=== PATIENT | female | born 1935 | race Caucasian/White ===

== ENCOUNTER → 2016-05-21 | Outpatient (REF) | payer MEDICARE, BC ==
[2016-05-21 12:12] LABS: ANION GAP 9 MEQ/L (8-16); BLOOD UREA NITROGEN 13 MG/DL (7-18); CALCIUM LEVEL 9.1 MG/DL (8.8-10.2); CARBON DIOXIDE LEVEL 30 MEQ/L (21-32); CHLORIDE LEVEL 106 MEQ/L (98-107); CREATININE FOR GFR 0.61 MG/DL (0.55-1.02); GLOMERULAR FILTRATION RATE > 60.0 (>39); GLUCOSE, FASTING 99 MG/DL (83-110); POTASSIUM SERUM 3.9 MEQ/L (3.5-5.1); SODIUM LEVEL 145 MEQ/L (136-145)
== END ==
LOC: M SFHCPLAZ 08:46
PROVIDERS: ATTEND Family Medicine
DX: E03.9 Hypothyroidism, unspecified (principal); I10 Essential (primary) hypertension
CPT/HCPCS: 36415; 80048; 84439; 84443; G0463

== ENCOUNTER → 2016-07-04 | Outpatient (REF) | payer MEDICARE, BC | LOC: M SFHCPLAZ 08:52 | PROVIDERS: ATTEND Family Medicine | DX: E03.9 Hypothyroidism, unspecified (principal) ==

== ENCOUNTER → 2016-12-26 | Outpatient (REF) | payer MEDICARE, BC ==
[2016-12-26 13:53] LABS: ANION GAP 11 MEQ/L (8-16); BLOOD UREA NITROGEN 12 MG/DL (7-18); CALCIUM LEVEL 8.9 MG/DL (8.8-10.2); CARBON DIOXIDE LEVEL 26 MEQ/L (21-32); CHLORIDE LEVEL 107 MEQ/L (98-107); CREATININE FOR GFR 0.67 MG/DL (0.55-1.02); GLOMERULAR FILTRATION RATE > 60.0 (>32); GLUCOSE, FASTING 91 MG/DL (83-110); POTASSIUM SERUM 4.5 MEQ/L (3.5-5.1); SODIUM LEVEL 144 MEQ/L (136-145)
== END ==
LOC: M SFHCPLAZ 10:49
PROVIDERS: ATTEND Family Medicine
DX: I10 Essential (primary) hypertension (principal); E03.9 Hypothyroidism, unspecified
CPT/HCPCS: 36415; 80048; 84443; G0463

== ENCOUNTER → 2017-12-07 | Outpatient (REF) | payer MEDICARE, BC ==
[2017-12-07 17:26] LABS: ANION GAP 12 MEQ/L (8-16); BLOOD UREA NITROGEN 18 MG/DL (7-18); CALCIUM LEVEL 9.4 MG/DL (8.8-10.2); CARBON DIOXIDE LEVEL 25 MEQ/L (21-32); CHLORIDE LEVEL 108 MEQ/L (98-107); CREATININE FOR GFR 0.79 MG/DL (0.55-1.30); FREE T4 1.08 NG/DL (0.76-1.46); GLOMERULAR FILTRATION RATE > 60.0 (>32); GLUCOSE, FASTING 89 MG/DL (70-100); POTASSIUM SERUM 4.2 MEQ/L (3.5-5.1); SODIUM LEVEL 145 MEQ/L (136-145)
== END ==
LOC: M SFHCPLAZ 14:10
DX: E03.9 Hypothyroidism, unspecified (principal); I10 Essential (primary) hypertension
CPT/HCPCS: 84443

== ENCOUNTER → 2018-11-03 | Outpatient (REF) | payer MEDICARE, BC ==
[2018-11-03 12:41] LABS: BLOOD UREA NITROGEN 14 MG/DL (7-18); CARBON DIOXIDE LEVEL 28 MEQ/L (21-32); CHLORIDE LEVEL 108 MEQ/L (98-107); CREATININE FOR GFR 0.59 MG/DL (0.55-1.30); FREE T4 1.36 NG/DL (0.76-1.46); GLOMERULAR FILTRATION RATE > 60.0 (>32); GLUCOSE, FASTING 97 MG/DL (70-100); POTASSIUM SERUM 3.9 MEQ/L (3.5-5.1); SODIUM LEVEL 141 MEQ/L (136-145)
[2018-11-03 13:00] LABS: CREATININE, URINE 85.1 MG/DL; MALB URINE SIEMENS 14.3 MG/L; MAU/CREAT RATIO 16.8 MCG/MG (0.0-30.0)
== END ==
LOC: M SFHCPLAZ 09:55
PROVIDERS: ATTEND Family Medicine
DX: E03.9 Hypothyroidism, unspecified (principal); I10 Essential (primary) hypertension

== ENCOUNTER → 2018-12-30 | Outpatient (REF) | payer MEDICARE, BC ==
[2018-12-30 12:30] LABS: FREE T4 0.98 NG/DL (0.76-1.46); THYROID STIMULATING HORMONE 1.65 uIU/ML (0.358-3.740)
== END ==
LOC: M SFHCPLAZ 09:51
PROVIDERS: ATTEND Family Medicine
DX: E03.9 Hypothyroidism, unspecified (principal)

== ENCOUNTER → 2019-11-22 | Outpatient (REF) | payer MEDICARE, BC ==
[2019-11-22 17:26] LABS: BLOOD UREA NITROGEN 13 MG/DL (7-18); CALCIUM LEVEL 9.3 MG/DL (8.8-10.2); CARBON DIOXIDE LEVEL 27 MEQ/L (21-32); CHLORIDE LEVEL 105 MEQ/L (98-107); CREATININE FOR GFR 0.66 MG/DL (0.55-1.30); GLOMERULAR FILTRATION RATE > 60.0 (>32); GLUCOSE, FASTING 81 MG/DL (70-100); POTASSIUM SERUM 4.2 MEQ/L (3.5-5.1); SODIUM LEVEL 140 MEQ/L (136-145)
== END ==
LOC: M SFHCPLAZ 14:20
PROVIDERS: ATTEND Family Medicine
DX: I10 Essential (primary) hypertension (principal); E03.9 Hypothyroidism, unspecified

== ENCOUNTER → 2020-01-25 | Outpatient (CLI) | payer MEDICARE, BC | LOC: M PLALAB 10:11 | PROVIDERS: ATTEND Family Medicine | DX: E03.9 Hypothyroidism, unspecified (principal) ==

== ENCOUNTER → 2020-04-23 | Outpatient (REF) | payer MEDICARE, BC ==
[2020-04-23 14:08] LABS: BLOOD UREA NITROGEN 9 MG/DL (7-18); CALCIUM LEVEL 9.9 MG/DL (8.8-10.2); CARBON DIOXIDE LEVEL 31 MEQ/L (21-32); CHLORIDE LEVEL 106 MEQ/L (98-107); CREATININE FOR GFR 0.67 MG/DL (0.55-1.30); GLOMERULAR FILTRATION RATE > 60.0 (>32); GLUCOSE, FASTING 100 MG/DL (70-100); POTASSIUM SERUM 4.5 MEQ/L (3.5-5.1); SODIUM LEVEL 140 MEQ/L (136-145)
== END ==
LOC: M SFHCPLAZ 08:26
PROVIDERS: ATTEND Family Medicine
DX: E03.9 Hypothyroidism, unspecified (principal); I10 Essential (primary) hypertension
CPT/HCPCS: 36415; 80048; 84443; G0463

== ENCOUNTER → 2020-11-19 | Outpatient (CLI) | payer MEDICARE, BC ==
[2020-11-19 15:55] LABS: HEMATOCRIT 26.8 % (36.0-47.0); HEMOGLOBIN 8.7 g/dl (12.0-15.5); MEAN CORPUSCULAR HEMOGLOBIN 32.1 pg (27.0-33.0); MEAN CORPUSCULAR HGB CONC 32.5 g/dl (32.0-36.5); MEAN CORPUSCULAR VOLUME 98.9 fl (80.0-96.0); PLATELET COUNT, AUTOMATED 277 10^3/uL (150-450); RED BLOOD COUNT 2.71 10^6/uL (4.00-5.40); WHITE BLOOD COUNT 4.9 10^3/uL (4.0-10.0)
[2020-11-19 16:30] LABS: BLOOD UREA NITROGEN 16 MG/DL (7-18); CALCIUM LEVEL 8.8 MG/DL (8.8-10.2); CARBON DIOXIDE LEVEL 28 MEQ/L (21-32); CHLORIDE LEVEL 110 MEQ/L (98-107); CREATININE FOR GFR 0.67 MG/DL (0.55-1.30); GLOMERULAR FILTRATION RATE > 60.0 (>32); GLUCOSE, FASTING 95 MG/DL (70-100); POTASSIUM SERUM 3.8 MEQ/L (3.5-5.1); SODIUM LEVEL 146 MEQ/L (136-145)
== END ==
LOC: M PLALAB 12:29
PROVIDERS: ATTEND Family Medicine
DX: E03.9 Hypothyroidism, unspecified (principal); I48.0 Paroxysmal atrial fibrillation; I25.10 Atherosclerotic heart disease of native coronary artery without angina pectoris; I10 Essential (primary) hypertension

== ENCOUNTER → 2020-11-21 | Outpatient (CLI) | payer MEDICARE, BC ==
[2020-11-21 13:48] LABS: HEMATOCRIT 27.8 % (36.0-47.0); HEMATOCRIT 28.2 % (36.0-47.0); HEMOGLOBIN 8.8 g/dl (12.0-15.5); MEAN CORPUSCULAR HEMOGLOBIN 31.7 pg (27.0-33.0); MEAN CORPUSCULAR HGB CONC 31.7 g/dl (32.0-36.5); PLATELET COUNT, AUTOMATED 279 10^3/uL (150-450); RED BLOOD COUNT 2.78 10^6/uL (4.00-5.40); WHITE BLOOD COUNT 5.8 10^3/uL (4.0-10.0)
[2020-11-21 14:21] LABS: PERCENT SATURATION 13.2 % (13.2-45.0)
[2020-11-24 11:20] LABS: Methylmalonic Acid 122 nmol/L (0-378); TRANSFERRIN 220 mg/dL (149-313)
== END ==
LOC: M PLALAB 09:13
PROVIDERS: ATTEND Family Medicine
DX: D53.9 Nutritional anemia, unspecified (principal)

== ENCOUNTER → 2020-11-22 | Outpatient (REF) | payer MEDICARE, BC | LOC: M LAB REF 09:10 | PROVIDERS: ATTEND Family Medicine | DX: D53.9 Nutritional anemia, unspecified (principal) ==

== ENCOUNTER → 2020-11-26 | Outpatient (CLI) | payer MEDICARE, BC ==
[2020-11-26 13:36] LABS: HEMATOCRIT 27.1 % (36.0-47.0); HEMOGLOBIN 8.6 g/dl (12.0-15.5); MEAN CORPUSCULAR HEMOGLOBIN 31.5 pg (27.0-33.0); MEAN CORPUSCULAR HGB CONC 31.7 g/dl (32.0-36.5); MEAN CORPUSCULAR VOLUME 99.3 fl (80.0-96.0); PLATELET COUNT, AUTOMATED 283 10^3/uL (150-450); RED BLOOD COUNT 2.73 10^6/uL (4.00-5.40); WHITE BLOOD COUNT 4.8 10^3/uL (4.0-10.0)
[2020-11-26 14:12] LABS: H PYLORI QUALITATIVE IgG NEGATIVE (NEGATIVE)
== END ==
LOC: M PLALAB 11:24
PROVIDERS: ATTEND Family Medicine
DX: K92.2 Gastrointestinal hemorrhage, unspecified (principal)

== ENCOUNTER → 2020-12-03 | Outpatient (CLI) | payer MEDICARE, BC ==
[2020-12-03 12:58] LABS: HEMOGLOBIN 9.7 g/dl (12.0-15.5); MEAN CORPUSCULAR HEMOGLOBIN 31.6 pg (27.0-33.0); MEAN CORPUSCULAR HGB CONC 31.3 g/dl (32.0-36.5); PLATELET COUNT, AUTOMATED 302 10^3/uL (150-450); RED BLOOD COUNT 3.07 10^6/uL (4.00-5.40); WHITE BLOOD COUNT 5.4 10^3/uL (4.0-10.0)
== END ==
LOC: M PLALAB 12:01
PROVIDERS: ATTEND Family Medicine
DX: D53.9 Nutritional anemia, unspecified (principal)
CPT/HCPCS: 36415; 85027; 96372; G0463; J3420

== ENCOUNTER → 2020-12-10 | Outpatient (CLI) | payer MEDICARE, BC ==
[2020-12-10 14:36] LABS: HEMATOCRIT 33.9 % (36.0-47.0); HEMOGLOBIN 10.7 g/dl (12.0-15.5); MEAN CORPUSCULAR HGB CONC 31.6 g/dl (32.0-36.5); MEAN CORPUSCULAR VOLUME 101.5 fl (80.0-96.0); PLATELET COUNT, AUTOMATED 281 10^3/uL (150-450); RED BLOOD COUNT 3.34 10^6/uL (4.00-5.40); WHITE BLOOD COUNT 5.3 10^3/uL (4.0-10.0)
== END ==
LOC: M PLALAB 11:43
PROVIDERS: ATTEND Family Medicine
DX: E53.8 Deficiency of other specified B group vitamins (principal)
CPT/HCPCS: 36415; 85027; 96372; J3420

== ENCOUNTER → 2021-01-30 | Outpatient (CLI) | payer MEDICARE, BC ==
[2021-01-30 17:08] LABS: HEMOGLOBIN 11.3 g/dl (12.0-15.5); MEAN CORPUSCULAR HEMOGLOBIN 30.4 pg (27.0-33.0); MEAN CORPUSCULAR HGB CONC 32.3 g/dl (32.0-36.5); MEAN CORPUSCULAR VOLUME 94.1 fl (80.0-96.0); PLATELET COUNT, AUTOMATED 297 10^3/uL (150-450); RED BLOOD COUNT 3.72 10^6/uL (4.00-5.40); WHITE BLOOD COUNT 5.6 10^3/uL (4.0-10.0)
[2021-01-30 17:32] LABS: PERCENT SATURATION 46.2 % (13.2-45.0)
== END ==
LOC: M PLALAB 14:37
PROVIDERS: ATTEND Family Medicine
DX: E53.8 Deficiency of other specified B group vitamins (principal); D50.0 Iron deficiency anemia secondary to blood loss (chronic)

== ENCOUNTER → 2021-02-18 | Outpatient (CLI) | payer MEDICARE, BC ==
[~2021-02-18] MED LIST: LIQUID POLIBAR PLUS 105% w/v 750ML BTL As Ordered ONE
--- NOTE | 2021-02-18 17:06 | REP ---
INDICATION: HEMORRHAGE. COMPARISON: None TECHNIQUE: The procedure was performed by MARK Fuchs, under the direct supervision of Dr. Mohamud. The images were reviewed with Dr. Dr. Mohamud. Liquid barium and air were instilled into the colon and retrograde flow of the barium air mixture. FINDINGS: The environmental epidemiologist film shows no organomegaly, or pathological masses. The intestinal gas pattern is unremarkable. The colon is normal in position and contour. There are redundant loops of the left transverse and sigmoid colon. Haustral pattern is unremarkable throughout. There is free flow of contrast to the cecum. The colon is normal in course and caliber. There is no annular constricting lesion identified. There are no polypoid masses identified. There is diverticulosis. IMPRESSION: Diverticulosis. 0.5 minutes of fluoroscopy time was utilized for this procedure. Some fluoroscopic images are performed with last image hold technology. These images require no additional radiation <Electronically signed by Kourtney Lei > 02/18/21 [id number] <Electronically signed by Wilton Mohamud > 02/18/21 1700
== END ==
LOC: M RAD 08:52
PROVIDERS: ATTEND Family Medicine
DX: K92.2 Gastrointestinal hemorrhage, unspecified (principal); K57.30 Diverticulosis of large intestine without perforation or abscess without bleeding

== ENCOUNTER → 2021-02-22 | Outpatient (CLI) | payer MEDICARE, BC ==
[2021-02-22 15:37] LABS: HEMATOCRIT 34.4 % (36.0-47.0); HEMOGLOBIN 10.9 g/dl (12.0-15.5); MEAN CORPUSCULAR HEMOGLOBIN 29.5 pg (27.0-33.0); MEAN CORPUSCULAR HGB CONC 31.7 g/dl (32.0-36.5); PLATELET COUNT, AUTOMATED 267 10^3/uL (150-450); WHITE BLOOD COUNT 6.1 10^3/uL (4.0-10.0)
[2021-02-22 15:57] LABS: FERRITIN 10 NG/ML (8-252); IRON (FE) 33 UG/DL (50-170); PERCENT SATURATION 9.2 % (13.2-45.0); TOTAL IRON BINDING CAPACITY 357 UG/DL (250-450)
[2021-02-22 16:03] LABS: VITAMIN B12 LEVEL > 2000 PG/ML (247-911)
== END ==
LOC: M PLALAB 11:12
PROVIDERS: ATTEND Family Medicine
DX: E53.8 Deficiency of other specified B group vitamins (principal); D50.0 Iron deficiency anemia secondary to blood loss (chronic)
CPT/HCPCS: 36415; 82607; 82728; 83550; 85027; 96372; J3420

== ENCOUNTER → 2021-02-26 | Outpatient (CLI) | payer MEDICARE, BC ==
[~2021-02-26] MED LIST changes: +E-Z-GAS II EFFERVESCENT PACKET (SODIUM BICARB./CITRIC ACID/SIMETHICONE) As Ordered ONE; +E-Z-HD 98% w/w 340GM SUSP BTL As Ordered ONE; +E-Z-PAQUE 96% w/w SUSP 176GM BTL As Ordered ONE; -LIQUID POLIBAR PLUS 105% w/v 750ML BTL As Ordered ONE
--- NOTE | 2021-02-26 17:19 | REP ---
INDICATION: GASTRO INTESTINAL HEMORRHAGE UNSPEC. COMPARISON: None TECHNIQUE: This procedure was performed by MARK Alves, under the direct supervision of Dr. Mohamud. Images were reviewed with Dr. Mohamud prior to dictation. Liquid barium and gas producing crystals were given in the erect position, as well as liquid barium in the prone oblique position in order to perform a double contrast upper GI examination. Additional liquid barium was given at the end of the examination in order to perform a small-bowel follow-through. FINDINGS: The body art technician film shows no organomegaly or pathological masses. The intestinal gas pattern is unremarkable. The oral and pharyngeal stages of deglutition were unremarkable. Esophageal transport is prompt and efficient and there is no evidence of esophagitis, stricture, or mucosal ring. There is no evidence of a hiatal hernia. . The stomach wynn are normally outlined. The rugal folds are smooth and regular. There is no gastritis, neoplasm, or ulcerative disease. Gastroesophageal reflux was observed to below the level of the spencer. The duodenal wynn are normally outlined. The mucosal folds are smooth and regular. There is no duodenitis, peptic ulcer disease or neoplasm. There is a small diverticulum in the transverse portion of the duodenum. There is another larger diverticulum in the 3rd portion of the duodenum. The visualized portion of the proximal small bowel appears normal in course and caliber. The barium column was followed through the small bowel to the level of the terminal ileum. Small bowel transit time is approximately 100 minutes. During fluoroscopy gentle palpation shows all loops are freely movable and pliable. There is no fixed angulated loops. The small bowel mucosal pattern is normal in course and caliber. There is no transition to suggest a partial small bowel obstruction. Spot filming of the terminal ileum shows scattered small diverticula but it is otherwise unremarkable. IMPRESSION: Gastroesophageal reflux was observed below the level of the spencer. There are 2 diverticula in the duodenum. One smaller diverticulum in the transverse portion of the duodenum. One larger-sized diverticulum in the 3rd portion of the duodenum. Small bowel transit time was approximately 100 minutes spot filming of the terminal ileum shows scattered small diverticula but is otherwise unremarkable. 2.6 minutes of fluoroscopy time was utilized for this procedure. Some fluoroscopic images are performed with last image hold technology. These images require no additional radiation. <Electronically signed by Mechelle Mosqueda > 02/26/21 1632 <Electronically signed by Wilton Mohamud > 02/26/21 [id number]
== END ==
LOC: M RAD 08:02
PROVIDERS: ATTEND Family Medicine
DX: K92.2 Gastrointestinal hemorrhage, unspecified (principal); K21.9 Gastro-esophageal reflux disease without esophagitis; K57.10 Diverticulosis of small intestine without perforation or abscess without bleeding

== ENCOUNTER → 2021-03-25 | Outpatient (CLI) | payer MEDICARE, BC ==
[2021-03-25 10:09] LABS: HEMATOCRIT 36.8 % (36.0-47.0); HEMOGLOBIN 11.7 g/dl (12.0-15.5); MEAN CORPUSCULAR HEMOGLOBIN 29.9 pg (27.0-33.0); MEAN CORPUSCULAR HGB CONC 31.8 g/dl (32.0-36.5); MEAN CORPUSCULAR VOLUME 94.1 fl (80.0-96.0); PLATELET COUNT, AUTOMATED 267 10^3/uL (150-450); RED BLOOD COUNT 3.91 10^6/uL (4.00-5.40)
[2021-03-25 10:53] LABS: THYROID STIMULATING HORMONE 2.77 uIU/ML (0.358-3.740)
== END ==
LOC: M PLALAB 08:53
PROVIDERS: ATTEND Family Medicine
DX: E03.9 Hypothyroidism, unspecified (principal); E53.8 Deficiency of other specified B group vitamins

== ENCOUNTER → 2021-04-19 | Outpatient (CLI) | payer MEDICARE, BC ==
[2021-04-19 17:04] LABS: BASO # 0.1 10^3/uL (0.0-0.2); BASO % 0.7 % (0.0-1.0); EOS # 0.1 10^3/uL (0.0-0.5); EOS % 1.8 % (0.0-3.0); HEMATOCRIT 35.1 % (36.0-47.0); HEMOGLOBIN 11.5 g/dl (12.0-15.5); LYMPH # 2.2 10^3/uL (1.5-5.0); LYMPH % 30.6 % (24.0-44.0); MEAN CORPUSCULAR HEMOGLOBIN 30.6 pg (27.0-33.0); MEAN CORPUSCULAR HGB CONC 32.8 g/dl (32.0-36.5); MEAN CORPUSCULAR VOLUME 93.4 fl (80.0-96.0); MONO # 0.8 10^3/uL (0.0-0.8); NEUTROPHILS # 3.9 10^3/uL (1.5-8.5); NEUTROPHILS % 55.5 % (36.0-66.0); PLATELET COUNT, AUTOMATED 253 10^3/uL (150-450); RED BLOOD COUNT 3.76 10^6/uL (4.00-5.40); WHITE BLOOD COUNT 7.1 10^3/uL (4.0-10.0)
== END ==
LOC: M PLALAB 15:43
PROVIDERS: ATTEND Physician Assistant
DX: S40.021A Contusion of right upper arm, initial encounter (principal); X58.XXXA Exposure to other specified factors, initial encounter; Y92.89 Other specified places as the place of occurrence of the external cause; Y93.89 Activity, other specified; Y99.8 Other external cause status

== ENCOUNTER 2021-04-22 10:31 | Emergency (ER) | payer MEDICARE, BC ==
[~2021-04-22] VITALS: Ht 154.9 cm; Wt 59.1 kg
--- OUTSIDE RECORDS SUMMARY | 2021-04-22 10:39 | CCD ---
Author Author [facility] Organization [facility] Address Unknown Phone Unavailable Care Team Providers Care Machine Repairman Name Role Phone Andry Moose Unavailable PROBLEMS Type Condition ICD9-CM Code [id number] Code Onset Dates Condition S tatus W/U Status Risk SNOMED Code Notes Problem Essential hypertension I10 Active confirmed 11022626 Problem Vitamin B12 deficiency E53.8 Active confirmed 249082761 Problem Iron deficiency anemia due to chronic blood loss D 50.0 Active confirmed 498459117 Problem Hypothyroidism, unspecified type E03.9 Active conf irmed 11093139 Problem Coronary artery disease invo [place]ving [place] coronary artery of [place] heart without angina pectoris I25.10 Active confirmed 543163 000 Problem Paroxysmal atrial fibrillation I48.0 Active confir med 093122204 Problem Mixed hyperlipidemia E78.2 Active confirmed 446043954 ALLERGIES Allergen (clinical drug ingredient) Drug/Non Drug Allergy do cumented on EMR Reaction Allergy Type Onset Date Status Sulfasalazine Sulfa Antibiotics Rash Drug Allergy Ac tive ENCOUNTERS from 1936 to 2021-04-16 Encounter Location Date Provider Diagnosis [address] [phone] [place] [address] 07 Apr, 2021 oMose Wilde Vitamin B12 deficiency E53.8 IMMUNIZATIONS Vaccine Route Administration Date Status COVID-19 dose #2 given elsewhere Unspecified Unknown Oct Administered COVID-19 dose #1 given elsewhere Unspecified Unknown Oct Administered Influenza (High Dose 65 & up) Unknown Apr 29, 2017 Ot hers Influenza 6mo & up Fluzone Unknown May 21, 2016 Other s SOCIAL HISTORY Tobacco Use: Social History Observation Description Date Details (start date - stop date) Former Smoker Sex Assigned At : Social History Observation Description Sex Assigned At Unknown Education: Question Answer Notes Level of Education: Finished College Audit Question Answer Notes Total Score: 0 Interpretation: Alcohol Education Language: Question Answer Notes Languages spoken: Icelandic Scientologist: Question Answer Notes Scientologist 21 Religious Domestic Violence: Question Answer Notes Status: Sexual Hx: Question Answer Notes Had sex in the last 12 months (vaginal, oral, or anal)? No Have you ever had an STD? No Drug and Alcohol Question Answer Notes Total Score: 0 Interpretation: No problems reported Alcohol Screening: Question Answer Notes Did you have a drink containing alcohol in the past year? No Points 0 Interpretation Negative Tobacco Use: Question Answer Notes Are you a: former smoker How long has it been since you last smoked? > 10 years REASON FOR REFERRAL No Information VITAL SIGNS No information MEDICATIONS Medication SIG (Take, Route, Frequency, Duration) Notes Start Da te End Date Status Rosuvastatin Calcium 20 MG 1 tablet Orally Once a day for 90 day (s) Mar, Active Clopidogrel Bisulfate 75 MG 1 tablet Orally Once a day for 90 days Active Amlodipine Besylate 10 MG TAKE ONE TABLET BY MOUTH EVERY DAY Orally Active Ferrous Sulfate 325 (65 Fe) MG 1 tablet Orally Once a day Nov, Active Eliquis 5 MG 1 tab Orally twice daily for 90 days Active Lisinopril 30 MG TAKE ONE TABLET BY MOUTH EVERY DAY for 90 Active Fluticasone Propionate 50 MCG/ACT 1 spray in each nostril Nasall y Once a day Nov, Active Atenolol 100 mg 1 tablet Orally Daily for 90 days Active Synthroid 88 MCG 1 tablet in the morning on a n empty stomach Orally Once a day; BETHANY Apr, Active PROCEDURES No Information RESULTS No Results REASON FOR VISIT No Information MEDICAL (GENERAL) HISTORY Type Description Date Medical History Hypothyroidism Medical History Hypertension Medical History Urinary incontinence with bl adder prolapse - has Dr. Mandi jara Medical History Derm - annual skin check at [facility] Medical History NSTEMI 10/2020 and 4 stents placed - [facility] Medical History P A-fib with RVR 10/29 Medical History [facility] - has hearing aids Surgical History Hysterectomy for heavy bleeding 1992 Surgical History Surgery to "remove cysts around intestin es" 1966 Surgical History cardiac cath with drug eluting stents x 4 10/29 Goals Section No Information Health Concerns No Information MEDICAL EQUIPMENT No Information MENTAL STATUS No Information FUNCTIONAL STATUS No Information ASSESSMENTS Encounter Date Diagnosis Assessment Notes Treatment Notes Treatm ent Clinical Notes Apr, Vitamin B12 deficiency (ICD-10 - E53.8) PLAN OF TREATMENT Medication Medication Name Sig Start Date Stop Date Ferrous Sulfate 325 (65 Fe) MG 1 tablet Orally Once a day Nov Rosuvastatin Calcium 20 MG 1 tablet Orally Once a day for 90 day(s) Mar, Synthroid 88 MCG 1 tablet in the morning on a n empty stomach Orally Once a day; BETHANY Apr, Pending Tests Test Name Order Date Med: Vitamin B-12 1000mcg/1mL SC Cyanocobalamin 2020-05 2-07 Next Appt Details Provider Name:Nora Perkins, 2021-05-07 08:00:00 AM, [address] [place], [place] [id number], [place], [address], Provider Name:Nora Perkins, 2021-05-28 08:00:00 AM, [address] [place] [id number], [place], [address], Provider Name:Nora Perkins, 2021-06-11 08:00:00 AM, [address] [place] [id number], [place], [address], Insurance Providers Payer Name Payer Address Payer Phone Insured Name Patient Relati onship to Insured Coverage Start Date Coverage End Date Subscriber Number Group Nu mber MEDICARE Part A and B [address] [facility] [phone] NEVAEH COVINGTON self [id number] [facility] [phone] [place] [id number] NEVAEH COVINGTON self [id number]
--- OUTSIDE RECORDS SUMMARY | 2021-04-22 10:39 | CCD ---
Author Author [facility] Organization [facility] Address Unknown Phone Unavailable Care Team Providers Care Simplex Printer Installer Name Role Phone Nora Perkins Unavailable PROBLEMS Type Condition ICD9-CM Code [id number] Code Onset Dates Condition S tatus W/U Status Risk SNOMED Code Notes Problem Essential hypertension I10 Active confirmed 69356307 Problem Vitamin B12 deficiency E53.8 Active confirmed 214525896 Problem Iron deficiency anemia due to chronic blood loss D 50.0 Active confirmed 195446173 Problem Hypothyroidism, unspecified type E03.9 Active conf irmed 13260555 Problem Coronary artery disease invo lving [place] coronary artery of [place] heart without angina pectoris I25.10 Active confirmed 021180 000 Problem Paroxysmal atrial fibrillation I48.0 Active confir med 248453900 Problem Mixed hyperlipidemia E78.2 Active confirmed 518766586 ALLERGIES Allergen (clinical drug ingredient) Drug/Non Drug Allergy do cumented on EMR Reaction Allergy Type Onset Date Status Sulfasalazine Sulfa Antibiotics Rash Drug Allergy Ac tive ENCOUNTERS from 1936 to 2021-04-16 Encounter Location Date Provider Diagnosis [address] [phone] [place] [address] 07 Apr, 2021 Nora Perkins Vitamin B12 deficiency E53.8 IMMUNIZATIONS Vaccine Route [...] Education Language: Question Answer Notes Languages spoken: Australian Yazidism: Question Answer Notes Yazidism 21 Zoroastrian Domestic Violence: Question Answer Notes Status: Sexual [...] Once a day; BETHANY Apr, Active PROCEDURES from 1936 to 2021-04-16 Procedure Date Ordered Date Performed Result Body Site Med: Vitamin B-12 1000mcg/1mL IM Cyanocobalamin 2021-04-16 N/A RESULTS No Results REASON FOR VISIT NV in 3 weeks B12 MEDICAL (GENERAL) HISTORY Type Description Date Medical History Hypothyroidism Medical History Hypertension Medical History Urinary incontinence with bl adder prolapse - has pessary, Dr. Raymond Medical History Derm - annual skin check at [facility] Medical History NSTEMI 10/2020 and [facility] stents [address] - [facility] Medical History P A-fib with RVR 10/29 Medical History [place] - has hearing aids Surgical History Hysterectomy [...] stomach Orally Once a day; BETHANY Apr, Next Appt Details Provider Name:Nora Perkins, 2021-05-07 08:00:00 AM, [address] [place], [place] [id number], [place], [address], Provider Name:Nora Perkins, 2021-05-28 08:00:00 AM, [address] [place], [place] [id number], [place], [address], Provider Name:Nora Perkins, 2021-06-11 08:00:00 AM, [address] [place], [place] [id number], [place], [address], Insurance Providers Payer Name Payer Address Payer Phone Insured Name Patient Relati onship to Insured Coverage Start Date Coverage End Date Subscriber Number Group Nu mber MEDICARE Part A and B [address] [facility] [phone] NEVAEH COVINGTON self [id number] [facility] [phone] [place] [address] NEVAEH COVINGTON self [id number]
--- OUTSIDE RECORDS SUMMARY | 2021-04-22 10:39 | CCD ---
Author Author [facility] Organization [facility] Address Unknown Phone Unavailable Care Team Providers Care Supervisor Drapery Hanging Name Role Phone Nora Perkins Unavailable PROBLEMS Type Condition ICD9-CM Code [id number] Code Onset Dates Condition S tatus W/U Status Risk SNOMED Code Notes Problem Essential hypertension I10 Active confirmed 66450242 Problem Vitamin B12 deficiency E53.8 Active confirmed 328976578 Problem Iron deficiency anemia due to chronic blood loss D 50.0 Active confirmed 378909729 Problem Hypothyroidism, unspecified type E03.9 Active conf irmed 38584484 Problem Coronary artery disease invo lving [place] coronary artery of [place] heart without angina pectoris I25.10 Active confirmed 477708 000 Problem Paroxysmal atrial fibrillation I48.0 Active confir med 363062619 Problem Mixed hyperlipidemia E78.2 Active confirmed 464804706 ALLERGIES Allergen (clinical drug ingredient) Drug/Non Drug Allergy do cumented on EMR Reaction Allergy Type Onset Date Status Sulfasalazine Sulfa Antibiotics Rash Drug Allergy Ac tive ENCOUNTERS from 1936 to 2021-03-27 Encounter Location Date Provider Diagnosis [place] [id number] [facility] [phone] [place] [address] 16 Mar, 2021 Nora Perkins Iron deficiency anemia due t o chronic blood loss D50.0 ; Vitamin B12 deficiency E53.8 ; Hypothyroidism, unspecified type E03.9 ; Hair loss L65.9 ; Coronary artery disease involving [place] coronary artery of [place] heart without angina pectoris I25.10 ; Mixed hyperlipidemia E78.2 and Paroxysmal atrial fibrillation I48.0 IMMUNIZATIONS Vaccine Route Administration Date Status COVID-19 [...] Education Language: Question Answer Notes Languages spoken: Turkmen Synagogue: Question Answer Notes Synagogue 21 Yazdanism Domestic Violence: Question Answer Notes Status: Sexual [...] REASON FOR REFERRAL No Information VITAL SIGNS Weight 133.8 lbs Mar, Height 62 in Mar, BMI 24.47 kg/m2 Mar, Heart Rate 82 /min Mar, Respiratory Rate 18 /min Mar, Temperature 98.0 degrees Fahrenheit Mar, Oximetry 98% Mar, Blood pressure systolic 130 mm Hg Mar, Blood pressure diastolic 76 mm Hg Mar, MEDICATIONS Medication SIG (Take, Route, Frequency, Duration) [...] empty stomach Orally Once a day; BETHANY 14 Apr, 2020 Active PROCEDURES from 1936 to 2021-03-27 Procedure Date Ordered Result Body Site Med: Vitamin B-12 1000mcg/1mL IM Cyanocobalamin 2021-03-26 N/A RESULTS No Results REASON FOR VISIT F/u anemia, B12 deficiency MEDICAL (GENERAL) HISTORY Type Description Date Medical History Hypothyroidism Medical History Hypertension Medical History Urinary incontinence with bl adder prolapse - has Dr. Mandi jara Medical History Derm - annual skin check at [facility] Medical History NSTEMI 10/2020 and [facility] [address] [facility] Medical History P A-fib with RVR 10/[address] [facility] - has hearing aids Surgical History Hysterectomy for heavy bleeding 1992 Surgical History Surgery to "remove cysts around intestin es" 1965 Surgical History cardiac cath with drug eluting stents x 4 10/29 Goals Section No Information Health Concerns No Information MEDICAL EQUIPMENT No Information MENTAL STATUS No Information FUNCTIONAL STATUS No Information ASSESSMENTS Encounter Date Diagnosis Assessment Notes Treatment Notes Treatm ent Clinical Notes Mar, Iron deficiency anemia due to chronic bl ood loss (ICD-10 - D50.0) Anemia has been improving since receiving iron and SQ B12, and since aspirin was stopped over the summer. Mar, Vitamin B12 deficiency (ICD-10 - E53.8) B12 remains in low-normal range with B12 [id number], so will increase to [id number]. Mar, Hypothyroidism, unspecified type (ICD-10 - E03.9 ) TSH was normal; results d/w patient Mar, Hair loss (ICD-10 - L65.9) Recent TSH was normal. Likely telogen effluvium from acute illness in September-October, and may also be related to to iron deficiency. I advised this should likely improve. Mar, Coronary artery disease invo lving [place] coronary artery of [place] heart without angina pectoris (ICD-10 - I25.10) She gets left arm pain when she has afib; I encouraged her to take nitroglycerin for chest or left arm pain PRN. 16 Mar, 2021 Mixed hyperlipidemia (ICD-10 - E78.2) Change to rosuvastatin as she hopes to be able to swallow this better. Mar, Paroxysmal atrial fibrillation (ICD-10 - I48.0) I strongly encouraged her to call Dr. Burrell's office regarding scheduling of her ablation due to frequent afib episodes with arm pain; regular rhythm on exam today. PLAN OF TREATMENT Medication Medication Name Sig Start Date Stop Date Ferrous Sulfate 325 (65 Fe) MG 1 tablet Orally Once a day Nov Rosuvastatin Calcium 20 MG 1 tablet Orally Once a day for 90 day(s) Mar, Synthroid 88 MCG 1 tablet in the morning on a n empty stomach Orally Once a day; BETHANY 14 Apr, 2020 Treatment Notes Assessment Notes Clinical Notes Iron deficiency anemia due to chronic blood loss Anemia has been improving since receiving iron and SQ B12, and since aspirin was stopped over the summer. Vitamin B12 deficiency B12 remains in lo w-normal range with B12 [id number], so will increase to O8xjfxv. Hypothyroidism, unspecified type TSH was normal; results d/w patient Hair loss Recent TSH was chris l. Likely telogen effluvium from acute illness in September-October, and may also be related to to iron deficiency. I advised this should likely improve. Coronary artery disease involving [place] coronary artery of [place] heart without angina pectoris She gets left arm pain when she has afib; I encouraged her to take nitroglycerin for chest or left arm pain PRN. Mixed hyperlipidemia Change to rosuvasta tin as she hopes to be able to swallow this better. Paroxysmal atrial fibrillation I strongl y encouraged her to call Dr. Burrell's office regarding scheduling of her ablation due to frequent afib episodes with arm pain; regular rhythm on exam today. Next Appt Details NV in 3 weeks, 6 weeks, 9 weeks for B12 injection; Appt with Dr. Perkins in 12 weeks for anemia/B12 Reason: Provider Name:Nora Perkins, 2021-04-16 08:00:00 AM, [address] [place] [address], , [place], [address], Provider Name:Nora Perkins, 2021-05-07 08:00:00 AM, [address] [facility], , [place], [address], Provider Name:Nora Perkins, 2021-05-28 08:00:00 AM, [address] [facility], , [place], [address], Provider Name:Nora Perkins, 2021-06-11 08:00:00 AM, [address] [facility], , [place], [address], Insurance Providers Payer Name Payer Address Payer Phone Insured Name Patient Relati onship to Insured Coverage Start Date Coverage End Date [facility] [phone] [place] [phone] NEVAEH COVINGTON MEDICARE Part A and B [address] [facility] [id number] [phone] NEVAEH COVINGTON
--- OUTSIDE RECORDS SUMMARY | 2021-04-22 10:39 | CCD | Continuity of Care Document ---
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 Luis Oliveira MD Onset: 11/28/2020 Pure hypercholesterolemia Luis Oliveira MD Onset: 2020 Social History Type Date Description Comments Sex Unknown ETOH Use Does not consume alcohol Tobacco Use Start: Unknown End: Unknown Patient is a former smoker During college years for about 6 years total Smoking Status Reviewed: 11/28/20 Patient is a former smoker Du ring college years for about 6 years total Exercise Type/Frequency Does housework daily Exercise Limitations None Allergies and adverse reactions Active Allergies Criticality Reaction | Severity Comments Date Sulfa Unable to assess criticality 11/28/2020 Medications Active Medications SIG Qnty Indications Ordering Provide r Date Amlodipine Besylate 5mg Tablets 1 by mouth every day 90tabs I10 Luis Oliveira MD 01/28/2021 Atenolol 100mg Tablets 1 b y mouth daily Unknown 11/27/2020 Synthroid 88mcg Tablets 1 by mouth in the morning Unknown 11/27/2020 Lisinopril 30mg Tablets 1 tab by mouth every day at bedtime Unknown 11/27/2020 Atorvastatin Calcium 40mg Tablets 1 by mouth every night at bedtime Unknown Clopidogrel Bisulfate 75mg Tablets 1 by mouth every day Unknown 11/27/2020 Eliquis 5mg Tablets 1 by mouth twice a day 180tabs Luis Oliveira MD 11/27/2020 History Medications Amlodipine Besylate 10mg Tablets 1 by mouth every day 90tabs I10 Luis Oliveira MD 11/28/2020 - 01/28/2021 Amlodipine Besylate 5mg Tablets 1 by mouth every day I10 Unknown 11/27/2020 - Immunizations Description No Information Available Vital Signs Date Vital Result Comment 11/28/2020 8:20am Weight 134.00 lb Height 61 inches 5'1" BMI (Body Mass Index) 25.3 kg/m2 Heart Rate 63 /min BP Systolic Sitting 168 mmHg CBP, adult cuff/Ra BP Diastolic Sitting 75 mmHg CBP, adult cuff/Ra Results Test Acquired Date Facility Test Result H/L Range Note CBC without Differential 01/30/2021 [facility] ([facility])- - White Blood Count 5.6 4.3-10.9 Red Blood Count 3.72 Low 4.70-6.20 Platelets 297 130-400 Hemoglobin 11.3 Low 13.0-17.0 Hematocrit 35.0 Low 39.0-50.0 CMP 10/15/2020 [facility] Albumin Serum/Plasma 4.0 Alt - SGPT 21 Calcium Ser/Plasma Mass/Vol 8.7 Carbon Dioxide Ser/Plasm 24 Chloride Serum/Plasma 112 Alkaline Phosphatase 64 Potassium 144 Protein Total 7.5 Sodium 144 Ast - Sgot 19 BUN - Urea Nitrogen 11 Glucose 88 Creatinine For GFR 0.47 CBC without Differential 10/15/2020 [facility] White Blood Count 6.0 Red Blood Count 4.10 Platelets 234 Hemoglobin 12.8 Hematocrit 36.5 Procedures Date Code Description Status 02/20/2021 98446 Chronic Care MGMT 20 Mins Clinical Staff Time Per Calendar Month Completed 02/20/2021 92003 Chronic Care Management Services Ea Addl 20 Min Completed 02/04/2021 62179 Complex Chronic Care MGMT Servic e Ea Addl 30 Min Completed 02/04/2021 95768 Complex Chronic Care Management SVC 1St 60 Min Completed 01/11/2021 26529 External ECG Rec>48HR<7D Review & Interpretation Completed 01/11/2021 69993 External ECG Rec>48HR<7D Recordi ng Completed 11/28/2020 26125 Office/Outpatient New Moderate M DM 45-59 Minutes Completed 11/28/2020 17514 Arterial Pressure Wa veform Analysis For Assessment Of Central Art Completed 11/28/2020 00404 ECG 12-Lead Completed Medical Devices Description No Information Available Encounters Type Date Location Provider Dx Diagnosis Office Visit 02/04/2021 1:27p Main Office Luis Oliveira MD I48.0 Paroxysmal atrial fibrillation I10 Essential (primary) hyperten ashlie E78.00 Pure hypercholesterolemia, u nspecified Office Visit 11/28/2020 8:00a Main Office Luis Oliveira MD I25.1 0 Athscl heart disease of [place] coronary artery w/o ang pctrs I25.2 Old myocardial infarction Z95.5 Presence of coronary angiopl asty implant and graft I48.0 Paroxysmal atrial fibrillati on I10 Essential (primary) hyperten ashlie R94.31 Abnormal electrocardiogram [ ECG] [EKG] E78.00 Pure hypercholesterolemia, u nspecified Assessments Date Code Description Provider 02/20/2021 I48.0 Paroxysmal atrial fibrillation D alexander Oliveira MD 02/20/2021 I10 Essential (primary) hypertension Luis Oliveira MD 02/04/2021 I48.0 Paroxysmal atrial fibrillation D alexander Oliveira MD 02/04/2021 I10 Essential (primary) hypertension Luis Oliveira MD 02/04/2021 E78.00 Pure hypercholesterolemia, unspe cified Luis Oliveira MD 01/11/2021 I48.0 Paroxysmal atrial fibrillation H olter/Event/Telemetry 11/28/2020 I25.10 Atherosclerotic hear t disease of [place] coronary artery without angina pectoris Luis Oliveira MD 11/28/2020 I25.2 Old myocardial infarction Luis Oliveira MD 11/28/2020 Z95.5 Presence of coronary angioplasty implant and graft Luis Oliveira MD 11/28/2020 I48.0 Paroxysmal atrial fibrillation D alexander Oliveira MD 11/28/2020 I10 Essential (primary) hypertension Luis Oliveira MD 11/28/2020 R94.31 Abnormal electrocardiogram [ECG] [EKG] Luis Oliveira MD 11/28/2020 E78.00 Pure hypercholesterolemia, unspe cified Luis Oliveira MD Plan of Treatment Future Appointment(s):* 05/28/2021 9:15 am - [facility] at Main Office 11/28/2020 - Luis Oliveira MD* I25.10 Atherosclerotic heart disease of [place] coronary artery without angina pectoris* Recommendations:* Amlodipine was increased to 10 mg daily to improve blood pressure control. Continue atenolol, lisinopril, atorvastatin 40 mg at bedtime, clopidogrel at the curr ent dosages. She should remain on clopidogrel for 1 year following placement of coronary stents. FYI: [facility] cardiac rehabilitation program is not presently available due to COVID 19 pandemic. * I25.2 Old myocardial infarction * Z95.5 Presence of coronary angioplasty implant and graft * I48.0 Paroxysmal atrial fibrillation* Referral:* Amado Garcia MD, Cardiology/Spec/Tech * Recommendations:* 5 day patch Holter monitor was ordered for further evaluation. Continue Eliquis and atenolol the current dosages. Superiority of cryoablation for symptomatic paroxysmal atrial fibrillation (75% atrial fibrillation free at 1 year) versus antiarrhythmic drug therapy (45% atrial fibrillation free at one year) [facility] May 2020 was explained to the patient. Patient was agreeable to be referred to an nursery manager for consideration of cryoablation of paroxysmal atrial fibrillation. She was referred to nursery manager Dr. Amado Garcia at [facility]. * I10 Essential (primary) hypertension* New Medication:* Amlodipine Besylate 10 mg - 1 by mouth every day * Recommendations:* Amlodipine was increased to 10 mg daily. Continue lisinopril and atenolol at the current dosages. Consume vegetables (starchy vegetables, non-starchy vegetables, leafy greens), raw fruit, intact whole grains, and legumes. Avoid animal products. Avoid processed foods. Avoid added fats (vegetable oils, margarine, butter, mayonnaise, lard). Avoid partially hydrogenated oils. Avoid refined grains (white rice, white flour and other grain flour products). Avoid refined sweeteners and artificial sweeteners. Low sodium was encouraged. * R94.31 Abnormal electrocardiogram [ECG] [EKG] * E78.00 Pure hypercholesterolemia, unspecified* New Labs:* Lipid Panel, Ordered: 11/28/20 * Recommendations:* Fasting lipid panel was ordered. Continue atorvastatin 40 mg at bedtime. Nutrition advice as above. * All * Follow up:* Follow-up in [address] Oliveira. Functional Status Functional Condition Comment Date Status Independent with all ADL's Activ e Mental Status Description No Information Available Referrals Refer to Reason for Referral Status Appt Date Amado Garcia MD Please evaluate & manage Par oxysmal Atrial Fibrillation with Cryoablation. Thanks! Closed [facility] [address] [address] [phone]
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
--- OUTSIDE RECORDS SUMMARY | 2021-04-22 10:40 | CCD | Continuity of Care Document ---
Author Author Eva OLIVEIRA MD Organization Unknown Address [address] [place] [address] [place] [address] Phone [phone] Care Team Providers Care Marble Machine Tender Name Role Phone Elidia Murphy STEVAN AUTM [phone] Nora Perkins MD AUTM [phone] Amado Garcia MD AUTM [phone] Problems Active Problems Provider Date Old myocardial [...] Date Facility Test Result H/L Range Note CMP 10/15/2020 [facility] Serum/Plasma 4.0 [...] 36.5 Procedures Date Code Description Status 02/20/2021 61551 Chronic Care MGMT 20 Mins Clinical Staff Time Per Calendar Month Completed 02/20/2021 02823 Chronic Care Management Services Ea Addl 20 Min Completed 02/04/2021 75178 Complex Chronic Care MGMT Servic e Ea Addl 30 Min Completed 02/04/2021 38582 Complex Chronic Care Management SVC 1St 60 Min Completed 01/11/2021 05600 External ECG Rec>48HR<7D Review & Interpretation Completed 01/11/2021 49027 External ECG Rec>48HR<7D Recordi ng Completed 11/28/2020 81470 Office/Outpatient New Moderate M DM 45-59 Minutes Completed 11/28/2020 42243 Arterial Pressure Wa veform Analysis For Assessment Of Central Art Completed 11/28/2020 90612 ECG 12-Lead Completed Medical Devices Description No Information Available Encounters Type Date Location Provider Dx Diagnosis Office Visit 02/04/2021 1:27p Main Office Luis Oliveira MD I48.0 Paroxysmal atrial fibrillation I10 Essential (primary) hyperten ashlie E78.00 Pure hypercholesterolemia, u nspecified Office Visit 11/28/2020 8:00a Main Office Luis Oliveira MD I25.1 0 Athscl heart disease of [place] coronary artery w/o ang pctrs I25.2 Old [...] 11/28/2020 I25.10 Atherosclerotic hear t disease of [place] coronary artery without angina pectoris Luis Oliveira [...] Oliveira MD* I25.10 Atherosclerotic heart disease of [place] coronary artery without angina pectoris* Recommendations:* Amlodipine was increased to 10 mg daily to improve blood pressure control. Continue atenolol, lisinopril, atorvastatin 40 mg at bedtime, clopidogrel at the curr ent dosages. She should remain on clopidogrel for 1 year following placement of coronary stents. FYI: [facility] cardiac rehabilitation program is not presently available [...] (45% atrial fibrillation free at one year) [facility] May 2020 was explained to the patient. Patient was agreeable to be referred to an sulfur burner for consideration of cryoablation of paroxysmal atrial fibrillation. She was referred to sulfur burner Dr. Amado Garcia at [facility]. * I10 Essential (primary) hypertension* New [...] oxysmal Atrial Fibrillation with Cryoablation. Thanks! Closed [facility] [address] [address] [phone]
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
--- OUTSIDE RECORDS SUMMARY | 2021-04-22 10:40 | CCD | Continuity of Care Document ---
Author Author Eva GAITAN MD Organization Unknown Address [address] [place] [address], [address] [place] [address] Phone [phone] Care Team Providers Care Airport Representative Name Role Phone Luis Oliveira MD AUTM Problems Active Problems Provider Date Essential hypertension Amado Garcia MD Onset: 01/16/2021 Pure hypercholesterolemia Amado Garcia MD Onset: 021 Social History Type Date Description Comments Sex Unknown Allergies, Adverse Reactions, Alerts Active Allergies Criticality Reaction | Severity Comments Date Sulfa Drugs Unable to assess criticality 01/17/2021 Medications Active Medications SIG Qnty Indications Ordering Provide r Date Amlodipine Besylate 10mg Tablets 1 by mouth every day Unknown Atenolol 100mg Tablets 1 by mouth every day Unknown Synthroid 88mcg Tablets Unknown Lisinopril 30mg Tablets 1 by mouth every day Unknown Atorvastatin Calcium 40mg Tablets 1 by mouth every day Unknown Clopidogrel Bisulfate 75mg Tablets 1 by mouth every day Unknown Eliquis 5mg Tablets sig- 1 by mouth twice a day Unknown Aspirin Adult Low Dose 81mg Tablet s DR 1 by mouth every day Unknown Immunizations Description No Information Available Vital Signs Date Vital Result Comment 01/17/2021 10:38am BP Systolic Right Arm 170 mmHg BP Diastolic Right Arm 79 mmHg Heart Rate 68 /min Weight 130.00 lb Results Description No Information Available Procedures Date Code Description Status 01/17/2021 32125 Office/Outpatient New High MDM 6 0-74 Minutes Completed 01/17/2021 90967 Electrocardiogram Complete Compl eted 10/18/2020 47104 Hospital Subsequent Care Level 2 Completed Medical Devices Description No Information Available Encounters Type Date Location Provider Dx Diagnosis Office Visit 01/17/2021 10:30a [facility] Amado Garcia MD I48.0 Paroxysmal atrial fibrillation R94.31 Abnormal electrocardiogram [ ECG] [EKG] Assessments Date Code Description Provider 01/17/2021 I48.0 Paroxysmal atrial fibrillation M john Garcia MD 01/17/2021 R94.31 Abnormal electrocardiogram [ECG] [EKG] Amado Garcia MD 10/18/2020 I21.4 Non-St elevation (Nstemi) myocar dial infarction Bradford Wilson MD Plan of Treatment No Information Available Functional Status Description No Information Available Mental Status Description No Information Available Referrals Description No Information Available"
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
--- OUTSIDE RECORDS SUMMARY | 2021-04-22 10:40 | CCD | Continuity of Care Document ---
Author Author Eva OLIVEIRA MD Organization Unknown Address [address] [place] [address] [place] [address] Phone [phone] Care Team Providers Care Parish Visitor Name Role Phone Elidia Murphy STEVAN AUTM [phone] Nora Perkins MD AUTM [phone] Amado Garcia MD AUTM [phone] Problems Active Problems Provider Date Old myocardial [...] 36.5 Procedures Date Code Description Status 02/20/2021 86626 Chronic Care MGMT 20 Mins Clinical Staff Time Per Calendar Month Completed 02/20/2021 13667 Chronic Care Management Services Ea Addl 20 Min Completed 02/04/2021 06306 Complex Chronic Care MGMT Servic e Ea Addl 30 Min Completed 02/04/2021 43809 Complex Chronic Care Management SVC 1St 60 Min Completed 01/11/2021 02840 External ECG Rec>48HR<7D Review & Interpretation Completed 01/11/2021 61720 External ECG Rec>48HR<7D Recordi ng Completed 11/28/2020 15261 Office/Outpatient New Moderate M DM 45-59 Minutes Completed 11/28/2020 57852 Arterial Pressure Wa veform Analysis For Assessment Of Central Art Completed 11/28/2020 11228 ECG 12-Lead Completed Medical Devices Description No Information Available Encounters Type Date Location Provider Dx Diagnosis Office Visit 02/04/2021 1:27p Main Office Luis Oliveira MD I48.0 Paroxysmal atrial fibrillation I10 Essential (primary) hyperten ashlie E78.00 Pure hypercholesterolemia, u nspecified Office Visit 11/28/2020 8:00a Main Office Luis Oliveira MD I25.1 0 Athscl heart disease of [place] coronary artery w/o ang pctrs I25.2 Old [...] 11/28/2020 I25.10 Atherosclerotic hear t disease of [place] coronary artery without angina pectoris Luis Oliveira [...] Oliveira MD* I25.10 Atherosclerotic heart disease of [place] coronary artery without angina pectoris* Recommendations:* Amlodipine was increased to 10 mg daily to improve blood pressure control. Continue atenolol, lisinopril, atorvastatin 40 mg at bedtime, clopidogrel at the curr ent dosages. She should remain on clopidogrel for 1 year following placement of coronary stents. FYI: [facility] cardiac rehabilitation program is not presently available [...] atrial fibrillation free at one year) [facility] May 2020 was explained to the patient. Patient was agreeable to be referred to an field tech for consideration of cryoablation of paroxysmal atrial fibrillation. She was referred to field tech Dr. Amado Garcia at [facility]. * I10 Essential (primary) hypertension* New [...] oxysmal Atrial Fibrillation with Cryoablation. Thanks! Closed [facility] [address] [address] [phone]
--- OUTSIDE RECORDS SUMMARY | 2021-04-22 10:41 | CCD ---
Author Author [facility] Organization [facility] Address Unknown Phone Unavailable Care Team Providers Care Project Consultant Name Role Phone Amado Garcia MD Unavailable Unavaila toni MigAmado bentley MD Unavailable Unavaila Amado Garcia MD Unavailable Unavaila Amado Garcia MD Unavailable Unavaila Amado Garcia MD Unavailable Unavaila Amado Garcia MD Unavailable Unavaila Amado Garcia MD Unavailable Unavaila Amado Garcia MD Unavailable Unavaila Amado Garcia MD Unavailable Unavaila Amado Garcia MD Unavailable Unavaila Amado Garcia MD Unavailable Unavaila Amado Garcia MD Unavailable Unavaila Amado Garcia MD Unavailable Unavaila Amado Garcia MD Unavailable Unavaila Amado Garcia MD Unavailable Unavaila Amado Garcia MD Unavailable Unavaila Amado Garcia MD Unavailable Unavaila Amado Garcia MD Unavailable Unavaila ble MigeedAmado MD Unavailable Unavaila ble Migeed, Amado Correa MD Unavailable Unavaila ble MigeedAmado MD Unavailable Unavaila ble MigeedAmado MD Unavailable Unavaila ble Migeed, Amado Correa MD Unavailable Unavaila ble MigeedAmado MD Unavailable Unavaila ble Migeed, Amado Correa MD Unavailable Unavaila ble MigeedAmado MD Unavailable Unavaila ble Migeed, Amado Correa MD Unavailable Unavaila ble Migeed, Amado Correa MD Unavailable Unavaila ble Migeed, Amado Correa MD Unavailable Unavaila ble Migeed, Amado Correa MD Unavailable Unavaila ble Migeed, Amado Correa MD Unavailable Unavaila ble Migeed, Amado Correa MD Unavailable Unavaila ble Migeed, Amado Correa MD Unavailable Unavaila ble Migeed, Amado Correa MD Unavailable Unavaila ble Migeed, Amado Correa MD Unavailable Unavaila ble Migeed, Amado Correa MD Unavailable Unavaila ble Migeed, Amado Correa MD Unavailable Unavaila ble Migeed, Amado Correa MD Unavailable Unavaila ble Migeed, Amado Correa MD Unavailable Unavaila ble MigeedAmado MD Unavailable Unavaila ble MigeedAmado MD Unavailable Unavaila ble MigeedAmado MD Unavailable Unavaila ble MigeedAmado MD Unavailable Unavaila ble MigeedAmado MD Unavailable Unavaila ble MigeedAmado MD Unavailable Unavaila ble MigeedAmado MD Unavailable Unavaila ble MigeedAmado MD Unavailable Unavaila ble MigeedAmado MD Unavailable Unavaila ble MigeedAmado MD Unavailable Unavaila ble MigeedMagdy Layton Correa MD Unavailable Unavaila ble Ahmed, Talbot Unavailable Unavailable Ahmed, Talbot Unavailable Unavailable Ahmed, Talbot Unavailable Unavailable Ahmed, Talbot Unavailable Unavailable Ahmed, Talbot Unavailable Unavailable Ahmed, Talbot Unavailable Unavailable TAO, L ALEXA TREVIZO Unavailable Unavailable TAO, Daylin LIU MD Unavailable Unavailable TAO, L ALEXA TREVIZO Unavailable Unavailable TAO, L ALEXA TREVIZO Unavailable Unavailable TAO, L ALEXA TREVIZO Unavailable Unavailable TAO, L ALEXA TREVIZO Unavailable Unavailable TAO, L ALEXA TREVIZO Unavailable Unavailable TAO, L ALEXA TREVIZO Unavailable Unavailable TAO, L ALEXA TREVIZO Unavailable Unavailable TAO, L ALEXA TREVIZO Unavailable Unavailable TAO, L ALEXA TREVIZO Unavailable Unavailable TAO, L ALEXA TREVIZO Unavailable Unavailable TAO, L ALEXA TREVIZO Unavailable Unavailable TAO, L ALEXA TREVIZO Unavailable Unavailable TAO, L ALEXA TREVIZO Unavailable Unavailable TAO, L ALEXA TREVIZO Unavailable Unavailable TAO, L ALEXA TREVIZO Unavailable Unavailable TAO, L ALEXA TREVIZO Unavailable Unavailable TAO, L ALEXA TREVIZO Unavailable Unavailable TAO, L ALEXA TREVIZO Unavailable Unavailable TAO, L ALEXA TREVIZO Unavailable Unavailable TAO, L ALEXA TREVIZO Unavailable Unavailable TAO, L ALEXA TREVIZO Unavailable Unavailable TAO, L ALEXA TREVIZO Unavailable Unavailable TAO, L ALEXA TREVIZO Unavailable Unavailable TAO, L ALEXA TREVIZO Unavailable Unavailable TAO, L ALEXA TREVIZO Unavailable Unavailable TAO, L ALEXA TREVIZO Unavailable Unavailable TAO, L ALEXA TREVIZO Unavailable Unavailable TAO, L ALEXA TREVIZO Unavailable Unavailable TAO, L ALEXA TREVIZO Unavailable Unavailable TAO, L ALEXA TREVIZO Unavailable Unavailable TAO, L ALEXA TREVIZO Unavailable Unavailable TAO, L ALEXA TREVIZO Unavailable Unavailable TAO, L ALEXA TREVIZO Unavailable Unavailable TAO, L ALEXA TREVIZO Unavailable Unavailable TAO, L ALEXA TREVIZO Unavailable Unavailable TAO, L ALEXA TREVIZO Unavailable Unavailable TAO, L ALEXA TREVIZO Unavailable Unavailable TAO, L ALEXA TREVIZO Unavailable Unavailable TAO, L ALEXA TREVIZO Unavailable Unavailable TAO, L ALEXA TREVIZO Unavailable Unavailable TAO, L ALEXA TREVIZO Unavailable Unavailable TAO, L ALEXA TREVIZO Unavailable Unavailable TAO, L ALEXA TREVIZO Unavailable Unavailable SILVESTRE SIERRA MD Unavailable Unavailable SILVESTRE SIERRA MD Unavailable Unavailable SILVESTRE SIERRA MD Unavailable Unavailable SILVESTRE SIERRA MD Unavailable Unavailable SILVESTRE SIERRA MD Unavailable Unavailable SILVESTRE SIERRA MD Unavailable Unavailable SILVESTRE SIERRA MD Unavailable Unavailable SILVESTRE SIERRA MD Unavailable Unavailable SILVESTRE SIERRA MD Unavailable Unavailable SILVESTRE SIERRA MD Unavailable Unavailable SILVESTRE SIERRA MD Unavailable Unavailable SILVESTRE SIERRA MD Unavailable Unavailable SILVESTRE SIERRA MD Unavailable Unavailable SILVESTRE SIERRA MD Unavailable Unavailable SILVESTRE SIERRA MD Unavailable Unavailable SILVESTRE SIERRA MD Unavailable Unavailable SILVESTRE SIERRA MD Unavailable Unavailable SILVESTRE SIERRA MD Unavailable Unavailable SYMENOW, G CHRISTOPHER PA Unavailable Unavailable SYMENOW, G CHRISTOPHER PA Unavailable Unavailable SYMENOW, G CHRISTOPHER PA Unavailable Unavailable SYMENOW, G CHRISTOPHER PA Unavailable Unavailable SYMENOW, G CHRISTOPHER PA Unavailable Unavailable SYMENOW, G CHRISTOPHER PA Unavailable Unavailable SYMENOW, G CHRISTOPHER PA Unavailable Unavailable SYMENOW, G CHRISTOPHER PA Unavailable Unavailable SYMENOW, G CHRISTOPHER PA Unavailable Unavailable SYMENOW, G CHRISTOPHER PA Unavailable Unavailable SYMENOW, G CHRISTOPHER PA Unavailable Unavailable SYMENOW, G CHRISTOPHER PA Unavailable Unavailable SYMENOW, G CHRISTOPHER PA Unavailable Unavailable SYMENOW, G CHRISTOPHER PA Unavailable Unavailable SYMENOW, G CHRISTOPHER PA Unavailable Unavailable SYMENOW, G CHRISTOPHER PA Unavailable Unavailable HumphriesMoose PA-C Unavailable Humphries Moose PA-C Unavailable Humphries Moose PA-C Unavailable Yandel Moose PA-C Unavailable Yandel Moose PA-C Unavailable ANTECAURE, Rossi CARRANZA MD Unavailable Unavailable ANTECOL, Rossi CARRANZA MD Unavailable Unavailable ANTECOL, Rossi CARRANZA MD Unavailable Unavailable ANTECOL, Rossi CARRANZA MD Unavailable Unavailable ANTECOL, Rossi CARRANZA MD Unavailable Unavailable ANTECOL, Rossi CARRANZA MD Unavailable Unavailable ANTECOL, Rossi CARRANZA MD Unavailable Unavailable ANTECOL, Rossi CARRANZA MD Unavailable Unavailable ANTECOL, Rossi CARRANZA MD Unavailable Unavailable ANTECOL, Rossi CARRANZA MD Unavailable Unavailable ANTECOL, Rossi CARRANZA MD Unavailable Unavailable ANTECOL, Rossi CARRANZA MD Unavailable Unavailable ANTECOL, Rossi CARRANZA MD Unavailable Unavailable ANTECOL, Rossi CARRANZA MD Unavailable Unavailable ANTECOL, Rossi CARRANZA MD Unavailable Unavailable ANTECOL, Rossi CARRANZA MD Unavailable Unavailable ANTECOL, Rossi CARRANZA MD Unavailable Unavailable ANTECOL, Rsosi CARRANZA MD Unavailable Unavailable ANTECOL, Rossi CARRANZA MD Unavailable Unavailable ANTECOL, Rossi CARRANZA MD Unavailable Unavailable ANTECOL, Rossi CARRANZA MD Unavailable Unavailable ANTECOL, Rosis CARRANZA MD Unavailable Unavailable ANTECOL, Rossi CARRANZA MD Unavailable Unavailable ANTECOL, Rossi CARRANZA MD Unavailable Unavailable ANTECOL, Rossi CARRANZA MD Unavailable Unavailable ANTECOL, Rossi CARRANZA MD Unavailable Unavailable ANTECOL, Rossi CARRANZA MD Unavailable Unavailable ANTECOL, Rossi CARRANZA MD Unavailable Unavailable ANTECOL, Rossi CARRANZA MD Unavailable Unavailable ANTECOL, Rossi CARRANZA MD Unavailable Unavailable ANTECOL, Rossi CARRANZA MD Unavailable Unavailable ANTECOL, Rossi CARRANZA MD Unavailable Unavailable ANTECOL, Rossi CARRANZA MD Unavailable Unavailable ANTECOL, Rossi CARRANZA MD Unavailable Unavailable ANTECOL, Rossi CARRANZA MD Unavailable Unavailable ANTECOL, Rossi CARRANZA MD Unavailable Unavailable ANTECOL, Rossi CARRANZA MD Unavailable Unavailable ANTECOL, Rossi CARRANZA MD Unavailable Unavailable ANTECOL, Rossi CARRANZA MD Unavailable Unavailable ANTECOL, Rossi CARRANZA MD Unavailable Unavailable ANTECOL, Rossi CARRANZA MD Unavailable Unavailable ANTECOL, Rossi CARRANZA MD Unavailable Unavailable ANTECOL, Rossi CARRANZA MD Unavailable Unavailable ANTECOL, Rossi CARRANZA MD Unavailable Unavailable ANTECOL, Rossi CARRANZA MD Unavailable Unavailable ANTECOL, Rossi CARRANZA MD Unavailable Unavailable ANTECOL, Rossi CARRANZA MD Unavailable Unavailable ANTECOL, Rossi CARRANZA MD Unavailable Unavailable ANTECOL, Rossi CARRANZA MD Unavailable Unavailable ANTECOL, Rossi CARRANZA MD Unavailable Unavailable ANTECOL, Rossi CARRANZA MD Unavailable Unavailable ANTECOL, Rossi CARRANZA MD Unavailable Unavailable ANTECOL, Rossi CARRANZA MD Unavailable Unavailable ANTECOL, Rossi CARRANZA MD Unavailable Unavailable ANTECOL, Rossi CARRANZA MD Unavailable Unavailable Edla, Ruthy Sharp MD Unavailable Unavailable Edla, Ruthy Sahrp MD Unavailable Unavailable Edla, Ruthy Sharp MD Unavailable Unavailable Edla, Ruthy Sharp MD Unavailable Unavailable Edla, Ruthy Sharp MD Unavailable Unavailable Edla, Ruthy Sharp MD Unavailable Unavailable Edla, Ruthy Sharp MD Unavailable Unavailable Edla, Ruthy Sharp MD Unavailable Unavailable Edla, Ruthy Sharp MD Unavailable Unavailable Edla, Ruthy Sharp MD Unavailable Unavailable Re-disclosure Warning The records that you are about to access may contain information from federally-assisted alcohol or drug abuse programs. If such information is present, then the following federally mandated warning applies: This information has been disclosed to you from records protected by federal confidentiality rules (42 CFR part 2). The federal rules prohibit you from making any further disclosure of this information unless further disclosure is expressly permitted by the written consent of the person to whom it pertains or as otherwise permitted by 42 CFR part 2. A general authorization for the release of medical or other information is NOT sufficient for this purpose. The Federal rules restrict any use of the information to criminally investigate or prosecute any alcohol or drug abuse patient.The records that you are about to access may contain highly sensitive health information, the redisclosure of which is protected by Article 27-F of the [facility] Public Health law. If you continue you may have access to information: Regarding HIV / AIDS; Provided by facilities licensed or operated by the [facility] Office of Mental Health; or Provided by the [facility] Office for People With Developmental Disabilities. If such information is present, then the following [facility] mandated warning applies: This information has been disclosed to you from confidential records which are protected by state law. State law prohibits you from making any further disclosure of this information without the specific written consent of the person to whom it pertains, or as otherwise permitted by law. Any unauthorized further disclosure in violation of state law may result in a fine or mcc sentence or both. A general authorization for the release of medical or other information is NOT sufficient authorization for further disc losure. Family History Family Member Name Family Member Gender Family Member Status Date o f Status Description Data Source(s) Unknown Unknown Encounters Encounter Providers Location Date Indications Data Source(s ) Unknown [address] [facility] [place] [id number] 04/18/2021 12:00:00 AM EST eCW1 ([facility]) Outpatient [address] [facility] [place] [address] 04/16/2021 12:00:00 AM EST eCW1 ([facility]) Unknown [address] [facility] [place] [address] 04/16/2021 12:00:00 AM EST eCW1 ([facility]) Outpatient [address] [facility] [place] [id number] 03/26/2021 12:00:00 AM EST eCW1 ([facility]) Unknown [address] [facility] [place] [address] 02/27/2021 12:00:00 AM EDT eCW1 ([facility]) Unknown [address] [facility] [address] 02/27/2021 12:00:00 AM EDT eCW1 ([facility]) Unknown [address] [facility] [address] 02/25/2021 12:00:00 AM EDT eCW1 ([facility]) [place]patient [address] [facility] [address] 02/22/2021 12:00:00 AM EDT [facility]CW1 [facility] [place] [address] [facility] [address] 02/20/2021 12:00:00 AM EDT eCW1 [facility]) Office Visit Attender: DILLON JOHNSON MD Main Office 02/04/2021 01: 27:00 PM EDT MEDENT ([facility]) [place] [address] [facility] [address] 02/01/2021 12:00:00 AM EDT eCW1 ([facility]) Unknown [address] [facility] [address] 02/01/2021 12:00:00 AM EDT eCW1 [facility] Unknown [address] [facility] [address] 01/31/2021 12:00:00 AM EDT [facility] [place] [address] [facility] [address] 01/30/2021 12:00:00 AM EDT eCW1 [facility]) Outpatient Attender: Madeline Garcia MD [facility] 01/17/2021 10:30:00 AM EDT MEDENT ([facility]) Outpatient [address] [facility] [place] [address] 12/10/2020 12:00:00 AM EDT eCW1 ([facility]) Unknown [address] [facility] [place] [address] 12/10/2020 12:00:00 AM EDT eCW1 ([facility]) Outpatient [address] [facility] [address] 12/03/2020 12:00:00 AM EDT eCW1 ([facility]) Unknown [address] [facility] [address] 11/29/2020 12:00:00 AM EDT eCW1 ([facility]) Unknown [address] [facility] [address] 11/29/2020 12:00:00 AM EDT eCW1 ([facility]) Outpatient Attender: DILLON JOHNSON MD Main Office 11/28/2020 08:00:00 AM EDT MEDENT ([facility]) Unknown [address] [facility] [address] 11/26/2020 12:00:00 AM EDT eCW1 ([facility]) Unknown [address] [facility] [address] 11/22/2020 12:00:00 AM EDT eCW1 ([facility]) Unknown [address] [facility] [address] 11/22/2020 12:00:00 AM EDT eCW1 ([facility]) Unknown [address] [facility] [address] 11/20/2020 12:00:00 AM EDT eCW1 ([facility]) Outpatient [address] [facility] [address] 11/19/2020 12:00:00 AM EDT eCW1 ([facility]) Unknown [address] [facility] [address] 11/15/2020 12:00:00 AM EDT eCW1 ([facility]) Outpatient Attender: ALEXA [facility] Woman cushion padder 11:30:00 AM EDT MEDENT ([facility]) Outpatient [address] [facility] [address] 10/23/2020 12:00:00 AM EDT eCW1 ([facility]) Inpatient Attender: SILVESTRE SIERRA MDReferrer: SILVESTRE RYDER MD [id number] 10/17/2020 10:50:00 AM EDT - 10/17/2020 11:59:00 PM EDT [facility] Patient discharged. Unknown [address] [facility] [address] 10/16/2020 12:00:00 AM EDT eCW1 ([facility]) Inpatient Attender: SILVESTRE SIERRA MDA ttender: Aron Ho MDAttender: Antione ChowdhuryAdmitter: Aron Ho MD [id number] 10/15/2020 10:48:00 AM EDT - 10/18/2020 03:42:00 PM EDT [facility] Patient discharged. Outpatient 10/15/2020 06:38:00 AM EDT C P, New onset A fib with RVR now controlled on Cardizem gtt, elevated troponin 0.3 [facility] CP, New onset A fib with RVR now control led on Cardizem gtt, elevated troponin 0.3 Emergency Attender: Moose Humphries PA-C EMERGENCY ROOM-ER 11/2020 05:52:00 AM EDT - 10/15/2020 09:00:00 AM EDT [facility] Patient discharged. Outpatient Attender: ALEXA TAO MD [facility] cushion padder 10:00:00 AM EDT MEDENT ([facility]) Unknown [address] [facility] [address] 07/31/2020 12:00:00 AM EDT eCW1 ([facility]) Outpatient Attender: ALEXA [facility] cushion padder 11:30:00 AM EDT MEDENT ([facility]) Outpatient Attender: ALEXA [facility] Woman cushion padder 10:30:00 AM EST MEDENT ([facility]) Out[place] [address] [facility] [address] 04/23/2020 12:00:00 AM EST eCW1 ([facility]) Unknown [address] [facility] [address] 03/30/2020 12:00:00 AM EST eCW1 ([facility]) Emergency Attender: MAR DAWKINS 11/11/2013 09:47:00 PM EDT - 11/11/2013 10:04:00 PM EDT [facility] Immunizations Vaccine Date Status Description Data Source(s) COVID-19 VACCINE Moderna 03/06/2021 12:00:00 AM EDT completed [facility] Vaccine Series Complete: YESThis Data wa s Submitted to [facility] Via [employer]. 02/22/2021 11:27:00 AM EDT completed e CW1 ([facility]) 02/22/2021 11:27:00 AM EDT completed e CW1 ([facility]) 02/22/2021 11:27:00 AM EDT completed e CW1 ([facility]) 02/22/2021 11:27:00 AM EDT completed e CW1 ([facility]) 12/10/2020 08:27:00 AM EDT completed e CW1 ([facility]) 12/10/2020 08:27:00 AM EDT completed e CW1 ([facility]) 12/10/2020 08:27:00 AM EDT completed e CW1 ([facility]) 12/10/2020 08:27:00 AM EDT completed e CW1 ([facility]) 12/10/2020 08:27:00 AM EDT completed e CW1 ([facility]) 12/10/2020 08:27:00 AM EDT completed e CW1 ([facility]) 12/10/2020 08:27:00 AM EDT completed e CW1 ([facility]) 12/10/2020 08:27:00 AM EDT completed e CW1 ([facility]) 12/10/2020 08:27:00 AM EDT completed e CW1 ([facility]) 12/10/2020 08:27:00 AM EDT completed e CW1 ([facility]) 12/03/2020 11:39:00 AM EDT completed e CW1 ([facility]) 12/03/2020 11:39:00 AM EDT completed e CW1 ([facility]) 12/03/2020 11:39:00 AM EDT completed e CW1 ([facility]) 12/03/2020 11:39:00 AM EDT completed e CW1 ([facility]) 12/03/2020 11:39:00 AM EDT completed e CW1 ([facility]) 12/03/2020 11:39:00 AM EDT completed e CW1 ([facility]) 12/03/2020 11:39:00 AM EDT completed e CW1 ([facility]) 12/03/2020 11:39:00 AM EDT completed e CW1 ([facility]) 12/03/2020 11:39:00 AM EDT completed e CW1 ([facility]) 12/03/2020 11:39:00 AM EDT completed e CW1 ([facility]) 12/03/2020 11:39:00 AM EDT completed e CW1 ([facility]) 12/03/2020 11:39:00 AM EDT completed e CW1 ([facility]) COVID-19 dose #2 given elsewhere Unspecified 10/23/2020 10:3 8:00 AM EDT completed eCW1 ([facility]) COVID-19 dose #2 given elsewhere Unspecified 10/23/2020 10:3 8:00 AM EDT completed eCW1 ([facility]) COVID-19 dose #2 given elsewhere Unspecified 10/23/2020 10:3 8:00 AM EDT completed eCW1 ([facility]) COVID-19 dose #2 given elsewhere Unspecified 10/23/2020 10:3 8:00 AM EDT completed eCW1 ([facility]) COVID-19 dose #2 given elsewhere Unspecified 10/23/2020 10:3 8:00 AM EDT completed eCW1 ([facility]) COVID-19 dose #2 given elsewhere Unspecified 10/23/2020 10:3 8:00 AM EDT completed eCW1 ([facility]) COVID-19 dose #2 given elsewhere Unspecified 10/23/2020 10:3 8:00 AM EDT completed eCW1 ([facility]) COVID-19 dose #2 given elsewhere Unspecified 10/23/2020 10:3 8:00 AM EDT completed eCW1 ([facility]) COVID-19 dose #2 given elsewhere Unspecified 10/23/2020 10:3 8:00 AM EDT completed eCW1 ([facility]) COVID-19 dose #2 given elsewhere Unspecified 10/23/2020 10:3 8:00 AM EDT completed eCW1 ([facility]) COVID-19 dose #2 given elsewhere Unspecified 10/23/2020 10:3 8:00 AM EDT completed eCW1 ([facility]) COVID-19 dose #2 given elsewhere Unspecified 10/23/2020 10:3 8:00 AM EDT completed eCW1 ([facility]) COVID-19 dose #2 given elsewhere Unspecified 10/23/2020 10:3 8:00 AM EDT completed eCW1 ([facility]) COVID-19 dose #2 given elsewhere Unspecified 10/23/2020 10:3 8:00 AM EDT completed eCW1 ([facility]) COVID-19 dose #2 given elsewhere Unspecified 10/23/2020 10:3 8:00 AM EDT completed eCW1 ([facility]) COVID-19 dose #2 given elsewhere Unspecified 10/23/2020 10:3 8:00 AM EDT completed eCW1 ([facility]) COVID-19 dose #2 given elsewhere Unspecified 10/23/2020 10:3 8:00 AM EDT completed eCW1 ([facility]) COVID-19 dose #2 given elsewhere Unspecified 10/23/2020 10:3 8:00 AM EDT completed eCW1 ([facility]) COVID-19 dose #2 given elsewhere Unspecified 10/23/2020 10:3 8:00 AM EDT completed eCW1 ([facility]) COVID-19 dose #2 given elsewhere Unspecified 10/23/2020 10:3 8:00 AM EDT completed eCW1 ([facility]) COVID-19 dose #2 given elsewhere Unspecified 10/23/2020 10:3 8:00 AM EDT completed eCW1 ([facility]) COVID-19 dose #2 given elsewhere Unspecified 10/23/2020 10:3 8:00 AM EDT completed eCW1 ([facility]) COVID-19 dose #2 given elsewhere Unspecified 10/23/2020 10:3 8:00 AM EDT completed eCW1 ([facility]) COVID-19 dose #2 given elsewhere Unspecified 10/23/2020 10:3 8:00 AM EDT completed eCW1 ([facility]) COVID-19 dose #2 given elsewhere Unspecified 10/23/2020 10:3 8:00 AM EDT completed eCW1 ([facility]) COVID-19 dose #1 given elsewhere Unspecified 10/23/2020 10:3 7:00 AM EDT completed eCW1 ([facility]) COVID-19 dose #1 given elsewhere Unspecified 10/23/2020 10:3 7:00 AM EDT completed eCW1 ([facility]) COVID-19 dose #1 given elsewhere Unspecified 10/23/2020 10:3 7:00 AM EDT completed eCW1 ([facility]) COVID-19 dose #1 given elsewhere Unspecified 10/23/2020 10:3 7:00 AM EDT completed eCW1 ([facility]) COVID-19 dose #1 given elsewhere Unspecified 10/23/2020 10:3 7:00 AM EDT completed eCW1 ([facility]) COVID-19 dose #1 given elsewhere Unspecified 10/23/2020 10:3 7:00 AM EDT completed eCW1 ([facility]) COVID-19 dose #1 given elsewhere Unspecified 10/23/2020 10:3 7:00 AM EDT completed eCW1 ([facility]) COVID-19 dose #1 given elsewhere Unspecified 10/23/2020 10:3 7:00 AM EDT completed eCW1 ([facility]) COVID-19 dose #1 given elsewhere Unspecified 10/23/2020 10:3 7:00 AM EDT completed eCW1 ([facility]) COVID-19 dose #1 given elsewhere Unspecified 10/23/2020 10:3 7:00 AM EDT completed eCW1 ([facility]) COVID-19 dose #1 given elsewhere Unspecified 10/23/2020 10:3 7:00 AM EDT completed eCW1 ([facility]) COVID-19 dose #1 given elsewhere Unspecified 10/23/2020 10:3 7:00 AM EDT completed eCW1 ([facility]) COVID-19 dose #1 given elsewhere Unspecified 10/23/2020 10:3 7:00 AM EDT completed eCW1 ([facility]) COVID-19 dose #1 given elsewhere Unspecified 10/23/2020 10:3 7:00 AM EDT completed eCW1 ([facility]) COVID-19 dose #1 given elsewhere Unspecified 10/23/2020 10:3 7:00 AM EDT completed eCW1 ([facility]) COVID-19 dose #1 given elsewhere Unspecified 10/23/2020 10:3 7:00 AM EDT completed eCW1 ([facility]) COVID-19 dose #1 given elsewhere Unspecified 10/23/2020 10:3 7:00 AM EDT completed eCW1 ([facility]) COVID-19 dose #1 given elsewhere Unspecified 10/23/2020 10:3 7:00 AM EDT completed eCW1 ([facility]) COVID-19 dose #1 given elsewhere Unspecified 10/23/2020 10:3 7:00 AM EDT completed eCW1 ([facility]) COVID-19 dose #1 given elsewhere Unspecified 10/23/2020 10:3 7:00 AM EDT completed eCW1 ([facility]) COVID-19 dose #1 given elsewhere Unspecified 10/23/2020 10:3 7:00 AM EDT completed eCW1 ([facility]) COVID-19 dose #1 given elsewhere Unspecified 10/23/2020 10:3 7:00 AM EDT completed eCW1 ([facility]) COVID-19 dose #1 given elsewhere Unspecified 10/23/2020 10:3 7:00 AM EDT completed eCW1 ([facility]) COVID-19 dose #1 given elsewhere Unspecified 10/23/2020 10:3 7:00 AM EDT completed eCW1 ([facility]) COVID-19 dose #1 given elsewhere Unspecified 10/23/2020 10:3 7:00 AM EDT completed eCW1 ([facility]) COVID-19 VACCINE Moderna 06/23/2020 12:00:00 AM EST completed [facility]IS Vaccine Series Complete: YESThis Data wa s Submitted to [facility] Via [employer]. 207 06/08/2020 12:00:00 AM EST completed <td I D="[id number]">Covid-19 (Moderna)</td><td>06/08/2020, 05/11/2020</td><td></td> [facility] COVID-19 VACCINE Moderna 06/08/2020 12:00:00 AM EST completed [facility]SIIS Vaccine Series Complete: YESThis Data wa s Submitted to [facility] Via [employer]. COVID-19 VACCINE Moderna 05/26/2020 12:00:00 AM EST completed [facility]IS Vaccine Series Complete: NOThis Data was Submitted to [facility] Via [employer]. 207 05/11/2020 12:00:00 AM EST completed <td I D="[id number]">Covid-19 (Moderna)</td><td>06/08/2020, 05/11/2020</td><td></td> [facility] COVID-19 VACCINE Moderna 05/11/2020 12:00:00 AM EST completed [facility] Vaccine Series Complete: YESThis Data wa s Submitted to [facility] Via [employer]. Medications Medication Brand Name Start Date Product Form Dose Route Admi nistrative Instructions Pharmacy Instructions Status Indications Reaction Description Data Source(s) Rosuvastatin calcium 20 MG Oral Tablet ROSUVASTATIN CALCIUM 03/26/2021 12:00:00 AM EST tablet 90 TAKE ONE TABLET BY MOUTH NIKO TAKE ONE TABLET BY MOUTH EVERY DAY SOLD: 03/27/2021 [facility] Rosuvastatin calcium 20 MG Oral Tablet Rosuvastatin Ca lcium 20 MG Rosuvastatin Calcium 20 MG 03/26/2021 12:00:00 AM EST 1.0 {tablet} active Rosuvastatin Calcium 20 MG eCW1 ([facility]) Rosuvastatin calcium 20 MG Oral Tablet Rosuvastatin Ca lcium 20 MG Rosuvastatin Calcium 20 MG 03/26/2021 12:00:00 AM EST 1.0 {tablet} active Rosuvastatin Calcium 20 MG eCW1 ([facility]) Rosuvastatin calcium 20 MG Oral Tablet Rosuvastatin Ca lcium 20 MG Rosuvastatin Calcium 20 MG 03/26/2021 12:00:00 AM EST 1.0 {tablet} active Rosuvastatin Calcium 20 MG eCW1 ([facility]) Rosuvastatin calcium 20 MG Oral Tablet Rosuvastatin Ca lcium 20 MG Rosuvastatin Calcium 20 MG 03/26/2021 12:00:00 AM EST 1.0 {tablet} active Rosuvastatin Calcium 20 MG eCW1 ([facility]) 30 mg 02/15/2021 12:00:00 AM EDT tablet 90 TAKE ONE TABLET BY MOUTH EVERY DAY TAKE ONE TABLET BY MOUTH EVERY DAY SOLD: 02/15/2021 [facility] 75 mg 02/05/2021 12:00:00 AM EDT tablet 90 TAKE ONE TABLET BY MOUTH ONCE A DAY TAKE ONE TABLET BY MOUTH ONCE A DAY SOLD: 02/07/2021 [facility] atorvastatin 40 MG Oral Tablet ATORVASTATIN CALCIUM 02/05/2021 1 2:00:00 AM EDT tablet 90 TAKE ONE TABLET BY MOUTH EVERY D AY TAKE ONE TABLET BY MOUTH EVERY DAY SOLD: 02/07/2021 [facility] 5 mg 01/29/2021 12:00:00 AM EDT tablet 90 TAKE ONE TABLET BY MOUTH EVERY DAY TAKE ONE TABLET BY MOUTH EVERY DAY SOLD: 01/30/2021 [facility] 5 mg 01/29/2021 12:00:00 AM EDT tablet 180 TAKE ONE TABLET BY MOUTH TWICE A DAY TAKE ONE TABLET BY MOUTH TWICE A DAY SOLD: 01/30/2021 [facility] Amlodipine 5 MG Oral Tablet Amlodipine Besylate 01/28/2021 12:00:00 A M EDT ORAL active [facility]ENT ([facility] 88 mcg 01/24/2021 12:00:00 AM EDT tablet 90 TAKE ONE TABLET BY MOUTH EVERY MORNING ON AN EMPTY STOMACH TAKE ONE TABLET BY MOUTH EVERY MORNING O N AN EMPTY STOMACH SOLD: 01/27/2021 [facility] 100 mg 01/10/2021 12:00:00 AM EDT tablet 45 TAKE ONE TABLET BY MOUTH EVERY DAY TAKE ONE TABLET BY MOUTH EVERY DAY SOLD: 03/14/2021 [facility] 30 mg 01/10/2021 12:00:00 AM EDT tablet 30 TAKE ONE TABLET BY MOUTH ONCE DAILY TAKE ONE TABLET BY MOUTH ONCE DAILY SOLD: 01/12/2021 [facility] 100 mg 01/10/2021 12:00:00 AM EDT tablet 30 TAKE ONE TABLET BY MOUTH EVERY DAY TAKE ONE TABLET BY MOUTH EVERY DAY SOLD: 02/15/2021 [facility] 100 mg 01/10/2021 12:00:00 AM EDT tablet 30 TAKE ONE TABLET BY MOUTH EVERY DAY TAKE ONE TABLET BY MOUTH EVERY DAY SOLD: 01/12/2021 [facility] 5 mg 11/29/2020 12:00:00 AM EDT tablet 90 TAKE ONE TABLET BY MOUTH TWO TIMES A DAY TAKE ONE TABLET BY MOUTH TWO TIMES A DAY SOLD: 11/29/2020 [facility] 5 mg 11/29/2020 12:00:00 AM EDT tablet 30 TAKE ONE TABLET BY MOUTH TWO TIMES A DAY TAKE ONE TABLET BY MOUTH TWO TIMES A DAY SOLD: 01/12/2021 [facility] 10 mg 11/28/2020 12:00:00 AM EDT tablet 90 TAKE ONE TABLET BY MOUTH EVERY DAY TAKE ONE TABLET BY MOUTH EVERY DAY SOLD: 11/29/2020 [facility] Amlodipine 10 MG Oral Tablet Amlodipine Besylate 11/28/2020 12:00:00 AM EDT ORAL completed MEDENT ([facility]) Levothyroxine Sodium 0.088 MG Oral Tablet [Synthroid] Synthr oid 11/27/2020 12:00:00 AM EDT ORAL active M EDENT ([facility]) Atenolol 100 MG Oral Tablet Atenolol 11/27/2020 12:00:00 AM EDT ORAL active MEDENT ([facility]) atorvastatin 40 MG Oral Tablet Atorvastatin Calcium 11/27/2020 1 2:00:00 AM EDT ORAL active MEDENT ( [facility]) Lisinopril 30 MG Oral Tablet Lisinopril 11/27/2020 12:00:00 AM EDT ORAL active MEDENT ([facility]) apixaban 5 MG Oral Tablet [Eliquis] Eliquis 11/27/2020 12:00:00 AM E DT ORAL active MEDENT ([facility]) clopidogrel 75 MG Oral Tablet Clopidogrel Bisulfate 11/27/2020 1 2:00:00 AM EDT ORAL active MEDENT ( [facility]) Amlodipine 5 MG Oral Tablet Amlodipine Besylate 11/27/2020 12:00:00 A M EDT ORAL completed [facility]ENT ([facility]) ferrous sulfate 325 MG Delayed Release O ral Tablet Ferrous Sulfate 325 (65 Fe) MG Ferrous Sulfate 325 (65 Fe) MG 11/26/2020 12:00:00 AM EDT 1. 0 {tablet} active Ferrous Sulfate 325 (65 Fe) MG eCW1 ([facility]) ferrous sulfate 325 MG Delayed Release O ral Tablet Ferrous Sulfate 325 (65 Fe) MG Ferrous Sulfate 325 (65 Fe) MG 11/26/2020 12:00:00 AM EDT 1. 0 {tablet} active Ferrous Sulfate 325 (65 Fe) MG eCW1 ([facility]) ferrous sulfate 325 MG Delayed Release O ral Tablet Ferrous Sulfate 325 (65 Fe) MG Ferrous Sulfate 325 (65 Fe) MG 11/26/2020 12:00:00 AM EDT 1. 0 {tablet} active Ferrous Sulfate 325 (65 Fe) MG eCW1 ([facility]) ferrous sulfate 325 MG Delayed Release O ral Tablet Ferrous Sulfate 325 (65 Fe) MG Ferrous Sulfate 325 (65 Fe) MG 11/26/2020 12:00:00 AM EDT 1. 0 {tablet} active Ferrous Sulfate 325 (65 Fe) MG eCW1 ([facility]) ferrous sulfate 325 MG Delayed Release O ral Tablet Ferrous Sulfate 325 (65 Fe) MG Ferrous Sulfate 325 (65 Fe) MG 11/26/2020 12:00:00 AM EDT 1. 0 {tablet} active Ferrous Sulfate 325 (65 Fe) MG eCW1 ([facility]) ferrous sulfate 325 MG Delayed Release O ral Tablet Ferrous Sulfate 325 (65 Fe) MG Ferrous Sulfate 325 (65 Fe) MG 11/26/2020 12:00:00 AM EDT 1. 0 {tablet} active Ferrous Sulfate 325 (65 Fe) MG eCW1 ([facility]) ferrous sulfate 325 MG Delayed Release O ral Tablet Ferrous Sulfate 325 (65 Fe) MG Ferrous Sulfate 325 (65 Fe) MG 11/26/2020 12:00:00 AM EDT 1. 0 {tablet} active Ferrous Sulfate 325 (65 Fe) MG eCW1 ([facility]) ferrous sulfate 325 MG Delayed Release O ral Tablet Ferrous Sulfate 325 (65 Fe) MG Ferrous Sulfate 325 (65 Fe) MG 11/26/2020 12:00:00 AM EDT 1. 0 {tablet} active Ferrous Sulfate 325 (65 Fe) MG eCW1 ([facility]) ferrous sulfate 325 MG Delayed Release O ral Tablet Ferrous Sulfate 325 (65 Fe) MG Ferrous Sulfate 325 (65 Fe) MG 11/26/2020 12:00:00 AM EDT 1. 0 {tablet} active Ferrous Sulfate 325 (65 Fe) MG eCW1 ([facility]) ferrous sulfate 325 MG Delayed Release O ral Tablet Ferrous Sulfate 325 (65 Fe) MG Ferrous Sulfate 325 (65 Fe) MG 11/26/2020 12:00:00 AM EDT 1. 0 {tablet} active Ferrous Sulfate 325 (65 Fe) MG eCW1 ([facility]) ferrous sulfate 325 MG Delayed Release O ral Tablet Ferrous Sulfate 325 (65 Fe) MG Ferrous Sulfate 325 (65 Fe) MG 11/26/2020 12:00:00 AM EDT 1. 0 {tablet} active Ferrous Sulfate 325 (65 Fe) MG eCW1 ([facility]) ferrous sulfate 325 MG Delayed Release O ral Tablet Ferrous Sulfate 325 (65 Fe) MG Ferrous Sulfate 325 (65 Fe) MG 11/26/2020 12:00:00 AM EDT 1. 0 {tablet} active Ferrous Sulfate 325 (65 Fe) MG eCW1 ([facility]) ferrous sulfate 325 MG Delayed Release O ral Tablet Ferrous Sulfate 325 (65 Fe) MG Ferrous Sulfate 325 (65 Fe) MG 11/26/2020 12:00:00 AM EDT 1. 0 {tablet} active Ferrous Sulfate 325 (65 Fe) MG eCW1 ([facility]) ferrous sulfate 325 MG Delayed Release O ral Tablet Ferrous Sulfate 325 (65 Fe) MG Ferrous Sulfate 325 (65 Fe) MG 11/26/2020 12:00:00 AM EDT 1. 0 {tablet} active Ferrous Sulfate 325 (65 Fe) MG eCW1 ([facility]) ferrous sulfate 325 MG Delayed Release O ral Tablet Ferrous Sulfate 325 (65 Fe) MG Ferrous Sulfate 325 (65 Fe) MG 11/26/2020 12:00:00 AM EDT 1. 0 {tablet} active Ferrous Sulfate 325 (65 Fe) MG eCW1 ([facility]) ferrous sulfate 325 MG Delayed Release O ral Tablet Ferrous Sulfate 325 (65 Fe) MG Ferrous Sulfate 325 (65 Fe) MG 11/26/2020 12:00:00 AM EDT 1. 0 {tablet} active Ferrous Sulfate 325 (65 Fe) MG eCW1 ([facility]) ferrous sulfate 325 MG Delayed Release O ral Tablet Ferrous Sulfate 325 (65 Fe) MG Ferrous Sulfate 325 (65 Fe) MG 11/26/2020 12:00:00 AM EDT 1. 0 {tablet} active Ferrous Sulfate 325 (65 Fe) MG eCW1 ([facility]) ferrous sulfate 325 MG Delayed Release O ral Tablet Ferrous Sulfate 325 (65 Fe) MG Ferrous Sulfate 325 (65 Fe) MG 11/26/2020 12:00:00 AM EDT 1. 0 {tablet} active Ferrous Sulfate 325 (65 Fe) MG eCW1 ([facility]) ferrous sulfate 325 MG Delayed Release O ral Tablet Ferrous Sulfate 325 (65 Fe) MG Ferrous Sulfate 325 (65 Fe) MG 11/26/2020 12:00:00 AM EDT 1. 0 {tablet} active Ferrous Sulfate 325 (65 Fe) MG eCW1 ([facility]) 5 mg 11/15/2020 12:00:00 AM EDT tablet 30 TAKE ONE TABLET BY MOUTH TWICE A DAY TAKE ONE TABLET BY MOUTH TWICE A DAY SOLD: 11/16/2020 [facility] Lisinopril 10 MG Oral Tablet lisinopril (PRINIVIL,ZEST RIL) tablet 30 mg lisinopril (PRINIVIL,ZESTRIL) tablet 30 mg 10/19/2020 09:00:00 AM EDT 30 mg Oral active 30 mg, Oral, D aily, First dose (after last modification) on Thu10/19/20 at 0900
Hold for SBP < 110
[facility] Medication administered onsite potassium chloride SA (K-DUR,KLOR-CON) CR tablet 40 mEq [id number] 10/18/2020 12:00:00 PM EDT 40 meq Oral completed 40 mEq, Oral, Once, On Thu10/18/20 at 1200, For 1 dose [facility] Medication administered onsite clopidogrel 75 MG Oral Tablet clopidogrel (PLAVIX) tab let 75 mg clopidogrel (PLAVIX) tablet 75 mg 10/18/2020 09:00:00 AM EDT 75 mg Oral active 75 mg, Oral, Daily, First dose on Thu10/18/20 at 0900, Post-op
May begin the same day
[facility] Medication administered onsite apixaban 5 MG Oral Tablet Apixaban (ELIQUIS) tablet 5 mg Apixaban (ELIQUIS) tablet 5 mg 10/18/2020 09:00:00 AM EDT 5 mg Oral active 5 mg, Oral, 2 times daily, First dose on [facility] 10/18/20 at 0900
Current dose selected for any 2 criteria of: Serum Cr < 1.5 mg/dL, age < 80 years, & weight > 60 kg Do not combine with strong 3A4 or p-Gp inhibitors (ketoconazole, itraconazole, ritonavir, clarithromycin)
[facility] Medication administered onsite 24 HR metoprolol succinate 25 MG Extende d Release Oral Tablet metoprolol succinate (TOPROL-XL) 24 hr tablet 25 mg metoprolol succinate (TOPROL-XL) 24 hr tablet 25 mg 10/18/2020 09:00:00 AM EDT 25 mg Oral abort ed 25 mg, Oral, Daily, First dose (after last modification) on [facility] 10/18/20 at 0900
Hold for HR < 65
[facility] Medication administered onsite 75 mg 10/18/2020 12:00:00 AM EDT tablet 30 TAKE 1 TABLET BY MOUTH DAILY TAKE 1 TABLET BY MOUTH DAILY SOLD: 11/16/2020 [facility] atorvastatin 40 MG Oral Tablet ATORVASTATIN CALCIUM 10/18/2020 1 2:00:00 AM EDT tablet 30 TAKE 1 TABLET BY MOUTH NIGHTLY TAKE 1 TAB LET BY MOUTH NIGHTLY SOLD: 10/18/2020 [facility] 75 mg 10/18/2020 12:00:00 AM EDT tablet 30 TAKE 1 TABLET BY MOUTH DAILY TAKE 1 TABLET BY MOUTH DAILY SOLD: 2020 [facility] atorvastatin 40 MG Oral Tablet ATORVASTATIN CALCIUM 10/18/2020 1 2:00:00 AM EDT tablet 30 TAKE 1 TABLET BY MOUTH NIGHTLY TAKE 1 TAB LET BY MOUTH NIGHTLY SOLD: 11/16/2020 [facility] 0.4 mg 10/18/2020 12:00:00 AM EDT tablet, sublingual [address]ACE ONE TABLET UNDER THE TONGUE EVERY 5 MINUTES FOR UP TO 3 DOSES NEEDED FOR CHEST PAIN PLACE ONE TABLET UNDER THE TONGUE EVERY 5 MINUTES FOR UP TO 3 DOSES NEEDED FOR CHEST PAIN SOLD: 10/18/2020 [facility] 5 mg 10/18/2020 12:00:00 AM EDT tablet 60 TAKE ONE TABLET BY MOUTH TWICE A DAY TAKE ONE TABLET BY MOUTH TWICE A DAY SOLD: 10/18/2020 [facility] 75 mg 10/18/2020 12:00:00 AM EDT tablet 30 TAKE 1 TABLET BY MOUTH DAILY TAKE 1 TABLET BY MOUTH DAILY SOLD: 01/12/2021 [facility] atorvastatin 40 MG Oral Tablet ATORVASTATIN CALCIUM 10/18/2020 1 2:00:00 AM EDT tablet 30 TAKE 1 TABLET BY MOUTH NIGHTLY TAKE 1 TAB LET BY MOUTH NIGHTLY SOLD: 2020 [facility] 75 mg 10/18/2020 12:00:00 AM EDT tablet 30 TAKE 1 TABLET BY MOUTH DAILY TAKE 1 TABLET BY MOUTH DAILY SOLD: 10/18/2020 [facility] atorvastatin 40 MG Oral Tablet ATORVASTATIN CALCIUM 10/18/2020 1 2:00:00 AM EDT tablet 30 TAKE 1 TABLET BY MOUTH NIGHTLY TAKE 1 TAB LET BY MOUTH NIGHTLY SOLD: 01/12/2021 [facility] apixaban 5 MG Oral Tablet Apixaban (ELIQUIS) 5 MG TABS tablet Apixaban (ELIQUIS) 5 MG TABS tablet 10/18/2020 12:00:00 AM EDT 5 mg Oral active Take 1 tablet (5 mg total) by mouth 2 (two) times a day [facility] Nitroglycerin 0.4 MG Sublingual Tablet n itroglycerin (NITROSTAT) 0.4 MG SL tablet nitroglycerin (NITROSTAT) 0.4 MG SL tablet 10/18/2020 12:00:00 A M EDT 0.[address] 1 t ablet (0.4 mg total) under the tongue every 5 (five) minutes as needed for chest pain [facility] normal saline flush 0.9 % injection 3 mL [id number] 10/17/2020 10:00:00 PM EDT 3 mL Intravenous active 3 mL , Intravenous, Every 8 hours (scheduled), First dose on Thu10/17/20 at 2200, Pre-op
Rapid push positive pressure flushing shall be performed with a 10 cc normal saline syringe to check the PATENCY of a PIV site prior to any infusion therapy initiation unless resistance is met.
[facility] Medication administered onsite atorvastatin 40 MG Oral Tablet atorvastatin (LIPITOR) tablet 40 mg atorvastatin (LIPITOR) tablet 40 mg 10/17/2020 09:00:00 PM EDT 40 mg Oral active 40 mg, Oral, Nightly, First dose on Thu10/17/20 at 2100 [facility] Medication administered onsite normal saline flush 0.9 % injection 3 mL [id number] 10/17/2020 09:00:00 PM EDT 3 mL Intravenous aborted 3 mL , Intravenous, PROTOCOL, First dose on Thu10/17/20 at 2100, Pre-op
flush per protocol, D/C Main IV fluid if appropriate
[facility] Medication administered onsite clopidogrel 300 MG Oral Tablet clopidogrel (PLAVIX) ta blet 600 mg clopidogrel (PLAVIX) tablet 600 mg 10/17/2020 08:00:00 PM EDT 600 mg Oral completed 600 mg, Oral, Once, On Thu10/17/20 at 2000, For 1 dose, Pre-op [facility] Medication administered onsite sodium chloride 0.9% (NS) infusion [id number] 10/17/2020 08:00:00 PM EDT 100 mL/h Intravenous active at 100 m L/hr, 100 mL/hr, Intravenous, Continuous, Starting on Thu10/17/20 at 2000, Pre-op
Start two hours prior to scheduled start time
[facility] Medication administered onsite Acetaminophen 325 MG Oral Tablet acetaminophen (TYLENO L) 325 MG tablet 650 mg acetaminophen (TYLENOL) 325 MG tablet 650 mg 10/17/2020 07:11:22 PM EDT 650 mg Oral active 650 mg, Or al, Every 4 hours PRN, headaches, and non cardiac pain, Starting on Thu10/17/20 at 1911, Pre-op
"Maximum dose of acetaminophen is 4,000 mg from all sources in 24 hours."
[facility] Medication administered onsite Nitroglycerin 0.4 MG Sublingual Tablet n itroglycerin (NITROSTAT) SL tablet 0.4 mg nitroglycerin (NITROSTAT) SL tablet 0.4 mg 10/17/2020 05:46:31 P M EDT 0.4 mg Sublingual active 0.4 mg, S ublingual, Every 5 min PRN, chest pain, Starting on Thu10/17/20 at 1746, Post-op
May administer every 5 minutes for 3 doses and call cardio lab MD.
[facility] Medication administered onsite 10 ML Atropine Sulfate 0.1 MG/ML Prefill ed Syringe atropine sulfate injection 0.5 mg atropine sulfate injection 0.5 mg 10/17/2020 05:46:30 PM EDT 0.5 mg active 0.5 mg, Intrave nous Push, Every 5 min PRN, other, As needed, for heart rate less than 60 BPM and the patient is hemodynamically unstable and/or SBP is less than 90mmHg, Starting on Thu10/17/20 at 1746, For 1 day, Post-op
Not to exceed a total of 3 mg or 0.04 mg/kg. Max of 6 doses
[facility] Medication administered onsite clopidogrel 75 MG Oral Tablet clopidogrel (PLAVIX) tab let clopidogrel (PLAVIX) tablet 10/17/2020 05:26:02 PM EDT active As needed, Starting on Thu10/17/20 at 1726, Intra-Procedure [facility] Medication administered onsite iopamidol (ISOVUE-370) 76 % [id number] 10/17/2020 05:11:53 PM EDT active As needed, Starting on Thu10/17/20 at 1711, Intra-Proce dure [facility] Medication administered onsite NITROGLYCERIN 0.4 MG/ML IV SOLN [id number] 10/17/2020 04:28:41 PM EDT active As needed, Starting on Thu at 1628, Intra-Procedure [facility] Medication administered onsite ondansetron (ZOFRAN) injection [id number] 10/17/2020 04:25:19 PM EDT active As needed, Starting on Thu at 1625, Intra-Procedure [facility] Medication administered onsite Ticagrelor 90 MG Oral Tablet ticagrelor (BRILINTA) tab let ticagrelor (BRILINTA) tablet 10/17/2020 04:24:10 PM EDT active As needed, Starting on Thu10/17/20 at 1624, Intra-Procedure [facility] Medication administered onsite 1 ML heparin sodium, porcine 1000 UNT/ML Injection hep pedro (porcine) injection heparin (porcine) injection 10/17/2020 04:13:00 PM EDT active As needed, Starting on Thu10/17/20 at 1613, Intra-Procedure [facility] Medication administered onsite 4 ML Verapamil hydrochloride 2.5 MG/ML Injection verap dorothy (ISOPTIN) injection verapamil (ISOPTIN) injection 10/17/2020 04:12:51 PM EDT active As needed, Starting on Thu10/17/20 at 1612, Intra-Procedure [facility] Medication administered onsite lidocaine 1 % injection [id number] 10/17/2020 04:11:33 PM EDT active As needed, Starting on Thu 1 at 1611, Intra-Procedure [facility] Medication administered onsite fentaNYL Citrate (PF) (SUBLIMAZE) injection [id number] 10/17/2020 04:11:20 PM EDT active As neede d, Starting on Thu10/17/20 at 1611, Intra-Procedure [facility] Medication administered onsite dextrose 5 % infusion [id number] 10/17/2020 03:00:00 PM EDT Intravenous completed at 100 mL/hr, In travenous, Continuous, Starting on Thu10/17/20 at 1500, For 4 hours [facility] Medication administered onsite technetium sestamibi (CARDIOLITE) injection 33 millevelyn champagne or medication 10/17/2020 03:00:00 PM EDT 33 mCi Intravenous completed 33 millicurie, Intravenous, Once, On Thu10/17/20 at 1500, For 1 dose [facility] Medication administered onsite technetium sestamibi (CARDIOLITE) injection 10 neal champagne or medication 10/17/2020 03:00:00 PM EDT 10 mCi Intravenous completed 10 millicurie, Intravenous, Once, On Thu10/17/20 at 1500, For 1 dose [facility] Medication administered onsite clopidogrel 75 MG Oral Tablet clopidogrel (Plavix) 75 MG tablet clopidogrel (Plavix) 75 MG tablet 10/17/2020 12:00:00 AM EDT 75 mg Oral active Take 1 tablet (75 mg total) by mouth daily [facility] atorvastatin 40 MG Oral Tablet atorvastatin (LIPITOR) 40 MG tablet atorvastatin (LIPITOR) 40 MG tablet 10/17/2020 12:00:00 AM EDT 40 mg Oral active Take 1 tablet (40 mg total) by mouth nightly [facility] Aspirin 81 MG Chewable Tablet aspirin 81 MG chewable t ablet aspirin 81 MG chewable tablet 10/17/2020 12:00:00 AM EDT 81 mg Oral ac tive Chew 1 tablet (81 mg total) daily for 6 days [facility] regadenoson (LEXISCAN) solution 0.4 mg [id number] 10/16/2020 06:0 0:00 PM EDT 0.4 mg Intravenous completed 0.4 mg, Intravenous, Once, On Thu10/16/20 at 1800, For 1 dose, [employer] Affairs [facility]
No Caffeine, Theophylline, or Dipyridamole (Aggrenox) for 12 hours prior to dose. If patient has had any of these, contact MD immediately
[facility] Medication administered onsite 24 HR metoprolol succinate 50 MG Extende d Release Oral Tablet metoprolol succinate (TOPROL-XL) 24 hr tablet 50 mg metoprolol succinate (TOPROL-XL) 24 hr tablet 50 mg 10/16/2020 01:00:00 PM EDT 50 mg Oral abort ed 50 mg, Oral, Daily, First dose on Thu10/16/20 at 1300 [facility] Medication administered onsite Amlodipine 5 MG Oral Tablet amLODIPine (NORVASC) table t 5 mg amLODIPine (NORVASC) tablet 5 mg 10/16/2020 09:00:00 AM EDT 5 mg Oral active 5 mg, Oral, Daily, First dose on Thu10/16/20 at 0900
Hold for SBP < 120
[facility] Medication administered onsite Lisinopril 10 MG Oral Tablet lisinopril (PRINIVIL,ZEST RIL) tablet 30 mg lisinopril (PRINIVIL,ZESTRIL) tablet 30 mg 10/16/2020 09:00:00 AM EDT 30 mg Oral aborted 30 mg, Oral, D aily, First dose on Thu10/16/20 at 0900
Hold for SBP < 110
[facility] Medication administered onsite Aspirin 81 MG Delayed Release Oral Tablet aspirin EC t ablet 81 mg aspirin EC tablet 81 mg 10/16/2020 09:00:00 AM EDT 81 mg Oral activ e 81 mg, Oral, Daily, First dose on Thu10/16/20 at 0900 [facility] Medication administered onsite Levothyroxine Sodium 0.088 MG Oral Table t levothyroxine (SYNTHROID, LEVOTHROID) tablet 88 mcg levothyroxine (SYNTHROID, LEVOTHROID) tablet 88 mcg 06:00:00 AM EDT 88 ug Oral active 88 mcg, Oral, Daily, First dose on Thu10/16/20 at 0600 [facility] Medication administered onsite Metoprolol Tartrate 25 MG Oral Tablet me toprolol tartrate (LOPRESSOR) tablet 12.5 mg metoprolol tartrate (LOPRESSOR) tablet 12.5 mg 05:00:00 PM EDT 12.5 mg Oral aborted 12.5 mg, Oral, 2 times daily, First dose on Thu10/15/20 at 1700
Hold for SBP < 100 or HR < 60 and notify attending
[facility] Medication administered onsite potassium chloride SA (K-DUR,KLOR-CON) CR tablet 20 mEq [phone] 10/15/2020 04:10:00 PM EDT 20 meq Oral completed 20 mEq, Oral, Once, On Thu10/15/20 at 1610, For 1 dose [facility] Medication administered onsite Amlodipine 10 MG Oral Tablet amLODIPine (NORVASC) tabl et 10 mg amLODIPine (NORVASC) tablet 10 mg 10/15/2020 12:35:00 PM EDT 10 mg Oral completed 10 mg, Oral, Once, On Thu10/15/20 at 1235, For 1 dose [facility] Medication administered onsite Lisinopril 10 MG Oral Tablet lisinopril (PRINIVIL,ZEST RIL) tablet 30 mg lisinopril (PRINIVIL,ZESTRIL) tablet 30 mg 10/15/2020 12:35:00 PM EDT 30 mg Oral completed 30 mg, Oral, Once, O n Thu10/15/20 at 1235, For 1 dose [facility] Medication administered onsite Acetaminophen 325 MG Oral Tablet acetaminophen (TYLENO L) 325 MG tablet 650 mg acetaminophen (TYLENOL) 325 MG tablet 650 mg 10/15/2020 12:35:00 PM EDT 650 mg Oral completed 650 mg, Or al, Once, On Thu10/15/20 at 1235, For 1 dose
"Maximum dose of acetaminophen is 4,000 mg from all sources in 24 hours."
[facility] Medication administered onsite 1 ML heparin sodium, porcine 1000 UNT/ML Injection heparin (porcine) injection 100-5,000 Units heparin (porcine) injection 100-5,000 Units 10/15/2020 12:00:00 PM EDT U Intravenous aborted 100- 5,000 Units, Intravenous, As needed, other, Starting on Thu10/15/20 at 1200
Round dose to nearest 100 units aPTT: < 34 &n bsp; Bolus: 60 units/kg IV (Maximum bolus: 5,000 units) 34 - 50 Bolus: 30 units/kg IV (Maximum bolus: 5,000 units)
[facility] Medication administered onsite 1 ML heparin sodium, porcine 1000 UNT/ML Injection heparin (porcine) injection 3,800 Units heparin (porcine) injection 3,800 Units 10/15/2020 11:30:00 AM EDT 60 U/kg Intravenous completed 3,800 Unit s (rounded from 3,810 Units = 60 Units/kg 63.5 kg), Intravenous, Once, On Thu10/15/20 at 1130, For 1 dose
Do not exceed 5,000 units or 60 units/kg (whichever is less)
[facility] Medication administered onsite 500 ML heparin sodium, porcine 50 UNT/ML Injection heparin infusion 25,000 units in 500 mL 0.45% NaCl heparin infusion 25,000 units in 500 mL 0.45% NaCl 10/15/2020 11:30:00 AM EDT 13 U/kg/h Intravenous aborted 13 Units/kg/hr 63.5 kg (16.51 mL/hr, rounded to 16.5 mL/hr), Intravenous, at 16.5 mL/hr, Continuous, Starting on Thu10/15/20 at 1130
For Cardiac/BridgeaPTT (seconds) Heparin Dose (weight based)< 34 Bolus: 60 units/kg IV (Maximum bolus: 5,000 units) and increase infusion 3 units/kg/hr IV34 - 50 Bolus: 30 units/kg IV (Maximum bolus: 5,000 units) and increase infusion 2 units/kg/hr IV50.1 - 58 No bolus. Increase infusion 1 unit/kg/hr IV58.1 - 87 Therapeutic, No Drlmvr16.1 - 97 Decrease infusion 1 unit/kg/hr IV 97.1 - 110Hold infusion for 30 minutes & decrease infusion 2 units/kg/hr IV> 110 Call MD if patient is bleeding. Hold infusion for 60 minutes & decrease infusion 3 units/kg/hr IVInitial heparin IV infusion rate:Do not exceed 1000 units/hr or 12 units/kg/hr initially (whichever is less)Infuse this medication only through single port tubing ([facility]Site Infusion Set ref [id number]). Medication and tubing is to be discarded if infusion off for 4 hours.
[facility] Medication administered onsite 5 mg 10/12/2020 12:00:00 AM EDT tablet 90 TAKE ONE TABLET BY MOUTH EVERY DAY TAKE ONE TABLET BY MOUTH EVERY DAY SOLD: 10/18/2020 [facility] 30 mg 10/12/2020 12:00:00 AM EDT tablet 90 TAKE ONE TABLET BY MOUTH EVERY DAY TAKE ONE TABLET BY MOUTH EVERY DAY SOLD: 10/18/2020 [facility] 88 mcg 08/01/2020 12:00:00 AM EDT tablet 90 TAKE ONE TABLET BY MOUTH EVERY MORNING ON AN EMPTY STOMACH TAKE ONE TABLET BY MOUTH EVERY MORNING O N AN EMPTY STOMACH SOLD: 11/08/2020 [facility] 88 mcg 08/01/2020 12:00:00 AM EDT tablet 90 TAKE ONE TABLET BY MOUTH EVERY MORNING ON AN EMPTY STOMACH TAKE ONE TABLET BY MOUTH EVERY MORNING O N AN EMPTY STOMACH SOLD: 08/01/2020 [facility] 5 mg 07/17/2020 12:00:00 AM EST tablet 90 TAKE ONE TABLET BY MOUTH EVERY DAY TAKE ONE TABLET BY MOUTH EVERY DAY SOLD: 07/19/2020 [facility] 30 mg 07/04/2020 12:00:00 AM EST tablet 90 TAKE ONE TABLET BY MOUTH EVERY DAY TAKE ONE TABLET BY MOUTH EVERY DAY SOLD: 07/05/2020 [facility] Levothyroxine Sodium 0.088 MG Oral Tablet [Synthroid] Synthroid 88 MCG Synthroid 88 MCG 04/23/2020 12:00:00 AM EST active Synthroid 88 MCG eCW1 ([facility]) Levothyroxine Sodium 0.088 MG Oral Tablet [Synthroid] Synthroid 88 MCG Synthroid 88 MCG 04/23/2020 12:00:00 AM EST active Synthroid 88 MCG eCW1 ([facility]) Levothyroxine Sodium 0.088 MG Oral Tablet [Synthroid] Synthroid 88 MCG Synthroid 88 MCG 04/23/2020 12:00:00 AM EST active Synthroid 88 MCG eCW1 ([facility]) Levothyroxine Sodium 0.088 MG Oral Tablet [Synthroid] Synthroid 88 MCG Synthroid 88 MCG 04/23/2020 12:00:00 AM EST active Synthroid 88 MCG eCW1 ([facility]) Levothyroxine Sodium 0.088 MG Oral Tablet [Synthroid] Synthroid 88 MCG Synthroid 88 MCG 04/23/2020 12:00:00 AM EST active Synthroid 88 MCG eCW1 ([facility]) Levothyroxine Sodium 0.088 MG Oral Tablet [Synthroid] Synthroid 88 MCG Synthroid 88 MCG 04/23/2020 12:00:00 AM EST active Synthroid 88 MCG eCW1 ([facility]) Levothyroxine Sodium 0.088 MG Oral Tablet [Synthroid] Synthroid 88 MCG Synthroid 88 MCG 04/23/2020 12:00:00 AM EST active Synthroid 88 MCG eCW1 ([facility]) Levothyroxine Sodium 0.088 MG Oral Tablet [Synthroid] Synthroid 88 MCG Synthroid 88 MCG 04/23/2020 12:00:00 AM EST active Synthroid 88 MCG eCW1 ([facility]) Levothyroxine Sodium 0.088 MG Oral Tablet [Synthroid] Synthroid 88 MCG Synthroid 88 MCG 04/23/2020 12:00:00 AM EST active Synthroid 88 MCG eCW1 ([facility]) Levothyroxine Sodium 0.088 MG Oral Tablet [Synthroid] Synthroid 88 MCG Synthroid 88 MCG 04/23/2020 12:00:00 AM EST active Synthroid 88 MCG eCW1 ([facility]) Levothyroxine Sodium 0.088 MG Oral Tablet [Synthroid] Synthroid 88 MCG Synthroid 88 MCG 04/23/2020 12:00:00 AM EST active Synthroid 88 MCG eCW1 ([facility]) Levothyroxine Sodium 0.088 MG Oral Tablet [Synthroid] Synthroid 88 MCG Synthroid 88 MCG 04/23/2020 12:00:00 AM EST active Synthroid 88 MCG eCW1 ([facility]) Levothyroxine Sodium 0.088 MG Oral Tablet [Synthroid] Synthroid 88 MCG Synthroid 88 MCG 04/23/2020 12:00:00 AM EST active Synthroid 88 MCG eCW1 ([facility]) Levothyroxine Sodium 0.088 MG Oral Tablet [Synthroid] Synthroid 88 MCG Synthroid 88 MCG 04/23/2020 12:00:00 AM EST active Synthroid 88 MCG eCW1 ([facility]) Levothyroxine Sodium 0.088 MG Oral Tablet [Synthroid] Synthroid 88 MCG Synthroid 88 MCG 04/23/2020 12:00:00 AM EST active Synthroid 88 MCG eCW1 ([facility]) Levothyroxine Sodium 0.088 MG Oral Tablet [Synthroid] Synthroid 88 MCG Synthroid 88 MCG 04/23/2020 12:00:00 AM EST active Synthroid 88 MCG eCW1 ([facility]) Levothyroxine Sodium 0.088 MG Oral Tablet [Synthroid] Synthroid 88 MCG Synthroid 88 MCG 04/23/2020 12:00:00 AM EST active Synthroid 88 MCG eCW1 ([facility]) Levothyroxine Sodium 0.088 MG Oral Tablet [Synthroid] Synthroid 88 MCG Synthroid 88 MCG 04/23/2020 12:00:00 AM EST active Synthroid 88 MCG eCW1 ([facility]) Levothyroxine Sodium 0.088 MG Oral Tablet [Synthroid] Synthroid 88 MCG Synthroid 88 MCG 04/23/2020 12:00:00 AM EST active Synthroid 88 MCG eCW1 ([facility]) Levothyroxine Sodium 0.088 MG Oral Tablet [Synthroid] Synthroid 88 MCG Synthroid 88 MCG 04/23/2020 12:00:00 AM EST active Synthroid 88 MCG eCW1 ([facility]) Levothyroxine Sodium 0.088 MG Oral Tablet [Synthroid] Synthroid 88 MCG Synthroid 88 MCG 04/23/2020 12:00:00 AM EST active Synthroid 88 MCG eCW1 ([facility]) Levothyroxine Sodium 0.088 MG Oral Tablet [Synthroid] Synthroid 88 MCG Synthroid 88 MCG 04/23/2020 12:00:00 AM EST active Synthroid 88 MCG eCW1 ([facility]) Levothyroxine Sodium 0.088 MG Oral Tablet [Synthroid] Synthroid 88 MCG Synthroid 88 MCG 04/23/2020 12:00:00 AM EST active Synthroid 88 MCG eCW1 ([facility]) Levothyroxine Sodium 0.088 MG Oral Tablet [Synthroid] Synthroid 88 MCG Synthroid 88 MCG 04/23/2020 12:00:00 AM EST active Synthroid 88 MCG eCW1 ([facility]) Levothyroxine Sodium 0.088 MG Oral Tablet [Synthroid] Synthroid 88 MCG Synthroid 88 MCG 04/23/2020 12:00:00 AM EST active Synthroid 88 MCG eCW1 ([facility]) Levothyroxine Sodium 0.088 MG Oral Tablet [Synthroid] Synthroid 88 MCG Synthroid 88 MCG 04/23/2020 12:00:00 AM EST active Synthroid 88 MCG eCW1 ([facility]) Levothyroxine Sodium 0.088 MG Oral Tablet [Synthroid] Synthroid 88 MCG Synthroid 88 MCG 04/23/2020 12:00:00 AM EST active Synthroid 88 MCG eCW1 ([facility]) Levothyroxine Sodium 0.088 MG Oral Tablet [Synthroid] Synthroid 88 MCG Synthroid 88 MCG 04/23/2020 12:00:00 AM EST active Synthroid 88 MCG eCW1 ([facility]) 5 mg 01/21/2020 12:00:00 AM EDT tablet 90 TAKE ONE TABLET BY MOUTH EVERY DAY TAKE ONE TABLET BY MOUTH EVERY DAY SOLD: 04/23/2020 [facility] 30 mg 01/21/2020 12:00:00 AM EDT tablet 90 TAKE ONE TABLET BY MOUTH EVERY DAY TAKE ONE TABLET BY MOUTH EVERY DAY SOLD: 04/23/2020 [facility] 100 mg 01/21/2020 12:00:00 AM EDT tablet 90 TAKE ONE TABLET BY MOUTH EVERY DAY TAKE ONE TABLET BY MOUTH EVERY DAY SOLD: 04/23/2020 [facility] 100 mg 01/21/2020 12:00:00 AM EDT tablet 90 TAKE ONE TABLET BY MOUTH EVERY DAY TAKE ONE TABLET BY MOUTH EVERY DAY SOLD: 07/19/2020 [facility] 100 mg 01/21/2020 12:00:00 AM EDT tablet 90 TAKE ONE TABLET BY MOUTH EVERY DAY TAKE ONE TABLET BY MOUTH EVERY DAY SOLD: 10/18/2020 [facility] Lisinopril 20 MG Oral Tablet lisinopril (PRINIVIL,ZEST RIL) 20 MG tablet lisinopril (PRINIVIL,ZESTRIL) 20 MG tablet 08/21/2015 12:00:00 AM EDT 20 mg Oral aborted Essential hypertension Ta ke 1 tablet (20 mg total) by mouth daily [facility] Essential hypertension Hydrochlorothiazide 12.5 MG Oral Tablet hydrochlorothiazide (HYDRODIURIL) 12.5 MG tablet hydrochlorothiazide (HYDRODIURIL) 12.5 MG tablet 08/20 12:00:00 AM EDT 12.5 mg Oral aborted Essential hypertension Take 1 tablet (12.5 mg total) by mouth daily [facility] Essential hypertension Levothyroxine Sodium 0.1 MG Oral Tablet levothyroxine (SYNTHROID, LEVOTHROID) 100 MCG tablet levothyroxine (SYNTHROID, LEVOTHROID) 100 MCG tablet 0 08/21/2015 12:00:00 AM EDT 100 ug Oral aborted Juanpablo enital hypothyroidism without goiter Take 1 tablet (100 mcg total) by mouth d aily [facility] Congenital hypothyroidism without goiter Insurance Providers Payer name Policy type / Coverage type Policy ID Covered democrat ID Covered democrat's relationship to berrios Policy Berrios Plan Information MEDICARE [id number] Jessy [id number] B MEDICARE [id number] MEDICARE [id number] Jessy [id number] [employer] [id number] Jessy XXP [id number] [employer] BCBS [id number] BCBS [facility] 200/700 [id number] SP [id number] [employer]BS [id number] Jessy XXP [id number] MEDICARE [id number] SP [id number] [place] [id number] S [id number] BCBS EMPIRE [id number] SPO [id number] ANSI-Commercial [id number] ANSI-Medicare Part B [id number] ANSI-Commercial [id number] [facility]-Medicare Part B [id number] [facility] [id number] ANSI-Commercial [id number] MEDICARE [id number] SP [id number] B Medicare/[place] Gov SVC Medicare Primary [id number] Self MEDICARE [id number] SP [id number] Excell[employer] Medigap Part [id number] Self BCBS [facility] 200/700 [id number] SP [id number] BCBS [facility] 200/700 [id number] SP [id number] BCBS EMPIRE [id number] SPO XXP [id number] [facility] MEDICARE DIVISION [id number] S [id number] MEDICARE - [place] [id number] S [id number] BCBS [place] [id number] SPO XXP [id number] [facility] [id number] S [id number] Problems, Conditions, and Diagnoses Code Display Name Description Problem Type Effective Dates Data Source(s) I21.4 Non-ST elevation (NSTEMI) myocardial inf arction Non-ST elevation (NSTEMI) myocardial inf Diagnosis 10/15/2020 10:48:00 AM EDT [facility] R77.8 Other specified abnormalities of plasma proteins Other specified abnormalities of plasma Diagnosis 10/15/2020 10:48:00 AM EDT [facility] I25.9 Chronic ischemic heart disease, unspecif ied Chronic ischemic heart disease, unspecif Diagnosis 10/15/2020 10:48:00 AM EDT [facility] I48.0 Paroxysmal atrial fibrillation Paroxysmal atrial fibri llation Diagnosis 10/15/2020 10:48:00 AM EDT [facility] I48.91 Unspecified atrial fibrillation Unspecified atri al fibrillation Diagnosis 10/15/2020 10:48:00 AM EDT [facility] CP, New onset A fib with RVR now controlled on Cardizem gtt, elevated troponin 0.3 CP, New onset A fib with RVR now control led on Cardizem gtt, elevated troponin 0.3 Diagnosis 10/15/2020 06:38:00 AM EDT [facility] Z79.899 Other snf (current) drug therapy 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 Diagnosis 10/15/2020 05:52:00 AM [facility] Z20.822 CONTACT WITH AND (SUSPECTED) EXPOSURE TO COVID-19 CONTACT WITH AND (SUSPECTED) EXPOSURE TO COVID-19 Diagnosis 10/15/2020 05:52:00 AM [facility] E03.9 Hypothyroidism, unspecified HYPOTHYROIDISM, UNSPECIFIE D Diagnosis 10/15/2020 05:52:00 AM [facility] I10 Essential (primary) hypertension ESSENTIAL (PRIMARY) H YPERTENSION Diagnosis 10/15/2020 05:52:00 AM [facility] R74.8 Abnormal levels of other serum enzymes A BNORMAL LEVELS OF OTHER SERUM ENZYMES Diagnosis 10/15/2020 05:52:00 AM [facility] I24.8 Other forms of acute ischemic heart dise ase OTHER FORMS OF ACUTE ISCHEMIC HEART DISEASE Diagnosis 10/15/2020 05:52:00 AM [facility] I48.91 Unspecified atrial fibrillation UNSPECIFIED ATRI AL FIBRILLATION Diagnosis 10/15/2020 05:52:00 AM [facility] R07.2 Precordial pain PRECORDIAL PAIN Diagnosis 10/15/2020 05:5 2:00 AM [facility] Z79.01 [id number] Anticoagulant long-term use Problem 04/19/20 21 12:00:00 AM EST eCW1 ([facility]) E78.2 [id number] Mixed hyperlipidemia Problem 03/26/2021 12:0 0:00 AM EST eCW1 ([facility]) D50.0 [id number] Iron deficiency anemia due to chronic blo od loss Problem 01/30/2021 12:00:00 AM EDT eCW1 ([facility]) [id number] Pure hypercholesterolemia Pure hypercholesterolemia Pr oblem 01/16/2021 12:00:00 AM EDT [facility] ([facility]) [id number] Essential hypertension Essential hypertension Problem 01/16/2021 12:00:00 AM EDT [facility] ([facility]) E53.8 Vitamin B12 deficiency Vitamin B12 deficiency Problem 12/18/2020 12:00:00 AM EDT eCW1 ([facility]) E78.00 Pure hypercholesterolemia Pure hypercholesterolemia Pr oblem 11/28/2020 12:00:00 AM EDT [facility] ([facility]) I25.10 Coronary arteriosclerosis after percutan eous coronary angioplasty Coronary arteriosclerosis after percutaneous coronary angioplasty Problem 11/28/2020 12:00:00 AM EDT [facility] ([facility]) R94.31 Electrocardiogram abnormal Electrocardiogram abnormal Problem 11/28/2020 12:00:00 AM EDT [facility] ([facility]) I10 Essential hypertension Essential hypertension Problem 11/28/2020 12:00:00 AM EDT [facility] ([facility]) I48.0 Paroxysmal atrial fibrillation Paroxysmal atrial fibri llation Problem 11/28/2020 12:00:00 AM EDT [facility] ([facility]) Z95.5 Patient post percutaneous transluminal c oronary angioplasty Patient post percutaneous transluminal coronary angioplasty Problem 021 12:00:00 AM EDT [facility] ([facility]) I25.2 Old myocardial infarction Old myocardial infarction Pr oblem 11/28/2020 12:00:00 AM EDT [facility] ([facility]) I48.0 [id number] Paroxysmal atrial fibrillation Problem 10/23/2020 12:00:00 AM EDT eCW1 ([facility]) I25.10 [id number] Coronary artery dise ase involving [place] coronary artery of [place] heart without angina pectoris Problem 10/23/2020 12:00:00 AM EDT eCW1 ([facility]) I48.91 New onset atrial fibrillation New onset atrial fibrill ation [id number] 10/18/2020 12:00:00 AM EDT [facility] R77.8 Elevated troponin Elevated troponin [id number] 10/17/2020 12:00:00 AM EDT [facility] R07.9 Chest pain Chest pain [id number] 10/17/2020 12:00:00 AM ED T [facility] I21.4 NSTEMI (non-ST elevated myocardial infar ction) NSTEMI (non-ST elevated myocardial infarction) [id number] 10/16/2020 12:00:00 AM EDT [facility] I25.9 Myocardial ischemia Myocardial ischemia [id number] 10/15/2020 12:00:00 AM EDT [facility] Z98.49 [id number] History of cataract extraction, unspecifi ed laterality Problem 03/30/2020 12:00:00 AM EST eCW1 ([facility]) H43.813 [id number] Posterior vitreous detachment of both eye s Problem 03/30/2020 12:00:00 AM EST eCW1 ([facility]) Surgeries/Procedures Procedure Description Date Indications Data Source(s) Injection, vitamin b-12 cyanocobalamin, up to 1000 mcg 03/26/2021 12:00:00 AM EST eCW1 ([facility]) Injection, vitamin b-12 cyanocobalamin, up to 1000 mcg 02/22/2021 12:00:00 AM EDT eCW1 ([facility]) Chronic Care Management Services Ea Addl 20 Min 2020 12:00:00 AM EDT MIHAELA ([facility]) Chronic Care MGMT 20 Mins Clinical Staff Time Per Calendar M ont 02/20/2021 12:00:00 AM EDT [facility] ([facility]) Complex Chronic Care Management SVC 1St 60 Min 021 12:00:00 AM EDT [facility] ([facility]) Complex Chronic Care MGMT Service Ea Addl 30 Min 02/04 12:00[facility] Injection, vitamin b-12 cyanocobalamin, up to 1000 mcg 02/01/2021 12:00:00 AM EDT eCW1 ([facility]) Electrocardiogram Complete 01/17/2021 12:00:[facility]) OFFICE OUTPATIENT NEW 60 MINUTES 01/17/2021 12:00:00 A M EDT [facility] ([facility]) External ECG Rec>48HR<7D Recording 01/11/2021 12:00:00 AM [facility] External ECG Rec>48HR<7D Review & Interpretation 01/11 12:00:00 AM EDT [facility] Injection, vitamin b-12 cyanocobalamin, up to 1000 mcg 12/10/2020 12:00:00 AM EDT eCW1 ([facility]) Injection, vitamin b-12 cyanocobalamin, up to 1000 mcg 12/03/2020 12:00:00 AM EDT eCW1 ([facility]) ECG ROUTINE ECG W/LEAST 12 LDS W/I&R 11/28/2020 12:00: 00 AM [facility] Arterial Pressure Waveform Analysis For Assessment Of Centra l Art 11/28/2020 12:00:00 AM EDT [facility]) OFFICE OUTPATIENT NEW 45 MINUTES 11/28/2020 12:00:00 A M EDT [facility] Irrigation Of Vagina And/Or Application Of Medicament 10/29/2020 12:00:00 AM 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 ([place] [facility] REPA[facility] OPERATOR) BLOOD COUNT COMPLETE AUTO&AUTO DIFRNTL WBC COUNT <td>C BC AND DIFFERENTIAL</td><td>STAT</td><td>10/18/2020 10:53 AM EDT</td><td></td><td> </td> 10/18/2020 10:53:00 AM EDT [facility] CMB <td>CMB</td><td>STAT</td><td >10/18/2020 7:41 AM EDT</td><td></td><td> </td> 10/18/2020 07:41:00 AM EDT [facility] THROMBOPLASTIN TIME PARTIAL PLASMA/WHOLE BLOOD <td>APTT</td><td>STAT</td><td>10/18/2020 7:41 AM EDT</td><td></td><td> </td> 10/18/2020 07:41:00 AM EDT [facility] CREATINE KINASE MB FRACTION ONLY <td>CKMB</td><td>Time d</td><td>10/18/2020 7:41 AM EDT</td><td></td><td> </td> 10/18/2020 07:41:00 AM EDT [facility] BASIC METABOLIC PANEL CALCIUM TOTAL <td>BASIC METABOLI C PANEL</td><td>Routine</td><td>10/18/2020 7:41 AM EDT</td><td></td><td> </td> 10/18/2020 07:41:00 AM EDT [facility] ECG ROUTINE ECG W/LEAST 12 LDS TRCG ONLY W/O I&R <td>E CG 12- LEAD</td><td>STAT</td><td>10/18/2020 1:41 AM EDT</td><td></td><td></td> 10/18/2020 01:41:16 AM EDT [facility] CMB <td>CMB</td><td>Timed</td><t d>10/18/2020 12:11 AM EDT</td><td></td><td> </td> 10/18/2020 12:11:00 AM EDT [facility] THROMBOPLASTIN TIME PARTIAL PLASMA/WHOLE BLOOD <td>APTT</td><td>Routine</td><td>10/18/2020 12:11 AM EDT</td><td></td><td> </td> 10/18/2020 12:11:00 AM EDT [facility] CREATINE KINASE MB FRACTION ONLY <td>CKMB</td><td>Time d</td><td>10/18/2020 12:11 AM EDT</td><td></td><td> </td> 10/18/2020 [facility] 10/18/2020 12:00:00 AM EDT [facility] ([facility]) PROTHROMBIN TIME <td>PROTIME-INR</td><td>Rout ine</td><td>10/17/2020 7:24 PM EDT</td><td></td><td> </td> 10/17/2020 07:24:00 PM EDT [facility] BLOOD COUNT COMPLETE AUTOMATED <td>CBC</td><td>Routine </td><td>10/17/2020 7:24 PM EDT</td><td></td><td> </td> 10/17/2020 07:24:00 PM EDT [facility] CARDIAC CATHETERIZATION <td>CARDIAC CATHETERIZATION</td><td>Routine</td><td>10/17/2020 5:10 PM EDT</td><td> Paroxysmal atrial fibrillation with RVR Myocardial ischemia Elevated troponin</td><td> </td> 10/17/2020 05:10:42 PM EDT Elevated troponinMyocardial ischemiaParo xysmal atrial fibrillation with RVR [facility] Elevated troponin Myocardial ischemia Paroxysmal atrial fibrillation with RVR MYOCARDIAL SPECT MULTIPLE STUDIES <td>NM CARDIAC GATED SPEC IMG EFWM</td><td>Routine</td><td>10/17/2020 1:45 PM EDT</td><td></td><td> </td> 10/17/2020 01:45:00 PM EDT [facility] CV STRS TST XERS&/OR RX CONT ECG TRCG ONLY <td>STRESS TEST, CARDIOVASCULAR</td><td>Routine</td><td>10/17/2020 11:03 AM EDT</td><td></td><td></td> 10/17/2020 11:03:19 AM EDT [facility] THROMBOPLASTIN TIME PARTIAL PLASMA/WHOLE BLOOD <td>APTT</td><td>Routine</td><td>10/17/2020 6:13 AM EDT</td><td></td><td> </td> 10/17/2020 06:13:00 AM EDT [facility] BLOOD COUNT COMPLETE AUTOMATED <td>CBC</td><td>Timed</ td><td>10/17/2020 6:13 AM EDT</td><td></td><td> </td> 10/17/2020 06:13:00 AM EDT [facility] BASIC METABOLIC PANEL CALCIUM TOTAL <td>BASIC METABOLI C PANEL</td><td>Routine</td><td>10/17/2020 6:13 AM EDT</td><td></td><td> </td> 10/17/2020 06:13:00 AM EDT [facility] CV STRS TST XERS&/OR RX CONT ECG TRCG ONLY <td>STRESS TEST, CARDIOVASCULAR</td><td>Routine</td><td>10/16/2020 5:14 PM EDT</td><td></td><td></td> 10/16/2020 05:14:12 PM EDT [facility] ECHO TTHRC R-T 2D W/WOM-MODE COMPL SPEC&COLR DOP <td>E CHOCARDIOGRAM TRANSTHORACIC</td><td>Routine</td><td>10/16/2020 1:55 PM EDT</td><td></td><td> </td> 10/16/2020 01:55:00 PM EDT [facility] THROMBOPLASTIN TIME PARTIAL PLASMA/WHOLE BLOOD <td>APTT</td><td>Routine</td><td>10/16/2020 7:41 AM EDT</td><td></td><td> </td> 10/16/2020 07:41:00 AM EDT [facility] BLOOD COUNT COMPLETE AUTOMATED <td>CBC</td><td>Timed</ td><td>10/16/2020 7:41 AM EDT</td><td></td><td> </td> 10/16/2020 07:41:00 AM EDT [facility] LIPID PANEL <td>LIPID PANEL</td><td>Rout ine</td><td>10/16/2020 7:41 AM EDT</td><td></td><td> </td> 10/16/2020 07:41:00 AM EDT [facility] BASIC METABOLIC PANEL CALCIUM TOTAL <td>BASIC METABOLI C PANEL</td><td>Routine</td><td>10/16/2020 7:41 AM EDT</td><td></td><td> </td> 10/16/2020 07:41:00 AM EDT [facility] THROMBOPLASTIN TIME PARTIAL PLASMA/WHOLE BLOOD <td>APTT</td><td>Routine</td><td>10/16/2020 12:46 AM EDT</td><td></td><td> </td> 10/16/2020 12:46:00 AM EDT [facility] TROPONIN QUANTITATIVE <td>TROPONIN I</td><td>Timed </td><td>10/15/2020 7:55 PM EDT</td><td></td><td> </td> 10/15/2020 07:55:00 PM EDT [facility] THROMBOPLASTIN TIME PARTIAL PLASMA/WHOLE BLOOD <td>APTT</td><td>STAT</td><td>10/15/2020 6:43 PM EDT</td><td></td><td> </td> 10/15/2020 06:43:00 PM EDT [facility] ECG ROUTINE ECG W/LEAST 12 LDS TRCG ONLY W/O I&R <td>E CG 12- LEAD</td><td>STAT</td><td>10/15/2020 5:51 PM EDT</td><td></td><td></td> 10/15/2020 05:51:00 PM EDT [facility] TROPONIN QUANTITATIVE <td>TROPONIN I</td><td>STAT< /td><td>10/15/2020 4:33 PM EDT</td><td></td><td> </td> 10/15/2020 04:33:00 PM EDT [facility] TROPONIN QUANTITATIVE <td>POCT TROPONIN</td><td>Ro utine</td><td>10/15/2020 11:50 AM EDT</td><td></td><td> </td> 10/15/2020 11:50:00 AM EDT [facility] NT PRO BNP <td>NT PRO BNP</td><td>STAT< /td><td>10/15/2020 11:48 AM EDT</td><td></td><td> </td> 10/15/2020 11:48:00 AM EDT [facility] THROMBOPLASTIN TIME PARTIAL PLASMA/WHOLE BLOOD <td>APTT</td><td>STAT</td><td>10/15/2020 11:48 AM EDT</td><td></td><td> </td> 10/15/2020 11:48:00 AM EDT [facility] PROTHROMBIN TIME <td>PROTIME-INR</td><td>STAT </td><td>10/15/2020 11:48 AM EDT</td><td></td><td> </td> 10/15/2020 11:48:00 AM EDT [facility] BLOOD COUNT COMPLETE AUTO&AUTO DIFRNTL WBC COUNT <td>C BC AND DIFFERENTIAL</td><td>STAT</td><td>10/15/2020 11:48 AM EDT</td><td></td><td> </td> 10/15/2020 11:48:00 AM EDT [facility] THYROID STIMULATING HORMONE TSH <td>TSH</td><td>STAT</ td><td>10/15/2020 11:48 AM EDT</td><td></td><td> </td> 10/15/2020 11:48:00 AM EDT [facility] THYROXINE FREE <td>T4, FREE</td><td>STAT</t d><td>10/15/2020 11:48 AM EDT</td><td></td><td> </td> 10/15/2020 11:48:00 AM EDT [facility] MAGNESIUM <td>MAGNESIUM</td><td>STAT</ td><td>10/15/2020 11:48 AM EDT</td><td></td><td> </td> 10/15/2020 11:48:00 AM EDT [facility] HEMOGLOBIN GLYCOSYLATED A1C <td>HEMOGLOBIN A1C</td><td >STAT</td><td>10/15/2020 11:48 AM EDT</td><td></td><td> </td> 10/15/2020 11:48:00 AM EDT [facility] COMPREHENSIVE METABOLIC PANEL <td>COMPREHENSIVE METABO LIC PANEL</td><td>STAT</td><td>10/15/2020 11:48 AM EDT</td><td></td><td> </td> 10/15/2020 11:48:00 AM EDT [facility] ECG ROUTINE ECG W/LEAST 12 LDS TRCG ONLY W/O I&R <td>E CG 12- LEAD</td><td>STAT</td><td>10/15/2020 11:17 AM EDT</td><td></td><td> </td> 10/15/2020 11:17:38 AM EDT [facility] CRITICAL CARE ILL/INJURED PATIENT INIT 30-74 MIN <td>P R CRITICAL CARE, E/M 30-74 MINUTES</td><td>Routine</td><td>10/15/2020 11:10 AM EDT</td><td></td><td> </td> 10/15/2020 11:10:34 AM EDT [facility] Irrigation Of Vagina And/Or Application Of Medicament 09/04/2020 12:00:00 AM EDT [facility] ([facility]) OFFICE OUTPATIENT VISIT 10 MINUTES 09/04/2020 12:00:00 AM EDT [facility] ([facility]) Irrigation Of Vagina And/Or Application Of Medicament 07/25/2020 12:00:00 AM EDT [facility] ([facility]) OFFICE OUTPATIENT VISIT 10 MINUTES 07/25/2020 12:00:00 AM EDT [facility] ([facility]) Irrigation Of Vagina And/Or Application Of Medicament 04/25/2020 12:00:00 AM EST [facility] ([facility]) Results ID Date Data Source [id number] 01/30/2021 03:13:00 PM EDT [facility] ([facility]) Name Value Range Interpretation Code Description Data Rosana rce(s) Supporting Document(s) White Blood Count 5.6 4.3-10.9 [facility] ([facility]) Red Blood Count 3.72 4.70-6.20 [facility] ([facility]) Platelets 297 130-400 [facility] Hemoglobin 11.3 13.0-17.0 [facility] ([facility]) Hematocrit 35.0 39.0-50.0 [facility] ([facility]) ID Date Data Source [id number] 12/20/2020 12:00:00 AM EDT [facility] Name Value Range Interpretation Code Description Data Rosana rce(s) Supporting Document(s) SARS-CoV2 Rapid Antigen Positive [facility] This lab was reported by Eleanor Velasco. ID Date Data Source CBC - Complete Blood Count 12/10/2020 12:00:00 AM EDT eCW1 ( [facility]) Name Value Range Interpretation Code Description Data Rosana rce(s) Supporting Document(s) 5.3 4.0-10.0 WHITE BLOOD COUNT eCW1 ([facility]) 3.34 4.00-5.40 RED BLOOD COUNT eCW1 ([facility]) 10.7 12.0-15.5 HEMOGLOBIN eCW1 ([facility]) 32.0 27.0-33.0 MEAN CORPUSCULAR HEMOGLOB IN eCW1 ([facility]) 101.5 80.0-96.0 MEAN CORPUSCULAR VOLUME e CW1 ([facility]) 33.9 36.0-47.0 HEMATOCRIT eCW1 ([facility]) 31.6 32.0-36.5 MEAN CORPUSCULAR HGB CONC eCW1 ([facility]) 15.4 11.5-14.5 RED CELL DISTRIBUTION WID TH eCW1 ([facility]) 281 150-450 PLATELET COUNT, AUTOMATED eCW1 ([facility]) ID Date Data Source [id number] 10/18/2020 03:09:50 PM EDT [facility] NT INFORMATIONPatient MRN Name Date of Age Gend*PT [id number] Eva Covington 1935 84 years F IPPT Location Admission Date/Time Visit ID Attending [id number] 10/15/20 1048 --- Silvestre Sierra MD([id number]) EPI ID CSN Admitting Provider [id number] Aron Ho MD([id number]) [facility] DISCHARGE SUMMARYPatient Name: Eva Covington of : 1935 Age 84 yearsPrimary Physician: Nora Perkins PCP [id number] Date: 10/15/2020 Discharge Date: 10/18/20Shsebastien will be discharged from [facility] to [facility] Diagnoses:Principal Problem: NSTEMI (non-ST elevated myocardial infarction)Active Problems: Hypert ension Hypothyroidism, acquired Paroxysmal atrial fibrillation with RVR Chest pain Elevated troponin Myocardial ischemiaResolved Problems: Atrial fibrillation with RVRDischarge Medications:Current Discharge Medication ListSTART taking these medications DetailsApixaban (ELIQUIS) 5 MG TABS tablet Take 1 tablet (5 mg total) by mouth 2 (two)times a dayQty: 60 tablet, Refills: 0aspirin 81 MG chewable tablet Chew 1 tablet (81 mg total) daily for 6 daysatorvastatin (LIPITOR) 40 MG tablet Take 1 tablet (40 mg total) by mouth nightlyQty: 30 tablet, Refills: 5clopidogrel (Plavix) 75 MG tablet Take 1 tablet (75 mg total) by mouth dailyQty: 30 tablet, Refills: 11nitroglycerin (NITROSTAT) 0.[address] 1 tablet (0.4 mg total) underthe tongue every 5 (five) minutes as needed for chest painQty: 90 tablet, Refills: 0CONTINUE these medications which have NOT CHANGED DetailsamLODIPine (NORVASC) 5 MG tablet Take 5 mg by mouth dailyatenolol (TENORMIN) 100 MG tablet Take 1 tablet (100 mg total) by mouth dailyQty: 90 tablet, Refills: 2 Associated Diagnoses: Essential hypertensionlevothyroxine (SYNTHROID, LEVOTHROID) 88 MCG tablet Take 88 mcg by mouth dailylisinopril (PRINIVIL,ZESTRIL) 30 MG tablet Take 30 mg by mouth dailyFollow Up Instructions:The patient was given an after visit summary.Patient will follow up with pcp in 7 days.Items needing special attention:[facility]:84-year-old female with past medical history significant forhypertension and hypothyroidism presented to [facility] ER with chestpressure palpitations and pain radiati ng to left arm. She was found to be in A.fib with RVR with rate in the 130s. She was given Cardizem push and started ondrip and sent to [facility] for further evaluation. Her first troponin was elevatedat 0.369. EKG showed no ST segment changes patient was given aspirin. Uponarrival to [facility] she was in sinus rhythm with heart rate in the 50s to 60s range.Cardizem was stopped. Repeat troponin was 0.38 she was started on beta-blockerand admitted to hospitalist service for further work-upChest pain with elevated troponin level. Patient underwent a stress test whichwas normal. She was then taken for a cath which showed critical mid LAD andostial diagonal bifurcation lesion post successful drug-eluting stent to LAD andkissing balloon angioplasty to the diagonal. Critical stenosis in the ramuspost successful drug-eluting stent placement. Severe stenosis in mid leftcircumflex s/p successful drug-eluting stent placement borderline disease inright coronary artery. Normal systolic fu nction. High left ventricularend-diastolic pressure may be a sign of acute diastolic heart failure due tolarge ischemic myocardium. Triple therapy with Eliquis, Plavix and aspirin wasrecommended for 1 month. Patient can then continue DOAC and Plavix for a totalof 1 year. She will follow up with Dr. Cisse in [place]. She was alsostarted on a statin this hospitalization.Paroxysmal A. fib. This was new onset she was started on Eliquis. 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.Discharge Exam:Blood Pressure: BP: 132/76 Pulse: Heart Rate: 74Temperature: Temp: 97.6 F Respirations: Resp: 16Admission Weight: Weight: 63.5 kg (140 lb) O2 Saturation: SpO2: 96 %Discharge Weight: Weight: 64.1 kg (141 lb 6.4 oz) BMI: Body mass index is 26.73kg/m .Physical Exam General well developed, well nourished, in no apparent distress HEENT Normal Lungs normal and clear to auscultation Heart regular rate and rhythm and without murmur Abdomen soft, non-tender, non-distended, no organomegaly or masses Musculoskeletal negative Neuro normal without focal findings, mental status, speech normal, alert andoriented x3, RICHARD and reflexes normal and symmetricOther Pertinent Findings:Diagnostics:Imaging:ECHO Left ventricular ejection fraction is normal The mitral valve is abnormal in structure. The following structuralabnormali ties were observed: leaflets appear myxomatous. Mild regurgitation. ValveThe aortic valve is mildly sclerotic with normal opening. Trace aorticinsufficiency is present.Procedures:Cath. Critical mid LAD and ostial diagonal bifurcation lesion post successfuldrug-eluting stent to the LAD and kissing balloon angioplasty to the diagonal.2. Critical stenosis in the ramus post successful drug-eluting stent placement.3. Severe stenosis in the mid left circumflex post successful drug-elutingstent placement.4. Borderline disease in the right coronary artery.5. Normal systolic function by noninvasive testing.6. High left ventricular end-diastolic pressure may be a sign of acutediastolic heart failure due to the large ischemic myocardium.7. Right radial access.NMIMPRESSION: Suspected mild ischemia in the inferolateral wall near the cardiacapex. Normal left ventricular wall motion. Left ventricular ejection fractionis 80 %. If there is clinical concern for a hyperdynamic left ventricle,consider evaluation by echocardiogramConsultants:Cards- and Labs:BMP:Lab ResultsComponent Value Date NA 139 10/18/2020 K 3.3 (L) 10/18/2020 CL 104 10/18/2020 CO2 27 10/18/2020 ANIONGAP 8 10/18/2020 CALCIUM 9.2 10/18/2020 GLU 93 10/18/2020 BUN 6 (L) 10/18/2020 CREATININE 0.52 (L) 10/18/2020 GFRAA >60 10/18/2020 GFRNONAA >60 10/18/2020ardiac:Lab ResultsComponent Value Date TROPONINI 0.33 (H) 10/15/2020 POCTROP 0.03 10/15 PROBNP 712 (H) 10/15/2020BC Brief:Lab ResultsComponent Value Date WBC 7.4 10/17/2020 HGB 13.5 10/17/2020 HCT 38.9 10/17/2020 PLT 221 10/17/2020BC with Diff:Lab ResultsComponent Value Date WBC 7.4 10/18/2020 RBC 4.13 10/18/2020 HGB 13.2 10/18/2020 HCT 37.6 10/18/2020 MCV 91.0 10/18/2020 MCH 32.0 10/18/2020 MCHC 35.2 10/18/2020 RDW 14.0 10/18/2020 PLT 247 10/18/2020 MPV 7.1 10/18/2020 LYMPHOPCT 18.0 10/18/2020 MONOPCT 8.6 (H) 10/18/2020 EOSPCT 0.7 10/18/2020 BASOPCT 0.4 10/18/2020 NEUTROABS 5.3 10/18/2020 MONOABS 0.6 10/18/2020 BASOSABS 0.0 10/18/2020BC without Diff:Lab ResultsComponent Value Date WBC 7.4 10/17/2020 RBC 4.27 10/17/2020 HGB 13.5 10/17/2020 HCT 38.9 10/17/2020 MCV 91.1 10/17/2020 MCH 31.6 10/17/2020 MCHC 34.6 10/17/2020 RDW 14.2 10/17/2020 PLT 221 10/17/2020 MPV 6.9 (L) 10/17/2020MP:Lab ResultsComponent Value Date NA 139 10/18/2020 K 3.3 (L) 10/18/2020 CL 104 10/18/2020 CO2 27 10/18/2020 ANIONGAP 8 10/18/2020 BUN 6 (L) 10/18/2020 CREATININE 0.52 (L) 10/18/2020 BCR 11.5 02/2021 GLU 93 10/18/2020 CALCIUM 9.2 10/18/2020 PROT 7.5 08/21/2015 ALBUMIN 4.0 10/15/2020 GLOB 3.3 10/15/2020 AGRC 1.2 10/15/2020 ALKPHOS 64 10/15/2020 LABBILI 0.7 10/15/2020 AST 19 10/15/2020 ALT 21 10/15/2020 GFRAA >60 10/18/2020 GFRNONAA >60 10/18/2020oags:Lab ResultsComponent Value Date PROTIME 11.4 10/17/2020 INR 1.09 10/17/2020 APTT 68.9 (H) 10/18/2020ultures:Blood: No results found for this or any previous visit.Urine:Results for orders placed or performed in visit on 01/07/12Urine CultureResult Value Ref Range Results See NotesD-Dimer: No results found for: DDAT, PROCALCITON, LACTATEElectrolytes:Lab ResultsComponent Value Date NA 139 10/18/2020 K 3.3 (L) 10/18/2020 CL 104 10/18/2020 CO2 27 10/18/2020 ANIONGAP 8 10/18/2020Hepatitis: No results found for: HAV, HEPBSAG, HEPBSAB, GHLQWQVxgQ1m:Lab ResultsComponent Value Date HGBA1C 5.0 10/15/2020Hyperlipidemia:Lab ResultsComponent Value Date CHOL 199 10/16/2020 TRIG 80 10/16/2020 HDL 63 10/16/2020 CHOLHDL 3.2 10/16/2020 LDLCALC 120 10/16/2020actate: No results found for: LACTATELiver Functions:Lab ResultsComponent Value Date LABBILI 0.7 10/15/2020 ALKPHOS 64 10/15/2020 ALT 21 10/15/2020 AST 19 10/15/2020 ALBUMIN 4.0 10/15/2020 PROT 7.5 08/21/2015Magnesium:Lab ResultsComponent Value Date MG 2.1 10/15/2020ancreatic: No results found for: AMYLASE, LIPASEPhosphorus: No results found for: PHOSPrenatal Screening: No results found for: ABR, ABSCREEN, HEPBSAG, RUBELLA, GBS,RPR, HSVDNAThyroid:Lab ResultsComponent Value Date TSH 1.064 10/15/2020 TSH 0.74 08/21/2015Urinalysis:Lab ResultsComponent Value Date COLORU STRAW 01/07/2012 GLUCOSEU NEGATIVE 01/07/2012 KETONESU NEGATIVE 01/07/2012 BLOODU NEGATIVE 01/07/2012 NITRITE NEGATIVE 01/07/2012 LEUKOCYTESUR NEGATIVE 01/07/2012 PHUR 6.5 01/07/2012 PROTEINUA NEGATIVE 01/07/2012 BILIRUBINUR NEGATIVE 01/07/2012 RBCU 0 - 2 01/07/2012 WBCU 0 - 2 01/07/2012Urine Tox Screen: No results found for: AMPHETAMINE, BARBU, LABBENZ, LABCANN,COCUR, OPIATUR, PCPURSuprialicia Sierra MD11:02 AMTotal time spent for discharge on date of discharge: 40 minutes Name Value Range Interpretation Code Description Data Rosana rce(s) Supporting Document(s) ID Date Data Source [id number] 10/18/2020 02:34:03 PM EDT [facility] Name Value Range Interpretation Code Description Data Rosana rce(s) Supporting Document(s) WBC 7.4 10*3/uL (4.1-11.0) [facility] RBC 4.13 10*6/uL (4.00-5.40) [facility] HGB 13.2 g/dL (12.0-16.0) [facility] HCT 37.6 % (36.0-47.0) [facility] MCV 91.0 fL (80.0-95.0) [facility] MCH 32.0 pg (27.0-32.0) [facility] MCHC 35.2 g/dL (32.0-36.0) [facility] RDW 14.0 % (10.5-14.5) [facility] PLT 247 10*3/uL (150-450) [facility] MPV 7.1 fL (7.1-10.7) [facility] NEUT % 72.3 % (35.0-75.0) [facility] LYMPH % 18.0 % (16.0-52.0) [facility] MONO % 8.6 % (0.0-8.0) H [facility] EOS % 0.7 % (0.0-5.0) [facility] BASO % 0.4 % (0.0-4.0) [facility] NEUT # 5.3 10*3/uL (1.8-7.7) [facility] LYMPH # 1.3 10*3/uL (1.2-4.8) [facility] MONO # 0.6 10*3/uL (0.0-0.8) [facility] Eosinophils [#/volume] in Blood by Automated count 0.1 10*3/uL (0.0-0 .5) [facility] BASO # 0.0 10*3/uL (0.0-0.2) [facility] ID Date Data Source [id number] 10/18/2020 12:44:49 PM EDT [facility] Name Value Range Interpretation Code Description Data Rosana rce(s) Supporting Document(s) CKMB 10.5 ng/mL (0.0-5.0) HH [facility] ALERTED CRITICAL RESULT [place] ([id number] ) [place] [address] 1.5 ON 10.18.20 [place]4 [place] [address] CKMB RELATIVE INDEX 6.7 {index_val} (0.0-4.0) H [facility] ID Date Data Source [id number] 10/18/2020 10:18:12 AM EDT [facility] Name Value Range Interpretation Code Description Data Rosana rce(s) Supporting Document(s) CK 156 U/L (26-192) [facility] ID Date Data Source [id number] 10/18/2020 10:14:05 AM EDT [facility] Name Value Range Interpretation Code Description Data Rosana rce(s) Supporting Document(s) SODIUM 139 mmol/L (136-145) [facility] POTASSIUM 3.3 mmol/L (3.6-5.2) L [facility] CHLORIDE 104 mmol/L (100-108) [facility] CO2 27 mmol/L (22-31) [facility] ANION GAP 8 mmol/L (7-16) [facility] UREA NITROGEN 6 mg/dL (7-24) L [facility] CREATININE 0.52 mg/dL (0.60-1.00) L [facility] BUN/CREAT RATIO 11.5 RATIO (10.0-20.0) [facility] GLUCOSE 93 mg/dL (70-99) [facility] CALCIUM 9.2 mg/dL (8.4-10.2) [facility] GFR >60 ml/min/1.73m2 (>59) [facility] GFR ( AMER) >60 ml/min/1.73m2 (>59) [facility] GFR INTERPRETATION [facility] --NORMAL KIDNEY FUNCTION OR MILD DISEASE - GFR >OR= 60CHRONIC KIDNEY DISEASE - GFR 15 - 59RENAL FAILURE - GFR <15 Est. GFR calculation based on the MDRDstudy equation, which assumes a steadystate for creatinine. Est. GFR should notbe used for medication dosing. ID Date Data Source [id number] 10/18/2020 09:54:47 AM EDT [facility] Name Value Range Interpretation Code Description Data Rosana rce(s) Supporting Document(s) APTT 68.9 s (22.0-34.3) H [facility]uitron ID Date Data Source [id number] 10/18/2020 06:25:52 AM EDT [facility] Name Value Range Interpretation Code Description Data Rosana rce(s) Supporting Document(s) EKG [facility] [id number]nS6FoY8XiFETuIKYABG9CoEWs jb2 [file] rPJwiTgHlhnm/nF+whGMEJjdAJgxAE+AeTeyyTeyyT 069LruITVtlouax5Rb+b+PN+Jrw+Ke3rhTLOjykTxvYtmR3igLch502Ye0+9PlKu/Pz7X//1b3+05+4/ OvO3/+coding assistant//S//Zc/f/t///bZK9J0qqM9noy/wtmL/7ArMBZssgr0205UyVCpZWJF7SdvNFz9EsqKFvDe [file] [id number]+UgmgqBHitXdcGFGGGGJ4CRABJSZFN9R= ID Date Data Source [id number] 10/18/2020 02:10:57 AM EDT [facility] Name Value Range Interpretation Code Description Data Rosana rce(s) Supporting Document(s) CKMB 4.2 ng/mL (0.0-5.0) [facility] CKMB RELATIVE INDEX 4.1 {index_val} (0.0-4.0) H [facility] ID Date Data Source [id number] 10/18/2020 01:51:25 AM EDT [facility] Name Value Range Interpretation Code Description Data Rosana rce(s) Supporting Document(s) CK 102 U/L (26-192) [facility] ID Date Data Source [id number] 10/18/2020 01:05:48 AM EDT [facility] Name Value Range Interpretation Code Description Data Rosana rce(s) Supporting Document(s) APTT 89.5 s (22.0-34.3) H [facility] ID Date Data Source [id number] 10/17/2020 08:41:31 PM EDT [facility] Name Value Range Interpretation Code Description Data Rosana rce(s) Supporting Document(s) PT 11.4 s (9.2-11.9) [facility] INR 1.09 [facility] SUGGESTED THERAPEUTIC RANGES USING INR F ORSTABILIZED ANTICOAGULATED PATIENTS:STANDARD DOSE THERAPY INR 2.0-3.0 DVT, PE, PREVENT DVT OR EMBOLISMHIGH DOSE THERAPY INR 2.5-3.5 PREVENT EMBOLISM FROM MECHANICAL HEART VALVE ID Date Data Source [id number] 10/17/2020 08:41:00 PM EDT [facility] Name Value Range Interpretation Code Description Data Rosana rce(s) Supporting Document(s) WBC 7.4 10*3/uL (4.1-11.0) [facility] RBC 4.27 10*6/uL (4.00-5.40) [facility] HGB 13.5 g/dL (12.0-16.0) [facility] HCT 38.9 % (36.0-47.0) [facility] MCV 91.1 fL (80.0-95.0) [facility] MCH 31.6 pg (27.0-32.0) [facility] MCHC 34.6 g/dL (32.0-36.0) [facility] RDW 14.2 % (10.5-14.5) [facility] PLT 221 10*3/uL (150-450) [facility] MPV 6.9 fL (7.1-10.7) L [facility] ID Date Data Source [id number] 10/17/2020 05:39:05 PM EDT [facility] Name Value Range Interpretation Code Description Data Rosana rce(s) Supporting Document(s) &PDF [facility] OKCCPj2eBlFJWvSz13/LJSlrUGMnw2GiEMcqXRm3YMyyGRWuO5KgcTvhRN9MHGWyH6NVV0pMGAFiYPJ2 wyW [file] E+DQogICAgICAgICAgICAgICAgICAgICAgICAgICAgICAgICAgICAgICAgICAgICAgICAgICAgICAgIC AgICAgICAgICAgICAgICAgICAgICAgICAgICAgICAgICAgICAgICAgICAgDQogICAgICAgICAgICAgIC AgICAgICAgICAgICAgICAgICAgICAgICAgICAgICAg ICAgICAgICAgICAgICAgICAgICAgICAgICAgICAgICAgICAgICAgICAgICAgICAgICAgICAgDQogICAg ICAgICAgICAgICAgICAgICAgICAgICAgICAgICAgICAgICAgICAgICAgICAgICAgICAgICAgICAgICAg ICAgICAgICAgICAgICAgICAgICAgICAgICAgICAgIC AgICAgDQogICAgICAgICAgICAgICAgICAgICAgICAgICAgICAgICAgICAgICAgICAgICAgICAgICAgIC AgICAgICAgICAgICAgICAgICAgICAgICAgICAgICAgICAgICAgICAgICAgICAgDQogICAgICAgICAgIC AgICAgICAgICAgICAgICAgICAgICAgICAgICAgICAg ICAgICAgICAgICAgICAgICAgICAgICAgICAgICAgICAgICAgICAgICAgICAgICAgICAgICAgICAgDQog ICAgICAgICAgICAgICAgICAgICAgICAgICAgICAgICAgICAgICAgICAgICAgICAgICAgICAgICAgICAg ICAgICAgICAgICAgICAgICAgICAgICAgICAgICAgIC AgICAgICAgDQogICAgICAgICAgICAgICAgICAgICAgICAgICAgICAgICAgICAgICAgICAgICAgICAgIC AgICAgICAgICAgICAgICAgICAgICAgICAgICAgICAgICAgICAgICAgICAgICAgICAgDQogICAgICAgIC AgICAgICAgICAgICAgICAgICAgICAgICAgICAgICAg ICAgICAgICAgICAgICAgICAgICAgICAgICAgICAgICAgICAgICAgICAgICAgICAgICAgICAgICAgICAg DQogICAgICAgICAgICAgICAgICAgICAgICAgICAgICAgICAgICAgICAgICAgICAgICAgICAgICAgICAg ICAgICAgICAgICAgICAgICAgICAgICAgICAgICAgIC AgICAgICAgICAgDQogICAgICAgICAgICAgICAgICAgICAgICAgICAgICAgICAgICAgICAgICAgICAgIC DhBSSgRAApQDUuVTTdUDAeNFLfUWXkNYEvNWJhUZSdHOFyNKGmWLEeBHDyJJNgTFFkVSWsGBv4V8yrCT HcQZOdHI7fXPb9Ch8+FNjURgMiDJS5pnChzP8QKC1i a3VoKAxqIHCvw2DcQNy8WI8GRMPgAGmqGE2INUcsuc6SCHKwQNVocODXb2rhPuXyTWI5MUNzNpkoTW0W SWViF7wzpfXlLFKqYIONZJlhGTQECGtzKLMTFIPmGJSjYoZtRfTdPMWoFVPjYGGAVCD7BDBeQqKnNGBn VXTkUS2PDRUqD463zwDcRA6QJw6AAyCkZQ6xhf5YCe lmJDJfIhwDCao2XAdrRX6UbVWloZH6JNZiQORDFtXdX8gft6BjIPYzQNALBRxsPC5Ia1IqcSKdSVx+Pg 7XXC9em1LdXWa9YJPoJU5fbi3BXUyNBbSkE8GniYehQIzvqHdbpbRvYZ6PZZTgPQIqrXEdDBweUUHDSB 1YWMjkJIM0GPFbuzLrzIVpFOshOV4PTVSllgDvZnzo MCBSDQo+Zj4WXY6ef9JrNRq4JTWzLX6xko4HDHzILzRvY4M4zJTqD3K4LPewAs2LPDBcIOAkUwxlEVXX XKprNZ5SRK7hnuE3KX4MvPNqZDScLSMiiENgNTz2F24yiGCmJMfvPX2XKEL+Wendy+Rq8LJQQoDYTtCURd VeQkCSNKSrWkR5UpN9RNn6HiG1NjUK46pQhnuwQuAH ihGE8RQZ9eATAtINWLKJ4WbKYhfS6jttBmKQErIKXUOdMaM36pvXSxLGTgCZT1PWZuVy5UVBMzM2Neyl JjwHmiliGcRMOnNUMSBP7PDOfybnCsoVEewBkyVD45uJefTS7HCv2CFlMkRN6tzf7UvODeGr7UGKH0Rw 0NKXKcBTSsVZCmRFN0XLLaZxYqVVxkSYMcZRIaJHC4 OKSbHRWzUY3NWbMyIPTmYDl4QoBpRTCrREEviy4XOLCnUGJ4ZNP2EyBcPGEuOVHwWQhfLJEpJJKaBNw8 XIFtTAUbKC0SGfSrJEWaTVFmVoDpBWJdCHVzna6YLCBiEXWtBuGdBFBpJZGwMLRnQGryJCCpERW3BMG8 CNMkHINaIC2DOeHaHGLeFSPiYMsyVCYtDXSblm4ZUT SaIPVwPuT3KHOwIUAzTSBeVGweFBPrSTD0Exe0UBXwVNSqMY2YLpMxCHCwZHt7UoajIDRxOFVyai1ZFL DtUNNlZPWoZBEjZSQjFEUuHMevXPAqHRJpNxWeFDYjRXMcZA1LSmWqMSSlBOX4NTeaXJGzXGWzdn2QRC JlBRLuPlfqRIEoWOXjOQKcXYqpQSXaRIGfZQL9WONc FUOpVA1OYrQgFKXkHTCfJSIpOGWaWIVmum9PGGQnTVPdKML3NmKoFASfVYNgHSviBLVwHZO1LWX7LUJy BUShNM9QTgAtFJTfVQRiFKVtHJEvBSIqnf9ILRBnCDDfDsQaAkTaZLYxVZYiJEvmBINqZAX3BFCqFDGi QMIoAH4RSiFoWJZvHHb1YNHgICXkGNZcrd4VTSPoIF IuXQO1DzCwWSCiVGXvQRtyOUEvOWH8GvM3HJCpCHVaAV5BMhVpGPPrLFp5LbZkGKWkPCGkvn6PPSDuIG LfZur9UOKzNKDfZKWrKMikGDUiDDB5PSO1NACmEKReBH9LNtMqRNYmIjDbVYoiXMMoOOProx9ZXCJtGE BaRMT7LdAdKXVfJENdDYdtZISsQBQ6BpQ7ESOaHFOw JV7KMeVdTXDyOke8GPUxMMJuJCUyxg8OYNBpLETqIKZvLrXfOWGaKIIpQPmrAFNtPOJ2BVQ6TIBxXJEc YB9JPrAfKNTqFaE1BFQgWGSpEVFuoy7XNNJgSUW9EGGeMxXcGETkPBEmXVrsPTJcOYm8BGM0COXhGIZd QM8NIzBeOZQxIGhsNYJwGWAsMQEdmj6GARSlZCZ6CZ upAeQxVGBpHFFhYFawGEUmMQw8ERJ0BFBvZOKyQQ7LBqLsGPLsKSZkKGorMMBzHOOupf5NuWXzbUksho 0NMEaBNr3OvMrsCCQoILfnMr9zaDL8WOZeHXJOUa4XtfOiITFdQHILYNinLJKdEZXqIaXnMKWnYSazKi ObURVjUDctOMFwBZX3YlEiCHLeHuE8QKLxOsPbXFQb TJN5L5OgQoBkDKMqWHH2OmCjZPM9BQY+VF2pJPh+Ju0Cr6GrcvB4ljMsAHxxZPFsZRITXuRwCV8XHOe= ID Date Data Source [id number] 10/17/2020 02:19:30 PM EDT [address] [id number] Name: EVA BUCKLEYOB: 1935Sex: FOrdering Provider: SILVESTRE MONTESIAuthorizing Prov: SILVESTRE OBEROIReferring Provider: SILVESTRE MONTESIProcedure Performed: NM CARDIAC GATED SPEC IMG EFWMExam Date: 10/17/2020 13:45MRN: [id number] Number: [id number] Class: InpatientAccount #: [id number] for Exam: Chest pain, nonspecificTechnique: Pharmacologic stress test was performed. LEXISCAN was administered under the direction of the Cardiology Department. For the resting study the patient received 10 mCi of CARDIOLITE intravenously. For the pharmacologic stress portion the patient received 33 mCi of CARDIOLITE intravenously. Gated SPECT imaging was performed at rest and stress.Gated wall motion study and ejection fraction were also performed.Comparison: NoneFindings:Myocardial Perfusion Imaging: There is a mild reversible perfusion defect in the inferolateral wall near the cardiac apex compatible with ischemia. No fixed perfusion defect is seen. Left ventricular chamber size is normal in stress and rest. There is no evidence of transient ischemic dilation.Gated Wall Motion Study and Ejection Fraction: The left ventricular ejection fraction measures 80 %. There are no focal or diffuse wall motion abnormalities identified.IMPRESSION: Suspected mild ischemia in the inferolateral wall near the cardiac apex. Normal left ventricular wall motion. Left ventricular ejection fraction is 80 %. If there is clinical concern for a hyperdynamic left ventricle, consider evaluation by echocardiogram.Report electronically signed by: STEVIE AVILES On 10/17/2020 2:19 PMWorkstation ID: [id number] Name Value Range Interpretation Code Description Data Rosana rce(s) Supporting Document(s) ID Date Data Source [id number] 10/17/2020 08:21:38 AM EDT [facility] Name Value Range Interpretation Code Description Data Rosana rce(s) Supporting Document(s) SODIUM 142 mmol/L (136-145) [facility] POTASSIUM 3.7 mmol/L (3.6-5.2) [facility] CHLORIDE 109 mmol/L (100-108) [facility] CO2 26 mmol/L (22-31) [facility] ANION GAP 7 mmol/L (7-16) [facility] UREA NITROGEN 12 mg/dL (7-24) [facility] CREATININE 0.49 mg/dL (0.60-1.00) L [facility] BUN/CREAT RATIO 24.5 RATIO (10.0-20.0) [facility] GLUCOSE 90 mg/dL (70-99) [facility] CALCIUM 8.5 mg/dL (8.4-10.2) [facility] GFR >60 ml/min/1.73m2 (>59) [facility] GFR ( AMER) >60 ml/min/1.73m2 (>59) [facility] GFR INTERPRETATION [facility] --NORMAL KIDNEY FUNCTION OR MILD DISEASE - GFR >OR= 60CHRONIC KIDNEY DISEASE - GFR 15 - 59RENAL FAILURE - GFR <15 Est. GFR calculation based on the MDRDstudy equation, which assumes a steadystate for creatinine. Est. GFR should notbe used for medication dosing. ID Date Data Source [id number] 10/17/2020 07:58:54 AM EDT [facility] Name Value Range Interpretation Code Description Data Rosana rce(s) Supporting Document(s) APTT 70.9 s (22.0-34.3) [facility] ID Date Data Source [id number] 10/17/2020 07:22:36 AM EDT [facility] Name Value Range Interpretation Code Description Data Rosana rce(s) Supporting Document(s) WBC 6.4 10*3/uL (4.1-11.0) [facility] RBC 4.18 10*6/uL (4.00-5.40) [facility] HGB 13.3 g/dL (12.0-16.0) [facility] HCT 38.1 % (36.0-47.0) [facility] MCV 91.1 fL (80.0-95.0) [facility] MCH 31.7 pg (27.0-32.0) [facility] MCHC 34.8 g/dL (32.0-36.0) [facility] RDW 14.5 % (10.5-14.5) [facility] PLT 231 10*3/uL (150-450) [facility] MPV 7.0 fL (7.1-10.7) L [facility] ID Date Data Source [id number] 10/16/2020 01:59:47 PM EDT [facility] Name Value Range Interpretation Code Description Data Rosana rce(s) Supporting Document(s) &PDF [facility] NUKFUm8pSuZQEvYc77/JJUxkTELck2DrGKklIQr0IDwoZQFhR3DiuUvxIW4EFQSdB4QCD5jPXNHpTYB3 waW [file] lUbyOZP81MINtwViQFAbu4bGOebXR9b/LO0aniCcUjITmlq+fmOSaRKTnUSmMbUWqT4Rv4+Ann Marie+cZzb6 [file] ICAgICAgICAgICAgICAgICAgICAgICAgICAgICAgIC AgICAgICAgICAgICAgICAgICAgICAgICAgICAgICAgDQogICAgICAgICAgICAgICAgICAgICAgICAgIC AgICAgICAgICAgICAgICAgICAgICAgICAgICAgICAgICAgICAgICAgICAgICAgICAgICAgICAgICAgIC AgICAgICAgICAgICAgDQogICAgICAgICAgICAgICAg ICAgICAgICAgICAgICAgICAgICAgICAgICAgICAgICAgICAgICAgICAgICAgICAgICAgICAgICAgICAg ICAgICAgICAgICAgICAgICAgICAgICAgDQogICAgICAgICAgICAgICAgICAgICAgICAgICAgICAgICAg ICAgICAgICAgICAgICAgICAgICAgICAgICAgICAgIC AgICAgICAgICAgICAgICAgICAgICAgICAgICAgICAgICAgDQogICAgICAgICAgICAgICAgICAgICAgIC AgICAgICAgICAgICAgICAgICAgICAgICAgICAgICAgICAgICAgICAgICAgICAgICAgICAgICAgICAgIC AgICAgICAgICAgICAgICAgDQogICAgICAgICAgICAg ICAgICAgICAgICAgICAgICAgICAgICAgICAgICAgICAgICAgICAgICAgICAgICAgICAgICAgICAgICAg ICAgICAgICAgICAgICAgICAgICAgICAgICAgDQogICAgICAgICAgICAgICAgICAgICAgICAgICAgICAg ICAgICAgICAgICAgICAgICAgICAgICAgICAgICAgIC AgICAgICAgICAgICAgICAgICAgICAgICAgICAgICAgICAgICAgDQogICAgICAgICAgICAgICAgICAgIC AgICAgICAgICAgICAgICAgICAgICAgICAgICAgICAgICAgICAgICAgICAgICAgICAgICAgICAgICAgIC AgICAgICAgICAgICAgICAgICAgDQogICAgICAgICAg ICAgICAgICAgICAgICAgICAgICAgICAgICAgICAgICAgICAgICAgICAgICAgICAgICAgICAgICAgICAg ICAgICAgICAgICAgICAgICAgICAgICAgICAgICAgDQogICAgICAgICAgICAgICAgICAgICAgICAgICAg ICAgICAgICAgICAgICAgICAgICAgICAgICAgICAgIC VrPZLnCAGuXABuBEUgQMMnOAIpCPIbKXYaLZJeCZXgNVMzYCPuTNUyEEl4F5uvZXCuVLJzZG3gQVj0Ge 8+JChZOnSeMQJ6mgZkrZ4FAZ6pb0MdBVmuJZGss0UeADj5KH0VHPRiEUwiTA5UAMkcot8ERPZsNFMrqB CBh8rdIiRpPDQ4APUcPqkvHC1SIKRfT6ujneEwRADx SINTMRbkNCTXNN2BHvSpP7GmuJ59IZAITr9+MHdqjnXkPxbICsC5UOBun7HrXYr3QG2ODJZmMFtsFJ9A VYSqeF5kSNnwTZ0TWaOyRBLwVRTEPrXhS34daYIcAYl6A3BhYaOsCWToJobaDZGpJIaoRiNkKURoBuDl DQogID4+ID4+YGwvNQ4ROMfhghGhXCBwXn7QEPQpBD O3MVJhzFOsPmKsMMGTDAajVD6SyODdWDT5lW2lYHeuILScPEMhR8aZHdKscAxzXE73zNnzvhYngRRpZS o+Lx8EDG7rw5XkYUq9efWzEEgnADV9SUktGQRsZKUcZESnJXQ4SQH3FOLKJaOpDLKuGYFeZQmcSIYqSP Lejv4YSUTlXIPoAPJwLDTjXPMbPMQkWLzpLNLtQVA8 PVGfICApNBLsIL3IGwVcBGWgUMSzAImlFGMkVRObsj1QZWPqLWHiOqJ7RuOzBADkNUZpLVpmQMBxSHCo TBqjXHGaWBVsPP6GHuLrWKXaXNG1UzUxUVSdAONjek9OVQKwXGKqLObyOUFuODYkYSGaKZabNXTvWKP1 GTbdLQTwQADzPN3PKjMgVQHpRBbnYzjvJHOsNNYihd 7RBBKqKCAnSyR7LCJbMFOuRHEnKHkdDFPoOHZ0MqW9TCSbVQRkNU4IUwSeYNZfHEu0JbGpKFEtPXTaor 4KQKEjQVFuDADiFKBwUFMcYEZcDRxbALNyMPZqOZB9UCVpIWLzMM2YCyEwCCWuXCO8GEOjCRRwDZXnzo 8YFEZxCHHyUjr7VTCqIRSjYBUaLQonQBRsGFV3ArY2 TSLpHWInOA0GLgGeNKPyWLEmJDCqTYYqAKTlrh7DCZMjQVFcQBAfXsKcPKShRMYqEEefUKKxJBD2PSN9 NRJmJTNvMF0QFbDxWIMfHPX3UWCvBHOnVAWzfg1KFUWmQKCjPXd5ZjUaAHQhWZIyOAvbHERxWIM3JIXx NGBcBCJdWG4DZgBkAFNrKhZ7KtWnFJLtKHLlpk9CSB ZkZOBlGsWtCFPbPRAjHERsRBq6opKzoOMvUPs6IK2RA1AfsnXrDsrSQp1Na207CLO8AVNzXh3VQ9tzHg 2eWOQbWVARMp4CSHy1JMKmBvY2P3P4UMBySNHcESWsXyE2QhO5EeLpNSS6LKP+SIewYIU0LvMrQJy0XB UiACW7T6A5LXyeASLeGbN7ZhfcJc5rAVCIZf4+TUnsvDAitXudQRFXNaV8SMfxQBtjTDXLWj2U ID Date Data Source [id number] 10/16/2020 12:15:04 PM EDT [facility] NT INFORMATIONPatient MRN Name Date of Age Gend*PT [id number] Nadya, Eva King 1935 84 years F IPPT Location Admission Date/Time Visit ID Attending [id number] 10/15/20 1048 --- Silvestre Sierra MD([id number]) EPI ID CSN Admitting Provider [id number] Aron Ho MD([id number])CARDIOLOGY CONSULTATIONName: Eva Covington Gender: femaleDate of : 1935 Age: 84 yearsDate/Time of Admit: 10/15/2020 10:48 AM Code Status: Full CodePrimary Care Provider / Referring Physician: Nora PerkinsInformant:HISTORYCHIEF COMPLAINT:Chief ComplaintPatient presents with Palpitations Per EMS, patient sent from [facility]. Was feeling SOB & palpitations thismorning. Pt found to be in A. Fib w/ RVR, pt on diltizem on arrival.HPI:This patient is a 84 years female who was admitted to the hospital yesterdaythrough the emergency department. She was transferred from [facility]. Shepresented there with palpitations and shortness of breath as well as chest painand she was found to have atrial fibrillation with a rapid ventricular rate.The symptoms began at 1 in the morning and awakened her from sleep. She wasfound to have elevated blood troponin I and she was transferred to us forfurther evaluation and treatment.She has a prior history of hypertension but not of cardiovascular symptoms orcardiovascular disease. The patient has a long history of episodes of atrialfibrillation that are shorter and typically associated with left inner arm pain.Her prehospital medications includeNorvasc, Zestril, and hydrochlorothiazide.Her lab studies reveal a creatinine of 0.47 and GFR greater than 60. Herpotassium is 3.5. Troponin I has gone from 0.38-0.33 which is evidence of acutemyocardial injury. The N- terminal proBNP is 712. The hemoglobin is 12.8.A transthoracic echo has been requested.PAST HISTORYPMH:Past Medical History:Diagnosis Date Arthritis Disease of thyroid gland Hypertension New onset atrial fibrillation 10/15/2020SH:Past Surgical History:Procedure Laterality Date CYST REMOVAL HYSTERECTOMYFH:Family HistoryProblem Relation Age of Onset Heart disease Mother Diabetes Mother Heart disease Father Lung cancer Sister Testicular cancer Brother Diabetes Son Lung cancer Sister COPD Sister Stroke Neg HxPSH:Social HistorySocial History Narrative Not on fileSocial HistorySocioeconomic History Marital status: Spouse name: Not on file Number of children: Not on file Years of education: Not on file Highest education level: Not on fileOccupational History Not on fileTobacco Use Smoking status: Former Smoker Smokeless tobacco: Never UsedSubstance and Sexual Activity Alcohol use: No Drug use: No Sexual activity: Not on fileOther Topics Concern Bike Helmet Not Asked History of Falls Not Asked Self-Exams Not Asked Caffeine Concern Not Asked Hobby Hazards Not Asked Sleep Concern Not Asked Daily Calcium Supplement Not Asked Lead Exposure Not Asked Special Diet Not Asked Daily Vitamin D Supplement Not Asked Service Not Asked Stress Concern Not Asked Domestic Violence in home Not Asked Radon exposure Not Asked Weight Concern Not Asked Exercise Not Asked Seat Belt Yes Well water Not Asked Firearms in home Not AskedSocial History Narrative Not on fileSocial Determinants of HealthFinancial Resource Strain: Difficulty of Paying Living Expenses:Food Insecurity: Worried About Running Out of Food in the Last Year: Ran Out of Food in the Last Year:Transportation Needs: Lack of Transportation (Medical): Lack of Transportation (Non-Medical):Physical Activity: Days of Exercise per Week: Minutes of Exercise per Session:Stress: Feeling of Stress :Social Connections: Frequency of Communication with Friends and Family: Frequency of Social Gatherings with Friends and Family: Attends Tenriism Services: Active Member of Clubs or Organizations: Attends Club or Organization Meetings: Marital Status:Intimate Partner Violence: Fear of Current or Ex-Partner: Emotionally Abused: Physically Abused: Sexually Abused:Review of SystemsConstitutional: No fevers, chills, weight loss or night sweats..Eyes: No blindness, double vision, or glaucomaRespiratory: negative for asthma, chronic bronchitis, hemoptysis, pleurisy,sputum production, or wheezingCardiovascular: negative for claudication and as stated in the HPIGastrointestinal: negative for constipation, diarrhea, melena, nausea, orvomitingNeurological: negative for dizziness, gait problems, headaches and seizuresHematologic/lymphatic: negative for easy bruising, petechiae, or anemiaBehavioral/Psych: negative for anxiety and depressionEndocrine: negative for polydipsia, polyphagia and polyuria and temperatureintoleranceAllergic/Immunologic: No seasonal allergiesMEDICATIONS AND ALLERGIESALLERGIES/SENSITIVITIES:AllergiesAllergen Reactions Sulfa Antibiotics RashMEDS:Medications Prior to AdmissionMedication Sig Dispense Refill Last Dose amLODIPine (NORVASC) 5 MG tablet Take 5 mg by mouth daily 10/14/2020 atUnknown time atenolol (TENORMIN) 100 MG tablet Take 1 tablet (100 mg total) by mouth daily90 tablet 2 10/15/2020 at Unknown time levothyroxine (SYNTHROID, LEVOTHROID) 88 MCG tablet Take 88 mcg by mouth daily10/14/2020 at Unknown time lisinopril (PRINIVIL,ZESTRIL) 30 MG tablet Take 30 mg by mouth daily10/14/2020 at Unknown timePhysicalVITAL SIGNS:Blood Pressure: BP: 160/80 Pulse: Heart Rate: 65Temperature: Temp: 97.9 F Respirations: Resp: 16Admission Weight: Weight: 63.5 kg (140 lb) O2 Saturation: SpO2: 95 %Today's Weight: Weight: 64.4 kg (142 lb)PHYSICAL EXAMINATION:GENERAL: Well developed, well nourished woman in no acute distress and orientedto person place and time. There is normal affect and thought process.HEENT: No arcus, xanthelasma, or scleral icterus. Nasal and oral mucosa pink.Tongue well-papillated.NECK: JVP normal. Carotids brisk. No lymphadenopathy.LUNGS: Resonant and clearCARDIAC: PMI normal S1 normal S2 p hysiologically split. No gallops. No murmurs.No rubs.ABDOMEN: Soft and nontender without hepatosplenomegaly. Bowel sounds are normal.PULSES: Pedal pulses are intact and symmetricEXTREMITIES: No edema. No clubbing. No cyanosis. Skin warm and well perfused. Novenous stasis.MUSCULOSKELETAL: No deformities, good muscle tone, normal range of motionNEUROLOGICAL: No major sensory or motor deficits.DiagnosticsLABS:BMP:Lab ResultsComponent Value Date NA 144 10/15/2020 K 3.5 (L) 10/15/2020 CL 112 (H) 10/15/2020 CO2 24 10/15/2020 ANIONGAP 8 10/15/2020 CALCIUM 8.7 10/15/2020 GLU 88 10/15/2020 BUN 11 10/15/2020 CREATININE 0.47 (L) 10/15/2020 GFRAA >60 10/15/2020 GFRNONAA >60 10/15/2020BC with Diff:Lab ResultsComponent Value Date WBC 6.0 10/16/2020 RBC 4.10 10/16/2020 HGB 12.8 10/16/2020 HCT 36.5 10/16/2020 MCV 89.1 10/16/2020 MCH 31.3 10/16/2020 MCHC 35.2 10/16/2020 RDW 14.5 10/16/2020 PLT 234 10/16/2020 MPV 7.2 10/16/2020 LYMPHOPCT 34.2 10/15/2020 MONOPCT 6.9 10/15/2020 EOSPCT 1.2 10/15/2020 BASOPCT 0.8 10/15/2020 NEUTROABS 3.9 10/15/2020 MONOABS 0.5 10/15/2020 BASOSABS 0.1 10/15/2020BC without Diff:Lab ResultsComponent Value Date WBC 6.0 10/16/2020 RBC 4.10 10/16/2020 HGB 12.8 10/16/2020 HCT 36.5 10/16/2020 MCV 89.1 10/16/2020 MCH 31.3 10/16/2020 MCHC 35.2 10/16/2020 RDW 14.5 10/16/2020 PLT 234 10/16/2020 MPV 7.2 10/16/2020MP:Lab ResultsComponent Value Date NA 144 10/15/2020 K 3.5 (L) 10/15/2020 CL 112 (H) 10/15/2020 CO2 24 10/15/2020 ANIONGAP 8 10/15/2020 BUN 11 10/15/2020 CREATININE 0.47 (L) 10/15/2020 BCR 23.4 (H) 10/15/2020 GLU 88 10/15/2020 CALCIUM 8.7 10/15/2020 PROT 7.5 08/21/2015 ALBUMIN 4.0 10/15/2020 GLOB 3.3 10/15/2020 AGRC 1.2 10/15/2020 ALKPHOS 64 10/15/2020 LABBILI 0.7 10/15/2020 AST 19 10/15/2020 ALT 21 10/15/2020 GFRAA >60 10/15/2020 GFRNONAA >60 10/15/2020oags:Lab ResultsComponent Value Date PROTIME 10.5 10/15/2020 INR 1.00 10/15/2020 APTT 80.0 (H) 10/16/2020-Dimer: No results found for: DDAT, PROCALCITON, LACTATENT Pro- BNP : No results found for this or any previous visit.DIAGNOSTICS:IMAGING: Chest film not performed.ECG: Electrocardiogram performed on 15 October at 1117 hrs. demonstrated normalsinus rhythm and low voltage QRS.Electrocardiogram performed 15 October at 1751 hrs. demonstrates a shift in frontalplane axis from 29 degrees to 7 degrees. This is associated with inversion ofthe T wave in lead V3 and this is not an ischemic phenomenon.ConclusionsImpressions:1. Paroxysmal atrial fibrillation, currently NSR2. Ischemic sounding chest pain syndrome associated with the arrhythmia3. Evidence for acute myocardial injury provided by troponin-IRecommendations:1. Concur with TTE2. If there are segmental abnormalities on her echo she should be cathed today3. If she does not have segmental abnormalities I would suggest we do aLexiscan stress, probably tomorrow morning.3. Place her on Toprol XL 50 mg a day as the potential preventive agent forrecurrent atrial fibrillation.Thank you for this consultation.[place], PATRICIAate: October 16, 2020Time: 11:48 AM Name Value Range Interpretation Code Description Data Rosana rce(s) Supporting Document(s) ID Date Data Source [id number] 10/16/2020 10:26:20 AM EDT [facility]PAT[facility] NT INFORMATIONPatient MRN Name Date of Age Gend*PT [id number] Eva Covington 1935 84 years F IPPT Location Admission Date/Time Visit ID Attending [id number] 10/15/20 1048 --- Silvestre Sierra MD([id number]) EPI ID CSN Admitting Provider [id number] Aron Ho MD([id number])Provider in Triage NotesNo notes on fileHistory of Present IllnessChief ComplaintPatient presents with Palpitations Per EMS, patient sent from [facility]. Was feeling SOB &a mp; palpitations thismorning. Pt found to be in A. Fib w/ RVR, pt on diltizem on arrival.84-year-old female with history of hypertension, hypothyroidism who presents toemergency department after being transferred from [facility] for cardiacevaluation. Patient states that she woke up at 1 in the morning withpalpitations that she describes as her heart jumping in her chest as well aspain under her left arm for which her decided that she should beevaluated. [place] the hospital where she was found to have rapid A. fib and was s tarted germaine medication to decrease her heart rate. Per chart review, it appears thatpatient was noted to be in A. fib with RVR, new onset as well as had mildlyelevated troponin, was started on Cardizem gtt. and transferred to [facility]. Patient denies previous cardiac history. She also denies chest painbut had pain under her left arm. She denies shortness of breath. She statesthat she is pretty active at baseline and [place].Patient denies chest pain, shortness of breath, fever, chills, cough, abdominalpain, nausea, vomiting, diarrhea, constipation, urinary symptoms, headache,dizziness, light headedness or visual changes.PCP - NoneHistory provided by: Patient and medical recordsLanguage transformer builder used: NoPalpitationsAssociated symptoms: chest pain (under left arm)Associated symptoms: no back pain, no cough, no dizziness, no nausea, nonumbness, no shortness of breath, no vomiting and no weaknessHistoryPast Medical History:Diagnosis Date Arthritis Disease of thyroid gland HypertensionPast Surgical History:Procedure Laterality Date CYST REMOVAL HYSTERECTOMYFamily HistoryProblem Relation Age of Onset Heart disease Mother Diabetes Mother Heart disease Father Lung cancer Sister Testicular cancer Brother Diabetes Son Lung cancer Sister COPD Sister Stroke Neg HxSocial HistoryTobacco Use Smoking status: Former Smoker Smokeless tobacco: Never UsedSubstance Use Topics Alcohol use: No Drug use: NoROSReview of SystemsConstitutional: Negative for appetite change, chills, fatigue and fever.HENT: Negative for congestion, ear discharge, ear pain, postnasal drip,rhinorrhea, sinus pressure, sneezing and sore th roat.Eyes: Negative for photophobia and visual disturbance.Respiratory: Negative for cough, chest tightness, shortness of breath andwheezing.Cardiovascular: Positive for chest pain (under left arm) and palpitations.Negative for leg swelling.Gastrointestinal: Negative for abdominal distention, abdominal pain,constipation, diarrhea, nausea and vomiting.Genitourinary: Negative for dysuria, flank pain, frequency, hematuria andurgency.Musculoskeletal: Negative for back pain, neck pain and neck stiffness.Skin: Negative for rash and wound.Neurological: Negative for dizziness, syncope, weakness, light-heade dness,numbness and headaches.Psychiatric/Behavioral: Negative for behavioral problems and confusion. Thepatient is not nervous/anxious.Physical ExamBP (!) 190/115 (BP Location: Right upper arm, Patient Position: Lying) | Pulse67 | Resp 16 | SpO2 97%Physical ExamVitals and nursing note reviewed.Constitutional: General: She is not in acute distress. Appearance: She is well-developed. She is not diaphoretic.HENT: Head: Normocephalic and atraumatic. Nose: Nose normal. Mouth/Throat: Pharynx: No oropharyngeal exudate.Eyes: General: No scleral icterus. Conjunctiva/sclera: Conjunctivae normal. Pupils: Pupils are equal, round, and reactive to light.Neck: Thyroid: No thyromegaly. Vascular: No JVD. Trachea: No tracheal deviation.Cardiovascular: Rate and Rhythm: Normal rate. Rhythm irregularly irregular. Heart sounds: Normal heart sounds. No murmur heard.Pulmonary: Effort: Pulmonary effort is normal. No respiratory distress. Breath sounds: Normal breath sounds. No wheezing.Chest: Chest wall: No tenderness.Abdominal: General: Bowel sounds are normal. There is no distension. Palpations: Abdomen is soft. Tenderness: There is no abdominal tenderness. There is no guarding orrebound.Musculoskeletal: General: Normal range of motion. Cervical back: Normal range of motion and neck supple. Right lower le+ Pitting Edema present. Left lower le+ Pitting Edema present.Skin: General: Skin is warm. Coloration: Skin is not pale. Findings: No erythema.Neurological: Mental Status: She is alert and oriented to person, place, and time. Cranial Nerves: No cranial nerve deficit. Sensory: No sensory deficit. Motor: No abnormal muscle tone.Psychiatric: Behavior: Behavior normal.ED CourseECG 12 leadDate/Time: 10/15/2020 11:23 AMPerformed by: Antione Chowdhury MDAuthorized by: SHERRIE Bright interpreted by ED Physician in the absence of a pastry sous chef: yesPrevious ECG: Previous ECG: UnavailableInterpretation: Interpretation: normalRate: ECG rate: 62 ECG rate assessment: normalRhythm: Rhythm: sinus rhythmEctopy: Ectopy: noneQRS: QRS axis: Normal QRS intervals: NormalConduction: Conduction: normalST segments: ST segments: NormalT waves: T waves: normalComments: EKG reviewed and interpreted by Antione Chowdhury MD.No STEMICritical CarePerformed by: Antione Chowdhury MDAuthorized by: ARGENTINA Brightritical care provider statement: Critical care time (minutes): 35 Critical care time was exclusive of: Separately billable procedures andtreating other patients Critical care was necessary to treat or prevent imminent or life-threateningdeterioration of the following conditions: Cardiac failure (heparin gtt for Afib with RVR) Critical care was time spent personally by me on the following activities:Blood draw for specimens, development of treatment plan with patient orsurrogate, discussions with primary provider, evaluation of patient's responseto treatment, examination of patient, review of old charts, re-evaluation ofpatient's condition, pulse oximetry, ordering and review of radiographicstudies, ordering and review of laboratory studies, ordering and performingtreatments and interventions and obtaining history from patient or surrogate I assumed direction of critical care for this patient from another provider inmy specialty: noComments: Labs ReviewedCBC AND DIFFERENTIAL - Abnormal; Notable for the following components: MPV 7.0 (*)All other components within normal limitsNT PRO BNP - Abnormal; Notable for the following components: NT-pro BNP 712 (*)All other components within normal limitsCOMPREHENSIVE METABOLIC PANEL - Abnormal; Notable for the following components: Potassium 3.5 (*) Chloride 112 (*) Creatinine 0.47 (*) BUN/Creatinine Ratio 23.4 (*)All other components within normal limitsMAGNESIUMPROTIME-INRAPTTTSHT4, FREEPOCT TROPONINPOCT TROPONINMDMResults for orders placed or performed during the hospital encounter of 10/15/20CBC w/ diffResult Value Ref Range WBC 6.8 4.10 - 11.00 10*3/uL RBC 4.28 4.00 - 5.40 10*6/uL Hemoglobin 13.5 12.0 - 16.0 g/dL Hematocrit 39.4 36.00 - 47.00 % MCV 92.0 80.0 - 95.0 fL MCH 31.5 27.0 - 32.0 pg MCHC 34.2 32 - 36 g/dL RDW 14.3 10.5 - 14.5 % Platelets 231 150 - 450 10*3/uL MPV 7.0 (L) 7.1 - 10.7 fL Neutrophils % 56.9 35.0 - 75.0 % Lymphocytes Relative 34.2 16 - 52 % Monocytes Relative 6.9 0 - 8 % Eosinophils Relative 1.2 0.00 - 5.00 % Basophils Relative 0.8 0 - 4 % Neutrophils Absolute 3.9 1 - 7 10*3/uL Lymphocytes Absolute 2.3 1 - 4 10*3/uL Monocytes Absolute 0.5 0 - 0 10*3/uL Eosinophils Man 0.1 0 - 0 10*3/uL Basophils Absolute 0.1 0 - 0 10*3/uLMagnesiumResult Value Ref Range Magnesium 2.1 1.7 - 2.4 mg/dLProtime- INRResult Value Ref Range Protime 10.5 9.20 - 11.90 s INR 1.00aPTTResult Value Ref Range aPTT 25.8 22.0 - 34.3 sTSHResult Value Ref Range TSH, High Sensitivity 1.064 0.360 - 4.170 mIU/LT4, freeResult Value Ref Range Free T4 1.06 0.76 - 1.4 6 ng/dLNT-proBNPResult Value Ref Range NT-pro BNP 712 (H) 0 - 450 pg/mLCMPResult Value Ref Range Sodium 144 136 - 145 mmol/L Potassium 3.5 (L) 3.6 - 5.2 mmol/L Chloride 112 (H) 100 - 108 mmol/L CO2 24 22 - 31 mmol/L Anion Gap 8 7 - 16 mmol/L Urea nitrogen 11 7 - 24 mg/dL Creatinine 0.47 (L) 0.60 - 1.00 mg/dL BUN/Creatinine Ratio 23.4 (H) 10.0 - 20.0 RATIO GLUCOSE 88 70 - 99 mg/dL Calcium 8.7 8.4 - 10.2 mg/dL Protein, Total 7.3 6.4 - 8.2 g/dL Albumin 4.0 3.2 - 4.5 g/dL Globulin 3.3 2.7 - 4.3 g/dL Alb/Glob ratio 1.2 RATIO Alkaline Phosphatase 64 45 - 117 U/L Bilirubin, Total 0.7 0.0 - 1.0 mg/dL AST 19 11 - 39 U/L ALT 21 12 - 78 U/L GFR MDRD Non Af Amer >60 >59 ml/min/1.73m2 GFR MDRD Af Amer >60 >59 ml/min/1.73m2 Glom Filt Rate, Est SEE NOTESPOCT troponinResult Value Ref Range POC Troponin I 0.03 0.01 - 0.07 ng/mLNo orders to kportxs20:10 AMPt has been seen and vcnwusoal46:22 AMPer chart review from [facility], labs including CBC, BMP, magnesium werewithin normal limits. She her troponin was mildly elevated at 0.369. On herinitial EKG at around 5:00 she was noted to be in rapid A. fib however at around7 AM repeat EKG showed sinus rhythm3:[address] Ho who accepts the pt for admission under Hospitalistservice.DISPOSITION - The patient has been hospitalized to the Medicine service forfurther evaluation and management.DIAGNOSIS1. New onset atrial fibrillation2. Atrial fibrillation with RVRThis was electronically signed by Antione Chowdhury MD, 10/15/20 11:10 AM.[facility] Name Value Range Interpretation Code Description Data Rosana rce(s) Supporting Document(s) ID Date Data Source [id number] 10/16/2020 08:38:16 AM EDT [facility] Name Value Range Interpretation Code Description Data Rosana rce(s) Supporting Document(s) EKG [facility] JQPFPt8pEaVYHfLlw8GsVrApFKBqKF6bpwq9S3H1cJGpS8PyjDFxg1soH2QlO2FrLKUqKLIRZV9JdVYd jb2 [file] MV/CuHf+Woo1wxKdE/arelis+ftZKxi8XV4b73ZW+sh0g0XAjNriyH8tshLoY1hwoQbwPV/TS6lkTxQ/VMx R/1gWEz9j4ST4W52rFrPNT9PfmDti3c2A7Tmtv2PoS yaBjQot418W5GP/aLc7tkxycre2c9tN6i9/lXC5Xu3eFqseP94bo+FeeM//t5A91K2+Vw79y+Ophelia/8rh D5e7L5Cj+JMO/6ugEga2M58UhnH392/7xo5ugqT+1M+sf/Yz65/9zHoVP/geHXyPDsarg/VpMKz3IsvD I/mZ+SM/SdkYgi4w/ZVj/SMjfMnq4rbFZ3+ltWs2z4 J0v5J2s/I52keKuI7hiDc/8cx4Fc+qG60qs2uhmcFI60Te//vxzP9+HVX6hm4599tgnN/lftgWp0s42k z/xpr//Sj/eyHLwX08O28/fiwFXvxGXT/3SkiMicPxdNBG7RK4VelF1Mq42Bdbj+vKFU9JEfpwuF1M3D fR/UZvc70YEf1sODKkqJe/Dhn+NKJ1kfZjWNE/EDLz oSGzfiN6/2Bd/+u/0sMrY991cJu308+2aKV/kVxih5hd2bl7171/bhFwvnzuKo6vl/5ZVP1g1+eU3XT+ 08RaeyC2+Xn49q70c1z520IbpwsBceyk4kVNwN56kob8dwCW82tXoxNoE4HNwKmc9CNxSCiOeAk4K2Ub PXxsbLTnjfbc/IJaKgcI4alM8JbyZX+05+419nBO1H cB/dh82aTIqYT3lCLtIp1HYmIK63yoFUy+MkyAo/8a+j2JX8tDCxkJy67V5tgmCfR/VYOoyImJ9opePu xzfgYL59LDH0g+hlATrHzpju3U+Oaejg6PrO36XwV80RgHZ9hH/fppuRK31z644u4G8/Ucox8ZsReOkD fz4Xrto7Q0JmpptKeU1PyLS/PZwcxHMDcAucC5aW+B 0ctOAXJw5WdoVrMf+aE6WtV24DyGCjQuye+c+dCo+cFOb+D4/kpx00x89U031ozter3Serlyc084zc3L Iud/IXL+F+LM/0KcB/bTigQQ8NNwIh5UgH5W+Zlczp7M0H6H2C3X6TtD/XXS2FcfIx1NvIiGAGl1/8YZ PjbO+M/5zHrCfGb/CL4w2srFf+hnRy9xzm+1Cx8+Varnish Supervisor /hY/HDsFayl7snS3lJxO7AP+Gs2jex6i++qMzucD5HZ+Czny5r/+D1q3PN/rLE+BpD6ifwca5U7rsOgH bgCnz+U8W4RsXtFV8UZ/Rsm63t95paaKJBN4jXL2LrugGe/r9GHo5eOo2lbT6lfYnNzZRBSw8dfmgkbc XtKdOeE/pHjp3A6MyyncyqPCoYI67gPdio/hdSpv+m Nc7WkSYs9QM/mzr/a2gV9fCUY64kaA5DT+CC2XU60EXdsIC27jgDmxe93jLslb+fk3sBn/OKKi9BUu74 0dT4bidCdVReeR8b2ChLxXbSud7uA/nf5Cd1t4g2b4l6v5l3xkn+Yz3Mk3TLxwP4eA/D+zUBjvdrw0+m beB4v+CvsvmrusZx/fA5afP/uqL8Kiwhl8csd+Vfve aLaxDE2s/gC/xUGutb90Cymj2mmo1jhkCY8pz/DzwyMSQagW2q3/063i/4q/REOei/Dn0D+sbwsRnovz Wm8obUSf3DAzW3zoB/leCvMvB+A/038H5j+R2CxP9FSKfllvUjBLbXZZ+OMdnGC3e/bGL/WFCPpt4l/l Wn0X8T/OwLc9Qp4himozS/YLs0KwuEK4gQaO8o/6B8 6UfzxRda9R+D/hboUj2HPpXZrFHzsHCh7z/lHwPCdt4Jz4P5mMDxU4tfe/Ds0K2oTk/OM/qe5/+n6uy1 KmBp0cbGNWzMlBwcngRgfcjzaYOoegkEf79rQ4v23r4MclGEDqwTpMx+kVX8nY74/9aa/b+K5Ow0PtHA +cZ0IU80PYcPy+jn/dYKPP+051rTnmtN/Sokc4Fugt 1Ku4Mp4jAy40+LwG3ZgwAy8/rDto6A57+yq5/2dZK3i5wCP4p4/YCLzzf28/eOwSgXQ03YwZEYw8i3jn +q9q/6eJ4f/lFysLZK26ZrZ78JmG0yogoe9OuBimD9Gi73DUr5t5V5n6lUU/5Sxj7d7eD7kY+zXkoq3d GEkbWzzI43mL657Z/ApuU35ezl3J899uwev2N4/o9q H+gN56O+w6SxBfYs1W16WZ0Pk5uJs5M4VuZaSW1Bb/0b1hp2mY2P2vi6QAmiij/Qb+hnvVl1/OoeG/SG 0o2iPAMo49W4J5SQ+h7U96C+sagq3fc3XIhdruXvK1n7Auybt9rkso750wapPY0S70/qY4d+1k/W9a/e 40ZgFP9fgm2Bv1ucF087inYmEck/4PM/Wz756+rZP6 i3vz/7B/dtb8/+rym4tl23k+eORc/6qxu/wMb42xw/jVfn+a+pZ/2VPv+Z6qUquwy+jcluq6e8t3d7/s 1PfUw85rJJXALiexI9F3ewmL0+6W5lS19/9yoEe5ofl+zjz7vyg2+8OBKd4w5u/Lauf/Qrw7oSh4h3hi C/BsVeYs0FS8nSGL2r3uGlKJN9t0S3inF3u89wt8jN /lsJUmwbB4byP0tiQ0mgL3vbj3ZgY1fIZB2Ym/6bqG+i/ts4x6B1shdTOba67S2P309P12164zjrjC3S LegnPlmF/luK89F/C++08S2g9x+y0V9AgVw6E++1Pm1gOlSx/Sq3cvNjN9OXoo/cjVnQ/xMMghARXjOD 1d6zCZlFBbEBCEE2vjhyxMla5cyIDGRq5R8jQpY/gU mJANQwBjOnEkFUEBO6YynIQKOYlSGfUxHHAcO6sbH8QdUIygSJI/WNSNBQNRQ1FuHVnXyV+Gk6ZqZ92B M+7/ZPmPDATyAyCz5+wueh/DilZx0HfQdZ7beNxCNYVYIIQKA2BaF92q+xXpRzZH8JVV/CbJf+CUSUyK zA/BNmCeZP+GLDfwKS/y0g5uD5ZOOuf2EXyDgXfo+l /wkGIYkw+26nK/ZEtJQpYR5EIIyKzcAu8aP5IgzIe1xmGbPWoT/MHXqsy9qTHDX+eSHil1VZe2/izaG6 HaZeZ9E1T6DXcN0J2ap9r9G/hFlm/DKPUB9fY7xeLgnfaSDrWWw0IXvLsddvkivcyyJvxUFEVAdCXb1J Vhm6A2CwmmWWec75DUMz30/ANT6/Kj/BVMji6YhO6A vA6P1VqnEYCjY2GdZiDFOpTwOKYJKl2E1lSAUlDDpXWZxKicKvVAuz2tklDdzZLpTMgE2D02UeywP5Sp h+4vy3UOqphKiZyM9BMiueQWyeAPsORcB/RSAUXlHW2paRZAuF58cyFAG1SWxpCfBmZ7a6vilnW5xbzQ GKAlSFPXS4BDXFT6G8155bCql9meT1vdogFTSyA8D+ xb6A/F1/pfM9D4aJLTnldDJwQS3z4na+pgbABQNHrfKnYQEqjstry5OFf+NkzIiJiGBVQRsus3KeJDc/ S3przcN7gHGbBAxPsZRDQIsTxLRnDUMu2NSIgQ6VZqZHPQiEuBW+XlIPVEVQdAE2gCzN7xm65NDOOhmZ KlT0uMN/UVSIKBElsolsIofIIWJEjIgTcSJBJIgkkW JKg7UTsjXikL3VfSjuvLzSPFcd5hQxtqA6rhGn+hEuDuWSwn5125toWcbpQ5aK8rV1pL91kCPFRr5wdF lTkcO+uPAYLfitzzF0iItMBvkRVim0wJTwT2f+w6uXJ0hY2QoeMvpaNZQEpnNxrq/iiTORa+vS173MmP a5sHS2+0jkHPQJNPLlWFzDIiKUGGBBA43jHdSIlDQw 7pq41O9ps0hMJwg3rzQL1cy7qmqeZ7P45x6yA3dGja3MJvSTQAYscP1l2V4N+hqpSc1CAnMUlS0J90iT Z/ZRxINPHawP/xjGfGPgWTGuEdN8xCn5xkQ50Y2uU1urGX5pmzix9FCeKOARQMI0WoCdA8YOyBdNEJXS MUYkrVBPOGXKwkdNwCVpSq3kkTtXOJZxTRXMrv5v9y hqXMsOeYVuZbXM6HWLUcHvsDeubzMWgDRNbFECQqNDbQtXFtratSrYKOOG9qW4eZa7tnFPINYZkRi6Xs 4aJfYe6dJciXRv51BSj0Xnyk5198q9m6H2S72nu7Rxiyb0Rd59a1c1Qb2p8N9bFo1NzDZgifTlypd/8t 3dAwwxpAR1hfj7fnk14fg/Uw7ubDWlLkcizW5lQZ8h FnDXarfwJDO+T/1k1+2ejQJo3+2GL0QLM9RejqUZHimUhGPXLSNsQWmrJSBaaSQydrp6BFdO4aeWLRvo L1Oi1zOWC2p/zLkdAEc1sEaLYNwtJEIMXle6TIL2zvzgWirlpMmyYnKFNCtjFWACvWxyZiw9/cRPIGJE wCtWtULGORnbxFQVFC6cYM/S9RM/gYgQESJKRIlsIp [file] giXo0mHlMaTBPLY7Wrl3TuYAHiSIZHUv5+NhJ0CNX0iVTvQdw4QIFsTPvdMRXRJs== ID Date Data Source [id number] 10/16/2020 02:26:51 PM EDT [facility] Name Value Range Interpretation Code Description Data Rosana rce(s) Supporting Document(s) CHOLESTEROL @ 199 mg/dL (0-200) [facility] TRIGLYCERIDE @ 80 mg/dL (30-200) [facility] HDL CHOLESTEROL @ 63 mg/dL (>40) [facility] PER NCEP ATP III GUIDELINES:RESULTS LOWE R THAN 40 MG/DL ARE SUGGESTIVEOF INCREASED RISK FOR CORONARY ARTERYDISEASE. RESULTS > OR = TO 60 MG/DL ARECONSIDERED A NEGATIVE RISK FACTOR. CHOL/HDL RATIO 3.2 RATIO [facility] INTERPRETATION OF CHOL-HDL RATIO CHD RISK FEMALE MALEVERY HIGH >8.3 >14.3HIGH 5.6- 8.3 6.7- 14.3AVERAGE 3.7- 5.6 4.0- 6.7BELOW AVERAGE 2.5- 3.7 2.7- 4.0PROTECTED <2.5 <2.7 LDL CHOL (CALC) 120 mg/dL (<130) [facility] PER NCEP ATP III GUIDELINES: OPTIMAL < 100 NEAR OPTIMAL 100 - 129BORDERLINE HIGH 130 - 159 HIGH 160 - 189 VERY HIGH > 189 ID Date Data Source [id number] 10/16/2020 12:17:13 PM EDT [facility] Name Value Range Interpretation Code Description Data Rosana rce(s) Supporting Document(s) SODIUM 144 mmol/L (136-145) [facility] POTASSIUM 3.7 mmol/L (3.6-5.2) [facility] CHLORIDE 111 mmol/L (100-108) H [facility] CO2 27 mmol/L (22-31) [facility] ANION GAP 6 mmol/L (7-16) L [facility] UREA NITROGEN 10 mg/dL (7-24) [facility] CREATININE 0.46 mg/dL (0.60-1.00) L [facility] BUN/CREAT RATIO 21.7 RATIO (10.0-20.0) H [facility] GLUCOSE 81 mg/dL (70-99) [facility] CALCIUM 8.4 mg/dL (8.4-10.2) [facility] GFR >60 ml/min/1.73m2 (>59) [facility] GFR ( AMER) >60 ml/min/1.73m2 (>59) [facility] GFR INTERPRETATION [facility] --NORMAL KIDNEY FUNCTION OR MILD DISEASE - GFR >OR= 60CHRONIC KIDNEY DISEASE - GFR 15 - 59RENAL FAILURE - GFR <15 Est. GFR calculation based on the MDRDstudy equation, which assumes a steadystate for creatinine. Est. GFR should notbe used for medication dosing. ID Date Data Source [id number] 10/16/2020 11:51:53 AM EDT [facility] Name Value Range Interpretation Code Description Data Rosana rce(s) Supporting Document(s) APTT 75.2 s (22.0-34.3) H [facility] ID Date Data Source [id number] 10/16/2020 11:47:21 AM EDT [facility] Name Value Range Interpretation Code Description Data Rosana rce(s) Supporting Document(s) WBC 6.0 10*3/uL (4.1-11.0) [facility] RBC 4.10 10*6/uL (4.00-5.40) [facility] HGB 12.8 g/dL (12.0-16.0) [facility] HCT 36.5 % (36.0-47.0) [facility] MCV 89.1 fL (80.0-95.0) [facility] MCH 31.3 pg (27.0-32.0) [facility] MCHC 35.2 g/dL (32.0-36.0) [facility] RDW 14.5 % (10.5-14.5) [facility] PLT 234 10*3/uL (150-450) [facility] MPV 7.2 fL (7.1-10.7) [facility] ID Date Data Source [id number] 10/16/2020 01:46:03 AM EDT [facility] Name Value Range Interpretation Code Description Data Rosana rce(s) Supporting Document(s) APTT 80.0 s (22.0-34.3) H [facility] ID Date Data Source [id number] 10/15/2020 08:51:45 PM EDT [facility] Name Value Range Interpretation Code Description Data Rosana rce(s) Supporting Document(s) TROPONIN I 0.33 ng/mL (<0.05) H [facility] Less than 0.05: Myocardial injury unlike lyGreater than or equal to 0.05: Highly suggestive of myocardial injuryCorrelation with rise and/or fall ofserial troponins, clinical symptomsand ECG changes is necessary. ID Date Data Source [id number] 10/15/2020 07:30:35 PM EDT [facility] Name Value Range Interpretation Code Description Data Rosana rce(s) Supporting Document(s) APTT 48.2 s (22.0-34.3) H [facility] ID Date Data Source [id number] 10/15/2020 06:08:31 PM EDT [facility] INFORMATIONPatient MRN Name Date of Age Gend*PT [id number] Eva Covington 1935 84 years F IPPT Location Admission Date/Time Visit ID Attending [id number] 10/15/20 1048 --- Aron Ho MD([id number]) EPI ID CSN Admitting Provider [id number] Aron Ho MD([id number])Inpatient History & PhysicalCarole A Infirmary WestRN:[id number] and Plan:Chest pressure with radiation to left arm:Had elevated troponin at outside hospitalCould possibly be from rapid afib at the time vs NSTEMIHas converted to sinus rhythm since. Rate under control now.Will check TT echo.Received asa 324 mg earlier. Give nitro prnConsult cardiology in AM for cath vs stress test.Will monitor her on tele.Keep her NPO overnightTrop here at [facility]. Will recheck now.Check lipid panel, A1c.Afib, new onset. Converted to sinus on cardizem drip started at outside hospitalStopped cardizem as she was getting bradycardic.Will add lopressor low dose with hold parameters.Monitor on teleHer CHADSVASC score elevated.Started on heparin drip in ER. Will continue the same for now. Switch to oral AClater.HTN: was hypertensive on arrival.Given her amlodipine 10 mg and Lisinopril 30 mg with improvement.Will monitor while adding lopressor for Afib. Was on atenolol at home.Hypothyroidism: resume on levothyroxine 88 mcgTSH wnl.DVT ppx: patent on heparin dripCode status: Full codeHer updated at bedside.Addendum 6 PM: Patient's POC trop was 0.03 but lab Troponin I returned as 0.38.She is denying any chest pain. Her repeat EKG showed Sinus rhythm with subtleTWI in Lead III otherwise no ST elevations/depressions. Patient is on IVheparin drip.Will continue to trend troponin and repeat EKG.Chief Complaint:Palpitations Per EMS, patient sent from [facility]. Was feeling SOB & palpitationsthis morning. Pt found to be in A. Fib w/ RVR, pt on diltizem on arrival.HPI: Patient is a 84 y/o female with h/o HTN, hypothyroidism who presented [facility] as ER to ER transfer from [facility]. Patient woke up around 1 AM todaywith palpitations, chest pressure and pin in left arm. No sweating or nausea.Went to [facility] ER where she was found to be in Afib with HR in 130s. Wasgiven Cardizem 5 mg, then 10 mg and later started on Cardizem drip. Sheconverted to sinus rhythm on that. Her troponin was found to be elevated at0.369. EKG showed no ST elevations or depressions. Patient given asa 324 mg.Transferred to [facility] for further evaluation and management.Here pt Noted to be afebrile. BP 190/115 on arrival. She was in Sinus with ratein 60s and dropping to 50s. Her cardizem drip stopped. Given amlodipine andlisinopril which improved BP.She continues to be in sinus with rate in 60s.Labs showed CBC TSH wnlproBNP 712. POC trop 0.03K 3.5 otherwise CMP unremarkableCXR at outside hospital showed no acute findings.Patient denies any active chest pain, palpitations. Denies congestion, cough,fever, chills. Denies abdominal pain, n/v/d. Denies dysuria, hematuria.She had both Covid shots. Her covid test at [facility] was negPast Medical History:Past Medical History:Diagnosis Date Arthritis Disease of thyroid gland HypertensionPast Surgical History:Past Surgical History:Procedure Laterality Date CYST REMOVAL HYSTERECTOMYMedications:(Not in a hospital admission)Allergies:Sulfa antibioticsFamily History:Family HistoryProblem Relation Age of Onset Heart disease Mother Diabetes Mother Heart disease Father Lung cancer Sister Testicular cancer Brother Diabetes Son Lung cancer Sister COPD Sister Stroke Neg HxSocial History:Social HistoryTobacco Use Smoking status: Former Smoker Smokeless tobacco: Never UsedSubstance Use Topics Alcohol use: No Drug use: NoReview of Systems:All systems were reviewed and found negative except for those mentioned in theHPI.Physical Exam:Vital Signs: Temp: [97.6 F] 97.6 FHeart Rate: [56-67] 56Resp: [16] 16BP: (124-192)/(58-115) 124/58General: Awake, alert, oriented times 3. In no acute distress.HEENT: Conjunctiva clear. PERRL. EOMINose normal.Mouth/Throat: Oropharynx is clear and moist.Neck supple. No JVD.Cardiovascular: regular rhythm, S1S2+Pulmonary/Chest: breath sounds normal.Abdominal: Soft. NTND. Bowel sounds are normal.Extremities: No pedal edema. No calf tenderness.Neurological: CN 2-12 grossly intact. Strength symmetricLabs, Imaging and Other Diagnostics:Diagnostic tests reviewed:Results for EVA COVINGTON ( ) as of 10/15/2020 15:33 Ref. Range 10/15/2020 11:48 10/15/2020 11:50Sodium Latest Ref Range: 136 - 145 mmol/L 144Potassium Latest Ref Range: 3.6 - 5.2 mmol/L 3.5 (L)Chloride Latest Ref Range: 100 - 108 mmol/L 112 (H)CO2 Latest Ref Range: 22 - 31 mmol/L 24Anion Gap Latest Ref Range: 7 - 16 mmol/L 8Urea nitrogen Latest Ref Range: 7 - 24 mg/dL 11Creatinine, Ser Latest Ref Range: 0.60 - 1.00 mg/dL 0.47 (L)BUN/Creatinine Ratio Latest Ref Range: 10.0 - 20.0 RATIO 23.4 (H)GLUCOSE Latest Ref Range: 70 - 99 mg/dL 88Calcium Latest Ref Range: 8.4 - 10.2 mg/dL 8.7Total Protein Latest Ref Range: 6.4 - 8.2 g/dL 7.3Albumin Latest Ref Range: 3.2 - 4.5 g/dL 4.0Globulin Latest Ref Range: 2.7 - 4.3 g/dL 3.3Alb/Glob ratio Latest Units: RATIO 1.2Bilirubin, Total Latest Ref Range: 0.0 - 1.0 mg/dL 0.7AST Latest Ref Range: 11 - 39 U/L 19ALT Latest Ref Range: 12 - 78 U/L 21GFR MDRD Non Af Amer Latest Ref Range: >59 ml/min/1.73m2 >60GFR MDRD Af Amer Latest Ref Range: >59 ml/min/1.73m2 >60Glom Filt Rate, Est Unknown SEE NOTESMagnesium Latest Ref Range: 1.7 - 2.4 mg/dL 2.1Alkaline Phosphatase Latest Ref Range: 45 - 117 U/L 64POC Troponin I Latest Ref Range: 0.01 - 0.07 ng/mL 0.03NT-pro BNP Latest Ref Range: 0 - 450 pg/mL 712 (H)WBC Latest Ref Range: 4.10 - 11.00 10*3/uL 6.8RBC Latest Ref Range: 4.00 - 5.40 10*6/uL 4.28Hematocrit Latest Ref Range: 36.00 - 47.00 % 39.4Hemoglobin Latest Ref Range: 12.0 - 16.0 g/dL 13.5MCV Latest Ref Range: 80.0 - 95.0 fL 92.0MCH Latest Ref Range: 27.0 - 32.0 pg 31.5MCHC Latest Ref Range: 32 - 36 g/dL 34.2RDW Latest Ref Range: 10.5 - 14.5 % 14.3Platelets Latest Ref Range: 150 - 450 10*3/uL 231MPV Latest Ref Range: 7.1 - 10.7 fL 7.0 (L)Neutrophils % Latest Ref Range: 35.0 - 75.0 % 56.9Lymphocytes Relative Latest Ref Range: 16 - 52 % 34.2Monocytes Relative Latest Ref Range: 0 - 8 % 6.9Eosinophils Relative Latest Ref Range: 0.00 - 5.00 % 1.2Basophils Relative Latest Ref Range: 0 - 4 % 0.8Neutrophils Absolute Latest Ref Range: 1 - 7 10*3/uL 3.9Lymphocytes Absolute Latest Ref Range: 1 - 4 10*3/uL 2.3Monocytes Absolute Latest Ref Range: 0 - 0 10*3/uL 0.5Basophils Absolute Latest Ref Range: 0 - 0 10*3/uL 0.1Protime Latest Ref Range: 9.20 - 11.90 s 10.5INR Unknown 1.00aPTT Latest Ref Range: 22.0 - 34.3 s 25.8TSH, High Sensitivity Latest Ref Range: 0.360 - 4.170 mIU/L 1.064Free T4 Latest Ref Range: 0.76 - 1.46 ng/dL 1.06Signature: Aron Ho, MDDate: October 15, 2020Time: 3:30 PM Name Value Range Interpretation Code Description Data Rosana rce(s) Supporting Document(s) ID Date Data Source [id number] 10/15/2020 05:21:03 PM EDT [facility] Name Value Range Interpretation Code Description Data Rosana rce(s) Supporting Document(s) TROPONIN I 0.38 ng/mL (<0.05) H [facility] Less than 0.05: Myocardial injury unlike lyGreater than or equal to 0.05: Highly suggestive of myocardial injuryCorrelation with rise and/or fall ofserial troponins, clinical symptomsand ECG changes is necessary. ID Date Data Source [id number] 10/15/2020 12:03:48 PM EDT [facility] Name Value Range Interpretation Code Description Data Rosana rce(s) Supporting Document(s) POC CTNI 0.03 ng/mL (0.01-0.07) [facility] [place] Less than 0.08: Myocardial injury unlike lyGreater than or equal to 0.08: Highlysuggestive of myocardial injuryCorrelation with rise and/or fall ofserial troponins, clinical symptoms,and ECG changes is necessary.PERFORMED BY [facility] ID Date Data Source [id number] 10/15/2020 07:17:47 PM EDT [facility] Name Value Range Interpretation Code Description Data Rosana rce(s) Supporting Document(s) HEMOGLOBIN A1C @ 5.0 % (4.0-6.0) [facility] Performed using Siemens [place] immunoassa y.Care must be taken when interpreting [id number] in patients with a hemoglobin variantor decreased erythrocyte lifespan. Values 5.7 - 6.4% suggest prediabetes.Values >=6.5% are diagnostic for diabetes.REFERENCE: DIABETES CARE 2018: 41(S13-S27).PERFORMED AT [address] [place] [address] [place] [address] EST AVERAGE GLUCOSE 97 mg/dL [facility] ID Date Data Source [id number] 10/15/2020 02:40:21 PM EDT [facility] Name Value Range Interpretation Code Description Data Rosana rce(s) Supporting Document(s) TSH,ULTRASENSITIVE @ 1.064 mIU/L (0.360-4.170) [facility] PERFORMED AT [address] [place] [address] N [place] [address] ID Date Data Source [id number] 10/15/2020 02:40:21 PM EDT [facility] Name Value Range Interpretation Code Description Data Rosana rce(s) Supporting Document(s) NT PRO BNP 712 pg/mL (0-450) H [facility] ID Date Data Source [id number] 10/15/2020 02:40:21 PM EDT [facility] Name Value Range Interpretation Code Description Data Rosana rce(s) Supporting Document(s) FREE THYROXINE @ 1.06 ng/dL (0.76-1.46) [facility] PER[facility] AT [address] [place], [place] [address] [address] ID Date Data Source [id number] 10/15/2020 02:40:21 PM EDT [facility] Name Value Range Interpretation Code Description Data Rosana rce(s) Supporting Document(s) SODIUM 144 mmol/L (136-145) [facility] POTASSIUM 3.5 mmol/L (3.6-5.2) L [facility] CHLORIDE 112 mmol/L (100-108) H [facility] CO2 24 mmol/L (22-31) [facility] ANION GAP 8 mmol/L (7-16) [facility] UREA NITROGEN 11 mg/dL (7-24) [facility] CREATININE 0.47 mg/dL (0.60-1.00) L [facility] BUN/CREAT RATIO 23.4 RATIO (10.0-20.0) H [facility] GLUCOSE 88 mg/dL (70-99) [facility] CALCIUM 8.7 mg/dL (8.4-10.2) [facility] TOTAL PROTEIN 7.3 g/dL (6.4-8.2) [facility] ALBUMIN 4.0 g/dL (3.2-4.5) [facility] GLOBULIN 3.3 g/dL (2.7-4.3) [facility] ALB/GLOB RATIO 1.2 RATIO [facility] ALKALINE PHOSPHATASE 64 U/L (45-117) [facility] BILIRUBIN,TOTAL 0.7 mg/dL (0.0-1.0) [facility] PLEASE NOTE:Total bilirubin results may be falselyelevated in patients taking Eltrombopag. AST (SGOT) 19 U/L (11-39) [facility] ALT (SGPT) 21 U/L (12-78) [facility] GFR >60 ml/min/1.73m2 (>59) [facility] GFR ( AMER) >60 ml/min/1.73m2 (>59) [facility] GFR INTERPRETATION [facility] --NORMAL KIDNEY FUNCTION OR MILD DISEASE - GFR >OR= 60CHRONIC KIDNEY DISEASE - GFR 15 - 59RENAL FAILURE - GFR <15 Est. GFR calculation based on the MDRDstudy equation, which assumes a steadystate for creatinine. Est. GFR should notbe used for medication dosing. ID Date Data Source [id number] 10/15/2020 02:29:08 PM EDT [facility] Name Value Range Interpretation Code Description Data Rosana rce(s) Supporting Document(s) MAGNESIUM 2.1 mg/dL (1.7-2.4) [facility] nanda COLLIER ID Date Data Source [id number] 10/15/2020 02:19:37 PM EDT [facility] [place] nanda COLLIER Name Value Range Interpretation Code Description Data Rosana rce(s) Supporting Document(s) APTT 25.8 s (22.0-34.3) [facility] [place] Pippa Huitron ID Date Data Source [id number] 10/15/2020 02:19:37 PM EDT [facility] [place] nanda COLLIER Name Value Range Interpretation Code Description Data Rosana rce(s) Supporting Document(s) PT 10.5 s (9.2-11.9) [facility] [place] nanda COLLIER INR 1.00 [facility] [place] nanda COLLIER SUGGESTED THERAPEUTIC RANGES USING INR F ORSTABILIZED ANTICOAGULATED PATIENTS:STANDARD DOSE THERAPY INR 2.0-3.0 DVT, PE, PREVENT DVT OR EMBOLISMHIGH DOSE THERAPY INR 2.5-3.5 PREVENT EMBOLISM FROM MECHANICAL HEART VALVE ID Date Data Source [id number] 10/15/2020 02:09:30 PM EDT [facility] [place] [facility] Name Value Range Interpretation Code Description Data Rosana rce(s) Supporting Document(s) WBC 6.8 10*3/uL (4.1-11.0) [facility] [place] [facility] [place] RBC 4.28 10*6/uL (4.00-5.40) [facility] [place] [facility] HGB 13.5 g/dL (12.0-16.0) [facility] [place] HCT 39.4 % (36.0-47.0) [facility] [place] MCV 92.0 fL (80.0-95.0) [facility] [place] MCH 31.5 pg (27.0-32.0) [facility] [place] MCHC 34.2 g/dL (32.0-36.0) [facility] [place] RDW 14.3 % (10.5-14.5) [facility] [place] PLT 231 10*3/uL (150-450) [facility] [place] MPV 7.0 fL (7.1-10.7) L [facility] [place] NEUT % 56.9 % (35.0-75.0) [facility] [place] LYMPH % 34.2 % (16.0-52.0) [facility] [place] MONO % 6.9 % (0.0-8.0) [facility] EOS % 1.2 % (0.0-5.0) [facility] BASO % 0.8 % (0.0-4.0) [facility] NEUT # 3.9 10*3/uL (1.8-7.7) [facility] [place] LYMPH # 2.3 10*3/uL (1.2-4.8) [facility] [place] MONO # 0.5 10*3/uL (0.0-0.8) [facility] [place] Eosinophils [#/volume] in Blood by Automated count 0.1 10*3/uL (0.0-0 .5) [facility] [place] BASO # 0.1 10*3/uL (0.0-0.2) [facility] [place] ID Date Data Source [id number] 10/15/2020 11:33:33 AM EDT [facility] Name Value Range Interpretation Code Description Data Rosana rce(s) Supporting Document(s) EKG [facility] [id number] [file] [id number] ID Date Data Source [id number] 10/15/2020 09:10:00 AM EDT Dinesh underwood Patient: EVA COVINGTON Observation [facility] [id number] [place] [address] [phone], FRegistration Date/Time: 10/15/2020 04:50 Weight:63.5 kg (S). Height/Length:61 inches (S). BMI:26.5 PAST HISTORYProblems:Tibia Fracture.Knee Injury.Hypertension.Hypothyroidism. Additional Surgeries:Hysterectomy.Intestional cyst removed. Medications:amLODIPine Besylate Oral 10 mg, daily, last dose yest.Lisinopril Oral 30mg, daily, last dose yest.Synthroid Oral 88 mcg, daily, last dose yest.Atenolol Oral 100 mg, daily, last dose today. Allergies:Sulfa Antibiotics.(rash). FAMILY HISTORYNo significant family medical history. (Electronically signed by Moose Humphries PA-C 10/15/2020 07:05) Name Value Range Interpretation Code Description Data Rosana rce(s) Supporting Document(s) ID Date Data Source [id number] 10/15/2020 08:22:00 AM EDT [facility] ([facility] Name Value Range Interpretation Code Description Data Rosana rce(s) Supporting Document(s) White Blood Count 6.0 [facility] ([facility]) Red Blood Count 4.10 [facility] ([facility] Platelets 234 [facility] Hemoglobin 12.8 [facility] ([facility]) Hematocrit 36.5 [facility] ([facility]) ID Date Data Source [id number] 10/15/2020 08:22:00 AM EDT [facility] ([facility] Name Value Range Interpretation Code Description Data Rosana rce(s) Supporting Document(s) Alanine aminotransferase [Enzymatic activity/volume] in Serum or Pl asma 21 [facility] ([facility]) Albumin [Mass/volume] in Serum or Plasma 4.0 [facility] ([facility]) Calcium [Mass/volume] in Serum or Plasma 8.7 [facility] ([facility]) Carbon dioxide, total [Moles/volume] in Serum or Plasma 24 [facility] ([facility]) Chloride [Moles/volume] in Serum or Plasma 112 [facility] ([facility]) Potassium [Moles/volume] in Serum or Plasma 144 [facility] ([facility]) Alkaline phosphatase [Enzymatic activity/volume] in Serum or Plasma 6 4 [facility] ([facility]) Protein [Mass/volume] in Serum or Plasma 7.5 [facility] ([facility]) Sodium 144 [facility] Aspartate aminotransferase [Enzymatic activity/volume] in Serum or Plasma 19 [facility] ([facility]) Glucose 88 [facility] Urea nitrogen [Mass/volume] in Serum or Plasma 11 [facility] ([facility]) Creatinine For GFR 0.47 [facility] ([facility]) ID Date Data Source [id number] 10/15/2020 06:33:00 AM EDT [facility] DATE OF EXAMINATION: 10/15/2020 5:15 EDT CHEST 1 VIEW HISTORY: Chest pain TECHNIQUE: Single frontal radiograph of chest COMPARISON: None. FINDINGS: No evidence of focal consolidation, pneumothorax or large pleural effusion.Lungs are clear. Mediastinal structures are unremarkable. No aggressive osseouslesions. IMPRESSION: No focal consolidation. Electronically signed in [id number] by: Mirza Hilliard M.D. 10/15/2020 6:27 EDT Name Value Range Interpretation Code Description Data Rosana rce(s) Supporting Document(s) ID Date Data Source [id number] 10/15/2020 05:18:00 AM EDT [facility] Name Value Range Interpretation Code Description Data Rosana rce(s) Supporting Document(s) COVID-19 NEGATIVE [facility] This lab was ordered by [facility] and reported by [facility]. ID Date Data Source [id number] 10/15/2020 05:52:00 AM EDT [facility] lizet TSYSORDER [id number] Name Value Range Interpretation Code Description Data Rosana rce(s) Supporting Document(s) COVID-19 NEGATIVE NEGATIVE [facility] Negative results should be treated as pr esumptive and, ifinconsistent with clinical signs and symptoms or necessaryfor patient management, should be tested with differentauthorized or cleared molecular tests.Negative results do not preclude SARS-CoV-2 infection andshould not be used as the sole basis for patient managementdecisions.This is a rapid molecular isothermal nucleic acidamplification technology (NAAT) in vitro diagnostic testutilizing a loop mediated isothermal amplification (LAMP)test with nicking endonuclease amplification reaction(NEAR) intended for the qualitative detection of nucleica matthew from the SARS-CoV-2 viral RNA in direct nasal,nasopharyngeal or throat swabs from individuals who aresuspected of COVID-19.Results are for the indentification of SARS-CoV-2 RNA. ApoOSEK-BeN-5 RNA is generally detectable in respiratorysamples during the actue phase of infection. ID Date Data Source [id number] 10/15/2020 05:57:00 AM EDT [facility] l TSYSORDER [id number] Name Value Range Interpretation Code Description Data Rosana rce(s) Supporting Document(s) TROPONIN I 0.369 ng/mL 0.000-0.056 *H [facility] ID Date Data Source [id number] 10/15/2020 05:57:00 AM EDT [facility] l TSYSORDER [id number] Name Value Range Interpretation Code Description Data Rosana rce(s) Supporting Document(s) GLUCOSE 152 mg/dL 74-106 H [facility] BLOOD UREA NITROGEN 16 mg/dL 7-18 [facility] ital CREATININE 0.75 mg/dL 0.6-1.0 [facility] SODIUM 143 mmol/L 136-145 [facility] POTASSIUM 3.7 mmol/L 3.5-5.1 [facility] CHLORIDE 105 mmol/L 98-107 [facility] CO2 25 mmol/L 21-32 [facility] CALCIUM 8.9 mg/dL 8.5-10.1 [facility] ANION GAP 13.0 mmol/L 5-12 H [facility] GLOMERULAR FILTRATION RATE 74 mL/min [facility] GFR IS CALCULATED IN mL/min/1.73m2 ROBERTO L FUNCTION: >90MILDLY DECREASED: 60-89MILDY TO MODERATELY DECREASED: 45-59 MODERATELY TO SEVERELY DECREASED: 30-44SEVERELY DECREASED: 15-29RENAL FAILURE: <15 ID Date Data Source [id number] 10/15/2020 05:55:00 AM T [facility] TSYSORDER [id number] Name Value Range Interpretation Code Description Data Rosana rce(s) Supporting Document(s) TSH 1.856 uIU/mL 0.360-3.740 [facility] ID Date Data Source [id number] 10/15/2020 05:55:00 AM [facility] TSYSORDER [id number] Name Value Range Interpretation Code Description Data Rosana rce(s) Supporting Document(s) MAGNESIUM 2.0 mg/dL 1.8-2.4 [facility] ID Date Data Source [id number] 10/15/2020 05:52:00 AM [facility] TSYSORDER [id number] Name Value Range Interpretation Code Description Data Rosana rce(s) Supporting Document(s) PARTIAL THROMBOPLASTIN TIME 25.4 SECONDS 21.2-27.3 [facility] ID Date Data Source [id number] 10/15/2020 05:52:00 AM [facility] TSYSORDER [id number] Name Value Range Interpretation Code Description Data Rosana rce(s) Supporting Document(s) PROTHROMBIN TIME (PATIENT) 9.7 SECONDS 9.1-11.6 [facility] INR 0.93 0.87-1.06 [facility] ID Date Data Source [id number] 10/15/2020 05:25:00 AM [facility] TSYSORDER [id number] Name Value Range Interpretation Code Description Data Rosana rce(s) Supporting Document(s) WHITE BLOOD COUNT 8.0 K/mm3 4.0-10.0 [facility] al RED BLOOD COUNT 4.62 M/mm3 4.00-5.50 [facility] HEMOGLOBIN 14.2 gm/dL 12.0-16.0 [facility] HEMATOCRIT 42.4 % 36.0-48.8 [facility] MEAN CELL VOLUME 91.8 fl 80-96 [facility] MEAN CORPUSCULAR HEMOGLOBIN 30.7 pg 27.0-31.0 [facility] MEAN CORPUSCULAR HGB CONC 33.5 g/dl 32.0-36.0 [facility] RED CELL DISTRIBUTION WIDTH 13.9 % 10.0-14.5 [facility] PLATELET COUNT 290 K/mm3 172-450 [facility] MEAN PLATELET VOLUME 8.8 fl 9.0-13.0 L [facility] pital GRAN % 50.2 % 50-80.0 [facility] IG% 0.1 % 0.0-0.2 [facility] LYMPH % 39.8 % 25.0-50.0 [facility] MONO % 7.3 % 2.0-10.0 [facility] EOS % 1.8 % 0-5.0 [facility] BASO % 0.8 % 0.0-2.0 [facility] GRAN # 4.0 K/mm3 2.0-8.00 [facility] IG# 0.0 K/mm3 0.0-0.2 [facility] LYMPH # 3.2 K/mm3 1.0-5.0 [facility] MONO # 0.6 K/mm3 0.10-1.20 [facility] EOS # 0.1 K/mm3 0.0-0.5 [facility] BASO # 0.1 K/mm3 0.0-0.2 [facility] ID Date Data Source [id number] 04/23/2020 12:00:00 AM EST eCW1 ([facility]) Name Value Range Interpretation Code Description Data Rosana rce(s) Supporting Document(s) 1.400 0.358-3.740 THYROID STIMULATING HORM ONE eCW1 ([facility]) ID Date Data Source Basic Metabolic Profile (BMP) 04/23/2020 12:00:00 AM EST eCW 1 ([facility]) Name Value Range Interpretation Code Description Data Rosana rce(s) Supporting Document(s) 100 70-100 GLUCOSE, FASTING eCW1 ([facility]) > 60.0 >32 GLOMERULAR FILTRATION RATE eCW 1 ([facility]) 0.67 0.55-1.30 CREATININE FOR GFR eCW1 ([facility]) 9 7-18 BLOOD UREA NITROGEN eCW1 ([facility]) 140 136-145 SODIUM LEVEL eCW1 ([facility]) 31 21-32 CARBON DIOXIDE LEVEL eCW1 ([facility]) 9.9 8.8-10.2 CALCIUM LEVEL eCW1 ([facility]) 4.5 3.5-5.1 POTASSIUM SERUM eCW1 ([facility]) 106 98-107 CHLORIDE LEVEL eCW1 ([facility]) Procedure Social History Code Duration Value Status Description Data Source(s ) Smoking 04/19/2021 12:00:00 AM EST Former Smoker completed Former Smoker eCW1 ([facility]) Smoking 03/26/2021 12:00:00 AM EST Former Smoker completed Former Smoker eCW1 ([facility]) Smoking 03/26/2021 12:00:00 AM EST Former Smoker completed Former Smoker eCW1 ([facility]) Smoking 03/26/2021 12:00:00 AM EST Former Smoker completed Former Smoker eCW1 ([facility]) Smoking 02/24/2021 12:00:00 AM EDT Former Smoker completed Former Smoker eCW1 ([facility]) Smoking 02/24/2021 12:00:00 AM EDT Former Smoker completed Former Smoker eCW1 ([facility]) Smoking 02/24/2021 12:00:00 AM EDT Former Smoker completed Former Smoker eCW1 ([facility]) Smoking 12/03/2020 12:00:00 AM EDT Former Smoker completed Former Smoker eCW1 ([facility]) Smoking 12/03/2020 12:00:00 AM EDT Former Smoker completed Former Smoker eCW1 ([facility]) Smoking 12/03/2020 12:00:00 AM EDT Former Smoker completed Former Smoker eCW1 ([facility]) Smoking 12/03/2020 12:00:00 AM EDT Former Smoker completed Former Smoker eCW1 ([facility]) Smoking 12/03/2020 12:00:00 AM EDT Former Smoker completed Former Smoker eCW1 ([facility]) Smoking 12/03/2020 12:00:00 AM EDT Former Smoker completed Former Smoker eCW1 ([facility]) Smoking 12/03/2020 12:00:00 AM EDT Former Smoker completed Former Smoker eCW1 ([facility]) Smoking 12/03/2020 12:00:00 AM EDT Former Smoker completed Former Smoker eCW1 ([facility]) Smoking 12/03/2020 12:00:00 AM EDT Former Smoker completed Former Smoker eCW1 ([facility]) Smoking 11/28/2020 12:00:00 AM EDT Patient is a former smoker completed Patient is a former smoker MED[facility] ([facility]) Smoking 11/19/2020 12:00:00 AM EDT Former Smoker completed Former Smoker eCW1 ([facility]) Smoking 11/19/2020 12:00:00 AM EDT Former Smoker completed Former Smoker eCW1 ([facility]) Smoking 11/19/2020 12:00:00 AM EDT Former Smoker completed Former Smoker eCW1 ([facility]) Smoking 11/19/2020 12:00:00 AM EDT Former Smoker completed Former Smoker eCW1 ([facility]) Smoking 11/19/2020 12:00:00 AM EDT Former Smoker completed Former Smoker eCW1 ([facility]) Smoking 11/19/2020 12:00:00 AM EDT Former Smoker completed Former Smoker eCW1 ([facility]) Smoking 11/19/2020 12:00:00 AM EDT Former Smoker completed Former Smoker eCW1 ([facility]) Smoking 10/23/2020 12:00:00 AM EDT Former Smoker completed Former Smoker eCW1 ([facility]) Smoking 10/23/2020 12:00:00 AM EDT Former Smoker completed Former Smoker eCW1 ([facility]) Alcohol intake 10/18/2020 12:00:00 AM EDT Current non-d scott of alcohol (finding) completed Current non-drinker of alcohol (finding) [facility] Alcohol intake 10/15/2020 12:00:00 AM EDT Current non-d scott of alcohol (finding) completed Current non-drinker of alcohol (finding) [facility] Smoking 04/23/2020 12:00:00 AM EST Former Smoker completed Former Smoker eCW1 ([facility]) Smoking 04/23/2020 12:00:00 AM EST Former Smoker completed Former Smoker eCW1 ([facility]) Smoking 04/23/2020 12:00:00 AM EST Former Smoker completed Former Smoker eCW1 ([facility]) Vital Signs ID Date Data Source [id number] Name Value Range Interpretation Code Description Data Source(s) Body weight 133.8 [lb_av] 133.8 [lb_av] eCW1 ([facility]) Body height 62 [in_i] 62 [in_i] eCW1 ([facility]) Body mass index (BMI) [Ratio] 24.47 kg/m2 24.47 kg/m2 eCW1 ([facility]) Heart rate 82 /min 82 /min eCW1 ([facility]) Respiratory rate 18 /min 18 /min eCW1 ([facility]) Body temperature 98.0 [degF] 98.0 [degF] eCW1 ( [facility]) Systolic blood pressure 130 mm[Hg] 130 mm[Hg] e CW1 ([facility]) Diastolic blood pressure 76 mm[Hg] 76 mm[Hg] eCW1 ([facility]) Systolic blood pressure 170 mm[Hg] 170 mm[Hg] M EDENT ([facility]) Diastolic blood pressure 79 mm[Hg] 79 mm[Hg] MEDENT ([facility]) Heart rate 68 /min 68 /min MED[facility] ([facility] Body weight 130.00 [lb_av] 130.00 [lb_av] MEDEN T ([facility]) Body weight 134 [lb_av] 134 [lb_av] eCW1 ([facility]) Body height 62 [in_i] 62 [in_i] eCW1 ([facility]) Body mass index (BMI) [Ratio] 24.51 kg/m2 24.51 kg/m2 eCW1 ([facility]) Heart rate 78 /min 78 /min eCW1 ([facility]) Respiratory rate 18 /min 18 /min eCW1 ([facility]) Body temperature 98.3 [degF] 98.3 [degF] eCW1 ( [facility]) Systolic blood pressure 130 mm[Hg] 130 mm[Hg] e CW1 ([facility]) Diastolic blood pressure 80 mm[Hg] 80 mm[Hg] eCW1 ([facility]) Body weight 134.00 [lb_av] 134.00 [lb_av] MEDEN T ([facility]) Body mass index (BMI) [Ratio] 25.3 kg/m2 25.3 k g/m2 MEDENT ([facility]) Heart rate 63 /min 63 /min [facility] ([facility]) Body height 61 [in_i] 61 [in_i] [facility] ([facility]) 5'1" Systolic blood pressure--sitting 168 mm[Hg] 168 mm[Hg] MEDENT ([facility]) CBP, adult cuff/Ra Diastolic blood pressure--sitting 75 mm[Hg] 75 mm[Hg] MEDENT ([facility]) CBP, adult cuff/Ra Body weight 136 [lb_av] 136 [lb_av] eCW1 ([facility]) Body height 62 [in_i] 62 [in_i] eCW1 ([facility]) Body mass index (BMI) [Ratio] 24.87 kg/m2 24.87 kg/m2 eCW1 ([facility]) Heart rate 75 /min 75 /min eCW1 ([facility]) Respiratory rate 20 /min 20 /min eCW1 ([facility]) Body temperature 97 [degF] 97 [degF] eCW1 ([facility]) Systolic blood pressure 130 mm[Hg] 130 mm[Hg] e CW1 ([facility]) Diastolic blood pressure 74 mm[Hg] 74 mm[Hg] eCW1 ([facility]) Body weight 140 [lb_av] 140 [lb_av] eCW1 ([facility]) Body height 62 [in_i] 62 [in_i] eCW1 ([facility]) Body mass index (BMI) [Ratio] 25.60 kg/m2 25.60 kg/m2 W1 ([facility]) Heart rate 77 /min 77 /min eCW1 ([facility]) Respiratory rate 20 /min 20 /min eCW1 ([facility]) Body temperature 97.4 [degF] 97.4 [degF] eCW1 ( [facility]) Systolic blood pressure 120 mm[Hg] 120 mm[Hg] e CW1 ([facility]) Diastolic blood pressure 80 mm[Hg] 80 mm[Hg] eCW1 ([facility]) Systolic blood pressure 145 mm[Hg] 145 mm[Hg] [facility] Diastolic blood pressure 84 mm[Hg] 84 mm[Hg] [facility] Heart rate 67 /min 67 /min [facility] Body temperature 36.39 Светлана 36.39 Светлана [facility] Oxygen saturation in Arterial blood by Pulse oximetry 95 % 95 % [facility] Respiratory rate 16 /min 16 /min [facility] Body height 154.9 cm 154.9 cm [facility] Body weight 64.139 kg 64.139 kg [facility] Body mass index (BMI) [Ratio] 26.73 kg/m2 26.73 kg/m2 [facility] Diastolic blood pressure 74 mm[Hg] 74 mm[Hg] eCW1 ([facility]) Body weight 147 [lb_av] 147 [lb_av] eCW1 ([facility]) Body height 62 [in_i] 62 [in_i] eCW1 ([facility]) Body mass index (BMI) [Ratio] 26.88 kg/m2 26.88 kg/m2 eCW1 ([facility]) Heart rate 82 /min 82 /min eCW1 ([facility]) Respiratory rate 20 /min 20 /min eCW1 ([facility]) Body temperature 96 [degF] 96 [degF] eCW1 ([facility]) Systolic blood pressure 150 mm[Hg] 150 mm[Hg] e CW1 ([facility]) ID Date Data Source [id number] 10/15/2020 06:38:22 AM EDT [facility] Name Value Range Interpretation Code Description Data Source(s) TRANSFER FROM [facility] Patient Treatment Plan of Care Planned Activity Planned Date Details Description Data Source (s) Rosuvastatin calcium 20 MG Oral Tablet 03/26/2021 12:00:00 AM EST eCW1 ([facility]) Rosuvastatin calcium 20 MG Oral Tablet 03/26/2021 12:00:00 AM EST eCW1 ([facility]) Rosuvastatin calcium 20 MG Oral Tablet 03/26/2021 12:00:00 AM EST eCW1 ([facility]) ferrous sulfate 325 MG Delayed Release Oral Tablet 11/26/2020 12 :00:00 AM EDT eCW1 ([facility]) ferrous sulfate 325 MG Delayed Release Oral Tablet 11/26/2020 12 :00:00 AM EDT eCW1 ([facility]) ferrous sulfate 325 MG Delayed Release Oral Tablet 11/26/2020 12 :00:00 AM EDT eCW1 ([facility]) ferrous sulfate 325 MG Delayed Release Oral Tablet 11/26/2020 12 :00:00 AM EDT eCW1 ([facility]) ferrous sulfate 325 MG Delayed Release Oral Tablet 11/26/2020 12 :00:00 AM EDT eCW1 ([facility]) ferrous sulfate 325 MG Delayed Release Oral Tablet 11/26/2020 12 :00:00 AM EDT eCW1 ([facility]) Lisinopril 10 MG Oral Tablet 10/19/2020 09:00:00 AM EDT [facility] Nitroglycerin 0.4 MG Sublingual Tablet 10/18/2020 12:00:00 AM EDT [facility] apixaban 5 MG Oral Tablet 10/18/2020 12:00:00 AM EDT [facility] sodium chloride 0.9% (NS) infusion 10/17/2020 08:00:00 PM EDT [facility] Nitroglycerin 0.4 MG Sublingual Tablet 10/17/2020 05:46:31 PM EDT [facility] 10 ML Atropine Sulfate 0.1 MG/ML Prefilled Syringe 10/17/2020 05 :46:30 PM EDT [facility] Aspirin 81 MG Chewable Tablet 10/17/2020 12:00:00 AM EDT [facility] clopidogrel 75 MG Oral Tablet 10/17/2020 12:00:00 AM EDT [facility] atorvastatin 40 MG Oral Tablet 10/17/2020 12:00:00 AM EDT [facility] Levothyroxine Sodium 0.088 MG Oral Tablet [Synthroid] 04/23/2020 12:00:00 AM EST eCW1 ([facility]) Levothyroxine Sodium 0.088 MG Oral Tablet [Synthroid] 04/23/2020 12:00:00 AM EST eCW1 ([facility]) Levothyroxine Sodium 0.088 MG Oral Tablet [Synthroid] 04/23/2020 12:00:00 AM EST eCW1 ([facility]) Levothyroxine Sodium 0.088 MG Oral Tablet [Synthroid] 04/23/2020 12:00:00 AM EST eCW1 ([facility]) Levothyroxine Sodium 0.088 MG Oral Tablet [Synthroid] 04/23/2020 12:00:00 AM EST eCW1 ([facility]) Levothyroxine Sodium 0.088 MG Oral Tablet [Synthroid] 04/23/2020 12:00:00 AM EST eCW1 ([facility]) Levothyroxine Sodium 0.088 MG Oral Tablet [Synthroid] 04/23/2020 12:00:00 AM EST eCW1 ([facility]) Levothyroxine Sodium 0.088 MG Oral Tablet [Synthroid] 04/23/2020 12:00:00 AM EST eCW1 ([facility]) Levothyroxine Sodium 0.088 MG Oral Tablet [Synthroid] 04/23/2020 12:00:00 AM EST eCW1 ([facility]) Levothyroxine Sodium 0.088 MG Oral Tablet [Synthroid] 04/23/2020 12:00:00 AM EST eCW1 ([facility]) Levothyroxine Sodium 0.088 MG Oral Tablet [Synthroid] 04/23/2020 12:00:00 AM EST eCW1 ([facility]) Levothyroxine Sodium 0.088 MG Oral Tablet [Synthroid] 04/23/2020 12:00:00 AM EST eCW1 ([facility]) Levothyroxine Sodium 0.088 MG Oral Tablet [Synthroid] 04/23/2020 12:00:00 AM EST eCW1 ([facility]) Hydrochlorothiazide 12.5 MG Oral Tablet 08/21/2015 12:00:00 AM EDT [facility] Levothyroxine Sodium 0.1 MG Oral Tablet 08/21/2015 12:00:00 AM EDT [facility] Lisinopril 20 MG Oral Tablet 08/21/2015 12:00:00 AM EDT [facility]
[2021-04-22] MEDS ORDERED: ATEN100T (10:43)
[2021-04-22] MEDS ORDERED: LISI30TA4 (10:43)
[2021-04-22] MEDS ORDERED: ROSU20TA5 (10:43)
[2021-04-22] MEDS ORDERED: ELIQ5TAB (10:43)
[2021-04-22] MEDS ORDERED: SYNT88TA2 (10:43)
[2021-04-22] MEDS ORDERED: CLOP75TA2 (10:43)
[2021-04-22] MEDS ORDERED: ASPI81CH33 PO (10:43)
[2021-04-22] MEDS ORDERED: AMLO1TAB24 (10:43)
[2021-04-22] MEDS ORDERED: ONDANSETRON 4MG/2ML VIAL IV ONE (10:55)
[2021-04-22 11:05] LABS: BASO # 0.1 10^3/uL (0.0-0.2); BASO % 0.7 % (0.0-1.0); EOS # 0.1 10^3/uL (0.0-0.5); EOS % 1.4 % (0.0-3.0); HEMATOCRIT 39.5 % (36.0-47.0); HEMOGLOBIN 12.8 g/dl (12.0-15.5); LYMPH # 1.9 10^3/uL (1.5-5.0); LYMPH % 26.4 % (24.0-44.0); MEAN CORPUSCULAR HEMOGLOBIN 30.3 pg (27.0-33.0); MEAN CORPUSCULAR HGB CONC 32.4 g/dl (32.0-36.5); MEAN CORPUSCULAR VOLUME 93.4 fl (80.0-96.0); MONO # 0.5 10^3/uL (0.0-0.8); MONO % 7.5 % (2.0-8.0); NEUTROPHILS # 4.5 10^3/uL (1.5-8.5); NEUTROPHILS % 63.6 % (36.0-66.0); PLATELET COUNT, AUTOMATED 284 10^3/uL (150-450); RED BLOOD COUNT 4.23 10^6/uL (4.00-5.40); WHITE BLOOD COUNT 7.1 10^3/uL (4.0-10.0)
[2021-04-22] MEDS: MORPHINE 2 MG/ML 1ML VIAL (J2270) IV PRN ×3 (11:11→13:07)
--- NOTE | 2021-04-22 11:20 | REP ---
INDICATION: CHEST PAIN COMPARISON: None. TECHNIQUE: Portable AP view of the chest FINDINGS: Evidence for prior coronary artery stenting. Cardiac silhouette is within normal limits for portable technique. The lung munguia demonstrate chronic appearing changes. No obvious focal consolidation. No effusion. No pneumothorax. Skeletal structures demonstrate age-related osteopenia and degenerative changes. IMPRESSION: No obvious focal consolidation or effusion. <Electronically signed by Mirza Hilliard > 04/22/21 [id number]
--- OUTSIDE RECORDS SUMMARY | 2021-04-22 11:28 | CCD ---
Author Author [facility] Organization [facility] Address Unknown Phone Unavailable Care Team Providers Care Cross Tie Maker Name Role Phone Amado Garcia MD Unavailable [...] Amado Correa MD Unavailable Unavaila ble Migeed, Amaod Correa MD Unavailable Unavaila ble MigeedAmado MD Unavailable Unavaila ble MigeedAmado MD Unavailable Unavaila ble MigeedAmado MD Unavailable Unavaila ble Migeed, Amado Correa MD Unavailable Unavaila ble MigeedAmado MD Unavailable Unavaila ble Migeed, Amado Correa MD Unavailable Unavaila ble Migeed, Amado Correa MD Unavailable Unavaila ble Migeed, Amado Correa MD Unavailable Unavaila Amado Garcia MD Unavailable Unavaila ble Ahmed, Talbot Unavailable [...] Unavailable Unavailable SILVESTRE SIERRA MD Unavailable Unavailable SIVLESTRE SIERRA MD Unavailable Unavailable SILVESTRE SIERRA MD [...] is protected by Article 27-F of the [facility] Public Health law. If you continue you may have access to information: Regarding HIV / AIDS; Provided by facilities licensed or operated by the [facility] Office of Mental Health; or Provided by the [facility] Office for People With Developmental Disabilities. If such information is present, then the following [facility] mandated warning applies: This information has been [...] law may result in a fine or prison sentence or both. A general authorization for the release of medical or other information is NOT sufficient authorization for further disc losure. Family History Family Member Name Family Member Gender Family Member Status Date o f Status Description Data Source(s) Unknown Unknown Encounters Encounter Providers Location Date Indications Data Source(s ) Unknown [address] [facility] [place] [address] 04/18/2021 12:00:00 AM EST eCW1 ([facility]) Outpatient [address] [facility] [place] [address] 04/16/2021 12:00:00 AM EST eCW1 ([facility]) Unknown [address] [facility] [place] [address] 04/16/2021 12:00:00 AM EST eCW1 ([facility]) Outpatient [address] [facility] [place] [address] 03/26/2021 12:00:00 AM EST eCW1 ([facility]) Unknown [address] [facility] [place] [address] 02/27/2021 12:00:00 AM EDT eCW1 ([facility]) [place] [address] [facility] [address] 02/27/2021 12:00:00 AM EDT eCW1 ([facility]) Unknown [address] [facility] [address] 02/25/2021 12:00:00 AM EDT eCW1 ([facility]) [place]patient [address] [facility] [address] 02/22/2021 12:00:00 AM EDT eCW1 [facility] [place] [address] [facility] [address] 02/20/2021 12:00:00 AM EDT eCW1 ([facility]) Office Visit Attender: DILLON JOHNSON MD Main Office 02/04/2021 01: 27:00 PM EDT MEDENT ([facility]) Outpatient [address] [facility] [address] 02/01/2021 12:00:00 AM EDT eCW1 ([facility]) Unknown [address] [facility] [address] 02/01/2021 12:00:00 AM EDT eCW1 ([facility]) Unknown [address] [facility] [place] [address] 01/31/2021 12:00:00 AM EDT [facility] [address] [facility] [place] [address] 01/30/2021 12:00:00 AM EDT eCW1 ([facility]) Outpatient Attender: Madeline Garcia MD [facility] 01/17/2021 10:30:00 AM EDT MEDENT ([facility]) Outpatient [address] [facility] [address] 12/10/2020 12:00:00 AM EDT eCW1 ([facility]) Unknown [address] [facility] [place] [address] 12/10/2020 12:00:00 AM EDT eCW1 ([facility]) Outpatient [address] [facility] [place] [address] 12/03/2020 12:00:00 AM EDT eCW1 ([facility]) Unknown [address] [facility] [place] [address] 11/29/2020 12:00:00 AM EDT eCW1 ([facility]) Unknown [address] [facility] [place] [address] 11/29/2020 12:00:00 AM EDT eCW1 ([facility]) Outpatient Attender: DILLON JOHNSON MD Main Office 11/28/2020 08:00:00 AM EDT MEDENT ([facility]) Unknown [address] [facility] [place] [address] 11/26/2020 12:00:00 AM EDT eCW1 ([facility]) Unknown [address] [facility] [place] [address] 11/22/2020 12:00:00 AM EDT eCW1 ([facility]) [place] [address] [facility] [place] [address] 11/22/2020 12:00:00 AM EDT eCW1 ([facility]) Unknown [address] [facility] [place] [address] 11/20/2020 12:00:00 AM EDT eCW1 ([facility]) Outpatient [address] [facility] [place] [address] 11/19/2020 12:00:00 AM EDT eCW1 ([facility]) Unknown [address] [facility] [place] [address] 11/15/2020 12:00:00 AM EDT eCW1 ([facility]) Outpatient Attender: ALEXA Trejo Woman research and development director 11:30:00 AM EDT MEDENT ([facility]) Outpatient [address] [facility] [address] 10/23/2020 12:00:00 AM EDT eCW1 ([facility]) Inpatient Attender: SILVESTRE SIERRA MDReferrer: SILVESTRE RYDER MD [id number] 10/17/2020 10:50:00 AM EDT - 10/17/2020 11:59:00 PM EDT [facility] Patient discharged. Unknown [address] [facility] [address] 10/16/2020 12:00:00 AM EDT eCW1 ([facility]) Inpatient Attender: SILVESTRE SIERRA MDA ttender: Aron Ho MDAttender: Antione ChowdhuryAdmitter: Aron Ho MD [id number] 10/15/2020 10:48:00 AM EDT - 10/18/2020 03:42:00 PM EDT [facility] Patient discharged. Outpatient 10/15/2020 06:38:00 AM EDT C P, New onset A fib with RVR now controlled on Cardizem gtt, elevated troponin 0.3 [facility] CP, New onset A fib with RVR now control led on Cardizem gtt, elevated troponin 0.3 Emergency Attender: Moose Humphries PA-C EMERGENCY ROOM-ER 11/2020 05:52:00 AM EDT - 10/15/2020 09:00:00 AM EDT [facility] Patient discharged. Outpatient Attender: ALEXA Trejo Woman research and development director 10:00:00 AM EDT MEDENT ([facility]) Unknown [address] [facility] [place] [address] 07/31/2020 12:00:00 AM EDT eCW1 ([facility]) Outpatient Attender: ALEXA Trejo Woman research and development director 11:30:00 AM EDT MEDENT ([facility]) Outpatient Attender: ALEXA Trejo Woman research and development director 10:30:00 AM EST MEDENT ([facility]) Outpatient [address] [facility] [place] [address] 04/23/2020 12:00:00 AM EST eCW1 ([facility]) Unknown [address] [facility] [place] [address] 03/30/2020 12:00:00 AM EST eCW1 ([facility]) Emergency Attender: MAR DAWKINS 11/11/2013 09:47:00 PM EDT - 11/11/2013 10:04:00 PM EDT [facility] Immunizations Vaccine Date Status Description Data Source(s) COVID-19 VACCINE Moderna 03/06/2021 12:00:00 AM EDT completed [employer] Vaccine Series Complete: YESThis Data wa s Submitted to [facility] Via [employer]. 02/22/2021 11:27:00 AM EDT completed e CW1 ([facility]) 02/22/2021 11:27:00 AM EDT completed e CW1 ([facility]) 02/22/2021 11:27:00 AM EDT completed e CW1 ([facility]) 02/22/2021 11:27:00 AM EDT completed e CW1 ([facility]) 12/10/2020 08:27:00 AM EDT completed e CW1 ([facility]) 12/10/2020 08:27:00 AM EDT completed e CW1 ([facility]) 12/10/2020 08:27:00 AM EDT completed e CW1 ([facility]) 12/10/2020 08:27:00 AM EDT completed e CW1 ([facility]) 12/10/2020 08:27:00 AM EDT completed e CW1 ([facility]) 12/10/2020 08:27:00 AM EDT completed e CW1 ([facility]) 12/10/2020 08:27:00 AM EDT completed e CW1 ([facility]) 12/10/2020 08:27:00 AM EDT completed e CW1 ([facility]) 12/10/2020 08:27:00 AM EDT completed e CW1 ([facility]) 12/10/2020 08:27:00 AM EDT completed e CW1 ([facility]) 12/03/2020 11:39:00 AM EDT completed e CW1 ([facility]) 12/03/2020 11:39:00 AM EDT completed e CW1 ([facility]) 12/03/2020 11:39:00 AM EDT completed e CW1 ([facility]) 12/03/2020 11:39:00 AM EDT completed e CW1 ([facility]) 12/03/2020 11:39:00 AM EDT completed e CW1 ([facility]) 12/03/2020 11:39:00 AM EDT completed e CW1 ([facility]) 12/03/2020 11:39:00 AM EDT completed e CW1 ([facility]) 12/03/2020 11:39:00 AM EDT completed e CW1 ([facility]) 12/03/2020 11:39:00 AM EDT completed e CW1 ([facility]) 12/03/2020 11:39:00 AM EDT completed e CW1 ([facility]) 12/03/2020 11:39:00 AM EDT completed e CW1 ([facility]) 12/03/2020 11:39:00 AM EDT completed e CW1 ([facility]) COVID-19 dose #2 given elsewhere Unspecified 10/23/2020 10:3 8:00 AM EDT completed eCW1 ([facility]) COVID-19 dose #2 given elsewhere Unspecified 10/23/2020 10:3 8:00 AM EDT completed eCW1 ([facility]) COVID-19 dose #2 given elsewhere Unspecified 10/23/2020 10:3 8:00 AM EDT completed eCW1 ([facility]) COVID-19 dose #2 given elsewhere Unspecified 10/23/2020 10:3 8:00 AM EDT completed eCW1 ([facility]) COVID-19 dose #2 given elsewhere Unspecified 10/23/2020 10:3 8:00 AM EDT completed eCW1 ([facility]) COVID-19 dose #2 given elsewhere Unspecified 10/23/2020 10:3 8:00 AM EDT completed eCW1 ([facility]) COVID-19 dose #2 given elsewhere Unspecified 10/23/2020 10:3 8:00 AM EDT completed eCW1 ([facility]) COVID-19 dose #2 given elsewhere Unspecified 10/23/2020 10:3 8:00 AM EDT completed eCW1 ([facility]) COVID-19 dose #2 given elsewhere Unspecified 10/23/2020 10:3 8:00 AM EDT completed eCW1 ([facility]) COVID-19 dose #2 given elsewhere Unspecified 10/23/2020 10:3 8:00 AM EDT completed eCW1 ([facility]) COVID-19 dose #2 given elsewhere Unspecified 10/23/2020 10:3 8:00 AM EDT completed eCW1 ([facility]) COVID-19 dose #2 given elsewhere Unspecified 10/23/2020 10:3 8:00 AM EDT completed eCW1 ([facility]) COVID-19 dose #2 given elsewhere Unspecified 10/23/2020 10:3 8:00 AM EDT completed eCW1 ([facility]) COVID-19 dose #2 given elsewhere Unspecified 10/23/2020 10:3 8:00 AM EDT completed eCW1 ([facility]) COVID-19 dose #2 given elsewhere Unspecified 10/23/2020 10:3 8:00 AM EDT completed eCW1 ([facility]) COVID-19 dose #2 given elsewhere Unspecified 10/23/2020 10:3 8:00 AM EDT completed eCW1 ([facility]) COVID-19 dose #2 given elsewhere Unspecified 10/23/2020 10:3 8:00 AM EDT completed eCW1 ([facility]) COVID-19 dose #2 given elsewhere Unspecified 10/23/2020 10:3 8:00 AM EDT completed eCW1 ([facility]) COVID-19 dose #2 given elsewhere Unspecified 10/23/2020 10:3 8:00 AM EDT completed eCW1 ([facility]) COVID-19 dose #2 given elsewhere Unspecified 10/23/2020 10:3 8:00 AM EDT completed eCW1 ([facility]) COVID-19 dose #2 given elsewhere Unspecified 10/23/2020 10:3 8:00 AM EDT completed eCW1 ([facility]) COVID-19 dose #2 given elsewhere Unspecified 10/23/2020 10:3 8:00 AM EDT completed eCW1 ([facility]) COVID-19 dose #2 given elsewhere Unspecified 10/23/2020 10:3 8:00 AM EDT completed eCW1 ([facility]) COVID-19 dose #2 given elsewhere Unspecified 10/23/2020 10:3 8:00 AM EDT completed eCW1 ([facility]) COVID-19 dose #2 given elsewhere Unspecified 10/23/2020 10:3 8:00 AM EDT completed eCW1 ([facility]) COVID-19 dose #1 given elsewhere Unspecified 10/23/2020 10:3 7:00 AM EDT completed eCW1 ([facility]) COVID-19 dose #1 given elsewhere Unspecified 10/23/2020 10:3 7:00 AM EDT completed eCW1 ([facility]) COVID-19 dose #1 given elsewhere Unspecified 10/23/2020 10:3 7:00 AM EDT completed eCW1 ([facility]) COVID-19 dose #1 given elsewhere Unspecified 10/23/2020 10:3 7:00 AM EDT completed eCW1 ([facility]) COVID-19 dose #1 given elsewhere Unspecified 10/23/2020 10:3 7:00 AM EDT completed eCW1 ([facility]) COVID-19 dose #1 given elsewhere Unspecified 10/23/2020 10:3 7:00 AM EDT completed eCW1 ([facility]) COVID-19 dose #1 given elsewhere Unspecified 10/23/2020 10:3 7:00 AM EDT completed eCW1 ([facility]) COVID-19 dose #1 given elsewhere Unspecified 10/23/2020 10:3 7:00 AM EDT completed eCW1 ([facility]) COVID-19 dose #1 given elsewhere Unspecified 10/23/2020 10:3 7:00 AM EDT completed eCW1 ([facility]) COVID-19 dose #1 given elsewhere Unspecified 10/23/2020 10:3 7:00 AM EDT completed eCW1 ([facility]) COVID-19 dose #1 given elsewhere Unspecified 10/23/2020 10:3 7:00 AM EDT completed eCW1 ([facility]) COVID-19 dose #1 given elsewhere Unspecified 10/23/2020 10:3 7:00 AM EDT completed eCW1 ([facility]) COVID-19 dose #1 given elsewhere Unspecified 10/23/2020 10:3 7:00 AM EDT completed eCW1 ([facility]) COVID-19 dose #1 given elsewhere Unspecified 10/23/2020 10:3 7:00 AM EDT completed eCW1 ([facility]) COVID-19 dose #1 given elsewhere Unspecified 10/23/2020 10:3 7:00 AM EDT completed eCW1 ([facility]) COVID-19 dose #1 given elsewhere Unspecified 10/23/2020 10:3 7:00 AM EDT completed eCW1 ([facility]) COVID-19 dose #1 given elsewhere Unspecified 10/23/2020 10:3 7:00 AM EDT completed eCW1 ([facility]) COVID-19 dose #1 given elsewhere Unspecified 10/23/2020 10:3 7:00 AM EDT completed eCW1 ([facility]) COVID-19 dose #1 given elsewhere Unspecified 10/23/2020 10:3 7:00 AM EDT completed eCW1 ([facility]) COVID-19 dose #1 given elsewhere Unspecified 10/23/2020 10:3 7:00 AM EDT completed eCW1 ([facility]) COVID-19 dose #1 given elsewhere Unspecified 10/23/2020 10:3 7:00 AM EDT completed eCW1 ([facility]) COVID-19 dose #1 given elsewhere Unspecified 10/23/2020 10:3 7:00 AM EDT completed eCW1 ([facility]) COVID-19 dose #1 given elsewhere Unspecified 10/23/2020 10:3 7:00 AM EDT completed eCW1 ([facility]) COVID-19 dose #1 given elsewhere Unspecified 10/23/2020 10:3 7:00 AM EDT completed eCW1 ([facility]) COVID-19 dose #1 given elsewhere Unspecified 10/23/2020 10:3 7:00 AM EDT completed eCW1 ([facility]) COVID-19 VACCINE Moderna 06/23/2020 12:00:00 AM EST completed [employer] Vaccine Series Complete: YESThis Data wa s Submitted to [facility] Via [employer]. 207 06/08/2020 12:00:00 AM EST completed <td I D="[id number]">Covid-19 (Moderna)</td><td>06/08/2020, 05/11/2020</td><td></td> [facility] COVID-19 VACCINE Moderna 06/08/2020 12:00:00 AM EST completed [employer] Vaccine Series Complete: YESThis Data wa s Submitted to [facility] Via [employer]. COVID-19 VACCINE Moderna 05/26/2020 12:00:00 AM EST completed [employer] Vaccine Series Complete: NOThis Data was Submitted to [facility] Via [employer]. 207 05/11/2020 12:00:00 AM EST completed <td I D="[id number]">Covid-19 (Moderna)</td><td>06/08/2020, 05/11/2020</td><td></td> [facility] COVID-19 VACCINE Moderna 05/11/2020 12:00:00 AM EST completed [employer] Vaccine Series Complete: YESThis Data wa s Submitted to [facility] Via [employer]. Medications Medication Brand Name Start Date Product [...] {tablet} active Rosuvastatin Calcium 20 MG eCW1 ([facility]) Rosuvastatin calcium 20 MG Oral Tablet Rosuvastatin Ca lcium 20 MG Rosuvastatin Calcium 20 MG 03/26/2021 12:00:00 AM EST 1.0 {tablet} active Rosuvastatin Calcium 20 MG eCW1 ([facility]) Rosuvastatin calcium 20 MG Oral Tablet Rosuvastatin Ca lcium 20 MG Rosuvastatin Calcium 20 MG 03/26/2021 12:00:00 AM EST 1.0 {tablet} active Rosuvastatin Calcium 20 MG eCW1 ([facility]) Rosuvastatin calcium 20 MG Oral Tablet Rosuvastatin Ca lcium 20 MG Rosuvastatin Calcium 20 MG 03/26/2021 12:00:00 AM EST 1.0 {tablet} active Rosuvastatin Calcium 20 MG eCW1 ([facility]) 30 mg 02/15/2021 12:00:00 AM EDT tablet [...] ORAL active MEDENT ([facility] 88 mcg 01/24/2021 12:00:00 AM EDT tablet [...] EDT ORAL completed MEDENT ([facility]) Levothyroxine Sodium 0.088 MG Oral Tablet [Synthroid] Synthr oid 11/27/2020 12:00:00 AM EDT ORAL active M EDENT ([facility]) Atenolol 100 MG Oral Tablet Atenolol 11/27/2020 12:00:00 AM EDT ORAL active MEDENT ([facility]) atorvastatin 40 MG Oral Tablet Atorvastatin Calcium 11/27/2020 1 2:00:00 AM EDT ORAL active MEDENT ( [facility]) Lisinopril 30 MG Oral Tablet Lisinopril 11/27/2020 12:00:00 AM EDT ORAL active MEDENT ([facility]) apixaban 5 MG Oral Tablet [Eliquis] Eliquis 11/27/2020 12:00:00 AM E DT ORAL active [facility]ENT ([facility]) clopidogrel 75 MG Oral Tablet Clopidogrel Bisulfate 11/27/2020 1 2:00:00 AM EDT ORAL active MEDENT ( [facility]) Amlodipine 5 MG Oral Tablet Amlodipine Besylate 11/27/2020 12:00:00 A M EDT ORAL completed MEDENT ([facility]) ferrous sulfate 325 MG Delayed Release O ral Tablet Ferrous Sulfate 325 (65 Fe) MG Ferrous Sulfate 325 (65 Fe) MG 11/26/2020 12:00:00 AM EDT 1. 0 {tablet} active Ferrous Sulfate 325 (65 Fe) MG eCW1 ([facility]) ferrous sulfate 325 MG Delayed Release O ral Tablet Ferrous Sulfate 325 (65 Fe) MG Ferrous Sulfate 325 (65 Fe) MG 11/26/2020 12:00:00 AM EDT 1. 0 {tablet} active Ferrous Sulfate 325 (65 Fe) MG eCW1 ([facility]) ferrous sulfate 325 MG Delayed Release O ral Tablet Ferrous Sulfate 325 (65 Fe) MG Ferrous Sulfate 325 (65 Fe) MG 11/26/2020 12:00:00 AM EDT 1. 0 {tablet} active Ferrous Sulfate 325 (65 Fe) MG eCW1 ([facility]) ferrous sulfate 325 MG Delayed Release O ral Tablet Ferrous Sulfate 325 (65 Fe) MG Ferrous Sulfate 325 (65 Fe) MG 11/26/2020 12:00:00 AM EDT 1. 0 {tablet} active Ferrous Sulfate 325 (65 Fe) MG eCW1 ([facility]) ferrous sulfate 325 MG Delayed Release O ral Tablet Ferrous Sulfate 325 (65 Fe) MG Ferrous Sulfate 325 (65 Fe) MG 11/26/2020 12:00:00 AM EDT 1. 0 {tablet} active Ferrous Sulfate 325 (65 Fe) MG eCW1 ([facility]) ferrous sulfate 325 MG Delayed Release O ral Tablet Ferrous Sulfate 325 (65 Fe) MG Ferrous Sulfate 325 (65 Fe) MG 11/26/2020 12:00:00 AM EDT 1. 0 {tablet} active Ferrous Sulfate 325 (65 Fe) MG eCW1 ([facility]) ferrous sulfate 325 MG Delayed Release O ral Tablet Ferrous Sulfate 325 (65 Fe) MG Ferrous Sulfate 325 (65 Fe) MG 11/26/2020 12:00:00 AM EDT 1. 0 {tablet} active Ferrous Sulfate 325 (65 Fe) MG eCW1 ([facility]) ferrous sulfate 325 MG Delayed Release O ral Tablet Ferrous Sulfate 325 (65 Fe) MG Ferrous Sulfate 325 (65 Fe) MG 11/26/2020 12:00:00 AM EDT 1. 0 {tablet} active Ferrous Sulfate 325 (65 Fe) MG eCW1 ([facility]) ferrous sulfate 325 MG Delayed Release O ral Tablet Ferrous Sulfate 325 (65 Fe) MG Ferrous Sulfate 325 (65 Fe) MG 11/26/2020 12:00:00 AM EDT 1. 0 {tablet} active Ferrous Sulfate 325 (65 Fe) MG eCW1 ([facility]) ferrous sulfate 325 MG Delayed Release O ral Tablet Ferrous Sulfate 325 (65 Fe) MG Ferrous Sulfate 325 (65 Fe) MG 11/26/2020 12:00:00 AM EDT 1. 0 {tablet} active Ferrous Sulfate 325 (65 Fe) MG eCW1 ([facility]) ferrous sulfate 325 MG Delayed Release O ral Tablet Ferrous Sulfate 325 (65 Fe) MG Ferrous Sulfate 325 (65 Fe) MG 11/26/2020 12:00:00 AM EDT 1. 0 {tablet} active Ferrous Sulfate 325 (65 Fe) MG eCW1 ([facility]) ferrous sulfate 325 MG Delayed Release O ral Tablet Ferrous Sulfate 325 (65 Fe) MG Ferrous Sulfate 325 (65 Fe) MG 11/26/2020 12:00:00 AM EDT 1. 0 {tablet} active Ferrous Sulfate 325 (65 Fe) MG eCW1 ([facility]) ferrous sulfate 325 MG Delayed Release O ral Tablet Ferrous Sulfate 325 (65 Fe) MG Ferrous Sulfate 325 (65 Fe) MG 11/26/2020 12:00:00 AM EDT 1. 0 {tablet} active Ferrous Sulfate 325 (65 Fe) MG eCW1 ([facility]) ferrous sulfate 325 MG Delayed Release O ral Tablet Ferrous Sulfate 325 (65 Fe) MG Ferrous Sulfate 325 (65 Fe) MG 11/26/2020 12:00:00 AM EDT 1. 0 {tablet} active Ferrous Sulfate 325 (65 Fe) MG eCW1 ([facility]) ferrous sulfate 325 MG Delayed Release O ral Tablet Ferrous Sulfate 325 (65 Fe) MG Ferrous Sulfate 325 (65 Fe) MG 11/26/2020 12:00:00 AM EDT 1. 0 {tablet} active Ferrous Sulfate 325 (65 Fe) MG eCW1 ([facility]) ferrous sulfate 325 MG Delayed Release O ral Tablet Ferrous Sulfate 325 (65 Fe) MG Ferrous Sulfate 325 (65 Fe) MG 11/26/2020 12:00:00 AM EDT 1. 0 {tablet} active Ferrous Sulfate 325 (65 Fe) MG eCW1 ([facility]) ferrous sulfate 325 MG Delayed Release O ral Tablet Ferrous Sulfate 325 (65 Fe) MG Ferrous Sulfate 325 (65 Fe) MG 11/26/2020 12:00:00 AM EDT 1. 0 {tablet} active Ferrous Sulfate 325 (65 Fe) MG eCW1 ([facility]) ferrous sulfate 325 MG Delayed Release O ral Tablet Ferrous Sulfate 325 (65 Fe) MG Ferrous Sulfate 325 (65 Fe) MG 11/26/2020 12:00:00 AM EDT 1. 0 {tablet} active Ferrous Sulfate 325 (65 Fe) MG eCW1 ([facility]) ferrous sulfate 325 MG Delayed Release O ral Tablet Ferrous Sulfate 325 (65 Fe) MG Ferrous Sulfate 325 (65 Fe) MG 11/26/2020 12:00:00 AM EDT 1. 0 {tablet} active Ferrous Sulfate 325 (65 Fe) MG eCW1 ([facility]) 5 mg 11/15/2020 12:00:00 AM EDT tablet [...] at 0900
Hold for SBP < 110
[facility] Medication administered onsite potassium chloride SA (K-DUR,KLOR-CON) CR tablet 40 mEq [id number] 10/18/2020 12:00:00 PM EDT 40 meq Oral completed 40 mEq, Oral, Once, On Thu10/18/20 at 1200, For 1 dose [facility] Medication administered onsite clopidogrel 75 MG Oral Tablet clopidogrel (PLAVIX) tab let 75 mg clopidogrel (PLAVIX) tablet 75 mg 10/18/2020 09:00:00 AM EDT 75 mg Oral active 75 mg, Oral, Daily, First dose on Thu10/18/20 at 0900, Post-op
May begin the same day
[facility] Medication administered onsite apixaban 5 MG Oral Tablet Apixaban (ELIQUIS) tablet 5 mg Apixaban (ELIQUIS) tablet 5 mg 10/18/2020 09:00:00 AM EDT 5 mg Oral active 5 mg, Oral, 2 times daily, First dose on [facility] 10/18/20 at 0900
Current dose selected for any 2 criteria of: Serum Cr < 1.5 mg/dL, age < 80 years, & weight > 60 kg Do not combine with strong 3A4 or p-Gp inhibitors (ketoconazole, itraconazole, ritonavir, clarithromycin)
[facility] Medication administered onsite 24 HR metoprolol succinate 25 MG Extende d Release Oral Tablet metoprolol succinate (TOPROL-XL) 24 hr tablet 25 mg metoprolol succinate (TOPROL-XL) 24 hr tablet 25 mg 10/18/2020 09:00:00 AM EDT 25 mg Oral abort ed 25 mg, Oral, Daily, First dose (after last modification) on [facility] 10/18/20 at 0900
Hold for HR < 65
[facility] Medication administered onsite 75 mg 10/18/2020 12:00:00 [...] BY MOUTH TWICE A DAY SOLD: 10/18/2020 [facility] 75 mg 10/18/2020 12:00:00 AM EDT tablet 30 TAKE 1 TABLET BY MOUTH DAILY TAKE 1 TABLET BY MOUTH DAILY SOLD: 01/12/2021 [email or web address] atorvastatin 40 MG Oral Tablet ATORVASTATIN CALCIUM 10/18/2020 1 2:00:00 AM EDT tablet 30 TAKE 1 TABLET BY MOUTH NIGHTLY TAKE 1 TAB LET BY MOUTH NIGHTLY SOLD: 2020 [facility] 75 mg 10/18/2020 12:00:00 AM EDT tablet 30 TAKE 1 TABLET BY MOUTH DAILY TAKE 1 TABLET BY MOUTH DAILY SOLD: 10/18/2020 [email or web address] atorvastatin 40 MG Oral Tablet ATORVASTATIN CALCIUM 10/18/2020 1 2:00:00 AM EDT tablet 30 TAKE 1 TABLET BY MOUTH NIGHTLY TAKE 1 TAB LET BY MOUTH NIGHTLY SOLD: 01/12/2021 [email or web address] apixaban 5 MG Oral Tablet Apixaban (ELIQUIS) 5 MG TABS tablet Apixaban (ELIQUIS) 5 MG TABS tablet 10/18/2020 12:00:00 AM EDT 5 mg Oral active Take 1 tablet (5 mg total) by mouth 2 (two) times a day [facility] Nitroglycerin 0.4 MG Sublingual Tablet n itroglycerin (NITROSTAT) 0.4 MG SL tablet nitroglycerin (NITROSTAT) 0.4 MG SL tablet 10/18/2020 12:00:00 A M EDT 0.[address] 1 t ablet (0.4 mg total) under the tongue every 5 (five) minutes as needed for chest pain [facility] normal saline flush 0.9 % injection 3 mL [id number] 10/17/2020 10:00:00 PM EDT 3 mL Intravenous active 3 mL , Intravenous, Every 8 hours (scheduled), First dose on Thu10/17/20 at 2200, Pre-op
Rapid push positive pressure flushing shall be performed with a 10 cc normal saline syringe to check the PATENCY of a PIV site prior to any infusion therapy initiation unless resistance is met.
[facility] Medication administered onsite atorvastatin 40 MG Oral Tablet atorvastatin (LIPITOR) tablet 40 mg atorvastatin (LIPITOR) tablet 40 mg 10/17/2020 09:00:00 PM EDT 40 mg Oral active 40 mg, Oral, Nightly, First dose on Thu10/17/20 at 2100 [facility] Medication administered onsite normal saline flush 0.9 % injection 3 mL [id number] 10/17/2020 09:00:00 PM EDT 3 mL Intravenous aborted 3 mL , Intravenous, PROTOCOL, First dose on Thu10/17/20 at 2100, Pre-op
flush per protocol, D/C Main IV fluid if appropriate
[facility] Medication administered onsite clopidogrel 300 MG Oral Tablet clopidogrel (PLAVIX) ta blet 600 mg clopidogrel (PLAVIX) tablet 600 mg 10/17/2020 08:00:00 PM EDT 600 mg Oral completed 600 mg, Oral, Once, On Thu10/17/20 at 2000, For 1 dose, Pre-op [facility] Medication administered onsite sodium chloride 0.9% (NS) infusion [id number] 10/17/2020 08:00:00 PM EDT 100 mL/h Intravenous active at 100 m L/hr, 100 mL/hr, Intravenous, Continuous, Starting on Thu10/17/20 at 2000, Pre-op
Start two hours prior to scheduled start time
[facility] Medication administered onsite Acetaminophen 325 MG Oral Tablet acetaminophen (TYLENO L) 325 MG tablet 650 mg acetaminophen (TYLENOL) 325 MG tablet 650 mg 10/17/2020 07:11:22 PM EDT 650 mg Oral active 650 mg, Or al, Every 4 hours PRN, headaches, and non cardiac pain, Starting on Thu10/17/20 at 1911, Pre-op
"Maximum dose of acetaminophen is 4,000 mg from all sources in 24 hours."
[facility] Medication administered onsite Nitroglycerin 0.4 MG Sublingual Tablet n itroglycerin (NITROSTAT) SL tablet 0.4 mg nitroglycerin (NITROSTAT) SL tablet 0.4 mg 10/17/2020 05:46:31 P M EDT 0.4 mg Sublingual active 0.4 mg, S ublingual, Every 5 min PRN, chest pain, Starting on Thu10/17/20 at 1746, Post-op
May administer every 5 minutes for 3 doses and call cardio lab MD.
[facility] Medication administered onsite 10 ML Atropine Sulfate [...] or 0.04 mg/kg. Max of 6 doses
[facility] Medication administered onsite clopidogrel 75 MG Oral Tablet clopidogrel (PLAVIX) tab let clopidogrel (PLAVIX) tablet 10/17/2020 05:26:02 PM EDT active As needed, Starting on Thu10/17/20 at 1726, Intra-Procedure [facility] Medication administered onsite iopamidol (ISOVUE-370) 76 % [id number] 10/17/2020 05:11:53 PM EDT active As needed, Starting on Thu10/17/20 at 1711, Intra-Proce dure [facility] Medication administered onsite NITROGLYCERIN 0.4 MG/ML IV SOLN [id number] 10/17/2020 04:28:41 PM EDT active As needed, Starting on Thu at 1628, Intra-Procedure [facility] Medication administered onsite ondansetron (ZOFRAN) injection [id number] 10/17/2020 04:25:19 PM EDT active As needed, Starting on Thu at 1625, Intra-Procedure [facility] Medication administered onsite Ticagrelor 90 MG Oral Tablet ticagrelor (BRILINTA) tab let ticagrelor (BRILINTA) tablet 10/17/2020 04:24:10 PM EDT active As needed, Starting on Thu10/17/20 at 1624, Intra-Procedure [facility] Medication administered onsite 1 ML heparin sodium, porcine 1000 UNT/ML Injection hep pedro (porcine) injection heparin (porcine) injection 10/17/2020 04:13:00 PM EDT active As needed, Starting on Thu10/17/20 at 1613, Intra-Procedure [facility] Medication administered onsite 4 ML Verapamil hydrochloride 2.5 MG/ML Injection verap dorothy (ISOPTIN) injection verapamil (ISOPTIN) injection 10/17/2020 04:12:51 PM EDT active As needed, Starting on Thu10/17/20 at 1612, Intra-Procedure [facility] Medication administered onsite lidocaine 1 % injection [id number] 10/17/2020 04:11:33 PM EDT active As needed, Starting on Thu 1 at 1611, Intra-Procedure [facility] Medication administered onsite fentaNYL Citrate (PF) (SUBLIMAZE) injection [id number] 10/17/2020 04:11:20 PM EDT active As neede d, Starting on Thu10/17/20 at 1611, Intra-Procedure [facility] Medication administered onsite dextrose 5 % infusion [id number] 10/17/2020 03:00:00 PM EDT Intravenous completed at 100 mL/hr, In travenous, Continuous, Starting on Thu10/17/20 at 1500, For 4 hours [facility] Medication administered onsite technetium sestamibi (CARDIOLITE) injection 33 millevelyn champagne or medication 10/17/2020 03:00:00 PM EDT 33 mCi Intravenous completed 33 millicurie, Intravenous, Once, On Thu10/17/20 at 1500, For 1 dose [facility] Medication administered onsite technetium sestamibi (CARDIOLITE) injection 10 neal champagne or medication 10/17/2020 03:00:00 PM EDT 10 mCi Intravenous completed 10 millicurie, Intravenous, Once, On Thu10/17/20 at 1500, For 1 dose [facility] Medication administered onsite clopidogrel 75 MG Oral Tablet clopidogrel (Plavix) 75 MG tablet clopidogrel (Plavix) 75 MG tablet 10/17/2020 12:00:00 AM EDT 75 mg Oral active Take 1 tablet (75 mg total) by mouth daily [facility] atorvastatin 40 MG Oral Tablet atorvastatin (LIPITOR) 40 MG tablet atorvastatin (LIPITOR) 40 MG tablet 10/17/2020 12:00:00 AM EDT 40 mg Oral active Take 1 tablet (40 mg total) by mouth nightly [facility] Aspirin 81 MG Chewable Tablet aspirin 81 MG chewable t ablet aspirin 81 MG chewable tablet 10/17/2020 12:00:00 AM EDT 81 mg Oral ac tive Chew 1 tablet (81 mg total) daily for 6 days [facility] regadenoson (LEXISCAN) solution 0.4 mg [id number] 10/16/2020 06:0 0:00 PM EDT 0.4 mg Intravenous completed 0.4 mg, Intravenous, Once, On Thu10/16/20 at 1800, For 1 dose, [employer]
No Caffeine, Theophylline, or Dipyridamole (Aggrenox) for 12 hours prior to dose. If patient has had any of these, contact MD immediately
[facility] Medication administered onsite 24 HR metoprolol succinate 50 MG Extende d Release Oral Tablet metoprolol succinate (TOPROL-XL) 24 hr tablet 50 mg metoprolol succinate (TOPROL-XL) 24 hr tablet 50 mg 10/16/2020 01:00:00 PM EDT 50 mg Oral abort ed 50 mg, Oral, Daily, First dose on Thu10/16/20 at 1300 [facility] Medication administered onsite Amlodipine 5 MG Oral Tablet amLODIPine (NORVASC) table t 5 mg amLODIPine (NORVASC) tablet 5 mg 10/16/2020 09:00:00 AM EDT 5 mg Oral active 5 mg, Oral, Daily, First dose on Thu10/16/20 at 0900
Hold for SBP < 120
[facility] Medication administered onsite Lisinopril 10 MG Oral Tablet lisinopril (PRINIVIL,ZEST RIL) tablet 30 mg lisinopril (PRINIVIL,ZESTRIL) tablet 30 mg 10/16/2020 09:00:00 AM EDT 30 mg Oral aborted 30 mg, Oral, D aily, First dose on Thu10/16/20 at 0900
Hold for SBP < 110
[facility] Medication administered onsite Aspirin 81 MG Delayed Release Oral Tablet aspirin EC t ablet 81 mg aspirin EC tablet 81 mg 10/16/2020 09:00:00 AM EDT 81 mg Oral activ e 81 mg, Oral, Daily, First dose on Thu10/16/20 at 0900 [facility] Medication administered onsite Levothyroxine Sodium 0.088 MG Oral Table t levothyroxine (SYNTHROID, LEVOTHROID) tablet 88 mcg levothyroxine (SYNTHROID, LEVOTHROID) tablet 88 mcg 06:00:00 AM EDT 88 ug Oral active 88 mcg, Oral, Daily, First dose on Thu10/16/20 at 0600 [facility] Medication administered onsite Metoprolol Tartrate 25 MG Oral Tablet me toprolol tartrate (LOPRESSOR) tablet 12.5 mg metoprolol tartrate (LOPRESSOR) tablet 12.5 mg 05:00:00 PM EDT 12.5 mg Oral aborted 12.5 mg, Oral, 2 times daily, First dose on Thu10/15/20 at 1700
Hold for SBP < 100 or HR < 60 and notify attending
[facility] Medication administered onsite potassium chloride SA (K-DUR,KLOR-CON) CR tablet 20 mEq [id number] 10/15/2020 04:10:00 PM EDT 20 meq Oral completed 20 mEq, Oral, Once, On Thu10/15/20 at 1610, For 1 dose [facility] Medication administered onsite Amlodipine 10 MG Oral Tablet amLODIPine (NORVASC) tabl et 10 mg amLODIPine (NORVASC) tablet 10 mg 10/15/2020 12:35:00 PM EDT 10 mg Oral completed 10 mg, Oral, Once, On Thu10/15/20 at 1235, For 1 dose S [facility] Medication administered onsite Lisinopril 10 MG Oral Tablet lisinopril (PRINIVIL,ZEST RIL) tablet 30 mg lisinopril (PRINIVIL,ZESTRIL) tablet 30 mg 10/15/2020 12:35:00 PM EDT 30 mg Oral completed 30 mg, Oral, Once, O n Thu10/15/20 at 1235, For 1 dose [facility] Medication administered onsite Acetaminophen 325 MG Oral Tablet acetaminophen (TYLENO L) 325 MG tablet 650 mg acetaminophen (TYLENOL) 325 MG tablet 650 mg 10/15/2020 12:35:00 PM EDT 650 mg Oral completed 650 mg, Or al, Once, On Thu10/15/20 at 1235, For 1 dose
"Maximum dose of acetaminophen is 4,000 mg from all sources in 24 hours."
[facility] Medication administered onsite 1 ML heparin sodium, [...] 30 units/kg IV (Maximum bolus: 5,000 units)
[facility] Medication administered onsite 1 ML heparin sodium, porcine 1000 UNT/ML Injection heparin (porcine) injection 3,800 Units heparin (porcine) injection 3,800 Units 10/15/2020 11:30:00 AM EDT 60 U/kg Intravenous completed 3,800 Unit s (rounded from 3,810 Units = 60 Units/kg 63.5 kg), Intravenous, Once, On Thu10/15/20 at 1130, For 1 dose
Do not exceed 5,000 units or 60 units/kg (whichever is less)
[facility] Medication administered onsite 500 ML heparin sodium, [...] 1 unit/kg/hr IV58.1 - 87 Therapeutic, No Xaqavw99.1 - 97 Decrease infusion 1 unit/kg/hr IV [...] single port tubing ([employer] Infusion Set ref [id number]). Medication and tubing is to be discarded if infusion off for 4 hours.
[facility] Medication administered onsite 5 mg 10/12/2020 12:00:00 [...] AM EST active Synthroid 88 MCG eCW1 ([facility]) Levothyroxine Sodium 0.088 MG Oral Tablet [Synthroid] Synthroid 88 MCG Synthroid 88 MCG 04/23/2020 12:00:00 AM EST active Synthroid 88 MCG eCW1 ([facility]) Levothyroxine Sodium 0.088 MG Oral Tablet [Synthroid] Synthroid 88 MCG Synthroid 88 MCG 04/23/2020 12:00:00 AM EST active Synthroid 88 MCG eCW1 ([facility]) Levothyroxine Sodium 0.088 MG Oral Tablet [Synthroid] Synthroid 88 MCG Synthroid 88 MCG 04/23/2020 12:00:00 AM EST active Synthroid 88 MCG eCW1 ([facility]) Levothyroxine Sodium 0.088 MG Oral Tablet [Synthroid] Synthroid 88 MCG Synthroid 88 MCG 04/23/2020 12:00:00 AM EST active Synthroid 88 MCG eCW1 ([facility]) Levothyroxine Sodium 0.088 MG Oral Tablet [Synthroid] Synthroid 88 MCG Synthroid 88 MCG 04/23/2020 12:00:00 AM EST active Synthroid 88 MCG eCW1 ([facility]) Levothyroxine Sodium 0.088 MG Oral Tablet [Synthroid] Synthroid 88 MCG Synthroid 88 MCG 04/23/2020 12:00:00 AM EST active Synthroid 88 MCG eCW1 ([facility]) Levothyroxine Sodium 0.088 MG Oral Tablet [Synthroid] Synthroid 88 MCG Synthroid 88 MCG 04/23/2020 12:00:00 AM EST active Synthroid 88 MCG eCW1 ([facility]) Levothyroxine Sodium 0.088 MG Oral Tablet [Synthroid] Synthroid 88 MCG Synthroid 88 MCG 04/23/2020 12:00:00 AM EST active Synthroid 88 MCG eCW1 ([facility]) Levothyroxine Sodium 0.088 MG Oral Tablet [Synthroid] Synthroid 88 MCG Synthroid 88 MCG 04/23/2020 12:00:00 AM EST active Synthroid 88 MCG eCW1 ([facility]) Levothyroxine Sodium 0.088 MG Oral Tablet [Synthroid] Synthroid 88 MCG Synthroid 88 MCG 04/23/2020 12:00:00 AM EST active Synthroid 88 MCG eCW1 ([facility]) Levothyroxine Sodium 0.088 MG Oral Tablet [Synthroid] Synthroid 88 MCG Synthroid 88 MCG 04/23/2020 12:00:00 AM EST active Synthroid 88 MCG eCW1 ([facility]) Levothyroxine Sodium 0.088 MG Oral Tablet [Synthroid] Synthroid 88 MCG Synthroid 88 MCG 04/23/2020 12:00:00 AM EST active Synthroid 88 MCG eCW1 ([facility]) Levothyroxine Sodium 0.088 MG Oral Tablet [Synthroid] Synthroid 88 MCG Synthroid 88 MCG 04/23/2020 12:00:00 AM EST active Synthroid 88 MCG eCW1 ([facility]) Levothyroxine Sodium 0.088 MG Oral Tablet [Synthroid] Synthroid 88 MCG Synthroid 88 MCG 04/23/2020 12:00:00 AM EST active Synthroid 88 MCG eCW1 ([facility]) Levothyroxine Sodium 0.088 MG Oral Tablet [Synthroid] Synthroid 88 MCG Synthroid 88 MCG 04/23/2020 12:00:00 AM EST active Synthroid 88 MCG eCW1 ([facility]) Levothyroxine Sodium 0.088 MG Oral Tablet [Synthroid] Synthroid 88 MCG Synthroid 88 MCG 04/23/2020 12:00:00 AM EST active Synthroid 88 MCG eCW1 ([facility]) Levothyroxine Sodium 0.088 MG Oral Tablet [Synthroid] Synthroid 88 MCG Synthroid 88 MCG 04/23/2020 12:00:00 AM EST active Synthroid 88 MCG eCW1 ([facility]) Levothyroxine Sodium 0.088 MG Oral Tablet [Synthroid] Synthroid 88 MCG Synthroid 88 MCG 04/23/2020 12:00:00 AM EST active Synthroid 88 MCG eCW1 ([facility]) Levothyroxine Sodium 0.088 MG Oral Tablet [Synthroid] Synthroid 88 MCG Synthroid 88 MCG 04/23/2020 12:00:00 AM EST active Synthroid 88 MCG eCW1 ([facility]) Levothyroxine Sodium 0.088 MG Oral Tablet [Synthroid] Synthroid 88 MCG Synthroid 88 MCG 04/23/2020 12:00:00 AM EST active Synthroid 88 MCG eCW1 ([facility]) Levothyroxine Sodium 0.088 MG Oral Tablet [Synthroid] Synthroid 88 MCG Synthroid 88 MCG 04/23/2020 12:00:00 AM EST active Synthroid 88 MCG eCW1 ([facility]) Levothyroxine Sodium 0.088 MG Oral Tablet [Synthroid] Synthroid 88 MCG Synthroid 88 MCG 04/23/2020 12:00:00 AM EST active Synthroid 88 MCG eCW1 ([facility]) Levothyroxine Sodium 0.088 MG Oral Tablet [Synthroid] Synthroid 88 MCG Synthroid 88 MCG 04/23/2020 12:00:00 AM EST active Synthroid 88 MCG eCW1 ([facility]) Levothyroxine Sodium 0.088 MG Oral Tablet [Synthroid] Synthroid 88 MCG Synthroid 88 MCG 04/23/2020 12:00:00 AM EST active Synthroid 88 MCG eCW1 ([facility]) Levothyroxine Sodium 0.088 MG Oral Tablet [Synthroid] Synthroid 88 MCG Synthroid 88 MCG 04/23/2020 12:00:00 AM EST active Synthroid 88 MCG eCW1 ([facility]) Levothyroxine Sodium 0.088 MG Oral Tablet [Synthroid] Synthroid 88 MCG Synthroid 88 MCG 04/23/2020 12:00:00 AM EST active Synthroid 88 MCG eCW1 ([facility]) Levothyroxine Sodium 0.088 MG Oral Tablet [Synthroid] Synthroid 88 MCG Synthroid 88 MCG 04/23/2020 12:00:00 AM EST active Synthroid 88 MCG eCW1 ([facility]) 5 mg 01/21/2020 12:00:00 AM EDT tablet [...] tablet (20 mg total) by mouth daily [facility] Essential hypertension Hydrochlorothiazide 12.5 MG Oral Tablet hydrochlorothiazide (HYDRODIURIL) 12.5 MG tablet hydrochlorothiazide (HYDRODIURIL) 12.5 MG tablet 08/20 12:00:00 AM EDT 12.5 mg Oral aborted Essential hypertension Take 1 tablet (12.5 mg total) by mouth daily [facility] Essential hypertension Levothyroxine Sodium 0.1 MG Oral Tablet levothyroxine (SYNTHROID, LEVOTHROID) 100 MCG tablet levothyroxine (SYNTHROID, LEVOTHROID) 100 MCG tablet 0 08/21/2015 12:00:00 AM EDT 100 ug Oral aborted Juanpablo enital hypothyroidism without goiter Take 1 tablet (100 mcg total) by mouth d aily [facility] Congenital hypothyroidism without goiter Insurance Providers Payer name Policy type / Coverage type Policy ID Covered libertarian ID Covered libertarian's relationship to berrios Policy [place] Plan Information MEDICARE [id number] Jessy [id number] B MEDICARE [id number] MEDICARE [id number] Jessy [id number] [employer]BS [id number] Jessy XXP [id number] [employer] BCBS [id number] [facility]BS [facility] 200/700 [id number] SP [id number] [employer] [id number] Jessy XXP [id number] MEDICARE [id number] SP [id number] [place]IC[place] - [place] [id number] S [id number] BCBS EMPIRE [id number] SPO [id number] ANSI-Commercial [id number] ANSI-Medicare Part B [id number] ANSI-Commercial [id number] [facility]-Medicare Part B [id number] ANS-Medicare Part B [id number] ANSI-Commercial [id number] MEDICARE [id number] SP [id number] B Medicare/National Gov SVC Medicare Primary [id number] Self MEDICARE [id number] SP [id number] [employer] Medigap Part B [id number] Self BCBS [facility] 200/700 [id number] SP [id number] BCBS [facility] 200/700 [id number] SP [id number] BCBS E[employer]IRE [id number] SPO XXP [id number] [employer] [id number] S [id number] [place]ICARE - [place] [id number] S [id number] BCBS [employer] [id number] SPO XXP [id number] [employer] [id number] S [id number] Problems, Conditions, and Diagnoses Code Display Name Description Problem Type Effective Dates Data Source(s) I21.4 Non-ST elevation (NSTEMI) myocardial inf arction Non-ST elevation (NSTEMI) myocardial inf Diagnosis 10/15/2020 10:48:00 AM EDT [facility] R77.8 Other specified abnormalities of plasma proteins Other specified abnormalities of plasma Diagnosis 10/15/2020 10:48:00 AM EDT [facility] I25.9 Chronic ischemic heart disease, unspecif ied Chronic ischemic heart disease, unspecif Diagnosis 10/15/2020 10:48:00 AM EDT [facility] I48.0 Paroxysmal atrial fibrillation Paroxysmal atrial fibri llation Diagnosis 10/15/2020 10:48:00 AM EDT [facility] I48.91 Unspecified atrial fibrillation Unspecified atri al fibrillation Diagnosis 10/15/2020 10:48:00 AM EDT [facility] CP, New onset A fib with RVR now controlled on Cardizem gtt, elevated troponin 0.3 CP, New onset A fib with RVR now control led on Cardizem gtt, elevated troponin 0.3 Diagnosis 10/15/2020 06:38:00 AM EDT [facility] Z79.899 Other prison (current) drug therapy O THER HALF-WAY (CURRENT) DRUG THERAPY Diagnosis 10/15/2020 05:52:00 AM [facility] Z20.822 CONTACT WITH AND (SUSPECTED) EXPOSURE TO COVID-19 CONTACT WITH AND (SUSPECTED) EXPOSURE TO COVID-19 Diagnosis 10/15/2020 05:52:00 AM [facility] E03.9 Hypothyroidism, unspecified HYPOTHYROIDISM, UNSPECIFIE D Diagnosis 10/15/2020 05:52:00 AM [facility] I10 Essential (primary) hypertension ESSENTIAL (PRIMARY) H YPERTENSION Diagnosis 10/15/2020 05:52:00 AM [facility] R74.8 Abnormal levels of other serum enzymes A BNORMAL LEVELS OF OTHER SERUM ENZYMES Diagnosis 10/15/2020 05:52:00 AM [facility] I24.8 Other forms of acute ischemic heart dise ase OTHER FORMS OF ACUTE ISCHEMIC HEART DISEASE Diagnosis 10/15/2020 05:52:00 AM [facility] I48.91 Unspecified atrial fibrillation UNSPECIFIED ATRI AL FIBRILLATION Diagnosis 10/15/2020 05:52:00 AM [facility] R07.2 Precordial pain PRECORDIAL PAIN Diagnosis 10/15/2020 05:5 2:00 AM [facility] Z79.01 [id number] Anticoagulant long-term use Problem 04/19/20 21 12:00:00 AM EST eCW1 ([facility]) E78.2 [id number] Mixed hyperlipidemia Problem 03/26/2021 12:0 0:00 AM EST eCW1 ([facility]) D50.0 [id number] Iron deficiency anemia due to chronic blo od loss Problem 01/30/2021 12:00:00 AM EDT eCW1 ([facility]) [id number] Pure hypercholesterolemia Pure hypercholesterolemia Pr oblem 01/16/2021 12:00:00 AM EDT [facility] ([facility] Cardiac Catheterization [facility]) [id number] Essential hypertension Essential hypertension Problem 01/16/2021 12:00:00 AM EDT [facility] ([facility] Cardiac Catheterization [facility]) E53.8 Vitamin B12 deficiency Vitamin B12 deficiency Problem 12/18/2020 12:00:00 AM EDT eCW1 ([facility]) E78.00 Pure hypercholesterolemia Pure hypercholesterolemia Pr oblem 11/28/2020 12:00:00 AM EDT [facility] ([facility]) I25.10 Coronary arteriosclerosis after percutan eous coronary angioplasty Coronary arteriosclerosis after percutaneous coronary angioplasty Problem 11/28/2020 12:00:00 AM EDT [facility] ([facility]) R94.31 Electrocardiogram abnormal Electrocardiogram abnormal Problem 11/28/2020 12:00:00 AM EDT [facility] ([facility]) I10 Essential hypertension Essential hypertension Problem 11/28/2020 12:00:00 AM EDT [facility] ([facility]) I48.0 Paroxysmal atrial fibrillation Paroxysmal atrial fibri llation Problem 11/28/2020 12:00:00 AM EDT [facility] ([facility]) Z95.5 Patient post percutaneous transluminal c oronary angioplasty Patient post percutaneous transluminal coronary angioplasty Problem 021 12:00:00 AM EDT [facility] ([facility]) I25.2 Old myocardial infarction Old myocardial infarction Pr oblem 11/28/2020 12:00:00 AM EDT [facility] ([facility]) I48.0 [id number] Paroxysmal atrial fibrillation Problem 10/23/2020 12:00:00 AM EDT eCW1 ([facility]) I25.10 [id number] Coronary artery dise ase involving [facility] coronary artery of [facility] heart without angina pectoris Problem 10/23/2020 12:00:00 AM EDT eCW1 ([facility]) I48.91 New onset atrial fibrillation New onset atrial fibrill ation [id number] 10/18/2020 12:00:00 AM EDT [facility] R77.8 Elevated troponin Elevated troponin [id number] 10/17/2020 12:00:00 AM EDT [facility] R07.9 Chest pain Chest pain [id number] 10/17/2020 12:00:00 AM ED T [facility] I21.4 NSTEMI (non-ST elevated myocardial infar ction) NSTEMI (non-ST elevated myocardial infarction) [id number] 10/16/2020 12:00:00 AM EDT [facility] I25.9 Myocardial ischemia Myocardial ischemia [id number] 0 10/15/2020 12:00:00 AM EDT [facility] Z98.49 [id number] History of cataract extraction, unspecifi ed laterality Problem 03/30/2020 12:00:00 AM EST eCW1 ([facility]) H43.813 [id number] Posterior vitreous detachment of both eye s Problem 03/30/2020 12:00:00 AM EST eCW1 ([facility]) Surgeries/Procedures Procedure Description Date Indications Data Source(s) Injection, vitamin b-12 cyanocobalamin, up to 1000 mcg 03/26/2021 12:00:00 AM EST eCW1 ([facility]) Injection, vitamin b-12 cyanocobalamin, up to 1000 mcg 02/22/2021 12:00:00 AM EDT eCW1 ([facility]) Chronic Care Management Services Ea Addl 20 Min 2020 12:00:00 AM EDT MIHAELA ([facility]) Chronic Care MGMT 20 Mins Clinical Staff Time Per Calendar M [facility] 02/20/2021 12:00:00 AM EDT MEDSRINIVAS ([facility]) Complex Chronic Care Management SVC 1St 60 Min 021 12:00:00 AM EDT MEDSRINIVAS ([facility]) Complex Chronic Care MGMT Service Ea Addl 30 Min 02/04 12:00:00 AM EDT MEDENT ([facility]) Injection, vitamin b-12 cyanocobalamin, up to 1000 mcg 02/01/2021 12:00:00 AM EDT eCW1 ([facility]) Electrocardiogram Complete 01/17/2021 12:00:00 AM EDT MEDENT ([facility]) OFFICE OUTPATIENT NEW 60 MINUTES 01/17/2021 12:00:00 A M EDT MEDENT ([facility]) External ECG Rec>48HR<7D Recording 01/11/2021 12:00:00 AM EDT [facility]) External ECG Rec>48HR<7D Review & Interpretation 01/11 12:00:00 AM EDT [facility] ([facility]) Injection, vitamin b-12 cyanocobalamin, up to 1000 mcg 12/10/2020 12:00:00 AM EDT eCW1 ([facility]) Injection, vitamin b-12 cyanocobalamin, up to 1000 mcg 12/03/2020 12:00:00 AM EDT eCW1 ([facility]) ECG ROUTINE ECG W/LEAST 12 LDS W/I&R 11/28/2020 12:00: 00 AM EDT [facility] ([facility]) Arterial Pressure Waveform Analysis For Assessment Of Centra l Art 11/28/2020 12:00:00 AM EDT [facility] ([facility]) OFFICE OUTPATIENT NEW 45 MINUTES 11/28/2020 12:00:00 A M EDT [facility] ([facility]) Irrigation Of Vagina And/Or Application Of Medicament 10/29/2020 12:00:00 AM EDT [facility] ([facility]) OFFICE OUTPATIENT VISIT 10 MINUTES 10/29/2020 12:00:00 AM EDT [facility] ([facility]) BLOOD COUNT COMPLETE AUTO&AUTO DIFRNTL WBC COUNT <td>C BC AND DIFFERENTIAL</td><td>STAT</td><td>10/18/2020 10:53 AM EDT</td><td></td><td> </td> 10/18/2020 10:53:00 AM EDT [facility] CMB <td>CMB</td><td>STAT</td><td >10/18/2020 7:41 AM EDT</td><td></td><td> </td> 10/18/2020 07:41:00 AM EDT [facility] THROMBOPLASTIN TIME PARTIAL PLASMA/WHOLE BLOOD <td>APTT</td><td>STAT</td><td>10/18/2020 7:41 AM EDT</td><td></td><td> </td> 10/18/2020 07:41:00 AM EDT [facility] CREATINE KINASE MB FRACTION ONLY <td>CKMB</td><td>Time d</td><td>10/18/2020 7:41 AM EDT</td><td></td><td> </td> 10/18/2020 07:41:00 AM EDT [facility] BASIC METABOLIC PANEL CALCIUM TOTAL <td>BASIC METABOLI C PANEL</td><td>Routine</td><td>10/18/2020 7:41 AM EDT</td><td></td><td> </td> 10/18/2020 07:41:00 AM EDT [facility] ECG ROUTINE ECG W/LEAST 12 LDS TRCG ONLY W/O I&R <td>E CG 12- LEAD</td><td>STAT</td><td>10/18/2020 1:41 AM EDT</td><td></td><td></td> 10/18/2020 01:41:16 AM EDT [facility] CMB <td>CMB</td><td>Timed</td><t d>10/18/2020 12:11 AM EDT</td><td></td><td> </td> 10/18/2020 12:11:00 AM EDT [facility] THROMBOPLASTIN TIME PARTIAL PLASMA/WHOLE BLOOD <td>APTT</td><td>Routine</td><td>10/18/2020 12:11 AM EDT</td><td></td><td> </td> 10/18/2020 12:11:00 AM EDT [facility] CREATINE KINASE MB FRACTION ONLY <td>CKMB</td><td>Time d</td><td>10/18/2020 12:11 AM EDT</td><td></td><td> </td> 10/18/2020 12:11:00 [facility] 10/18/2020 12:00:00 AM EDT MEDENT ([facility]) PROTHROMBIN TIME <td>PROTIME-INR</td><td>Rout ine</td><td>10/17/2020 7:24 PM EDT</td><td></td><td> </td> 10/17/2020 07:24:00 PM EDT [facility] BLOOD COUNT COMPLETE AUTOMATED <td>CBC</td><td>Routine </td><td>10/17/2020 7:24 PM EDT</td><td></td><td> </td> 10/17/2020 07:24:00 PM EDT [facility] CARDIAC CATHETERIZATION <td>CARDIAC CATHETERIZATION</td><td>Routine</td><td>10/17/2020 5:10 PM EDT</td><td> Paroxysmal atrial fibrillation with RVR Myocardial ischemia Elevated troponin</td><td> </td> 10/17/2020 05:10:42 PM EDT Elevated troponinMyocardial ischemiaParo xysmal atrial fibrillation with RVR [facility] Elevated troponin Myocardial ischemia Paroxysmal atrial fibrillation with RVR MYOCARDIAL SPECT MULTIPLE STUDIES <td>NM CARDIAC GATED SPEC IMG EFWM</td><td>Routine</td><td>10/17/2020 1:45 PM EDT</td><td></td><td> </td> 10/17/2020 01:45:00 PM EDT [facility] CV STRS TST XERS&/OR RX CONT ECG TRCG ONLY <td>STRESS TEST, CARDIOVASCULAR</td><td>Routine</td><td>10/17/2020 11:03 AM EDT</td><td></td><td></td> 10/17/2020 11:03:19 AM EDT [facility] THROMBOPLASTIN TIME PARTIAL PLASMA/WHOLE BLOOD <td>APTT</td><td>Routine</td><td>10/17/2020 6:13 AM EDT</td><td></td><td> </td> 10/17/2020 06:13:00 AM EDT [facility] BLOOD COUNT COMPLETE AUTOMATED <td>CBC</td><td>Timed</ td><td>10/17/2020 6:13 AM EDT</td><td></td><td> </td> 10/17/2020 06:13:00 AM EDT [facility] BASIC METABOLIC PANEL CALCIUM TOTAL <td>BASIC METABOLI C PANEL</td><td>Routine</td><td>10/17/2020 6:13 AM EDT</td><td></td><td> </td> 10/17/2020 06:13:00 AM EDT [facility] CV STRS TST XERS&/OR RX CONT ECG TRCG ONLY <td>STRESS TEST, CARDIOVASCULAR</td><td>Routine</td><td>10/16/2020 5:14 PM EDT</td><td></td><td></td> 10/16/2020 05:14:12 PM EDT [facility] ECHO TTHRC R-T 2D W/WOM-MODE COMPL SPEC&COLR DOP <td>E CHOCARDIOGRAM TRANSTHORACIC</td><td>Routine</td><td>10/16/2020 1:55 PM EDT</td><td></td><td> </td> 10/16/2020 01:55:00 PM EDT [facility] THROMBOPLASTIN TIME PARTIAL PLASMA/WHOLE BLOOD <td>APTT</td><td>Routine</td><td>10/16/2020 7:41 AM EDT</td><td></td><td> </td> 10/16/2020 07:41:00 AM EDT [facility] BLOOD COUNT COMPLETE AUTOMATED <td>CBC</td><td>Timed</ td><td>10/16/2020 7:41 AM EDT</td><td></td><td> </td> 10/16/2020 07:41:00 AM EDT [facility] LIPID PANEL <td>LIPID PANEL</td><td>Rout ine</td><td>10/16/2020 7:41 AM EDT</td><td></td><td> </td> 10/16/2020 07:41:00 AM EDT [facility] BASIC METABOLIC PANEL CALCIUM TOTAL <td>BASIC METABOLI C PANEL</td><td>Routine</td><td>10/16/2020 7:41 AM EDT</td><td></td><td> </td> 10/16/2020 07:41:00 AM EDT [facility] THROMBOPLASTIN TIME PARTIAL PLASMA/WHOLE BLOOD <td>APTT</td><td>Routine</td><td>10/16/2020 12:46 AM EDT</td><td></td><td> </td> 10/16/2020 12:46:00 AM EDT [facility] TROPONIN QUANTITATIVE <td>TROPONIN I</td><td>Timed </td><td>10/15/2020 7:55 PM EDT</td><td></td><td> </td> 10/15/2020 07:55:00 PM EDT [facility] THROMBOPLASTIN TIME PARTIAL PLASMA/WHOLE BLOOD <td>APTT</td><td>STAT</td><td>10/15/2020 6:43 PM EDT</td><td></td><td> </td> 10/15/2020 06:43:00 PM EDT [facility] ECG ROUTINE ECG W/LEAST 12 LDS TRCG ONLY W/O I&R <td>E CG 12- LEAD</td><td>STAT</td><td>10/15/2020 5:51 PM EDT</td><td></td><td></td> 10/15/2020 05:51:00 PM EDT [facility] TROPONIN QUANTITATIVE <td>TROPONIN I</td><td>STAT< /td><td>10/15/2020 4:33 PM EDT</td><td></td><td> </td> 10/15/2020 04:33:00 PM EDT [facility] TROPONIN QUANTITATIVE <td>POCT TROPONIN</td><td>Ro utine</td><td>10/15/2020 11:50 AM EDT</td><td></td><td> </td> 10/15/2020 11:50:00 AM EDT [facility] NT PRO BNP <td>NT PRO BNP</td><td>STAT< /td><td>10/15/2020 11:48 AM EDT</td><td></td><td> </td> 10/15/2020 11:48:00 AM EDT [facility] THROMBOPLASTIN TIME PARTIAL PLASMA/WHOLE BLOOD <td>APTT</td><td>STAT</td><td>10/15/2020 11:48 AM EDT</td><td></td><td> </td> 10/15/2020 11:48:00 AM EDT [facility] PROTHROMBIN TIME <td>PROTIME-INR</td><td>STAT </td><td>10/15/2020 11:48 AM EDT</td><td></td><td> </td> 10/15/2020 11:48:00 AM EDT [facility] BLOOD COUNT COMPLETE AUTO&AUTO DIFRNTL WBC COUNT <td>C BC AND DIFFERENTIAL</td><td>STAT</td><td>10/15/2020 11:48 AM EDT</td><td></td><td> </td> 10/15/2020 11:48:00 AM EDT [facility] THYROID STIMULATING HORMONE TSH <td>TSH</td><td>STAT</ td><td>10/15/2020 11:48 AM EDT</td><td></td><td> </td> 10/15/2020 11:48:00 AM EDT [facility] THYROXINE FREE <td>T4, FREE</td><td>STAT</t d><td>10/15/2020 11:48 AM EDT</td><td></td><td> </td> 10/15/2020 11:48:00 AM EDT [facility] MAGNESIUM <td>MAGNESIUM</td><td>STAT</ td><td>10/15/2020 11:48 AM EDT</td><td></td><td> </td> 10/15/2020 11:48:00 AM EDT [facility] HEMOGLOBIN GLYCOSYLATED A1C <td>HEMOGLOBIN A1C</td><td >STAT</td><td>10/15/2020 11:48 AM EDT</td><td></td><td> </td> 10/15/2020 11:48:00 AM EDT [facility] COMPREHENSIVE METABOLIC PANEL <td>COMPREHENSIVE METABO LIC PANEL</td><td>STAT</td><td>10/15/2020 11:48 AM EDT</td><td></td><td> </td> 10/15/2020 11:48:00 AM EDT [facility] ECG ROUTINE ECG W/LEAST 12 LDS TRCG ONLY W/O I&R <td>E CG 12- LEAD</td><td>STAT</td><td>10/15/2020 11:17 AM EDT</td><td></td><td> </td> 10/15/2020 11:17:38 AM EDT [facility] CRITICAL CARE ILL/INJURED PATIENT INIT 30-74 MIN <td>P R CRITICAL CARE, E/M 30-74 MINUTES</td><td>Routine</td><td>10/15/2020 11:10 AM EDT</td><td></td><td> </td> 10/15/2020 11:10:34 AM EDT [facility] Irrigation Of Vagina And/Or Application Of Medicament 09/04/2020 12:00:00 AM EDT [facility] ([facility]) OFFICE OUTPATIENT VISIT 10 MINUTES 09/04/2020 12:00:00 AM EDT [facility] ([facility]) Irrigation Of Vagina And/Or Application Of Medicament 07/25/2020 12:00:00 AM EDT [facility] ([facility]) OFFICE OUTPATIENT VISIT 10 MINUTES 07/25/2020 12:00:00 AM EDT [facility] ([facility]) Irrigation Of Vagina And/Or Application Of Medicament 04/25/2020 12:00:00 AM EST [facility] ([facility]) Results ID Date Data Source [id number] 01/30/2021 03:13:00 PM EDT [facility] ([facility] Name Value Range Interpretation Code Description Data Rosana rce(s) Supporting Document(s) White Blood Count 5.6 4.3-10.9 [facility] ([facility] Red Blood Count 3.72 4.70-6.20 [facility] ([facility]) Platelets 297 130-400 [facility] Hemoglobin 11.3 13.0-17.0 [facility] ([facility]) Hematocrit 35.0 39.0-50.0 [facility] ([facility]) ID Date Data Source [id number] 12/20/2020 12:00:00 AM EDT [facility] Name Value Range Interpretation Code Description Data Rosana rce(s) Supporting Document(s) SARS-CoV2 Rapid Antigen Positive [facility] This lab was reported by Eleanor Velasco. ID Date Data Source CBC - Complete Blood Count 12/10/2020 12:00:00 AM EDT eCW1 ( [facility]) Name Value Range Interpretation Code Description Data Rosana rce(s) Supporting Document(s) 5.3 4.0-10.0 WHITE BLOOD COUNT eCW1 [facility] 3.34 4.00-5.40 RED BLOOD COUNT eCW1 ([facility]) 10.7 12.0-15.5 HEMOGLOBIN eCW1 ([facility]) 32.0 27.0-33.0 MEAN CORPUSCULAR HEMOGLOB IN eCW1 ([facility]) 101.5 80.0-96.0 MEAN CORPUSCULAR VOLUME e CW1 ([facility]) 33.9 36.0-47.0 HEMATOCRIT eCW1 ([facility]) 31.6 32.0-36.5 MEAN CORPUSCULAR HGB CONC eCW1 ([facility]) 15.4 11.5-14.5 RED CELL DISTRIBUTION WID TH eCW1 ([facility]) 281 150-450 PLATELET COUNT, AUTOMATED eCW1 ([facility]) ID Date Data Source [id number] 10/18/2020 03:09:50 PM EDT [facility] INFORMATIONPatient MRN Name Date of Age Gend*PT [id number] Eva Covington 1935 84 years F IPPT Location Admission Date/Time Visit ID Attending [id number] 10/15/20 1048 --- Silvestre Sierra MD([id number]) EPI ID CSN Admitting Provider [id number] Aron Ho MD([id number]) [facility] DISCHARGE SUMMARYPatient Name: Eva Covington of : 1935 Age 84 yearsPrimary Physician: Nora Perkins PCP [place] Date: 10/15/2020 Discharge Date: 10/18/20Maddy will be discharged from [facility] to [facility] Diagnoses:Principal Problem: NSTEMI (non-ST elevated myocardial [...] special attention:[facility]:84-year-old female with past medical history significant forhypertension and hypothyroidism presented to [facility] ER with chestpressure palpitations and pain radiati ng to left arm. She was found to be in A.fib with RVR with rate in the 130s. She was given Cardizem push and started ondrip and sent to [facility] for further evaluation. Her first troponin was elevatedat 0.369. EKG showed no ST segment changes patient was given aspirin. Uponarrival to [facility] she was in sinus rhythm with [...] will follow up with Dr. Cisse in [place]. She was alsostarted on a statin this hospitalization.Paroxysmal A. fib. This was new onset she was started on Eliquis. 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.Discharge Exam:Blood Pressure: BP: 132/76 Pulse: Heart Rate: [...] No results found for: HAV, HEPBSAG, HEPBSAB, YGAUGZSigJ8o:Lab ResultsComponent Value Date HGBA1C 5.0 10/15/2020Hyperlipidemia:Lab ResultsComponent [...] rce(s) Supporting Document(s) ID Date Data Source [id number] 10/18/2020 02:34:03 PM EDT [facility] Name Value Range Interpretation Code Description Data Rosana rce(s) Supporting Document(s) WBC 7.4 10*3/uL (4.1-11.0) [facility] RBC 4.13 10*6/uL (4.00-5.40) [facility] HGB 13.2 g/dL (12.0-16.0) [facility] HCT 37.6 % (36.0-47.0) [facility] MCV 91.0 fL (80.0-95.0) [facility] MCH 32.0 pg (27.0-32.0) [facility] MCHC 35.2 g/dL (32.0-36.0) [facility] RDW 14.0 % (10.5-14.5) [facility] PLT 247 10*3/uL (150-450) [facility] MPV 7.1 fL (7.1-10.7) [facility] NEUT % 72.3 % (35.0-75.0) [facility] LYMPH % 18.0 % (16.0-52.0) [facility] MONO % 8.6 % (0.0-8.0) H [facility] EOS % 0.7 % (0.0-5.0) [facility] BASO % 0.4 % (0.0-4.0) [facility] NEUT # 5.3 10*3/uL (1.8-7.7) [facility] LYMPH # 1.3 10*3/uL (1.2-4.8) [facility] MONO # 0.6 10*3/uL (0.0-0.8) [facility] Eosinophils [#/volume] in Blood by Automated count 0.1 10*3/uL (0.0-0 .5) [facility] BASO # 0.0 10*3/uL (0.0-0.2) [facility] ID Date Data Source [id number] 10/18/2020 12:44:49 PM EDT [facility] Name Value Range Interpretation Code Description Data Rosana rce(s) Supporting Document(s) CKMB 10.5 ng/mL (0.0-5.0) HH [facility] ALERTED CRITICAL RESULT [place] ([id number] ) [place] [address] 1.5 ON 10.18.20 [place] [address] [place] [address] CKMB RELATIVE INDEX 6.7 {index_val} (0.0-4.0) H [facility] ID Date Data Source [id number] 10/18/2020 10:18:12 AM EDT [facility] Name Value Range Interpretation Code Description Data Rosana rce(s) Supporting Document(s) CK 156 U/L (26-192) [facility] ID Date Data Source [id number] 10/18/2020 10:14:05 AM EDT [facility] Name Value Range Interpretation Code Description Data Rosana rce(s) Supporting Document(s) SODIUM 139 mmol/L (136-145) [facility] POTASSIUM 3.3 mmol/L (3.6-5.2) L [facility] CHLORIDE 104 mmol/L (100-108) [facility] CO2 27 mmol/L (22-31) [facility] ANION GAP 8 mmol/L (7-16) [facility] UREA NITROGEN 6 mg/dL (7-24) L [facility] CREATININE 0.52 mg/dL (0.60-1.00) L [facility] BUN/CREAT RATIO 11.5 RATIO (10.0-20.0) [facility] GLUCOSE 93 mg/dL (70-99) [facility] CALCIUM 9.2 mg/dL (8.4-10.2) [facility] GFR >60 ml/min/1.73m2 (>59) [facility] GFR ( AMER) >60 ml/min/1.73m2 (>59) [facility] GFR INTERPRETATION [facility] --NORMAL KIDNEY FUNCTION OR MILD DISEASE - GFR >OR= 60CHRONIC KIDNEY DISEASE - GFR 15 - 59RENAL FAILURE - GFR <15 Est. GFR calculation based on the MDRDstudy equation, which assumes a steadystate for creatinine. Est. GFR should notbe used for medication dosing. ID Date Data Source [id number] 10/18/2020 09:54:47 AM EDT [facility] Name Value Range Interpretation Code Description Data Rosana rce(s) Supporting Document(s) APTT 68.9 s (22.0-34.3) H [facility] ID Date Data Source [id number] 10/18/2020 06:25:52 AM EDT [facility] Name Value Range Interpretation Code Description Data Rosana rce(s) Supporting Document(s) EKG [facility] RIFTEt2dXuIXWhVxe3SfJuCtSLZcXD8mfty2A2P7jFLgJ1HkhRTml1auD5AuT8NsDYEyYILWIH6WxRRc jb2 [file] rPJwiTgHlhnm/nF+whGMEJjdAJgxAE+AeTeyyTeyyT 496ZhfDPZuyjjnd2Wr+b+PN+Jrw+Vh3hcDTYjbgYauGvmJ7xyVtw523Ap6+9PlKu/Pz7X//1b3+05+4/ OvO3/+linen supply load builder//S//Zc/f/t///oXH0R8hoP0ckq/wtmL/7PeXWHwkok5452JzQCtALWT7VgcLIh6SklQWhTr [file] HOImSQZFIh5Ug488RIAiOQPFEkm+NsjcsVVrhZuoGJEURDZ5AWLWLBZJU8Z= ID Date Data Source [id number] 10/18/2020 02:10:57 AM EDT [facility] Name Value Range Interpretation Code Description Data Rosana rce(s) Supporting Document(s) CKMB 4.2 ng/mL (0.0-5.0) [facility] CKMB RELATIVE INDEX 4.1 {index_val} (0.0-4.0) H [facility] ID Date Data Source [id number] 10/18/2020 01:51:25 AM EDT [facility] Name Value Range Interpretation Code Description Data Rosana rce(s) Supporting Document(s) CK 102 U/L (26-192) [facility] ID Date Data Source [id number] 10/18/2020 01:05:48 AM EDT [facility] Name Value Range Interpretation Code Description Data Rosana rce(s) Supporting Document(s) APTT 89.5 s (22.0-34.3) H [facility] ID Date Data Source [id number] 10/17/2020 08:41:31 PM EDT [facility] Name Value Range Interpretation Code Description Data Rosana rce(s) Supporting Document(s) PT 11.4 s (9.2-11.9) [facility] INR 1.09 [facility] SUGGESTED THERAPEUTIC RANGES USING INR F ORSTABILIZED ANTICOAGULATED PATIENTS:STANDARD DOSE THERAPY INR 2.0-3.0 DVT, PE, PREVENT DVT OR EMBOLISMHIGH DOSE THERAPY INR 2.5-3.5 PREVENT EMBOLISM FROM MECHANICAL HEART VALVE ID Date Data Source [id number] 10/17/2020 08:41:00 PM EDT [facility] Name Value Range Interpretation Code Description Data Rosana rce(s) Supporting Document(s) WBC 7.4 10*3/uL (4.1-11.0) [facility] RBC 4.27 10*6/uL (4.00-5.40) [facility] HGB 13.5 g/dL (12.0-16.0) [facility] HCT 38.9 % (36.0-47.0) [facility] MCV 91.1 fL (80.0-95.0) [facility] MCH 31.6 pg (27.0-32.0) [facility] MCHC 34.6 g/dL (32.0-36.0) [facility] RDW 14.2 % (10.5-14.5) [facility] PLT 221 10*3/uL (150-450) [facility] MPV 6.9 fL (7.1-10.7) L [facility] ID Date Data Source [id number] 10/17/2020 05:39:05 PM EDT [facility] Name Value Range Interpretation Code Description Data Rosana rce(s) Supporting Document(s) &PDF [facility] XEBVGb8pKiGLVyQj79/HZTrvVWHqj9YwEDavWPd5LYdyGEYhD6AfhHnnBD6IGTEaB1ZEF2vUOEPdIGY7 waW [file] E+DQogICAgICAgICAgICAgICAgICAgICAgICAgICAgICAgICAgICAgICAgICAgICAgICAgICAgICAgIC AgICAgICAgICAgICAgICAgICAgICAgICAgICAgICAgICAgICAgICAgICAgDQogICAgICAgICAgICAgIC AgICAgICAgICAgICAgICAgICAgICAgICAgICAgICAg ICAgICAgICAgICAgICAgICAgICAgICAgICAgICAgICAgICAgICAgICAgICAgICAgICAgICAgDQogICAg ICAgICAgICAgICAgICAgICAgICAgICAgICAgICAgICAgICAgICAgICAgICAgICAgICAgICAgICAgICAg ICAgICAgICAgICAgICAgICAgICAgICAgICAgICAgIC AgICAgDQogICAgICAgICAgICAgICAgICAgICAgICAgICAgICAgICAgICAgICAgICAgICAgICAgICAgIC AgICAgICAgICAgICAgICAgICAgICAgICAgICAgICAgICAgICAgICAgICAgICAgDQogICAgICAgICAgIC AgICAgICAgICAgICAgICAgICAgICAgICAgICAgICAg ICAgICAgICAgICAgICAgICAgICAgICAgICAgICAgICAgICAgICAgICAgICAgICAgICAgICAgICAgDQog ICAgICAgICAgICAgICAgICAgICAgICAgICAgICAgICAgICAgICAgICAgICAgICAgICAgICAgICAgICAg ICAgICAgICAgICAgICAgICAgICAgICAgICAgICAgIC AgICAgICAgDQogICAgICAgICAgICAgICAgICAgICAgICAgICAgICAgICAgICAgICAgICAgICAgICAgIC AgICAgICAgICAgICAgICAgICAgICAgICAgICAgICAgICAgICAgICAgICAgICAgICAgDQogICAgICAgIC AgICAgICAgICAgICAgICAgICAgICAgICAgICAgICAg ICAgICAgICAgICAgICAgICAgICAgICAgICAgICAgICAgICAgICAgICAgICAgICAgICAgICAgICAgICAg DQogICAgICAgICAgICAgICAgICAgICAgICAgICAgICAgICAgICAgICAgICAgICAgICAgICAgICAgICAg ICAgICAgICAgICAgICAgICAgICAgICAgICAgICAgIC AgICAgICAgICAgDQogICAgICAgICAgICAgICAgICAgICAgICAgICAgICAgICAgICAgICAgICAgICAgIC VoAEBqSXSyUWJrZPDjWAOvORQgEAGaGTHyDRPtQTKoZSTfZJNhEVEuMUIuIMWzVTQaCOFpIWa0M8lwCQ IgBLBsZM5fNDv1Vk2+PZlYCsIgIFC8npZwnF1PNW6z y0MyDBcdWVQqm5WrQQq3PN5KHETiXMcgGN0QVLpuav4BROAlEWIsgTOSu6wtHvJiXTN8QMMuElosFI9W NIIuF2ugwqHxLCHvOYNMFMtfGLYEHEswDSREXVBrIMYiArAgLmAcQOQnRQHySYHDVAK7WCKvReUtLGPq YLHoYI4JZVPuU762pgRwQF5NQm7DXpCtEK0alz3DQt mrTSZkMhlIDfl2KLeoJL3QsWRtoOT8RACvFMLWSaJiL7mnt6LlNRBjBONKOHrdCA6Az8MefYFkUNq+Pg 4EJI9dd0WtBAo9RRBgTT7cdj4WEQyKQvDtK3QotIumWYzsbStvybDoDN7QWPHjAYFkiQCaWKdiQLSBHW 5HVOeqIMI1XKQixsMzvUYsUVstZK7YZMTnlvCiJyrn MCBSDQo+Cr5XEX4cb5UeYJj8MRKoTN8biv2RYEuZOtAjO6L5kKOhK0H1VRxxPu6WNREnLTLrBgnpTUBV UFraRT5CKU5yqgG3MM2BwWToPBOpPJPquYBaCDt7S70tfUPqPJzlOC8WBVB+Wendy+Or2HACTzKMVtKHEe ZwGhSGDCJhKnG5UdE1FYz0NvE7ZnTF50uWzhrrJaOG jyCI0TBQ3nGGOcXVIAJA3WwFMnrT2wouImFUCoWVRKKkHcX66fzWGkNWTjQRA9SFVlMr4ATEGmF1Ugkk CqyPkgpsSpRDQrDFNZRH1QZGmzjzGrxFFoiXnuTL85iGwpMG3LRf8VPtWoKU6tph5BeXHxMw1AXNK3Za 6WQBCiTGMwUAOvZRK6HQZcYsQrZDgrZHDyAXMfXVS9 EDRsKCJhVV5BKgHiLMBhEWo7CrHuUBWaXUUuht4VPPVcZYR6JCY3QyFqDCOrXHWbDTbfPQVeTYYrEUv8 LFXgDTCvBD1MZkLjDJXsBYLrWgWdEWLjQWWayr9QBECaQFJzUpEsWMVdWLMlQWRyYZseCJOnHHK7GAE2 BLCyBGXkGT2FBcRyXXEyLBAtTYtnSLHyJJDswk0UXV CoEUDwQvG4TBIjFFUvUSYtGEckKUJyZKO9Nyu8ZYGqKISbZR4MRfJjXMVpHGs0JylzRIZrNWZmbp1ETS CjOZChBEZiEVIiLLTpRPVxPVjaMZMhNXFzPrHwROApJDHjGT5QBsCxCBZgKKB0HQgvNQGkPGFiaj1VEL QfECSwOvztKFPxPSRmSWDrKWvgYSWrCZNeUMX5CBTw HTYpKK2FFsEoMADnPQIeIQBhDKYgPVXtnp7NNQBwRRNoLDU8PsBgXGXhTYXuXDmlRWKnAGP0HGP7DPGt JOWuBX1YAvDxRYHfXJMdRMMtBUBpIXCjfe2LGHZaEXCpRhFwSwQlTLBoLNKzNDscDAOoOJP7NTEwPANm RSIcUI6MYsBrWUTdSPn6EQJdBXHxBPToie4RPEItAQ ItYWS1SbEgBDIwPGDnXQgeZIAtCTL6GlY8PLPjEFWrLI6JTfUrPXCxQJz9OgRgQSQrBZAvdz2XQZSvVG IzIpi1VIVdUCNpBCVgMDrvPOYnNSG1WWL2PWKvBNXfBP1OGhAuFHYoOaLaKZxxMCRtAVKoaj2TXPUdFR RgVGX9WwOvHZOqUGLrRShwFZOoRAV4BmD4RUQfRPGl RS5CIzXiFOOsFfn4SDBrTSTzPETzrh5JOZCpDWOfWAKyIsTrEGJkWNOlAItbHYBjJOO7WKU2NTLjYHNb YE9NCmIvRQIfQiH2JVEkAFIhCSNnlb6NODTdTFU8ACSfIuRpEXLlXOMpLGkwPVUtUZo3NIL9LSCwGWPg YW6JMhGrMDRvELnxPNShXWPfGHZhbo4BNLZgAFI8KB osCtKqPFUiJBFxOSioNOWiPCn3DKC4IZFnVMJoKI8NDfEqYOUkWEDyWWogVNEtODSqwq8JjQUdxFzvdp 5WJXyFDx2HcOutWOAtMRuuQw9niTS7PAJmTNEFEt8HbcOcOHEnCXGSIOvpJTKwDSVqBsZeOOPlYSdgWc BlVABwHGtvYLWnCVW5NtHzFTYjKtI9VVTpPoTvQTSq PUT9C6AfSyXkNMOsDTL4VrLiOXZ0IKV+NN2yNPd+Fy1Eh2MvqqU6zhZvHLccROEwUAKTOnBlRC8FYQn= ID Date Data Source [id number] 10/17/2020 02:19:30 PM EDT [address] [address] Name: EVA BUCKLEYOB: 1935Sex: FOrdering Provider: SILVESTRE MONTESIAuthorizing Prov: SILVESTRE OBEROIReferring Provider: SILVESTRE MONTESIProcedure Performed: NM CARDIAC GATED SPEC IMG EFWMExam Date: 10/17/2020 13:45MRN: [id number] Number: [id number] Class: InpatientAccount #: [id number] for Exam: Chest pain, nonspecificTechnique: Pharmacologic stress [...] STEVIE AVILES On 10/17/2020 2:19 PMWorkstation ID: [id number] Name Value Range Interpretation Code Description Data Rosana rce(s) Supporting Document(s) ID Date Data Source [id number] 10/17/2020 08:21:38 AM EDT [facility] Name Value Range Interpretation Code Description Data Rosana rce(s) Supporting Document(s) SODIUM 142 mmol/L (136-145) [facility] POTASSIUM 3.7 mmol/L (3.6-5.2) [facility] CHLORIDE 109 mmol/L (100-108) H [facility] CO2 26 mmol/L (22-31) [facility] ANION GAP 7 mmol/L (7-16) [facility] UREA NITROGEN 12 mg/dL (7-24) [facility] CREATININE 0.49 mg/dL (0.60-1.00) L [facility] BUN/CREAT RATIO 24.5 RATIO (10.0-20.0) H [facility] GLUCOSE 90 mg/dL (70-99) [facility] CALCIUM 8.5 mg/dL (8.4-10.2) [facility] GFR >60 ml/min/1.73m2 (>59) [facility] GFR ( AMER) >60 ml/min/1.73m2 (>59) [facility] GFR INTERPRETATION [facility] --NORMAL KIDNEY FUNCTION OR MILD DISEASE - GFR >OR= 60CHRONIC KIDNEY DISEASE - GFR 15 - 59RENAL FAILURE - GFR <15 Est. GFR calculation based on the MDRDstudy equation, which assumes a steadystate for creatinine. Est. GFR should notbe used for medication dosing. ID Date Data Source [id number] 10/17/2020 07:58:54 AM EDT [facility] Name Value Range Interpretation Code Description Data Rosana rce(s) Supporting Document(s) APTT 70.9 s (22.0-34.3) H [facility] ID Date Data Source [id number] 10/17/2020 07:22:36 AM EDT [facility] Name Value Range Interpretation Code Description Data Rosana rce(s) Supporting Document(s) WBC 6.4 10*3/uL (4.1-11.0) [facility] RBC 4.18 10*6/uL (4.00-5.40) [facility] HGB 13.3 g/dL (12.0-16.0) [facility] HCT 38.1 % (36.0-47.0) [facility] MCV 91.1 fL (80.0-95.0) [facility] MCH 31.7 pg (27.0-32.0) [facility] MCHC 34.8 g/dL (32.0-36.0) [facility] RDW 14.5 % (10.5-14.5) [facility] PLT 231 10*3/uL (150-450) [facility] MPV 7.0 fL (7.1-10.7) L [facility] ID Date Data Source [id number] 10/16/2020 01:59:47 PM EDT [facility] Name Value Range Interpretation Code Description Data Rosana rce(s) Supporting Document(s) &PDF [facility] ZHGQHt9gXaWXKbRl88/XVRflHHDwn1IrNNjvTPd6VHjrWPZaF0VedRxbDL4ZWDPwH5NCW9jLHQWnTDX8 waW [file] fJimOTW84FXXmxWuSPGxo2sDAfiLW5d/GU6gfzHhZcKKzbc+wtRIbLRLxXSaYoLSqQ5Zw8+Ann Marie+cZzb6 [file] ICAgICAgICAgICAgICAgICAgICAgICAgICAgICAgIC AgICAgICAgICAgICAgICAgICAgICAgICAgICAgICAgDQogICAgICAgICAgICAgICAgICAgICAgICAgIC AgICAgICAgICAgICAgICAgICAgICAgICAgICAgICAgICAgICAgICAgICAgICAgICAgICAgICAgICAgIC AgICAgICAgICAgICAgDQogICAgICAgICAgICAgICAg ICAgICAgICAgICAgICAgICAgICAgICAgICAgICAgICAgICAgICAgICAgICAgICAgICAgICAgICAgICAg ICAgICAgICAgICAgICAgICAgICAgICAgDQogICAgICAgICAgICAgICAgICAgICAgICAgICAgICAgICAg ICAgICAgICAgICAgICAgICAgICAgICAgICAgICAgIC AgICAgICAgICAgICAgICAgICAgICAgICAgICAgICAgICAgDQogICAgICAgICAgICAgICAgICAgICAgIC AgICAgICAgICAgICAgICAgICAgICAgICAgICAgICAgICAgICAgICAgICAgICAgICAgICAgICAgICAgIC AgICAgICAgICAgICAgICAgDQogICAgICAgICAgICAg ICAgICAgICAgICAgICAgICAgICAgICAgICAgICAgICAgICAgICAgICAgICAgICAgICAgICAgICAgICAg ICAgICAgICAgICAgICAgICAgICAgICAgICAgDQogICAgICAgICAgICAgICAgICAgICAgICAgICAgICAg ICAgICAgICAgICAgICAgICAgICAgICAgICAgICAgIC AgICAgICAgICAgICAgICAgICAgICAgICAgICAgICAgICAgICAgDQogICAgICAgICAgICAgICAgICAgIC AgICAgICAgICAgICAgICAgICAgICAgICAgICAgICAgICAgICAgICAgICAgICAgICAgICAgICAgICAgIC AgICAgICAgICAgICAgICAgICAgDQogICAgICAgICAg ICAgICAgICAgICAgICAgICAgICAgICAgICAgICAgICAgICAgICAgICAgICAgICAgICAgICAgICAgICAg ICAgICAgICAgICAgICAgICAgICAgICAgICAgICAgDQogICAgICAgICAgICAgICAgICAgICAgICAgICAg ICAgICAgICAgICAgICAgICAgICAgICAgICAgICAgIC BcUNXdWZMbWUDoDCAzYCStWPNcXWGaUNPrGLZmSNFbSLJzNBTmBNQeUFg9G6ygJVSeNPUnXY0aWBa7Fw 8+LSdWFjFmYQH0wyBvkW4VDT2jk8GiSBggIESav6JiWYj5HP4MOKPuKBdlQR6ICJjfcm3BPYBwJTGstA UVo9qnPgZtECW2DKByUsdnEF9IYNKtH7cqunZiGRNd BKVUHXszOWXQWO8QVjQxI7LchC16UTLMIc8+GUdubhYzPatNTxL1CATih2ItIDu5UT2BSFUnLCmuEV8Y YATcfS8hMJfuNW4ZIxXnBUGzGJTGQrIsK09ctMSmJOq9U4SeNlPfCDEnJljyXZYvDHbxScQlQPAcLxBb DQogID4+ID4+KQetBZ1GVXrelcHbHNGgOd5YGYLoPL M5QDRfcIJnHvUhBVZCZWkkYB1PkWOzJFY2iY6xVClqJUFbTMOyL6mEGmJtvKhgYM67iDehnjYumYRbRZ o+Tv2WFB5oz9MsRDc7gxSlKOwrKRF4ZNygBHZuVAQxJQRoLWR8YVY6MCXBIsIuUJFpLBDcAEctEADqWD Hxyl3ZLROlMSGdCJQyMHQfIHBfUNZbSVqvGHGuJIB9 XPMiZAZrOUEwSG3OBzGcCATfMMYeGJrjKGViXDMpdp9PPXFsWLSpEyH2HmIvSOBsDHLaUMieIFPpAFJw UFsuKXWfQJFySH4CUmCmFGAnFOJ8ZnThBBStGMYxgq4YFQSrQCZtALzfPARbEVRwVCYsZPwwLCQyTTV6 JDtcYZSbVURlLN7GSsRaMMAkZMeoFhpjHLZvRDMzkl 6MDEAoSGBcLoC3WNZbNPQoXZPtRFacIXCmPIO7BfL9RQUmLFIcLY8PZcAeICCkDXw2MfLfAXRwJVJdqo 4AQRBwLCLcHXXdMGWfJCDhLAKvDVwuLVFqGMDyZTB6YBJjYEIpBA6QRcRvTDApVNO4VAYpFQNtMHQuxp 8QCMKwLGCiOac2GMJjETAeOUOeIGprFAZrVMW2BeK8 RJDbMEBgNZ6YUoPiEDUxPVQaGDJvVAXdIPLrzc6GRGHbPEJlXGVpDqCnPDVbWFKfJPmlZQDsPFP9QME9 SOKcPHEtUC3REuCpUGHmFIC5XILaMWIoCEYvew4JSJXvSSAcGJt2OpPdGKEhCRGqNDgjSJJiZWL4MZPo VXRzWSFcES2LAjLdIKEcHnE2RoLdANVjZTFjac3MKA TmCHNeQjKdVRQfSIHlEUDwXSk6jaBovQBgNSn8UM2CO4IbojSbPmuYBh8Au119HXR8SPAhHr3IN2sySf 2zXAXjIWMNGq4ZFVn2TJJmClD3Y1W0LRNuPGZyTEHgIwY0MfD5UlCtLZP0DGY+WBvrGUC4MaZcJYt1TQ SxHGC2B8S4CXdsJFAcNoF6LetcFv8aXFAHIw8+ENgzmDSkjXqoUYOVNhU5URtuJPrkPMPXDk1A ID Date Data Source [id number] 10/16/2020 12:15:04 PM EDT [facility] INFORMATIONPatient MRN Name Date of Age Gend*PT [id number] Nadya, Eva King 1935 84 years F IPPT Location Admission Date/Time Visit ID Attending [id number] 10/15/20 1048 --- Silvestre Sierra MD([id number]) EPI ID CSN Admitting Provider [id number] Aron Ho MD([id number])CARDIOLOGY CONSULTATIONName: Eva Covington Gender: femaleDate of : 1935 Age: 84 yearsDate/Time of Admit: 10/15/2020 10:48 AM Code Status: Full CodePrimary Care Provider / Referring Physician: Nora PerkinsInformant:HISTORYCHIEF COMPLAINT:Chief ComplaintPatient presents with Palpitations Per EMS, patient sent from [facility]. Was feeling SOB & palpitations thismorning. Pt found to be in A. Fib w/ RVR, pt on diltizem on arrival.HPI:This patient is a 84 years female who was admitted to the hospital yesterdaythrough the emergency department. She was transferred from [facility]. Shepresented there with palpitations and shortness of [...] thyroid gland Hypertension New onset atrial fibrillation 1PSH:Past Surgical History:Procedure Laterality Date CYST REMOVAL HYSTERECTOMYFH:Family [...] Social Gatherings with Friends and Family: Attends Judaism Services: Active Member of Clubs or Organizations: [...] Value Range Interpretation Code Description Data Rosana e(s) Supporting Document(s) ID Date Data Source [id number] 10/16/2020 10:26:20 AM EDT [facility] INFORMATIONPatient MRN Name Date of Age Gend*PT [id number] Eva Covington 1935 84 years F IPPT Location Admission Date/Time Visit ID Attending [id number] 10/15/20 1048 --- Silvestre Sierra MD([id number]) EPI ID CSN Admitting Provider [id number] Aron Ho MD([id number])Provider in Triage NotesNo notes on fileHistory of Present IllnessChief ComplaintPatient presents with Palpitations Per EMS, patient sent from [facility]. Was feeling SOB &a mp; palpitations thismorning. Pt found to be in A. Fib w/ RVR, pt on diltizem on arrival.84-year-old female with history of hypertension, hypothyroidism who presents toemergency department after being transferred from [facility] for cardiacevaluation. Patient states that she woke [...] started on Cardizem gtt. and transferred to [facility]. Patient denies previous cardiac history. She [...] NoneHistory provided by: Patient and medical recordsLanguage custodial maintenance worker used: NoPalpitationsAssociated symptoms: chest pain (under left [...] ED Physician in the absence of a commanding officer motorized squad: yesPrevious ECG: Previous ECG: UnavailableInterpretation: Interpretation: normalRate: [...] 0.03 0.01 - 0.07 ng/mLNo orders to iymyvby65:10 AMPt has been seen and lsciazuap74:22 AMPer chart review from [facility], labs including CBC, BMP, magnesium werewithin normal [...] rce(s) Supporting Document(s) ID Date Data Source [id number] 10/16/2020 08:38:16 AM EDT [facility] Name Value Range Interpretation Code Description Data Rosana rce(s) Supporting Document(s) EKG [facility] YIQBGl4dTdCCIhKjn5XjEvYtSJYsCZ3chyl6F5W9fTQvE9IadUHzv3zbZ5DyN7GtKVYoZVBSLN5IySUh jb2 [file] MV/CuHf+Ohr6miSgR/arelis+ohNXlw5CO2c22JM+ax2a4PBhKrvvQ9ddhWdU2jmzVlbBK/UG7neSsV/VMx R/6eCQc8i9BB3W72mAvVAI5KdwJfj0j9J7Dfsf6NmJ atBgLto506J0PQ/iZx4hnkztbz6a9cN0c2/uPK9Ug5oEymvJ31tx+FeeM//c8W28P7+Vw79y+Ophelia/8rh W4r3R3Ix+JMO/0utNwm0H00VioL262/1au2afeJ+1M+sf/Yz65/9zHoVP/geHXyPDsarg/TzHEr3CocW I/mZ+SM/LbfWbf8j/ZVj/MDhzKvo3tiVL1+vzBi8i6 Z7o7K4b/W06fxOtX5coDr/8cx4Fc+vG78sd2xmhaVO73Nm//vxzP9+DHD3eu6444xupR/eqdzQk6l08k z/xpr//Sj/daYQcT36A36/fiwFXvxGXT/0OliUnmEnvUCF4PL7UqcN5Xz65Guxj+sQZU5SAbovoC0F8L fR/ZGxp62HPr2mSNAkvZu/Dhn+NGL4fzCeKUI/EDLz oSGzfiN6/2Bd/+u/2xQfC769hZp816+2aKV/pZfvj2kc7ts4747/jzLtbxyjMl6yh/7SGK3n8+eU3XT+ 49OlajY5+Kg58c16g5x968EullrQevcb9aSMpE38whk8rkFB79qZhhAoB0CAbGqc1PZgAEkBnEd1E6Ap PXxsbLTnjfbc/NKaZtlI7laY8NchPD+05+770zKC1Y cB/qx59bTGrJM0vJUaQq4MNiGO88opXLq+MkyAo/8a+j4HO5cQFbpNv03I0atzNiY/HCAgxXeJ8seyXa ifjoMC20SGS2m+heVJaIyotz8K+Fxjyw2EbP71TyO78CvOR7mR/igyaRD37l481v4L2/Terz1ZcPkOxN sw5Ayuv4V6CxjfoEbQ0AhQW/HRaruZYKuCntS5eL+B 4veHNDPd8NhqYkAe+wF3SaF90QmVHdAdkh+c+dCo+cFOb+D4/lei70k33B797frsie6Rbfblu085ui1P Iud/IXL+F+LM/0KcB/rJzrRC5BUyHi8BiI6E+Azegr2G4M3P7D3B4ObW/ORD2KogFf1VwHjHBNr2/8YZ PjbO+M/5zHrCfGb/VD7u6joOk+ukBk3ajo+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+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 /hY/SVzHxvn3dgZ9wXjO7FX+We6hwg5k++xTscwN0GQ+Czny5r/+D1q3PN/rLE+PuP8okxcm2A8vvBjS bgCnz+S3A7MbMiYL9QQ/Rev49f76okjKQMT4lOP1AvkoYq/g5YLo8rRp1dxR4wiKmKwGTXNy3uavwacv XtKdOeE/hCty3G8LsdyordJDyOE05iVluq/hdSpv+m Lr2OrMSs0JV/mzr/b6dR2hBVL34nwR0JK+NG0QY58HPcaHN90lxClqv85tEtdy+fk3sBn/XPNv9QSn44 9zQ4bobAaFPxlI3q0WeQqUkWjd8kB/eo0Vn7a7z8n3y7z1h5ooz+Lb1Wr3QFdtU2bU/D+zUBjvdrw0+m beB4v+CvsvmrusZx/fA5afP/urW0Xkops3avn+Vfve xQagYY1n/gC/cOVwbg26Gyix5gfl3rauDV8gg/UxomBCLnvY5q8/063i/4q/REOei/Dn0D+sbwsRnovz Qz2yoDGp9QFxI3yjT/leCvMvB+A/038H5j+P8UoZ6OEIrzixFrFOaRVB+KWovDF2f/bGL/AKNCty0o/l Wn0X8T/HzGi8Rt0wbsplT/PWu8NgjQG1eKsH0v/6B8 7CjvvWol4J+D/qbsGh4WYfPEpINstCLx2z/oLiJGay3Gs7T6yXBoR4shg/Wc6P8lRh/OM/qe5/+n6uy1 GpEr6mxVZPmBuDeqxjCnztunsBWksnyNv15dO8r72t0XesQDQjiHhGr+jZX4lJ37/9aa/b+M0Jc5AxUV +yO0UN68YFbSz+jn/dYKPP+051rTnmtN/Fixm6Sdsu 1Lg2Eg1cQq72+ToJ1LjhXi4/lBpx9Y31+yq5/5tAF7f2xRZ9d9/JGPque50/cSzQlRS01QhUVZy0p8lv +q9q/6eJ4f/bNdhCCZ07DvL40KzK2thfbw1KvNefM6Aw85PFv1k3L9x0iFJ/1Ieu3p1wZ5iS+rPsvs8x NKjwGqrX01vR440A/FmnX29epe6U107mcmh5C1/o9q H+gN56O+d2QpYcWu8D47WF4Sw0gAd3D5SsDsSR8Ri/3q4oc8cR4X1jr2RRletv/Qb+hnvVl1/OoeG/SG 2u9zAZUy93B1X9MU+h7U96C+pqjy7qk2RHtjwuElD1u7Oydkn2aoqx925bcxIZ1N08/qY4d+1k/W9a/e 50TnXA9cyp2Zn2mmN542uhUzHxm/4PM/Wz756+rZP6 i3vz/7B/dtb8/+mal2uv72p+eORc/6qxu/kJl16dt/jVfn+a+pZ/2VPv+E9iGymdq+nsjeg2z5s9z0/s 8WdRu43yVQXRIdsdD2O3lgcT4+9S4oY45/6irNy8nyi+kyw3hpz1+0LXOq0u5s/Lauf/Upp4gGo8i4of C/PxBgWf6GN6gUQF9y0nBaRTB1g3F0xzQ6k56mm2wA /sbJXoosX8rkY8gcE2ziX3jpa2HzL9nJZJ3Ha/6bqG+i/kl1v6Y8boaHZxu48E4W659U74671ghauR9P LegnPlmF/luK89F/C++22V9f4m+x6U7UiPj2M++2Gy1vZqXa/Tu0vvWvR5CBkk/cjVnQ/xMMghARXjOD 1v8hBPhJIlRDJRZ1hzphjLif0qmYUAVe8B2uWtL/gU iRQVHdAnMyZbWFUYW6WziPCTIMsDAyKmVLElO8dfQ9JsRCqgNVH/ZJSTUYRRN1KgZVvTqI+Da6SqA07A M+7/ZPmPDATyAyCz5+wueh/QexNu2KjKyH7nwHeCOHLTBFARN3MqJ29s+nMeDpHB5QWT/CbJf+CUSUyK zA/BNmCeZP+GLDfwKS/j4u2xN8UWMhk6AXgGeNfg+l /wkGIYkw+26nK/JOuDCiEA2PTWvKypHs7hB4JvpRc0rxAjUHhJ/LJTtlw3uIPEN+wOBhu4GFd4/izaG6 OrJgT2J5W8SFmH5P4sg4s0P/hFlm/LMKSK5fV6zbSjjjwQWjHVz0QPuWpklsoxjoiySjaTMTKOaFSu6H Ozz8L5CrzoYBbe40SCFt44/ANT6/Kj/HAPhm1OjH6C gE4U5FjtDLSxX4HgHbMSOaCdJDXXAi8M4oVLZqXVePLAfWhpXkPTsj3yraUbgWReEBsL8X17SocgT4Xt h+0iy2AMnmiTaGwL8TBhdaKNfyCPsIEuI/YYGETeIV8oxTSHeL68ndGYS7HSukPrVmO8l0stxwC4smgW MDYwDTTLV8GDDWA3R0052uMht0snI7uygmZDOgU6I+ xb6A/F1/apP5X8xABMpppJXbQJ4r1tv+eotRWBJUtaSrRZHohvgeh9HDz+CswQxQnLGIHHqoe6GbKLr/ Z2xopdJ3hHXiMIsJcCWTRQgNjQTvFMIg5UHCrH4LSaSJTBzNhKB+MkHUTRSAfBY8gMpB6cd14KAAIwqC FpU9xFS/UVSIKBElsolsIofIIWJEjIgTcSJBJIgkkW MPy1NDfxWxyL2IkUkeyGnYZCso0lDizuG4jyFd+pInEhUJsd8914jyVwikG8sK1aW8sE44kSFYKl9izJ lTkcO+nXTJXxxfpvK1fUuRJwmCGkn4wMYqF6y+y8qFB4nR3PrxUwziLQSHlhMdro/iiTORa+bM557ArL a5sHS2+8hzSBOJASGpMJaTOpDOJEHAS62jLqUEsBQr 1rq38Q8sz2gAMsd2cvCP1xm3kopiC3Q73w8lS2zLez6SWjOOZWRbrX5q8U8X+rupSr4KUxEPqY2M39vI Z/ZRxINPHawP/ivUcNLtULXxVnF0nSh4vkA81Z4zF3eeSJ7pxdrl8KMrBQXPLDI6ChXmX5NHkRjLUHWW KYYeiPGBMSRHopyZyYZsIv1dxJeUSEIwPBQQyh9p0l gvDIwEwTOsDaYA8NIYLsTojQewhwMRiSOQiTSKSvQHfLdYPbyfwAsHYCXT4cE6iUd1ubLJWEVVkDk9Jg 6cDhTe7dZfbUGl65ZLe3Iczs8735s2r7P2J32eh6Wdzkb2Gs10r1t2Fj6c8N9uIz0FwFSzdtJlbld/8t 0kVtbohSR5dnl2zrg61wg/Il0gpMXsAsoygF3oWY3n FnDXarfwJDO+T/1k1+0fbLSb1+5EL5QHJ0LtkwBJSerFvXIVZNGnTMyzWCOvkUUesls6GAnK6diNAVxn F2Ue5tANS8j/fCruWUx5pJgRDYcuJAALKsn7PHM4tcbvZsewbTlaKoIMBOziTABXzNlaJji7/cRPIGJE nOeCgSSUODavpGJXJZ3qPO/S9RM/gYgQESJKRIlsIp [file] qoKo9pQyWfXTQKR1Fok7GnGTSkKIAKRx8+ZlO1LVP3xAOfJtv1TGZyLEeoNALDYq== ID Date Data Source [id number] 10/16/2020 02:26:51 PM EDT [facility] Name Value Range Interpretation Code Description Data Rosana rce(s) Supporting Document(s) CHOLESTEROL @ 199 mg/dL (0-200) [facility] TRIGLYCERIDE @ 80 mg/dL (30-200) [facility] HDL CHOLESTEROL @ 63 mg/dL (>40) [facility] PER NCEP ATP III GUIDELINES:RESULTS LOWE R THAN 40 MG/DL ARE SUGGESTIVEOF INCREASED RISK FOR CORONARY ARTERYDISEASE. RESULTS > OR = TO 60 MG/DL ARECONSIDERED A NEGATIVE RISK FACTOR. CHOL/HDL RATIO 3.2 RATIO [facility] INTERPRETATION OF CHOL-HDL RATIO CHD RISK FEMALE MALEVERY HIGH >8.3 >14.3HIGH 5.6- 8.3 6.7- 14.3AVERAGE 3.7- 5.6 4.0- 6.7BELOW AVERAGE 2.5- 3.7 2.7- 4.0PROTECTED <2.5 <2.7 LDL CHOL (CALC) 120 mg/dL (<130) [facility] PER NCEP ATP III GUIDELINES: OPTIMAL < 100 NEAR OPTIMAL 100 - 129BORDERLINE HIGH 130 - 159 HIGH 160 - 189 VERY HIGH > 189 ID Date Data Source [id number] 10/16/2020 12:17:13 PM EDT [facility] Name Value Range Interpretation Code Description Data Rosana rce(s) Supporting Document(s) SODIUM 144 mmol/L (136-145) [facility] POTASSIUM 3.7 mmol/L (3.6-5.2) [facility] CHLORIDE 111 mmol/L (100-108) H [facility] CO2 27 mmol/L (22-31) [facility] ANION GAP 6 mmol/L (7-16) L [facility] UREA NITROGEN 10 mg/dL (7-24) [facility] CREATININE 0.46 mg/dL (0.60-1.00) L [facility] BUN/CREAT RATIO 21.7 RATIO (10.0-20.0) H [facility] GLUCOSE 81 mg/dL (70-99) [facility] CALCIUM 8.4 mg/dL (8.4-10.2) [facility] GFR >60 ml/min/1.73m2 (>59) [facility] GFR ( AMER) >60 ml/min/1.73m2 (>59) [facility] GFR INTERPRETATION [facility] --NORMAL KIDNEY FUNCTION OR MILD DISEASE - GFR >OR= 60CHRONIC KIDNEY DISEASE - GFR 15 - 59RENAL FAILURE - GFR <15 Est. GFR calculation based on the MDRDstudy equation, which assumes a steadystate for creatinine. Est. GFR should notbe used for medication dosing. ID Date Data Source [id number] 10/16/2020 11:51:53 AM EDT [facility] Name Value Range Interpretation Code Description Data Rosana rce(s) Supporting Document(s) APTT 75.2 s (22.0-34.3) [facility] ID Date Data Source [id number] 10/16/2020 11:47:21 AM EDT [facility] Name Value Range Interpretation Code Description Data Rosana rce(s) Supporting Document(s) WBC 6.0 10*3/uL (4.1-11.0) [facility] [place] RBC 4.10 10*6/uL (4.00-5.40) [facility] HGB 12.8 g/dL (12.0-16.0) [facility] HCT 36.5 % (36.0-47.0) [facility] MCV 89.1 fL (80.0-95.0) [facility] MCH 31.3 pg (27.0-32.0) [facility] MCHC 35.2 g/dL (32.0-36.0) [facility] RDW 14.5 % (10.5-14.5) [facility] PLT 234 10*3/uL (150-450) [facility] MPV 7.2 fL (7.1-10.7) [facility] ID Date Data Source [id number] 10/16/2020 01:46:03 AM EDT [facility] Name Value Range Interpretation Code Description Data Rosana rce(s) Supporting Document(s) APTT 80.0 s (22.0-34.3) [facility] ID Date Data Source [id number] 10/15/2020 08:51:45 PM EDT [facility] Name Value Range Interpretation Code Description Data Rosana rce(s) Supporting Document(s) TROPONIN I 0.33 ng/mL (<0.05) [facility] Less than 0.05: Myocardial injury unlike lyGreater than or equal to 0.05: Highly suggestive of myocardial injuryCorrelation with rise and/or fall ofserial troponins, clinical symptomsand ECG changes is necessary. ID Date Data Source [id number] 10/15/2020 07:30:35 PM EDT [facility] Name Value Range Interpretation Code Description Data Rosana rce(s) Supporting Document(s) APTT 48.2 s (22.0-34.3) [facility] ID Date Data Source [id number] 10/15/2020 06:08:31 PM EDT [facility] NT INFORMATIONPatient MRN Name Date of Age Gend*PT [id number] Eva Covington 1935 84 years F IPPT Location Admission Date/Time Visit ID Attending [id number] 10/15/20 1048 --- Aron Ho MD([id number]) EPI ID CSN Admitting Provider [id number] Aron Ho MD([id number])Inpatient History & PhysicalCarole A [facility]RN:[id number] and Plan:Chest pressure with radiation to left arm:Had elevated troponin at outside hospitalCould possibly be from rapid afib at the time vs NSTEMIHas converted to sinus rhythm since. Rate under control now.Will check TT echo.Received asa 324 mg earlier. Give nitro prnConsult cardiology in AM for cath vs stress test.Will monitor her on tele.Keep her NPO overnightTrop here at [facility] w[facility]. Will recheck now.Check lipid panel, A1c.Afib, [...] EKG.Chief Complaint:Palpitations Per EMS, patient sent from [facility]. Was feeling SOB & palpitationsthis morning. Pt found to be in A. Fib w/ RVR, pt on diltizem on arrival.HPI: Patient is a 84 y/o female with h/o HTN, hypothyroidism who presented [facility] as ER to ER transfer from [facility]. Patient woke up around 1 AM todaywith palpitations, chest pressure and pin in left arm. No sweating or nausea.Went to [facility] ER where she was found to be in Afib with HR in 130s. Wasgiven Cardizem 5 mg, then 10 mg and later started on Cardizem drip. Sheconverted to sinus rhythm on that. Her troponin was found to be elevated at0.369. EKG showed no ST elevations or depressions. Patient given asa 324 mg.Transferred to [facility] for further evaluation and management.Here pt Noted [...] both Covid shots. Her covid test at [facility] was negPast Medical History:Past Medical History:Diagnosis [...] rce(s) Supporting Document(s) ID Date Data Source [id number] 10/15/2020 05:21:03 PM EDT [facility] Name Value Range Interpretation Code Description Data Rosana rce(s) Supporting Document(s) TROPONIN I 0.38 ng/mL (<0.05) [facility] [place] Less than 0.05: Myocardial injury unlike lyGreater than or equal to 0.05: Highly suggestive of myocardial injuryCorrelation with rise and/or fall ofserial troponins, clinical symptomsand ECG changes is necessary. ID Date Data Source [id number] 10/15/2020 12:03:48 PM EDT [facility] Name Value Range Interpretation Code Description Data Rosana rce(s) Supporting Document(s) POC CTNI 0.03 ng/mL (0.01-0.07) [facility] [place] Less than 0.08: Myocardial injury unlike lyGreater than or equal to 0.08: Highlysuggestive of myocardial injuryCorrelation with rise and/or fall ofserial troponins, clinical symptoms,and ECG changes is necessary.PERFORMED BY [facility] CLINICAL STAFF ID Date Data Source [id number] 10/15/2020 07:17:47 PM EDT [facility] Name Value Range Interpretation Code Description Data Rosana rce(s) Supporting Document(s) HEMOGLOBIN A1C @ 5.0 % (4.0-6.0) [facility] Performed using Siemens [place] immunoassa y.Care must be taken when interpreting [id number] in patients with a hemoglobin variantor decreased erythrocyte lifespan. Values 5.7 - 6.4% suggest prediabetes.Values >=6.5% are diagnostic for diabetes.REFERENCE: DIABETES CARE 2018: 41(S13-S27).PERFORMED AT [address] [place] [address] [place] [address] EST AVERAGE GLUCOSE 97 mg/dL [facility] ID Date Data Source [id number] 10/15/2020 02:40:21 PM EDT [facility] Name Value Range Interpretation Code Description Data Rosana rce(s) Supporting Document(s) TSH,ULTRASENSITIVE @ 1.064 mIU/L (0.360-4.170) [facility] PERFORMED AT [address] [place] [address] N [place] [address] ID Date Data Source [id number] 10/15/2020 02:40:21 PM EDT [facility] Name Value Range Interpretation Code Description Data Rosana rce(s) Supporting Document(s) NT PRO BNP 712 pg/mL (0-450) [facility] ID Date Data Source [id number] 10/15/2020 02:40:21 PM EDT [facility] Name Value Range Interpretation Code Description Data Rosana rce(s) Supporting Document(s) FREE THYROXINE @ 1.06 ng/dL (0.76-1.46) [facility] PER[facility] AT [address] [place] [address] [place] [address] ID Date Data Source [id number] 10/15/2020 02:40:21 PM EDT [facility] Name Value Range Interpretation Code Description Data Rosana rce(s) Supporting Document(s) SODIUM 144 mmol/L (136-145) [facility] POTASSIUM 3.5 mmol/L (3.6-5.2) L [facility] CHLORIDE 112 mmol/L (100-108) [facility] CO2 24 mmol/L (22-31) [facility] ANION GAP 8 mmol/L (7-16) [facility] UREA NITROGEN 11 mg/dL (7-24) [facility] CREATININE 0.47 mg/dL (0.60-1.00) [facility] BUN/CREAT RATIO 23.4 RATIO (10.0-20.0) [facility] GLUCOSE 88 mg/dL (70-99) [facility] CALCIUM 8.7 mg/dL (8.4-10.2) [facility] TOTAL PROTEIN 7.3 g/dL (6.4-8.2) [facility] ALBUMIN 4.0 g/dL (3.2-4.5) [facility] GLOBULIN 3.3 g/dL (2.7-4.3) [facility] ALB/GLOB RATIO 1.2 RATIO [facility] ALKALINE PHOSPHATASE 64 U/L (45-117) [facility] BILIRUBIN,TOTAL 0.7 mg/dL (0.0-1.0) [facility] PLEASE NOTE:Total bilirubin results may be falselyelevated in patients taking Eltrombopag. AST (SGOT) 19 U/L (11-39) [facility] ALT (SGPT) 21 U/L (12-78) [facility] GFR >60 ml/min/1.73m2 (>59) [facility] GFR ( AMER) >60 ml/min/1.73m2 (>59) [facility] GFR [facility] --NORMAL KIDNEY FUNCTION OR MILD DISEASE - GFR >OR= 60CHRONIC KIDNEY DISEASE - GFR 15 - 59RENAL FAILURE - GFR <15 Est. GFR calculation based on the MDRDstudy equation, which assumes a steadystate for creatinine. Est. GFR should notbe used for medication dosing. ID Date Data Source [id number] 10/15/2020 02:29:08 PM EDT [facility] Name Value Range Interpretation Code Description Data Rosana rce(s) Supporting Document(s) MAGNESIUM 2.1 mg/dL (1.7-2.4) [facility] ID Date Data Source [id number] 10/15/2020 02:19:37 PM EDT [facility] COLL[facility] Name Value Range Interpretation Code Description Data Rosana rce(s) Supporting Document(s) APTT 25.8 s (22.0-34.3) [facility] SHAH Y ID Date Data Source [id number] 10/15/2020 02:19:37 PM EDT [facility] Name Value Range Interpretation Code Description Data Rosana rce(s) Supporting Document(s) PT 10.5 s (9.2-11.9) [facility] COLLIER INR 1.00 [facility] SUGGESTED THERAPEUTIC RANGES USING INR F ORSTABILIZED ANTICOAGULATED PATIENTS:STANDARD DOSE THERAPY INR 2.0-3.0 DVT, PE, PREVENT DVT OR EMBOLISMHIGH DOSE THERAPY INR 2.5-3.5 PREVENT EMBOLISM FROM MECHANICAL HEART VALVE ID Date Data Source [id number] 10/15/2020 02:09:30 PM EDT [facility] Name Value Range Interpretation Code Description Data Rosana rce(s) Supporting Document(s) WBC 6.8 10*3/uL (4.1-11.0) [facility] [place] RBC 4.28 10*6/uL (4.00-5.40) [facility] HGB 13.5 g/dL (12.0-16.0) [facility] HCT 39.4 % (36.0-47.0) [facility] MCV 92.0 fL (80.0-95.0) [facility] MCH 31.5 pg (27.0-32.0) [facility] MCHC 34.2 g/dL (32.0-36.0) [facility] RDW 14.3 % (10.5-14.5) [facility] PLT 231 10*3/uL (150-450) [facility] MPV 7.0 fL (7.1-10.7) L [facility] NEUT % 56.9 % (35.0-75.0) [facility] LYMPH % 34.2 % (16.0-52.0) [facility] MONO % 6.9 % (0.0-8.0) [facility] EOS % 1.2 % (0.0-5.0) [facility] BASO % 0.8 % (0.0-4.0) [facility] NEUT # 3.9 10*3/uL (1.8-7.7) [facility] LYMPH # 2.3 10*3/uL (1.2-4.8) [facility] MONO # 0.5 10*3/uL (0.0-0.8) [facility] Eosinophils [#/volume] in Blood by Automated count 0.1 10*3/uL (0.0-0 .5) [facility] BASO # 0.1 10*3/uL (0.0-0.2) [facility] ID Date Data Source [id number] 10/15/2020 11:33:33 AM EDT [facility] Name Value Range Interpretation Code Description Data Rosana rce(s) Supporting Document(s) [facility] [id number] [file] [id number] ID Date Data Source [id number] 10/15/2020 09:10:00 AM EDT [facility] Patient: EVA COVINGTON Observation Re [facility] - Phys[id number] [place] [address] [phone], FRegistration Date/Time: 10/15/2020 04:50 Weight:63.5 kg (S). [...] rce(s) Supporting Document(s) ID Date Data Source [id number] 10/15/2020 08:22:00 AM EDT [facility] Name Value Range Interpretation Code Description Data Rosana rce(s) Supporting Document(s) White Blood Count 6.0 [facility] ([facility] Red Blood Count 4.10 [facility] Platelets 234 [facility] Hemoglobin 12.8 [facility] ([facility]) Hematocrit 36.5 [facility] ([facility]) ID Date Data Source [id number] 10/15/2020 08:22:00 AM EDT [facility] ([facility] Name Value Range Interpretation Code Description Data Rosana rce(s) Supporting Document(s) Alanine aminotransferase [Enzymatic activity/volume] in Serum or Pl asma 21 [facility] ([facility]) Albumin [Mass/volume] in Serum or Plasma 4.0 [facility] ([facility]) Calcium [Mass/volume] in Serum or Plasma 8.7 [facility] ([facility]) Carbon dioxide, total [Moles/volume] in Serum or Plasma 24 [facility] ([facility]) Chloride [Moles/volume] in Serum or Plasma 112 [facility] ([facility]) Potassium [Moles/volume] in Serum or Plasma 144 [facility] ([facility]) Alkaline phosphatase [Enzymatic activity/volume] in Serum or Plasma 6 4 [facility] ([facility]) Protein [Mass/volume] in Serum or Plasma 7.5 [facility] ([facility]) Sodium 144 [facility] Aspartate aminotransferase [Enzymatic activity/volume] in Serum or Plasma 19 [facility] ([facility]) Glucose 88 [facility] Urea nitrogen [Mass/volume] in Serum or Plasma 11 [facility] ([facility]) Creatinine For GFR 0.47 [facility] ([facility]) ID Date Data Source [id number] 10/15/2020 06:33:00 AM EDT [facility] DATE OF EXAMINATION: 10/15/2020 5:15 [...] rce(s) Supporting Document(s) ID Date Data Source [id number] 10/15/2020 05:18:00 AM EDT [facility] Name Value Range Interpretation Code Description Data Rosana rce(s) Supporting Document(s) COVID-19 NEGATIVE [facility] This lab was ordered by [facility] and reported by [facility]. ID Date Data Source [id number] 10/15/2020 05:52:00 AM EDT [facility] lizet TSYSORDER [id number] Name Value Range Interpretation Code Description Data Rosana rce(s) Supporting Document(s) COVID-19 NEGATIVE NEGATIVE [facility] Negative results should be treated as pr [...] are for the indentification of SARS-CoV-2 RNA. AicEXBJ-XxM-9 RNA is generally detectable in respiratorysamples during the actue phase of infection. ID Date Data Source [id number] 10/15/2020 05:57:00 AM EDT [facility] l TSYSORDER [id number] Name Value Range Interpretation Code Description Data Rosana rce(s) Supporting Document(s) TROPONIN I 0.369 ng/mL 0.000-0.056 *H [facility] ID Date Data Source [id number] 10/15/2020 05:57:00 AM EDT [facility] l TSYSORDER [id number] Name Value Range Interpretation Code Description Data Rosana rce(s) Supporting Document(s) GLUCOSE 152 mg/dL 74-106 H [facility] BLOOD UREA NITROGEN 16 mg/dL 7-18 [facility] ital CREATININE 0.75 mg/dL 0.6-1.0 [facility] SODIUM 143 mmol/L 136-145 [facility] POTASSIUM 3.7 mmol/L 3.5-5.1 [facility] CHLORIDE 105 mmol/L 98-107 [facility] CO2 25 mmol/L 21-32 [facility] CALCIUM 8.9 mg/dL 8.5-10.1 [facility] ANION GAP 13.0 mmol/L 5-12 H [facility] GLOMERULAR FILTRATION RATE 74 mL/min [facility] GFR IS CALCULATED IN mL/min/1.73m2 ROBERTO L FUNCTION: >90MILDLY DECREASED: 60-89MILDY TO MODERATELY DECREASED: 45-59 MODERATELY TO SEVERELY DECREASED: 30-44SEVERELY DECREASED: 15-29RENAL FAILURE: <15 ID Date Data Source [id number] 10/15/2020 05:55:00 AM [facility] TSYSORDER [id number] Name Value Range Interpretation Code Description Data Rosana rce(s) Supporting Document(s) TSH 1.856 uIU/mL 0.360-3.740 [facility] ID Date Data Source [id number] 10/15/2020 05:55:00 AM [facility] TSYSORDER [id number] Name Value Range Interpretation Code Description Data Rosana rce(s) Supporting Document(s) MAGNESIUM 2.0 mg/dL 1.8-2.4 [facility] ID Date Data Source [id number] 10/15/2020 05:52:00 AM [facility] TSYSORDER [id number] Name Value Range Interpretation Code Description Data Rosana rce(s) Supporting Document(s) PARTIAL THROMBOPLASTIN TIME 25.4 SECONDS 21.2-27.3 [facility] ID Date Data Source [id number] 10/15/2020 05:52:00 AM [facility] TSYSORDER [id number] Name Value Range Interpretation Code Description Data Rosana rce(s) Supporting Document(s) PROTHROMBIN TIME (PATIENT) 9.7 SECONDS 9.1-11.6 [facility] INR 0.93 0.87-1.06 [facility] ID Date Data Source [id number] 10/15/2020 05:25:00 AM [facility] TSYSORDER [id number] Name Value Range Interpretation Code Description Data Rosana rce(s) Supporting Document(s) WHITE BLOOD COUNT 8.0 K/mm3 4.0-10.0 [facility] RED BLOOD COUNT 4.62 M/mm3 4.00-5.50 [facility] HEMOGLOBIN 14.2 gm/dL 12.0-16.0 [facility] HEMATOCRIT 42.4 % 36.0-48.8 [facility] MEAN CELL VOLUME 91.8 fl 80-96 [facility] MEAN CORPUSCULAR HEMOGLOBIN 30.7 pg 27.0-31.0 [facility] MEAN CORPUSCULAR HGB CONC 33.5 g/dl 32.0-36.0 [facility] RED CELL DISTRIBUTION WIDTH 13.9 % 10.0-14.5 [facility] PLATELET COUNT 290 K/mm3 172-450 [facility] MEAN PLATELET VOLUME 8.8 fl 9.0-13.0 L [facility] pital GRAN % 50.2 % 50-80.0 [facility] IG% 0.1 % 0.0-0.2 [facility] LYMPH % 39.8 % 25.0-50.0 [facility] MONO % 7.3 % 2.0-10.0 [facility] EOS % 1.8 % 0-5.0 [facility] BASO % 0.8 % 0.0-2.0 [facility] GRAN # 4.0 K/mm3 2.0-8.00 [facility] IG# 0.0 K/mm3 0.0-0.2 [facility] LYMPH # 3.2 K/mm3 1.0-5.0 [facility] MONO # 0.6 K/mm3 0.10-1.20 [facility] EOS # 0.1 K/mm3 0.0-0.5 [facility] BASO # 0.1 K/mm3 0.0-0.2 [facility] ID Date Data Source [id number] 04/23/2020 12:00:00 AM EST eCW1 ([facility]) Name Value Range Interpretation Code Description Data Rosana rce(s) Supporting Document(s) 1.400 0.358-3.740 THYROID STIMULATING HORM ONE eCW1 ([facility]) ID Date Data Source Basic Metabolic Profile (BMP) 04/23/2020 12:00:00 AM EST eCW 1 ([facility]) Name Value Range Interpretation Code Description Data Rosana rce(s) Supporting Document(s) 100 70-100 GLUCOSE, FASTING eCW1 ([facility]) > 60.0 >32 GLOMERULAR FILTRATION RATE eCW 1 ([facility]) 0.67 0.55-1.30 CREATININE FOR GFR eCW1 ([facility]) 9 7-18 BLOOD UREA NITROGEN eCW1 ([facility]) 140 136-145 SODIUM LEVEL eCW1 ([facility]) 31 21-32 CARBON DIOXIDE LEVEL eCW1 ([facility]) 9.9 8.8-10.2 CALCIUM LEVEL eCW1 ([facility]) 4.5 3.5-5.1 POTASSIUM SERUM eCW1 ([facility]) 106 98-107 CHLORIDE LEVEL eCW1 ([facility]) Procedure Social History Code Duration Value Status Description Data Source(s ) Smoking 04/19/2021 12:00:00 AM EST Former Smoker completed Former Smoker eCW1 ([facility]) Smoking 03/26/2021 12:00:00 AM EST Former Smoker completed Former Smoker eCW1 ([facility]) Smoking 03/26/2021 12:00:00 AM EST Former Smoker completed Former Smoker eCW1 ([facility]) Smoking 03/26/2021 12:00:00 AM EST Former Smoker completed Former Smoker eCW1 ([facility]) Smoking 02/24/2021 12:00:00 AM EDT Former Smoker completed Former Smoker eCW1 ([facility]) Smoking 02/24/2021 12:00:00 AM EDT Former Smoker completed Former Smoker eCW1 ([facility]) Smoking 02/24/2021 12:00:00 AM EDT Former Smoker completed Former Smoker eCW1 ([facility]) Smoking 12/03/2020 12:00:00 AM EDT Former Smoker completed Former Smoker eCW1 ([facility]) Smoking 12/03/2020 12:00:00 AM EDT Former Smoker completed Former Smoker eCW1 ([facility]) Smoking 12/03/2020 12:00:00 AM EDT Former Smoker completed Former Smoker eCW1 ([facility]) Smoking 12/03/2020 12:00:00 AM EDT Former Smoker completed Former Smoker eCW1 ([facility]) Smoking 12/03/2020 12:00:00 AM EDT Former Smoker completed Former Smoker eCW1 ([facility]) Smoking 12/03/2020 12:00:00 AM EDT Former Smoker completed Former Smoker eCW1 ([facility]) Smoking 12/03/2020 12:00:00 AM EDT Former Smoker completed Former Smoker eCW1 ([facility]) Smoking 12/03/2020 12:00:00 AM EDT Former Smoker completed Former Smoker eCW1 ([facility]) Smoking 12/03/2020 12:00:00 AM EDT Former Smoker completed Former Smoker eCW1 ([facility]) Smoking 11/28/2020 12:00:00 AM EDT Patient is a former smoker completed Patient is a former smoker [facility] ([facility]) Smoking 11/19/2020 12:00:00 AM EDT Former Smoker completed Former Smoker eCW1 ([facility]) Smoking 11/19/2020 12:00:00 AM EDT Former Smoker completed Former Smoker eCW1 ([facility]) Smoking 11/19/2020 12:00:00 AM EDT Former Smoker completed Former Smoker eCW1 ([facility]) Smoking 11/19/2020 12:00:00 AM EDT Former Smoker completed Former Smoker eCW1 ([facility]) Smoking 11/19/2020 12:00:00 AM EDT Former Smoker completed Former Smoker eCW1 ([facility]) Smoking 11/19/2020 12:00:00 AM EDT Former Smoker completed Former Smoker eCW1 ([facility]) Smoking 11/19/2020 12:00:00 AM EDT Former Smoker completed Former Smoker eCW1 ([facility]) Smoking 10/23/2020 12:00:00 AM EDT Former Smoker completed Former Smoker eCW1 ([facility]) Smoking 10/23/2020 12:00:00 AM EDT Former Smoker completed Former Smoker eCW1 ([facility]) Alcohol intake 10/18/2020 12:00:00 AM EDT Current non-d scott of alcohol (finding) completed Current non-drinker of alcohol (finding) [facility] Alcohol intake 10/15/2020 12:00:00 AM EDT Current non-d [place] of alcohol (finding) completed Current non-drinker of alcohol (finding) [facility] Smoking 04/23/2020 12:00:00 AM EST Former Smoker completed Former Smoker eCW1 ([facility]) Smoking 04/23/2020 12:00:00 AM EST Former Smoker completed Former Smoker eCW1 ([facility]) Smoking 04/23/2020 12:00:00 AM EST Former Smoker completed Former Smoker eCW1 ([facility]) Vital Signs ID Date Data Source [id number] Name Value Range Interpretation Code Description Data Source(s) Body weight 133.8 [lb_av] 133.8 [lb_av] [facility] Body height 62 [in_i] 62 [in_i] eCW1 ([facility]) Body mass index (BMI) [Ratio] 24.47 kg/m2 24.47 kg/m2 eCW1 ([facility]) Heart rate 82 /min 82 /min eCW1 ([facility]) Respiratory rate 18 /min 18 /min eCW1 ([facility]) Body temperature 98.0 [degF] 98.0 [degF] eCW1 ( [facility]) Systolic blood pressure 130 mm[Hg] 130 mm[Hg] e CW1 ([facility]) Diastolic blood pressure 76 mm[Hg] 76 mm[Hg] eCW1 ([facility]) Systolic blood pressure 170 mm[Hg] 170 mm[Hg] M EDENT ([facility]) Diastolic blood pressure 79 mm[Hg] 79 mm[Hg] MEDENT ([facility]) Heart rate 68 /min 68 /min MEDENT ([facility] Body weight 130.00 [lb_av] 130.00 [lb_av] MEDEN T ([facility] Body weight 134 [lb_av] 134 [lb_av] eCW1 ([facility]) Body height 62 [in_i] 62 [in_i] eCW1 ([facility]) Body mass index (BMI) [Ratio] 24.51 kg/m2 24.51 kg/m2 eCW1 ([facility]) Heart rate 78 /min 78 /min eCW1 ([facility]) Respiratory rate 18 /min 18 /min eCW1 ([facility]) Body temperature 98.3 [degF] 98.3 [degF] eCW1 ( [facility]) Systolic blood pressure 130 mm[Hg] 130 mm[Hg] e CW1 ([facility]) Diastolic blood pressure 80 mm[Hg] 80 mm[Hg] eCW1 ([facility]) Body mass index (BMI) [Ratio] 25.3 kg/m2 25.3 k g/m2 [facility] ([facility]) Body height 61 [in_i] 61 [in_i] [facility] ([facility]) 5'1" Heart rate 63 /min 63 /min [facility] ([facility]) Systolic blood pressure--sitting 168 mm[Hg] 168 mm[Hg] [facility] ([facility]) CBP, adult cuff/Ra Diastolic blood pressure--sitting 75 mm[Hg] 75 mm[Hg] [facility] ([facility]) CBP, adult cuff/Ra Body weight 134.00 [lb_av] 134.00 [lb_av] MEDEN T ([facility]) Body weight 136 [lb_av] 136 [lb_av] eCW1 ([facility]) Body height 62 [in_i] 62 [in_i] eCW1 ([facility]) Body mass index (BMI) [Ratio] 24.87 kg/m2 24.87 kg/m2 eCW1 ([facility]) Heart rate 75 /min 75 /min eCW1 ([facility]) Respiratory rate 20 /min 20 /min eCW1 ([facility]) Body temperature 97 [degF] 97 [degF] eCW1 ([facility]) Systolic blood pressure 130 mm[Hg] 130 mm[Hg] e CW1 ([facility]) Diastolic blood pressure 74 mm[Hg] 74 mm[Hg] eCW1 ([facility]) Body weight 140 [lb_av] 140 [lb_av] eCW1 ([facility]) Body height 62 [in_i] 62 [in_i] eCW1 ([facility]) Body mass index (BMI) [Ratio] 25.60 kg/m2 25.60 kg/m2 W1 ([facility]) Heart rate 77 /min 77 /min eCW1 ([facility]) Respiratory rate 20 /min 20 /min eCW1 ([facility]) Body temperature 97.4 [degF] 97.4 [degF] eCW1 ( [facility]) Systolic blood pressure 120 mm[Hg] 120 mm[Hg] e CW1 ([facility]) Diastolic blood pressure 80 mm[Hg] 80 mm[Hg] eCW1 ([facility]) Diastolic blood pressure 84 mm[Hg] 84 mm[Hg] [facility] Systolic blood pressure 145 mm[Hg] 145 mm[Hg] [facility] Heart rate 67 /min 67 /min [facility] Body temperature 36.39 Светлана 36.39 Светлана [facility] Oxygen saturation in Arterial blood by Pulse oximetry 95 % 95 % [facility] Respiratory rate 16 /min 16 /min [facility] Body height 154.9 cm 154.9 cm [facility] Body weight 64.139 kg 64.139 kg [facility] Body mass index (BMI) [Ratio] 26.73 kg/m2 26.73 kg/m2 [facility] Diastolic blood pressure 74 mm[Hg] 74 mm[Hg] W1 ([facility]) Body weight 147 [lb_av] 147 [lb_av] eCW1 ([facility]) Body height 62 [in_i] 62 [in_i] eCW1 ([facility]) Body mass index (BMI) [Ratio] 26.88 kg/m2 26.88 kg/m2 W1 ([facility]) Heart rate 82 /min 82 /min eCW1 ([facility]) Respiratory rate 20 /min 20 /min eCW1 ([facility]) Body temperature 96 [degF] 96 [degF] eCW1 ([facility]) Systolic blood pressure 150 mm[Hg] 150 mm[Hg] e CW1 ([facility]) ID Date Data Source [id number] 10/15/2020 06:38:22 AM EDT [facility] Name Value Range Interpretation Code Description Data Source(s) TRANSFER FROM [facility] Patient Treatment Plan of Care Planned Activity Planned Date Details Description Data Source (s) Rosuvastatin calcium 20 MG Oral Tablet 03/26/2021 12:00:00 AM EST eCW1 ([facility]) Rosuvastatin calcium 20 MG Oral Tablet 03/26/2021 12:00:00 AM EST eCW1 ([facility]) Rosuvastatin calcium 20 MG Oral Tablet 03/26/2021 12:00:00 AM EST eCW1 ([facility]) ferrous sulfate 325 MG Delayed Release Oral Tablet 11/26/2020 12 :00:00 AM EDT eCW1 ([facility]) ferrous sulfate 325 MG Delayed Release Oral Tablet 11/26/2020 12 :00:00 AM EDT eCW1 ([facility]) ferrous sulfate 325 MG Delayed Release Oral Tablet 11/26/2020 12 :00:00 AM EDT eCW1 ([facility]) ferrous sulfate 325 MG Delayed Release Oral Tablet 11/26/2020 12 :00:00 AM EDT eCW1 ([facility]) ferrous sulfate 325 MG Delayed Release Oral Tablet 11/26/2020 12 :00:00 AM EDT eCW1 ([facility]) ferrous sulfate 325 MG Delayed Release Oral Tablet 11/26/2020 12 :00:00 AM EDT eCW1 ([facility]) Lisinopril 10 MG Oral Tablet 10/19/2020 09:00:00 AM EDT [facility] Nitroglycerin 0.4 MG Sublingual Tablet 10/18/2020 12:00:00 AM EDT [facility] apixaban 5 MG Oral Tablet 10/18/2020 12:00:00 AM EDT [facility] sodium chloride 0.9% (NS) infusion 10/17/2020 08:00:00 PM EDT [facility] Nitroglycerin 0.4 MG Sublingual Tablet 10/17/2020 05:46:31 PM EDT [facility] 10 ML Atropine Sulfate 0.1 MG/ML Prefilled Syringe 10/17/2020 05 :46:30 PM EDT [facility] Aspirin 81 MG Chewable Tablet 10/17/2020 12:00:00 AM EDT [facility] clopidogrel 75 MG Oral Tablet 10/17/2020 12:00:00 AM EDT [facility] atorvastatin 40 MG Oral Tablet 10/17/2020 12:00:00 AM EDT [facility] Levothyroxine Sodium 0.088 MG Oral Tablet [Synthroid] 04/23/2020 12:00:00 AM EST eCW1 ([facility]) Levothyroxine Sodium 0.088 MG Oral Tablet [Synthroid] 04/23/2020 12:00:00 AM EST eCW1 ([facility]) Levothyroxine Sodium 0.088 MG Oral Tablet [Synthroid] 04/23/2020 12:00:00 AM EST eCW1 ([facility]) Levothyroxine Sodium 0.088 MG Oral Tablet [Synthroid] 04/23/2020 12:00:00 AM EST eCW1 ([facility]) Levothyroxine Sodium 0.088 MG Oral Tablet [Synthroid] 04/23/2020 12:00:00 AM EST eCW1 ([facility]) Levothyroxine Sodium 0.088 MG Oral Tablet [Synthroid] 04/23/2020 12:00:00 AM EST eCW1 ([facility]) Levothyroxine Sodium 0.088 MG Oral Tablet [Synthroid] 04/23/2020 12:00:00 AM EST eCW1 ([facility]) Levothyroxine Sodium 0.088 MG Oral Tablet [Synthroid] 04/23/2020 12:00:00 AM EST eCW1 ([facility]) Levothyroxine Sodium 0.088 MG Oral Tablet [Synthroid] 04/23/2020 12:00:00 AM EST eCW1 ([facility]) Levothyroxine Sodium 0.088 MG Oral Tablet [Synthroid] 04/23/2020 12:00:00 AM EST eCW1 ([facility]) Levothyroxine Sodium 0.088 MG Oral Tablet [Synthroid] 04/23/2020 12:00:00 AM EST eCW1 ([facility]) Levothyroxine Sodium 0.088 MG Oral Tablet [Synthroid] 04/23/2020 12:00:00 AM EST eCW1 ([facility]) Levothyroxine Sodium 0.088 MG Oral Tablet [Synthroid] 04/23/2020 12:00:00 AM EST eCW1 ([facility]) Hydrochlorothiazide 12.5 MG Oral Tablet 08/21/2015 12:00:00 AM EDT [facility] Levothyroxine Sodium 0.1 MG Oral Tablet 08/21/2015 12:00:00 AM EDT [facility] Lisinopril 20 MG Oral Tablet 08/21/2015 12:00:00 AM EDT [facility]
[2021-04-22 11:37] LABS: ALBUMIN 4.3 GM/DL (3.2-5.2); ALT/SGPT 31 U/L (12-78); BILIRUBIN,DIRECT 0.5 MG/DL (0.0-0.2); BLOOD UREA NITROGEN 14 MG/DL (7-18); CALCIUM LEVEL 10.1 MG/DL (8.8-10.2); CARBON DIOXIDE LEVEL 26 MEQ/L (21-32); CHLORIDE LEVEL 105 MEQ/L (98-107); GLOMERULAR FILTRATION RATE > 60.0 (>32); GLUCOSE, FASTING 106 MG/DL (70-100); LIPASE 109 U/L (73-393); SODIUM LEVEL 140 MEQ/L (136-145); TOTAL PROTEIN 7.8 GM/DL (6.4-8.2)
[2021-04-22 11:38] LABS: CK-MB VALUE MASS 3.1 NG/ML (<3.6); MB/CK RELATIVE INDEX 2.67 (< OR =4)
[2021-04-22] MEDS ORDERED: NITROGLYCERIN 0.4 MG SUBL TABLET SL PRN (11:45)
[2021-04-22 13:02] LABS: RSV AMPLIFICATION NEGATIVE (NEGATIVE)
[2021-04-22] MEDS ORDERED: NITROGLYCERIN 2% OINT 1 GM *U/D* PKT TOP ONE (13:25)
[2021-04-22 14:03] VITALS: BP 220/86
--- NOTE | 2021-04-22 18:16 | ECGEPIP ---
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
== END 2021-04-22 14:05 | disposition short-term general hospital (02) ==
LOC: M ED 10:31
DX: I21.4 Non-ST elevation (NSTEMI) myocardial infarction (principal); I48.91 Unspecified atrial fibrillation; I25.10 Atherosclerotic heart disease of native coronary artery without angina pectoris; I10 Essential (primary) hypertension; E78.5 Hyperlipidemia, unspecified; Z95.5 Presence of coronary angioplasty implant and graft; Z87.891 Personal history of nicotine dependence; Z80.1 Family history of malignant neoplasm of trachea, bronchus and lung; Z82.49 Family history of ischemic heart disease and other diseases of the circulatory system
CPT/HCPCS: 71045; 80048; 80076; 82550; 82553; 83690; 84443; 84484; 85025; 87631; 93005; 93041; 94760; 96374; 96375; 96376; 99285; J2270; J2405

== ENCOUNTER → 2021-05-15 | Outpatient (CLI) | payer MEDICARE, BC ==
[~2021-05-15] MED LIST changes: +AMLO1TAB24; +ASPI81CH33 PO; +ATEN100T; +CLOP75TA2; -E-Z-GAS II EFFERVESCENT PACKET (SODIUM BICARB./CITRIC ACID/SIMETHICONE) As Ordered ONE; -E-Z-HD 98% w/w 340GM SUSP BTL As Ordered ONE; -E-Z-PAQUE 96% w/w SUSP 176GM BTL As Ordered ONE; +ELIQ5TAB; +LISI30TA4; +ROSU20TA5; +SYNT88TA2
[2021-05-15 15:32] LABS: BASO % 0.8 % (0.0-1.0); EOS # 0.2 10^3/uL (0.0-0.5); EOS % 3.4 % (0.0-3.0); HEMATOCRIT 33.5 % (36.0-47.0); HEMOGLOBIN 10.8 g/dl (12.0-15.5); LYMPH # 1.8 10^3/uL (1.5-5.0); LYMPH % 33.1 % (24.0-44.0); MEAN CORPUSCULAR HEMOGLOBIN 30.1 pg (27.0-33.0); MEAN CORPUSCULAR HGB CONC 32.2 g/dl (32.0-36.5); MEAN CORPUSCULAR VOLUME 93.3 fl (80.0-96.0); MONO # 0.4 10^3/uL (0.0-0.8); MONO % 8.1 % (2.0-8.0); NEUTROPHILS # 2.9 10^3/uL (1.5-8.5); NEUTROPHILS % 54.4 % (36.0-66.0); PLATELET COUNT, AUTOMATED 244 10^3/uL (150-450); RED BLOOD COUNT 3.59 10^6/uL (4.00-5.40); WHITE BLOOD COUNT 5.3 10^3/uL (4.0-10.0)
== END ==
LOC: M PLALAB 09:54
PROVIDERS: ATTEND Family Medicine
DX: E53.8 Deficiency of other specified B group vitamins (principal); D50.0 Iron deficiency anemia secondary to blood loss (chronic)

== ENCOUNTER → 2021-05-28 | Outpatient (CLI) | payer MEDICARE, BC ==
[2021-05-28 10:23] LABS: HEMATOCRIT 32.5 % (36.0-47.0); HEMOGLOBIN 10.4 g/dl (12.0-15.5); MEAN CORPUSCULAR HEMOGLOBIN 30.1 pg (27.0-33.0); MEAN CORPUSCULAR VOLUME 93.9 fl (80.0-96.0); PLATELET COUNT, AUTOMATED 269 10^3/uL (150-450); RED BLOOD COUNT 3.46 10^6/uL (4.00-5.40); WHITE BLOOD COUNT 5.1 10^3/uL (4.0-10.0)
[2021-05-28 13:21] LABS: ALT/SGPT 22 U/L (12-78); BILIRUBIN,TOTAL 0.4 MG/DL (0.2-1.0); BLOOD UREA NITROGEN 10 MG/DL (7-18); CARBON DIOXIDE LEVEL 29 MEQ/L (21-32); CHLORIDE LEVEL 110 MEQ/L (98-107); CHOLESTEROL LEVEL 120 MG/DL (<200); CHOLESTEROL RISK RATIO 1.967 (<5); CREATININE FOR GFR 0.68 MG/DL (0.55-1.30); GLOMERULAR FILTRATION RATE > 60.0 (>32); GLUCOSE, FASTING 110 MG/DL (70-100); HDL CHOLESTEROL 61 MG/DL (>40); LDL CHOLESTEROL 46 MG/DL (<100); MAGNESIUM LEVEL 2.3 MG/DL (1.8-2.4); NON-HDL-C 59 MG/DL; POTASSIUM SERUM 3.8 MEQ/L (3.5-5.1); SODIUM LEVEL 143 MEQ/L (136-145); TOTAL PROTEIN 7.1 GM/DL (6.4-8.2); TRIGLYCERIDES LEVEL 64 MG/DL (<150)
== END ==
LOC: M PLALAB 07:37
PROVIDERS: ATTEND Physician Assistant
DX: I25.10 Atherosclerotic heart disease of native coronary artery without angina pectoris (principal); R94.31 Abnormal electrocardiogram [ECG] [EKG]

== ENCOUNTER → 2021-06-06 | Outpatient (CLI) | payer MEDICARE, BC ==
[2021-06-06 14:43] LABS: HEMATOCRIT 31.6 % (36.0-47.0); HEMOGLOBIN 9.7 g/dl (12.0-15.5); MEAN CORPUSCULAR HEMOGLOBIN 28.5 pg (27.0-33.0); MEAN CORPUSCULAR HGB CONC 30.7 g/dl (32.0-36.5); MEAN CORPUSCULAR VOLUME 92.9 fl (80.0-96.0); PLATELET COUNT, AUTOMATED 266 10^3/uL (150-450); WHITE BLOOD COUNT 5.4 10^3/uL (4.0-10.0)
[2021-06-06 15:20] LABS: PERCENT SATURATION 17.9 % (13.2-45.0)
== END ==
LOC: M PLALAB 09:52
PROVIDERS: ATTEND Family Medicine
DX: D51.0 Vitamin B12 deficiency anemia due to intrinsic factor deficiency (principal)

== ENCOUNTER → 2021-06-11 | Outpatient (CLI) | payer MEDICARE, BC ==
[2021-06-11 10:36] LABS: HEMATOCRIT 31.1 % (36.0-47.0); HEMOGLOBIN 9.9 g/dl (12.0-15.5); MEAN CORPUSCULAR HEMOGLOBIN 28.4 pg (27.0-33.0); MEAN CORPUSCULAR HGB CONC 31.8 g/dl (32.0-36.5); MEAN CORPUSCULAR VOLUME 89.1 fl (80.0-96.0); PLATELET COUNT, AUTOMATED 271 10^3/uL (150-450); RED BLOOD COUNT 3.49 10^6/uL (4.00-5.40); WHITE BLOOD COUNT 5.5 10^3/uL (4.0-10.0)
== END ==
LOC: M PLALAB 08:27
PROVIDERS: ATTEND Family Medicine
DX: D50.0 Iron deficiency anemia secondary to blood loss (chronic) (principal)

== ENCOUNTER → 2021-06-25 | Outpatient (CLI) | payer MEDICARE, BC ==
[2021-06-25 13:45] LABS: HEMATOCRIT 36.4 % (36.0-47.0); HEMOGLOBIN 11.3 g/dl (12.0-15.5); MEAN CORPUSCULAR HEMOGLOBIN 29.4 pg (27.0-33.0); MEAN CORPUSCULAR VOLUME 94.5 fl (80.0-96.0); PLATELET COUNT, AUTOMATED 265 10^3/uL (150-450); RED BLOOD COUNT 3.85 10^6/uL (4.00-5.40)
== END ==
LOC: M PLALAB 09:42
PROVIDERS: ATTEND Family Medicine
DX: D50.0 Iron deficiency anemia secondary to blood loss (chronic) (principal)

== ENCOUNTER → 2021-07-12 | Outpatient (CLI) | payer MEDICARE, BC ==
[2021-07-12 09:39] LABS: HEMOGLOBIN 11.9 g/dl (12.0-15.5); MEAN CORPUSCULAR HEMOGLOBIN 29.5 pg (27.0-33.0); MEAN CORPUSCULAR HGB CONC 32.2 g/dl (32.0-36.5); MEAN CORPUSCULAR VOLUME 91.8 fl (80.0-96.0); PLATELET COUNT, AUTOMATED 242 10^3/uL (150-450); RED BLOOD COUNT 4.03 10^6/uL (4.00-5.40); WHITE BLOOD COUNT 5.4 10^3/uL (4.0-10.0)
[2021-07-12 11:06] LABS: PERCENT SATURATION 10.5 % (13.2-45.0)
== END ==
LOC: M PLALAB 07:30
PROVIDERS: ATTEND Family Medicine
DX: D51.0 Vitamin B12 deficiency anemia due to intrinsic factor deficiency (principal); D50.0 Iron deficiency anemia secondary to blood loss (chronic)

== ENCOUNTER → 2021-09-09 | Outpatient (CLI) | payer MEDICARE, BC ==
[2021-09-09 14:45] LABS: HEMATOCRIT 37.3 % (36.0-47.0); HEMOGLOBIN 12.1 g/dl (12.0-15.5); MEAN CORPUSCULAR HEMOGLOBIN 29.7 pg (27.0-33.0); MEAN CORPUSCULAR HGB CONC 32.4 g/dl (32.0-36.5); MEAN CORPUSCULAR VOLUME 91.6 fl (80.0-96.0); PLATELET COUNT, AUTOMATED 240 10^3/uL (150-450); RED BLOOD COUNT 4.07 10^6/uL (4.00-5.40); WHITE BLOOD COUNT 5.1 10^3/uL (4.0-10.0)
[2021-09-09 15:07] LABS: PERCENT SATURATION 11.9 % (13.2-45.0)
== END ==
LOC: M PLALAB 10:40
PROVIDERS: ATTEND Family Medicine
DX: D50.0 Iron deficiency anemia secondary to blood loss (chronic) (principal); E53.8 Deficiency of other specified B group vitamins

== ENCOUNTER → 2021-12-26 | Outpatient (CLI) | payer MEDICARE, BC ==
[2021-12-26 13:51] LABS: BASO # 0.1 10^3/uL (0.0-0.2); EOS # 0.1 10^3/uL (0.0-0.5); EOS % 2.3 % (0.0-3.0); HEMATOCRIT 38.7 % (36.0-47.0); HEMOGLOBIN 12.3 g/dl (12.0-15.5); LYMPH # 1.5 10^3/uL (1.5-5.0); LYMPH % 24.5 % (24.0-44.0); MEAN CORPUSCULAR HEMOGLOBIN 30.5 pg (27.0-33.0); MEAN CORPUSCULAR HGB CONC 31.8 g/dl (32.0-36.5); MONO # 0.5 10^3/uL (0.0-0.8); MONO % 7.9 % (2.0-8.0); NEUTROPHILS # 3.9 10^3/uL (1.5-8.5); NEUTROPHILS % 64.1 % (36.0-66.0); PLATELET COUNT, AUTOMATED 233 10^3/uL (150-450); RED BLOOD COUNT 4.03 10^6/uL (4.00-5.40)
[2021-12-26 14:12] LABS: ALBUMIN 4.1 GM/DL (3.2-5.2); ALT/SGPT 21 U/L (12-78); BILIRUBIN,TOTAL 0.7 MG/DL (0.2-1.0); BLOOD UREA NITROGEN 10 MG/DL (7-18); CALCIUM LEVEL 9.2 MG/DL (8.8-10.2); CARBON DIOXIDE LEVEL 25 MEQ/L (21-32); CHLORIDE LEVEL 109 MEQ/L (98-107); CHOLESTEROL LEVEL 133 MG/DL (<200); CHOLESTEROL RISK RATIO 1.873 (<5); CREATININE FOR GFR 0.64 MG/DL (0.55-1.30); FERRITIN 24 NG/ML (8-252); FREE T4 1.07 NG/DL (0.76-1.46); GLOMERULAR FILTRATION RATE > 60.0 (>32); GLUCOSE, FASTING 98 MG/DL (70-100); HDL CHOLESTEROL 71 MG/DL (>40); LDL CHOLESTEROL 51 MG/DL (<100); MAGNESIUM LEVEL 2.2 MG/DL (1.8-2.4); NON-HDL-C 62 MG/DL; POTASSIUM SERUM 4.3 MEQ/L (3.5-5.1); SODIUM LEVEL 139 MEQ/L (136-145); TRIGLYCERIDES LEVEL 56 MG/DL (<150)
[2021-12-26 14:20] LABS: HEMOGLOBIN A1c 5.1 %
[2021-12-26 14:35] LABS: PTH INTACT 80.5 PG/ML (18.5-88.0); THYROID PEROXIDASE ANTIBODY 37.5 U/ML (<60.0)
== END ==
LOC: M PLALAB 09:53
PROVIDERS: ATTEND Family Medicine
DX: E78.2 Mixed hyperlipidemia (principal); D50.0 Iron deficiency anemia secondary to blood loss (chronic); I10 Essential (primary) hypertension; E03.9 Hypothyroidism, unspecified; E55.9 Vitamin D deficiency, unspecified

== ENCOUNTER → 2022-05-09 | Outpatient (CLI) | payer MEDICARE, BC ==
[2022-05-09 10:56] LABS: BASO # 0.1 10^3/uL (0.0-0.2); BASO % 0.8 % (0.0-1.0); EOS # 0.1 10^3/uL (0.0-0.5); EOS % 1.9 % (0.0-3.0); HEMATOCRIT 37.2 % (36.0-47.0); HEMOGLOBIN 12.3 g/dl (12.0-15.5); LYMPH # 1.8 10^3/uL (1.5-5.0); LYMPH % 24.7 % (24.0-44.0); MEAN CORPUSCULAR HEMOGLOBIN 30.8 pg (27.0-33.0); MEAN CORPUSCULAR HGB CONC 33.1 g/dl (32.0-36.5); MEAN CORPUSCULAR VOLUME 93.2 fl (80.0-96.0); MONO # 0.7 10^3/uL (0.0-0.8); NEUTROPHILS # 4.7 10^3/uL (1.5-8.5); NEUTROPHILS % 63.3 % (36.0-66.0); PLATELET COUNT, AUTOMATED 238 10^3/uL (150-450); RED BLOOD COUNT 3.99 10^6/uL (4.00-5.40); WHITE BLOOD COUNT 7.5 10^3/uL (4.0-10.0)
[2022-05-09 11:23] LABS: ALBUMIN 3.9 G/DL (3.2-5.2); ALKALINE PHOSPHATASE 74 U/L (46-116); ALT/SGPT 12 U/L (7.0-40); AST/SGOT 26 U/L (<34); BILIRUBIN,TOTAL 0.7 MG/DL (0.3-1.2); BLOOD UREA NITROGEN 13 MG/DL (9-23); CALCIUM LEVEL 9.4 MG/DL (8.3-10.6); CARBON DIOXIDE LEVEL 27 MMOL/L (20-31); CHLORIDE LEVEL 105 MMOL/L (98-107); CREATININE FOR GFR 0.64 MG/DL (0.55-1.30); GLOMERULAR FILTRATION RATE > 60.0 (>32); GLUCOSE, FASTING 88 MG/DL (74-106); POTASSIUM SERUM 3.9 MMOL/L (3.5-5.1); PTH INTACT 78.8 PG/ML (18.5-88.0); SODIUM LEVEL 141 MMOL/L (136-145); TOTAL PROTEIN 6.7 G/DL (5.7-8.2)
[2022-05-09 11:24] LABS: FREE T4 1.23 NG/DL (0.89-1.76)
[2022-05-09 11:25] LABS: TOTAL 25(OH) VITAMIN D 18.2 NG/ML (20.0-100.0); VITAMIN B12 LEVEL 343 PG/ML (211-911)
== END ==
LOC: M PLALAB 08:39
PROVIDERS: ATTEND Family Medicine
DX: E55.9 Vitamin D deficiency, unspecified (principal); D50.0 Iron deficiency anemia secondary to blood loss (chronic); E03.9 Hypothyroidism, unspecified; E53.8 Deficiency of other specified B group vitamins; Z79.899 Other long term (current) drug therapy

== ENCOUNTER → 2022-09-05 | Outpatient (REF) | payer MEDICARE, BC | LOC: M SFHCPLAZ 17:21 | PROVIDERS: ATTEND Family Medicine | DX: D50.0 Iron deficiency anemia secondary to blood loss (chronic) (principal); R73.01 Impaired fasting glucose; E55.9 Vitamin D deficiency, unspecified ==

== ENCOUNTER → 2022-09-09 | Outpatient (CLI) | payer MEDICARE, BC ==
[~2022-09-09] MED LIST changes: +AMLO1TAB25 PO; +ATEN50TA2 PO; +CHLO125TA PO; +K-TA10TA2 PO; +LOSA100T46 PO; +LOSA50TA28; +LOSA50TA28 PO; +SPIR-10 PO
[2022-09-09 12:11] LABS: BASO % 0.7 % (0.0-1.0); EOS # 0.1 10^3/uL (0.0-0.5); HEMATOCRIT 42.7 % (36.0-47.0); HEMOGLOBIN 14.3 g/dl (12.0-15.5); LYMPH # 1.5 10^3/uL (1.5-5.0); LYMPH % 25.2 % (24.0-44.0); MEAN CORPUSCULAR HGB CONC 33.5 g/dl (32.0-36.5); MEAN CORPUSCULAR VOLUME 92.6 fl (80.0-96.0); MONO # 0.4 10^3/uL (0.0-0.8); NEUTROPHILS # 3.9 10^3/uL (1.5-8.5); NEUTROPHILS % 64.8 % (36.0-66.0); PLATELET COUNT, AUTOMATED 232 10^3/uL (150-450); RED BLOOD COUNT 4.61 10^6/uL (4.00-5.40)
[2022-09-09 12:53] LABS: ALBUMIN 4.3 G/DL (3.2-5.2); ALKALINE PHOSPHATASE 79 U/L (46-116); ALT/SGPT < 9 U/L (7.0-40); AST/SGOT 25 U/L (<34); BILIRUBIN,TOTAL 0.9 MG/DL (0.3-1.2); BLOOD UREA NITROGEN 8 MG/DL (9-23); CALCIUM LEVEL 8.8 MG/DL (8.3-10.6); CARBON DIOXIDE LEVEL 28 MMOL/L (20-31); CHLORIDE LEVEL 106 MMOL/L (98-107); CREATININE FOR GFR 0.58 MG/DL (0.55-1.30); GLOMERULAR FILTRATION RATE > 60.0 (>32); GLUCOSE, FASTING 98 MG/DL (74-106); PTH INTACT 72.5 PG/ML (18.5-88.0); SODIUM LEVEL 143 MMOL/L (136-145)
[2022-09-09 12:54] LABS: FERRITIN 36.4 NG/ML (7.3-270.7); TOTAL 25(OH) VITAMIN D 35.8 NG/ML (20.0-100.0)
[2022-09-09 13:15] LABS: HEMOGLOBIN A1c 5.1 % (4.0-6.0)
[2022-09-10 14:14] LABS: TISSUE TRANSGLUTAMINASE IgA <2 U/mL (0-3)
== END ==
LOC: M PLALAB 08:36
PROVIDERS: ATTEND Family Medicine
DX: D50.0 Iron deficiency anemia secondary to blood loss (chronic) (principal); R73.01 Impaired fasting glucose; E55.9 Vitamin D deficiency, unspecified

== ENCOUNTER 2022-09-10 13:33 | Outpatient (CLI) | payer MEDICARE, BC ==
[~2022-09-10] VITALS: Ht 154.9 cm; Wt 61.4 kg
[~2022-09-10 13:33] MED LIST changes: +ALBUTEROL SULFATE 2.5MG/0.5ML INH NEB SOLN INH PRN; -AMLO1TAB25 PO; -ATEN50TA2 PO; -CHLO125TA PO; +EPINEPHrine INJ 1 MG/ML 1ML AMP IM PRN; -K-TA10TA2 PO; -LOSA100T46 PO; -LOSA50TA28; -LOSA50TA28 PO; -SPIR-10 PO; +diphenhydrAMINE 50MG/ML VIAL IV PRN; +methylPREDNISolone 125MG 2ML VIAL IV PRN
[2022-09-10] MEDS ORDERED: FERRIC CARBOXYMALTOSE INJ 750 MG in NS 250 ML (>50kg) IV ONE ×3 (14:00)
[2022-09-10] MEDS ORDERED: NS 1,000 ML IV SCH (14:00)
[2022-09-10 15:45] VITALS: BP 200/102
[2022-09-10] MEDS ORDERED: LOSA50TA28 (16:35)
[2022-09-10] MEDS ORDERED: AMLO1TAB25 PO (23:44)
[2022-09-10] MEDS ORDERED: CHLO125TA PO (23:44)
[2022-09-10] MEDS ORDERED: K-TA10TA2 PO (23:44)
[2022-09-10] MEDS ORDERED: SPIR-10 PO (23:44)
[2022-09-10] MEDS ORDERED: LOSA100T46 PO (23:44)
[2022-09-11] MEDS ORDERED: LOSA50TA28 PO (00:04)
[2022-09-11] MEDS ORDERED: ATEN50TA2 PO (00:04)
== END 2022-09-10 16:00 | disposition home or self-care (01) ==
LOC: M INFU 13:33
PROVIDERS: ATTEND Family Medicine
DX: D50.9 Iron deficiency anemia, unspecified (principal); Z88.2 Allergy status to sulfonamides

== ENCOUNTER 2022-09-10 16:24 | Emergency (ER) | payer MEDICARE, BC ==
[~2022-09-10] VITALS: Ht 154.9 cm; Wt 63.0 kg
[~2022-09-10 16:24] MED LIST changes: -ALBUTEROL SULFATE 2.5MG/0.5ML INH NEB SOLN INH PRN; -EPINEPHrine INJ 1 MG/ML 1ML AMP IM PRN; -diphenhydrAMINE 50MG/ML VIAL IV PRN; -methylPREDNISolone 125MG 2ML VIAL IV PRN
[2022-09-10] MEDS ORDERED: LOSA50TA28 (16:35)
[2022-09-10 17:17] LABS: BASO % 0.8 % (0.0-1.0); EOS # 0.1 10^3/uL (0.0-0.5); EOS % 1.6 % (0.0-3.0); HEMATOCRIT 42.8 % (36.0-47.0); HEMOGLOBIN 14.4 g/dl (12.0-15.5); LYMPH # 1.8 10^3/uL (1.5-5.0); LYMPH % 34.8 % (24.0-44.0); MEAN CORPUSCULAR HEMOGLOBIN 30.8 pg (27.0-33.0); MEAN CORPUSCULAR HGB CONC 33.6 g/dl (32.0-36.5); MEAN CORPUSCULAR VOLUME 91.5 fl (80.0-96.0); MONO # 0.4 10^3/uL (0.0-0.8); MONO % 7.9 % (2.0-8.0); NEUTROPHILS # 2.8 10^3/uL (1.5-8.5); NEUTROPHILS % 54.7 % (36.0-66.0); PLATELET COUNT, AUTOMATED 204 10^3/uL (150-450); RED BLOOD COUNT 4.68 10^6/uL (4.00-5.40); WHITE BLOOD COUNT 5.1 10^3/uL (4.0-10.0)
[2022-09-10 17:31] LABS: INR 0.99; PROTHROMBIN TIME 13.3 SECONDS (12.5-14.5)
[2022-09-10 17:36] LABS: LIPASE 25 U/L (12-53)
[2022-09-10 17:38] LABS: ALBUMIN 4.6 G/DL (3.2-5.2); ALKALINE PHOSPHATASE 74 U/L (46-116); ALT/SGPT 13 U/L (7.0-40); AST/SGOT 19 U/L (<34); BILIRUBIN,DIRECT 0.4 MG/DL (<0.4); BLOOD UREA NITROGEN 9 MG/DL (9-23); CALCIUM LEVEL 9.4 MG/DL (8.3-10.6); CARBON DIOXIDE LEVEL 26 MMOL/L (20-31); CHLORIDE LEVEL 108 MMOL/L (98-107); CK-MB VALUE MASS 3.2 NG/ML (<3.6); GLOMERULAR FILTRATION RATE > 60.0 (>32); GLUCOSE, FASTING 97 MG/DL (74-106); POTASSIUM SERUM 3.6 MMOL/L (3.5-5.1); SODIUM LEVEL 142 MMOL/L (136-145); TOTAL PROTEIN 7.3 G/DL (5.7-8.2)
[2022-09-10 17:49] LABS: CPK CREATINE PHOSPHOKINASE 167 U/L (34-145); MB/CK RELATIVE INDEX 1.91 (< OR =4)
[2022-09-10] MEDS ORDERED: LABETALOL 100MG/20ML VIAL IV STA (18:17)
[2022-09-10] MEDS ORDERED: LOSARTAN 50MG TABLET PO ONE ×2 (18:20→21:30)
[2022-09-10 18:39] LABS: APPEARANCE, URINE CLEAR (CLEAR); BACTERIA, URINE AUTO 1+ (NEGATIVE); BILIRUBIN, URINE AUTO NEGATIVE (NEGATIVE); BLOOD, URINE BLOOD 1+ (NEGATIVE); COLOR, URINE YELLOW (YELLOW); GLUCOSE, URINE (UA) AUTO NEGATIVE (NEGATIVE); KETONE, URINE AUTO NEGATIVE (NEGATIVE); LEUKOCYTE ESTERASE, URINE AUTO NEGATIVE (NEGATIVE); NITRITE, URINE AUTO NEGATIVE (NEGATIVE); PROTEIN, URINE AUTO NEGATIVE (NEGATIVE); RBC, URINE AUTO 1 /HPF (0-3); SPECIFIC GRAVITY URINE AUTO 1.005 (1.002-1.035); SQUAMOUS EPITHELIAL CELL UR AU 0 /HPF (0-6); UROBILINOGEN, URINE AUTO 0.2 mg/dL (0.0-2.0); WBC, URINE AUTO 1 /HPF (0-3)
[2022-09-10] MEDS ORDERED: atenoloL 50 MG TAB PO ONE (20:10)
[2022-09-10] MEDS ORDERED: CHLORTHALIDONE 12.5MG PER 1/2 TABLET PO ONE (20:10)
[2022-09-10] MEDS ORDERED: SPIRONOLACTONE 12.5MG PER 1/2 TABLET PO STA (20:13)
[2022-09-10] MEDS ORDERED: FUROSEMIDE 40MG/4ML VIAL IV ONE (21:30)
[2022-09-10 22:02] VITALS: BP 200/106
[2022-09-10] MEDS ORDERED: POTASSIUM CHLORIDE 10MEQ SR TABLET PO ONE (23:30)
[2022-09-10] MEDS ORDERED: CHLO125TA PO (23:44)
[2022-09-10] MEDS ORDERED: K-TA10TA2 PO (23:44)
[2022-09-10] MEDS ORDERED: LOSA100T46 PO (23:44)
[2022-09-10] MEDS ORDERED: SPIR-10 PO (23:44)
[2022-09-10] MEDS ORDERED: AMLO1TAB25 PO (23:44)
[2022-09-10 23:48] LABS: MAGNESIUM LEVEL 2.2 MG/DL (1.8-2.4)
[2022-09-11] MEDS ORDERED: LOSA50TA28 PO (00:04)
[2022-09-11] MEDS ORDERED: ATEN50TA2 PO (00:04)
[2022-09-11 00:11] VITALS: BP 180/90
[2022-09-11] MEDS ORDERED: SPIRONOLACTONE 12.5MG PER 1/2 TABLET PO SCH (09:00)
== END 2022-09-11 00:26 | disposition home or self-care (01) ==
LOC: M ED 16:24
DX: I10 Essential (primary) hypertension (principal); R74.8 Abnormal levels of other serum enzymes; I51.7 Cardiomegaly; I25.10 Atherosclerotic heart disease of native coronary artery without angina pectoris; I25.2 Old myocardial infarction; E03.9 Hypothyroidism, unspecified; D50.9 Iron deficiency anemia, unspecified; Z79.01 Long term (current) use of anticoagulants; Z79.899 Other long term (current) drug therapy; Z88.2 Allergy status to sulfonamides
CPT/HCPCS: 70450; 71045; 71250; 80053; 81001; 82248; 82550; 82553; 83690; 83735; 84484; 85025; 85610; 93005; 93041; 94760; 96365; 96366; 96374; 96375; 99285; J1439; J1940

== ENCOUNTER → 2022-09-23 | Outpatient (CLI) | payer MEDICARE, BC ==
[~2022-09-23] MED LIST changes: +AMLO1TAB25 PO; +ATEN50TA2 PO; +CHLO125TA PO; +K-TA10TA2 PO; +LOSA100T46 PO; +LOSA50TA28; +LOSA50TA28 PO; +SPIR-10 PO
[2022-09-23 18:34] LABS: ALBUMIN 4.7 G/DL (3.2-5.2); BILIRUBIN,TOTAL 0.7 MG/DL (0.3-1.2); CALCIUM LEVEL 10.2 MG/DL (8.3-10.6); CK-MB VALUE MASS 2.6 NG/ML (<3.6); CREATININE FOR GFR 1.63 MG/DL (0.55-1.30); GLOMERULAR FILTRATION RATE 31.9 (>32); MAGNESIUM LEVEL 2.2 MG/DL (1.8-2.4); MB/CK RELATIVE INDEX 3.25 (< OR =4); POTASSIUM SERUM 4.5 MMOL/L (3.5-5.1); TOTAL PROTEIN 7.6 G/DL (5.7-8.2)
== END ==
LOC: M PLALAB 15:21
PROVIDERS: ATTEND Physician Assistant Medical
DX: I25.10 Atherosclerotic heart disease of native coronary artery without angina pectoris (principal); I10 Essential (primary) hypertension

== ENCOUNTER → 2022-09-24 | Outpatient (CLI) | payer MEDICARE, BC ==
[2022-09-24 14:05] LABS: CK-MB VALUE MASS 1.7 NG/ML (<3.6)
[2022-09-24 14:09] LABS: MB/CK RELATIVE INDEX 2.36 (< OR =4)
[2022-09-24 18:01] LABS: CALCIUM LEVEL 9.4 MG/DL (8.3-10.6); CREATININE FOR GFR 1.58 MG/DL (0.55-1.30); GLOMERULAR FILTRATION RATE 33.1 (>32); POTASSIUM SERUM 4.2 MMOL/L (3.5-5.1)
== END ==
LOC: M PLALAB 11:16
PROVIDERS: ATTEND Physician Assistant Medical
DX: I25.10 Atherosclerotic heart disease of native coronary artery without angina pectoris (principal); N17.9 Acute kidney failure, unspecified; I5A Non-ischemic myocardial injury (non-traumatic)

== ENCOUNTER → 2022-09-25 | Outpatient (CLI) | payer MEDICARE, BC ==
[2022-09-25 13:52] LABS: CK-MB VALUE MASS 1.8 NG/ML (<3.6)
[2022-09-25 13:53] LABS: MB/CK RELATIVE INDEX 1.53 (< OR =4)
[2022-09-25 13:54] LABS: CREATININE FOR GFR 1.35 MG/DL (0.55-1.30); GLOMERULAR FILTRATION RATE 39.7 (>32); POTASSIUM SERUM 3.9 MMOL/L (3.5-5.1)
== END ==
LOC: M PLALAB 11:59
PROVIDERS: ATTEND Physician Assistant Medical
DX: N17.9 Acute kidney failure, unspecified (principal); I25.10 Atherosclerotic heart disease of native coronary artery without angina pectoris; I48.0 Paroxysmal atrial fibrillation

== ENCOUNTER → 2022-09-25 | Outpatient (REF) | payer MEDICARE, BC | LOC: M SFHCPLAZ 11:39 | PROVIDERS: ATTEND Physician Assistant Medical | DX: N17.9 Acute kidney failure, unspecified (principal); I25.10 Atherosclerotic heart disease of native coronary artery without angina pectoris; I48.0 Paroxysmal atrial fibrillation ==

== ENCOUNTER → 2022-09-26 | Outpatient (CLI) | payer MEDICARE, BC ==
[2022-09-26 13:59] LABS: CALCIUM LEVEL 9.4 MG/DL (8.3-10.6); CK-MB VALUE MASS 2.3 NG/ML (<3.6); CREATININE FOR GFR 1.19 MG/DL (0.55-1.30); GLOMERULAR FILTRATION RATE 45.9 (>32); MB/CK RELATIVE INDEX 2.23 (< OR =4); POTASSIUM SERUM 3.6 MMOL/L (3.5-5.1)
== END ==
LOC: M PLALAB 10:30
PROVIDERS: ATTEND Physician Assistant
DX: N17.9 Acute kidney failure, unspecified (principal); I5A Non-ischemic myocardial injury (non-traumatic); I10 Essential (primary) hypertension; I48.0 Paroxysmal atrial fibrillation

== ENCOUNTER → 2022-09-29 | Outpatient (CLI) | payer MEDICARE, BC ==
[2022-09-29 18:09] LABS: ALBUMIN 4.1 G/DL (3.2-5.2); CALCIUM LEVEL 9.3 MG/DL (8.3-10.6); CREATININE FOR GFR 1.06 MG/DL (0.55-1.30); GLOMERULAR FILTRATION RATE 52.4 (>32); PHOSPHORUS LEVEL 1.9 MG/DL (2.4-5.1)
[2022-09-29 18:26] LABS: APPEARANCE, URINE HAZY (CLEAR); BACTERIA, URINE AUTO 2+ (NEGATIVE); BILIRUBIN, URINE AUTO NEGATIVE (NEGATIVE); BLOOD, URINE BLOOD 1+ (NEGATIVE); COLOR, URINE YELLOW (YELLOW); GLUCOSE, URINE (UA) AUTO NEGATIVE (NEGATIVE); KETONE, URINE AUTO NEGATIVE (NEGATIVE); LEUKOCYTE ESTERASE, URINE AUTO NEGATIVE (NEGATIVE); NITRITE, URINE AUTO POSITIVE (NEGATIVE); PROTEIN, URINE AUTO 2+ mg/dL (NEGATIVE); RBC, URINE AUTO 1 /HPF (0-3); SQUAMOUS EPITHELIAL CELL UR AU 3 /HPF (0-6); UROBILINOGEN, URINE AUTO 0.2 mg/dL (0.0-2.0); WBC, URINE AUTO 8 /HPF (0-3)
== END ==
LOC: M PLALAB 14:52
PROVIDERS: ATTEND Internal Medicine Cardiovascular Disease
DX: I10 Essential (primary) hypertension (principal)

== ENCOUNTER → 2022-12-25 | Outpatient (CLI) | payer MEDICARE, BC ==
[~2022-12-25] MED LIST changes: -K-TA10TA2 PO; +POTA-165 PO; -ROSU20TA5; +ROSU20TA61
[2022-12-25 14:30] LABS: ALBUMIN 4.4 G/DL (3.2-5.2); BLOOD UREA NITROGEN 19 MG/DL (9-23); CALCIUM LEVEL 10.2 MG/DL (8.3-10.6); CARBON DIOXIDE LEVEL 28 MMOL/L (20-31); CHLORIDE LEVEL 101 MMOL/L (98-107); CREATININE FOR GFR 0.74 MG/DL (0.55-1.30); GLOMERULAR FILTRATION RATE > 60.0 (>32); GLUCOSE, FASTING 101 MG/DL (74-106); MAGNESIUM LEVEL 2.2 MG/DL (1.8-2.4); PHOSPHORUS LEVEL 4.3 MG/DL (2.4-5.1); POTASSIUM SERUM 4.5 MMOL/L (3.5-5.1); SODIUM LEVEL 138 MMOL/L (136-145)
== END ==
LOC: M PLALAB 09:25
PROVIDERS: ATTEND Internal Medicine Cardiovascular Disease
DX: I11.9 Hypertensive heart disease without heart failure (principal)

== ENCOUNTER → 2023-02-12 | Outpatient (REF) | payer MEDICARE, BC | LOC: M SFHCPLAZ 13:47 | PROVIDERS: ATTEND Family Medicine | DX: D50.0 Iron deficiency anemia secondary to blood loss (chronic) (principal); I10 Essential (primary) hypertension; E03.9 Hypothyroidism, unspecified ==

== ENCOUNTER → 2023-02-17 | Outpatient (CLI) | payer MEDICARE, BC ==
[2023-02-17 10:36] LABS: BASO % 0.7 % (0.0-1.0); EOS # 0.1 10^3/uL (0.0-0.5); EOS % 2.5 % (0.0-3.0); HEMATOCRIT 40.6 % (36.0-47.0); HEMOGLOBIN 13.2 g/dl (12.0-15.5); LYMPH # 1.7 10^3/uL (1.5-5.0); LYMPH % 30.9 % (24.0-44.0); MEAN CORPUSCULAR HEMOGLOBIN 30.8 pg (27.0-33.0); MEAN CORPUSCULAR HGB CONC 32.5 g/dl (32.0-36.5); MEAN CORPUSCULAR VOLUME 94.6 fl (80.0-96.0); MONO # 0.5 10^3/uL (0.0-0.8); MONO % 8.5 % (2.0-8.0); NEUTROPHILS # 3.2 10^3/uL (1.5-8.5); NEUTROPHILS % 57.2 % (36.0-66.0); PLATELET COUNT, AUTOMATED 242 10^3/uL (150-450); RED BLOOD COUNT 4.29 10^6/uL (4.00-5.40); WHITE BLOOD COUNT 5.6 10^3/uL (4.0-10.0)
[2023-02-17 10:39] LABS: BLOOD UREA NITROGEN 12 MG/DL (9-23); CALCIUM LEVEL 9.3 MG/DL (8.3-10.6); CARBON DIOXIDE LEVEL 29 MMOL/L (20-31); CHLORIDE LEVEL 106 MMOL/L (98-107); CREATININE FOR GFR 0.61 MG/DL (0.55-1.30); GLOMERULAR FILTRATION RATE > 60.0 (>32); GLUCOSE, FASTING 99 MG/DL (74-106); POTASSIUM SERUM 3.8 MMOL/L (3.5-5.1); SODIUM LEVEL 141 MMOL/L (136-145)
[2023-02-17 10:40] LABS: PTH INTACT 50.8 PG/ML (18.5-88.0)
[2023-02-17 10:43] LABS: FERRITIN 119.5 NG/ML (7.3-270.7); FREE T4 1.28 NG/DL (0.89-1.76)
[2023-02-17 10:44] LABS: VITAMIN B12 LEVEL 700 PG/ML (211-911)
[2023-02-17 11:22] LABS: THYROID STIMULATING HORMONE 0.481 uIU/ML (0.55-4.78)
[2023-02-17 15:54] LABS: ALBUMIN 4.1 G/DL (3.2-5.2)
== END ==
LOC: M PLALAB 08:17
PROVIDERS: ATTEND Family Medicine
DX: D50.0 Iron deficiency anemia secondary to blood loss (chronic) (principal); I10 Essential (primary) hypertension; E03.9 Hypothyroidism, unspecified

== ENCOUNTER → 2023-08-14 | Outpatient (CLI) | payer MEDICARE, BC ==
[2023-08-14 13:59] LABS: ALBUMIN 4.1 G/DL (3.2-5.2); ALKALINE PHOSPHATASE 86 U/L (46-116); ALT/SGPT 17 U/L (7.0-40); AST/SGOT 20 U/L (<34); BILIRUBIN,TOTAL 0.9 MG/DL (0.3-1.2); BLOOD UREA NITROGEN 14 MG/DL (9-23); CALCIUM LEVEL 9.8 MG/DL (8.3-10.6); CARBON DIOXIDE LEVEL 28 MMOL/L (20-31); CHLORIDE LEVEL 106 MMOL/L (98-107); GLOMERULAR FILTRATION RATE > 60.0 (>32); GLUCOSE, FASTING 104 MG/DL (74-106); SODIUM LEVEL 140 MMOL/L (136-145)
[2023-08-18 18:11] LABS: IMMUNOTYPING SERUM IGA SO 228 mg/dL (64-422); IMMUNOTYPING SERUM IGM SO 50 mg/dL (26-217)
== END ==
LOC: M PLALAB 09:27
PROVIDERS: ATTEND Family Medicine
DX: E88.09 Other disorders of plasma-protein metabolism, not elsewhere classified (principal)

== ENCOUNTER → 2023-08-20 | Outpatient (REF) | payer MEDICARE, BC | LOC: M SFHCPLAZ 10:08 | PROVIDERS: ATTEND Family Medicine | DX: I50.32 Chronic diastolic (congestive) heart failure (principal); D50.0 Iron deficiency anemia secondary to blood loss (chronic); R73.01 Impaired fasting glucose; E78.2 Mixed hyperlipidemia ==

== ENCOUNTER → 2024-02-02 | Outpatient (REF) | payer MEDICARE, BC | LOC: M SFHCPLAZ 12:11 | PROVIDERS: ATTEND Family Medicine | DX: I50.32 Chronic diastolic (congestive) heart failure (principal); D50.0 Iron deficiency anemia secondary to blood loss (chronic); R73.01 Impaired fasting glucose; E78.2 Mixed hyperlipidemia ==

== ENCOUNTER → 2024-02-02 | Outpatient (CLI) | payer MEDICARE, BC ==
[2024-02-02 15:09] LABS: BASO # 0.1 10^3/uL (0.0-0.2); BASO % 0.8 % (0.0-1.0); EOS # 0.1 10^3/uL (0.0-0.5); EOS % 2.2 % (0.0-3.0); HEMATOCRIT 43.3 % (36.0-47.0); HEMOGLOBIN 14.1 g/dl (12.0-15.5); LYMPH # 2.5 10^3/uL (1.5-5.0); LYMPH % 37.8 % (24.0-44.0); MEAN CORPUSCULAR HEMOGLOBIN 30.3 pg (27.0-33.0); MEAN CORPUSCULAR HGB CONC 32.6 g/dl (32.0-36.5); MEAN CORPUSCULAR VOLUME 92.9 fl (80.0-96.0); MONO # 0.5 10^3/uL (0.0-0.8); MONO % 8.2 % (2.0-8.0); NEUTROPHILS # 3.3 10^3/uL (1.5-8.5); NEUTROPHILS % 50.7 % (36.0-66.0); PLATELET COUNT, AUTOMATED 253 10^3/uL (150-450); RED BLOOD COUNT 4.66 10^6/uL (4.00-5.40); WHITE BLOOD COUNT 6.5 10^3/uL (4.0-10.0)
[2024-02-02 15:36] LABS: C REACTIVE PROTEIN QUANTITATIV < 0.40 MG/DL (<1.0)
[2024-02-02 15:39] LABS: ALBUMIN 4.5 G/DL (3.2-5.2); ALKALINE PHOSPHATASE 79 U/L (46-116); ALT/SGPT 18 U/L (7.0-40); AST/SGOT 20 U/L (<34); BILIRUBIN,TOTAL 1.2 MG/DL (0.3-1.2); BLOOD UREA NITROGEN 11 MG/DL (9-23); CALCIUM LEVEL 9.8 MG/DL (8.3-10.6); CARBON DIOXIDE LEVEL 29 MMOL/L (20-31); CHLORIDE LEVEL 105 MMOL/L (98-107); CHOLESTEROL LEVEL 146 MG/DL (<200); CPK CREATINE PHOSPHOKINASE 128 U/L (34-145); CREATININE FOR GFR 0.63 MG/DL (0.55-1.30); FERRITIN 105.6 NG/ML (7.3-270.7); GLOMERULAR FILTRATION RATE > 60.0 (>32); GLUCOSE, FASTING 97 MG/DL (74-106); HDL CHOLESTEROL 69.5 MG/DL (>40); LDL CHOLESTEROL 59.1 MG/DL (<100); MAGNESIUM LEVEL 2.2 MG/DL (1.8-2.4); NON-HDL-C 76.5 MG/DL; POTASSIUM SERUM 4.1 MMOL/L (3.5-5.1); SODIUM LEVEL 140 MMOL/L (136-145); THYROID STIMULATING HORMONE 0.596 uIU/ML (0.55-4.78); TOTAL PROTEIN 7.8 G/DL (5.7-8.2); TRIGLYCERIDES LEVEL 87 MG/DL (<150)
[2024-02-02 15:40] LABS: FREE T4 1.58 NG/DL (0.89-1.76)
== END ==
LOC: M PLALAB 12:35
PROVIDERS: ATTEND Family Medicine
DX: I50.32 Chronic diastolic (congestive) heart failure (principal); D50.0 Iron deficiency anemia secondary to blood loss (chronic); R73.01 Impaired fasting glucose; E78.2 Mixed hyperlipidemia

== ENCOUNTER → 2024-02-08 | Outpatient (REF) | payer MEDICARE, BC | LOC: M SFHCPLAZ 17:35 | PROVIDERS: ATTEND Family Medicine | DX: I50.32 Chronic diastolic (congestive) heart failure (principal); D50.0 Iron deficiency anemia secondary to blood loss (chronic); R73.01 Impaired fasting glucose; E78.2 Mixed hyperlipidemia ==

== ENCOUNTER → 2024-05-30 | Outpatient (CLI) | payer MEDICARE, BC ==
[~2024-05-30] MED LIST changes: -ROSU20TA61; +ROSU20TA86
[2024-05-30 12:30] LABS: BASO # 0.1 10^3/uL (0.0-0.2); BASO % 0.8 % (0.0-1.0); EOS # 0.1 10^3/uL (0.0-0.5); EOS % 1.1 % (0.0-3.0); HEMATOCRIT 42.1 % (36.0-47.0); LYMPH # 2.3 10^3/uL (1.5-5.0); LYMPH % 34.9 % (24.0-44.0); MEAN CORPUSCULAR HEMOGLOBIN 31.7 pg (27.0-33.0); MEAN CORPUSCULAR HGB CONC 33.3 g/dl (32.0-36.5); MEAN CORPUSCULAR VOLUME 95.2 fl (80.0-96.0); MONO # 0.4 10^3/uL (0.0-0.8); MONO % 6.7 % (2.0-8.0); NEUTROPHILS # 3.7 10^3/uL (1.5-8.5); PLATELET COUNT, AUTOMATED 212 10^3/uL (150-450); RED BLOOD COUNT 4.42 10^6/uL (4.00-5.40); WHITE BLOOD COUNT 6.6 10^3/uL (4.0-10.0)
[2024-05-30 12:52] LABS: C REACTIVE PROTEIN QUANTITATIV < 0.50 MG/DL (<1.0)
[2024-05-30 12:53] LABS: CPK CREATINE PHOSPHOKINASE 172 U/L (34-145)
[2024-05-30 12:54] LABS: ALBUMIN 4.5 G/DL (3.2-5.2); ALKALINE PHOSPHATASE 65 U/L (35-104); ALT/SGPT 14 U/L (7.0-40); AST/SGOT 18 U/L (<34); BILIRUBIN,TOTAL 0.9 MG/DL (0.3-1.2); BLOOD UREA NITROGEN 10 MG/DL (9-23); CALCIUM LEVEL 9.7 MG/DL (8.3-10.6); CARBON DIOXIDE LEVEL 28 MMOL/L (20-31); CHLORIDE LEVEL 106 MMOL/L (98-107); CHOLESTEROL LEVEL 170 MG/DL (<200); CHOLESTEROL RISK RATIO 2.29 (<5); CREATININE FOR GFR 0.72 MG/DL (0.55-1.30); FERRITIN 69.4 NG/ML (7.3-270.7); FREE T4 1.04 NG/DL (0.89-1.76); GLOMERULAR FILTRATION RATE > 60.0 (>32); GLUCOSE, FASTING 100 MG/DL (74-106); LDL CHOLESTEROL 81.6 MG/DL (<100); POTASSIUM SERUM 4.2 MMOL/L (3.5-5.1); SODIUM LEVEL 144 MMOL/L (136-145); THYROID STIMULATING HORMONE 20.011 uIU/ML (0.55-4.78); TOTAL PROTEIN 7.6 G/DL (5.7-8.2); TRIGLYCERIDES LEVEL 72 MG/DL (<150)
[2024-05-31 23:13] LABS: CYCLIC CITRULLINATED PEPTIDE < 16 UNITS (<20)
== END ==
LOC: M PLALAB 08:27
PROVIDERS: ATTEND Family Medicine
DX: I50.32 Chronic diastolic (congestive) heart failure (principal); D50.0 Iron deficiency anemia secondary to blood loss (chronic); R73.01 Impaired fasting glucose; E78.2 Mixed hyperlipidemia

== ENCOUNTER → 2024-08-26 | Outpatient (CLI) | payer MEDICARE, BC ==
[2024-08-26 16:22] LABS: BASO # 0.1 10^3/uL (0.0-0.2); BASO % 0.7 % (0.0-1.0); EOS # 0.1 10^3/uL (0.0-0.5); EOS % 1.2 % (0.0-3.0); HEMATOCRIT 39.3 % (36.0-47.0); LYMPH # 1.9 10^3/uL (1.5-5.0); LYMPH % 25.3 % (24.0-44.0); MEAN CORPUSCULAR HEMOGLOBIN 31.4 pg (27.0-33.0); MEAN CORPUSCULAR HGB CONC 33.1 g/dl (32.0-36.5); MEAN CORPUSCULAR VOLUME 94.9 fl (80.0-96.0); MONO # 0.6 10^3/uL (0.0-0.8); MONO % 7.4 % (2.0-8.0); NEUTROPHILS # 4.9 10^3/uL (1.5-8.5); NEUTROPHILS % 64.7 % (36.0-66.0); PLATELET COUNT, AUTOMATED 258 10^3/uL (150-450); RED BLOOD COUNT 4.14 10^6/uL (4.00-5.40); WHITE BLOOD COUNT 7.6 10^3/uL (4.0-10.0)
[2024-08-26 16:50] LABS: HEMOGLOBIN A1c 4.7 % (4.0-6.0)
[2024-08-26 16:52] LABS: ALBUMIN 4.3 G/DL (3.2-5.2); CALCIUM LEVEL 9.7 MG/DL (8.3-10.6); CREATININE FOR GFR 0.66 MG/DL (0.55-1.30); GLOMERULAR FILTRATION RATE 84.9 (>32); POTASSIUM SERUM 4.2 MMOL/L (3.5-5.1); TOTAL PROTEIN 7.1 G/DL (5.7-8.2)
[2024-08-26 16:54] LABS: TOTAL 25(OH) VITAMIN D 49.1 NG/ML (20.0-100.0)
[2024-08-26 16:55] LABS: THYROID STIMULATING HORMONE 3.005 uIU/ML (0.55-4.78)
[2024-08-26 16:56] LABS: FREE T4 1.38 NG/DL (0.89-1.76)
[2024-08-26 16:57] LABS: PTH INTACT 53.1 PG/ML (18.5-88.0)
== END ==
LOC: M PLALAB 11:37
PROVIDERS: ATTEND Family Medicine
DX: I50.32 Chronic diastolic (congestive) heart failure (principal); D50.0 Iron deficiency anemia secondary to blood loss (chronic); E78.2 Mixed hyperlipidemia; E55.9 Vitamin D deficiency, unspecified; R73.01 Impaired fasting glucose

== ENCOUNTER → 2024-12-06 | Outpatient (CLI) | payer MEDICARE, BC ==
[2024-12-06 13:54] LABS: BASO # 0.1 10^3/uL (0.0-0.2); BASO % 0.7 % (0.0-1.0); EOS # 0.1 10^3/uL (0.0-0.5); EOS % 1.4 % (0.0-3.0); LYMPH # 2.4 10^3/uL (1.5-5.0); LYMPH % 33.4 % (24.0-44.0); MONO # 0.5 10^3/uL (0.0-0.8); MONO % 7.1 % (2.0-8.0); NEUTROPHILS # 4.1 10^3/uL (1.5-8.5); NEUTROPHILS % 57.1 % (36.0-66.0); PLATELET COUNT, AUTOMATED 209 10^3/uL (150-450)
[2024-12-06 14:08] LABS: C REACTIVE PROTEIN QUANTITATIV < 0.50 MG/DL (<1.0)
[2024-12-06 14:10] LABS: IRON (FE) 77 UG/DL (50-170)
[2024-12-06 14:11] LABS: CPK CREATINE PHOSPHOKINASE 123 U/L (34-145); PERCENT SATURATION 29.1 % (13.2-45.0)
[2024-12-06 14:12] LABS: ALT/SGPT 18 U/L (7.0-40); AST/SGOT 26 U/L (<34); CALCIUM LEVEL 8.8 MG/DL (8.3-10.6); CARBON DIOXIDE LEVEL 26 MMOL/L (20-31); CHLORIDE LEVEL 105 MMOL/L (98-107); CHOLESTEROL LEVEL 206 MG/DL (<200); CHOLESTEROL RISK RATIO 3.44 (<5); CREATININE FOR GFR 0.71 MG/DL (0.55-1.30); GLOMERULAR FILTRATION RATE 82.2 (>32); LDL CHOLESTEROL 130.0 MG/DL (<100); MAGNESIUM LEVEL 2.0 MG/DL (1.8-2.4); NON-HDL-C 146.2 MG/DL; POTASSIUM SERUM 4.1 MMOL/L (3.5-5.1); PTH INTACT 61.5 PG/ML (18.5-88.0); SODIUM LEVEL 144 MMOL/L (136-145); TRIGLYCERIDES LEVEL 81 MG/DL (<150)
[2024-12-06 14:16] LABS: FREE T4 1.12 NG/DL (0.89-1.76)
[2024-12-06 14:23] LABS: TOTAL 25(OH) VITAMIN D 47.6 NG/ML (20.0-100.0)
[2024-12-06 14:43] LABS: ESTIMATED AVERAGE GLUCOSE 108.0 MG/DL (60-110)
== END ==
LOC: M PLALAB 10:22
PROVIDERS: ATTEND Physician Assistant
DX: E78.2 Mixed hyperlipidemia (principal); D50.0 Iron deficiency anemia secondary to blood loss (chronic); I50.32 Chronic diastolic (congestive) heart failure; R73.01 Impaired fasting glucose

== ENCOUNTER → 2025-04-17 | Outpatient (CLI) | payer MEDICARE, BC ==
[2025-04-17 13:29] LABS: BASO # 0.1 10^3/uL (0.0-0.2); BASO % 0.9 % (0.0-1.0); EOS # 0.1 10^3/uL (0.0-0.5); EOS % 2.0 % (0.0-3.0); LYMPH # 2.1 10^3/uL (1.5-5.0); LYMPH % 30.0 % (24.0-44.0); MONO # 0.6 10^3/uL (0.0-0.8); MONO % 8.1 % (2.0-8.0); NEUTROPHILS # 4.1 10^3/uL (1.5-8.5); NEUTROPHILS % 58.7 % (36.0-66.0); PLATELET COUNT, AUTOMATED 262 10^3/uL (150-450)
[2025-04-17 13:41] LABS: ESTIMATED AVERAGE GLUCOSE 100.0 MG/DL (60-110)
[2025-04-17 14:27] LABS: ALT/SGPT 13 U/L (7.0-40); AST/SGOT 23 U/L (<34); C REACTIVE PROTEIN QUANTITATIV < 0.50 MG/DL (<1.0); CALCIUM LEVEL 9.4 MG/DL (8.3-10.6); CARBON DIOXIDE LEVEL 29 MMOL/L (20-31); CHLORIDE LEVEL 103 MMOL/L (98-107); CHOLESTEROL LEVEL 160 MG/DL (<200); CHOLESTEROL RISK RATIO 2.14 (<5); CPK CREATINE PHOSPHOKINASE 113 U/L (34-145); CREATININE FOR GFR 0.75 MG/DL (0.55-1.30); FREE T4 1.34 NG/DL (0.89-1.76); GLOMERULAR FILTRATION RATE 76.5 (>32); IRON (FE) 81 UG/DL (50-170); LDL CHOLESTEROL 68.3 MG/DL (<100); MAGNESIUM LEVEL 2.0 MG/DL (1.8-2.4); NON-HDL-C 85.3 MG/DL; PERCENT SATURATION 26.7 % (13.2-45.0); POTASSIUM SERUM 4.0 MMOL/L (3.5-5.1); PTH INTACT 64.7 PG/ML (18.5-88.0); SODIUM LEVEL 142 MMOL/L (136-145); TOTAL 25(OH) VITAMIN D 49.3 NG/ML (20.0-100.0); TRIGLYCERIDES LEVEL 85 MG/DL (<150); VITAMIN B12 LEVEL 828 PG/ML (211-911)
== END ==
LOC: M PLALAB 09:24
PROVIDERS: ATTEND Family Medicine
DX: E53.8 Deficiency of other specified B group vitamins (principal); E78.2 Mixed hyperlipidemia; I50.32 Chronic diastolic (congestive) heart failure; D50.0 Iron deficiency anemia secondary to blood loss (chronic); R73.01 Impaired fasting glucose; E55.9 Vitamin D deficiency, unspecified